=== PATIENT | male | born 1960 | race Caucasian/White ===

== ENCOUNTER 2018-09-21 14:19 | Emergency (ER) | payer MEDICAID, SELFPAY ==
--- NOTE | 2018-09-21 14:32 | ED.GENADUL_ITS ---
Discharge Plan Disposition Patient Disposition: AGAINST MEDICAL ADVICE Condition: Fair Discharge Details Chief Complaint: Cellulitis Clinical Impression: Finger infection Reason For Visit: infected finger / worse Primary Care Provider: Peter Spencer ED Provider: Diana Tom Home Meds and New Rx's Prescriptions: Continued amitriptyline 50 MG tablet 100 mg PO HS RF: 0 Lyrica 150 MG capsule 150 mg PO TID RF: 0 acetaminophen [Mapap Extra Strength] 500 MG tablet 2 mg PO RF: 0 docusate sodium [Colace] 100 MG capsule 1 tab PO TID RF: 0 oxycodone 15 mg Tablet, Oral Only 1 tab PO QID RF: 0 morphine 15 mg Tablet 15 mg PO TID PRNRF: 0 No Action sulfamethoxazole-trimethoprim [Bactrim DS] 800-160 mg tablet 2 tab PO Q12H Qty: 28 RF: 0 Discharge Instructions Instructions: Sulfamethoxazole/Trimethoprim (By mouth), Cellulitis (ED) Additional Instructions: You have elected to leave the emergency department AGAINST MEDICAL ADVICE. The risk of leaving AGAINST MEDICAL ADVICE are and/or permanent disability. You may return to the emergency department any time if you change your mind. Please return to the emergency department immediately if you develop any new or worsening symptoms or if you become otherwise concerned. It is extremely important that you return to the emergency department in the morning for check of your infection. Please continue to take your Keflex as previously prescribed, and please take your new prescription, Bactrim, in addition. 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 Pt is well and non-toxix on exam, FROM of affected digit, no other digits involved, lymphagitic streak into forearm and cellulitis into dorsum of hand. Concern for worsening cellulitis. Exam/hx not c/w sepsis, flexor tenosynovitis. Plan for xray, screening labs, IV vancomycin, wound culture, admission. xray okay. Pt refusing admission, states that his dog is in the car, that he has no one else to care for the dog, and also that he cannot miss work. I had a lengthy discussion with the Pt re: risks of leaving [facility], inc , loss of limb, permanent disability. Pt verbalizes understanding of these risks and continues to refuse admission. Plan to continue keflex, add bactrim, outpt f/u here for recheck tomorrow am. Lengthy discussion with Pt re: RTED precautions, that he may RTED at any time if he changes his mind, and importance of outpt f/u here tomorrow. Pt verbalizes understanding of plan. Medical Records Medical records reviewed: Yes I reviewed the patient's medical records. Imaging Data Radiologic Study: Attestation: I personally reviewed and interpreted this imaging study as follows: Radiologist's impression: RIGHT MIDDLE FINGER: 3 views. Degenerative changes are seen at the distal radial ulnar joint, the radial carpal joint, first carpal metacarpal joint and the interphalangeal joints of the hand. In the middle finger there is a prominent joint space narrowing and periarticular spurring at the distal interphalangeal joint and more moderate changes in the proximal interphalangeal joint. No acute fracture or dislocation is seen. There is soft tissue swelling of the right middle finger. No radiographic findings to suggest acute osteomyelitis are present. Note is again made of a pin within the distal radius. It is unchanged compared to the x-ray from 05/01/13. IMPRESSION: Soft tissue swelling of the right middle finger. No radiographic findings to suggest acute osteomyelitis. If there is continued concern MRI or 3-phase bone scan may be obtained. Lab Data Lab results reviewed: Yes I reviewed the patient's lab results. 09/21/18 16:51 Blood Blood Culture - Final NO GROWTH 120 HOURS 09/21/18 16:43 Blood Blood Culture - Final NO GROWTH 120 HOURS 09/21/18 19:00 Finger - Right Third Digit Wound Culture - Final Group C Streptococcus Normal Mar 09/21/18 19:00 Finger - Right Third Digit Gram Stain - Final Laboratory Tests Range/Units 09/21/18 09/21/18 09/21/18 16:03 16:03 16:03 WBC (4.4-10.8) k/cumm 12.61 H RBC (4.50-6.00) m/cumm 4.13 L Hgb (13.5-17.5) g/dL 12.4 L Hct (40.0-50.0) % 37.7 L MCV (80-95) fL 91.3 MCH (27.0-33.0) pg 30.0 MCHC (32.0-36.0) g/dL 32.9 RDW (11.8-14.1) % 12.8 Plt Count (130-400) x1000/uL 151 MPV (8.0-11.0) fL 9.6 Abs Immat Gran (auto) Immature Gran % 0.1 Neutrophils % 84.2 Lymphocytes % 9.1 Monocytes % 5.9 Eosinophils % 0.6 Basophils % 0.1 Absolute Neutrophils (1.2-6.7) k/cumm 10.62 H Band Neutrophils Absolute Lymphocytes (1.2-3.4) k/cumm 1.15 L Absolute Monocytes (0.11-0.7) k/cumm 0.74 H Absolute Eosinophils (0.0-0.7) k/cumm 0.08 Absolute Basophils (0.0-0.2) k/cumm 0.01 Metamyelocytes Myelocytes Promyelocytes Nucleated RBCs Differential Comment Atypical Lymphocytes Other Cell Type RBC Morphology Polychromasia Hypochromasia Poikilocytosis Basophilic Stippling Anisocytosis Microcytosis Macrocytosis Spherocytes Target Cells Tear Drop Cells Ovalocytes Stomatocytes [place] Bodies Cm Cells Acanthocytes (Spur) Schistocytes ESR (1-20) MM/HR Sodium (136-145) mmol/L 138 Potassium (3.5-5.1) mmol/L 3.6 Chloride (98-107) mmol/L 101 Carbon Dioxide (21.0-32.0) mmol/L 28.7 Anion Gap (3-11) mmol/L 8.3 BUN (7-18) mg/dL 22 H Creatinine (0.70-1.30) mg/dL 1.06 Estimated GFR/1.73 m2 (mL/min/1.73m2) >= 60.00 Glucose (70-100) mg/dL 104 H Lactate (0.6-1.4) mmol/L 0.7 Calcium (8.5-10.1) mg/dL 8.5 Total Bilirubin (0.2-1.0) mg/dL 0.6 AST (15-37) U/L 14 L ALT (12-78) U/L 22 Alkaline Phosphatase (46-116) U/L 147 H C-Reactive Protein (0.0-0.3) mg/dL Total Protein (6.4-8.2) g/dL 6.9 Albumin (3.4-5.0) g/dL 3.4 Range/Units 09/21/18 09/21/18 09/22/18 16:03 16:03 05:35 WBC (4.4-10.8) k/cumm Cancelled RBC (4.50-6.00) m/cumm Cancelled Hgb (13.5-17.5) g/dL Cancelled Hct (40.0-50.0) % Cancelled MCV (80-95) fL Cancelled MCH (27.0-33.0) pg Cancelled MCHC (32.0-36.0) g/dL Cancelled RDW (11.8-14.1) % Cancelled Plt Count (130-400) x1000/uL Cancelled MPV (8.0-11.0) fL Cancelled Abs Immat Gran (auto) Cancelled Immature Gran % Cancelled Neutrophils % Cancelled Lymphocytes % Cancelled Monocytes % Cancelled Eosinophils % Cancelled Basophils % Cancelled Absolute Neutrophils (1.2-6.7) k/cumm Cancelled Band Neutrophils Cancelled Absolute Lymphocytes (1.2-3.4) k/cumm Cancelled Absolute Monocytes (0.11-0.7) k/cumm Cancelled Absolute Eosinophils (0.0-0.7) k/cumm Cancelled Absolute Basophils (0.0-0.2) k/cumm Cancelled Metamyelocytes Cancelled Myelocytes Cancelled Promyelocytes Cancelled Nucleated RBCs Cancelled Differential Comment Cancelled Atypical Lymphocytes Cancelled Other Cell Type Cancelled RBC Morphology Cancelled Polychromasia Cancelled Hypochromasia Cancelled Poikilocytosis Cancelled Basophilic Stippling Cancelled Anisocytosis Cancelled Microcytosis Cancelled Macrocytosis Cancelled Spherocytes Cancelled Target Cells Cancelled Tear Drop Cells Cancelled Ovalocytes Cancelled Stomatocytes Cancelled [place] Bodies Cancelled [place] Cells Cancelled Acanthocytes (Spur) Cancelled Schistocytes Cancelled ESR (1-20) MM/HR 18 Sodium (136-145) mmol/L Potassium (3.5-5.1) mmol/L Chloride (98-107) mmol/L Carbon Dioxide (21.0-32.0) mmol/L Anion Gap (3-11) mmol/L BUN (7-18) mg/dL Creatinine (0.70-1.30) mg/dL Estimated GFR/1.73 m2 (mL/min/1.73m2) Glucose (70-100) mg/dL Lactate (0.6-1.4) mmol/L Calcium (8.5-10.1) mg/dL Total Bilirubin (0.2-1.0) mg/dL AST (15-37) U/L ALT (12-78) U/L Alkaline Phosphatase (46-116) U/L C-Reactive Protein (0.0-0.3) mg/dL 22.45 H Total Protein (6.4-8.2) g/dL Albumin (3.4-5.0) g/dL Range/Units 09/22/18 09/22/18 05:35 05:35 WBC (4.4-10.8) k/cumm RBC (4.50-6.00) m/cumm Hgb (13.5-17.5) g/dL Hct (40.0-50.0) % MCV (80-95) fL MCH (27.0-33.0) pg MCHC (32.0-36.0) g/dL RDW (11.8-14.1) % Plt Count (130-400) x1000/uL MPV (8.0-11.0) fL Abs Immat Gran (auto) Immature Gran % Neutrophils % Lymphocytes % Monocytes % Eosinophils % Basophils % Absolute Neutrophils (1.2-6.7) k/cumm Band Neutrophils Absolute Lymphocytes (1.2-3.4) k/cumm Absolute Monocytes (0.11-0.7) k/cumm Absolute Eosinophils (0.0-0.7) k/cumm Absolute Basophils (0.0-0.2) k/cumm Metamyelocytes Myelocytes Promyelocytes Nucleated RBCs Differential Comment Atypical Lymphocytes Other Cell Type RBC Morphology Polychromasia Hypochromasia Poikilocytosis Basophilic Stippling Anisocytosis Microcytosis Macrocytosis Spherocytes Target Cells Tear Drop Cells Ovalocytes Stomatocytes [place] Bodies [place] Cells Acanthocytes (Spur) Schistocytes ESR (1-20) MM/HR Cancelled Sodium (136-145) mmol/L Potassium (3.5-5.1) mmol/L Chloride (98-107) mmol/L Carbon Dioxide (21.0-32.0) mmol/L Anion Gap (3-11) mmol/L BUN (7-18) mg/dL Creatinine (0.70-1.30) mg/dL Estimated GFR/1.73 m2 (mL/min/1.73m2) Glucose (70-100) mg/dL Lactate (0.6-1.4) mmol/L Calcium (8.5-10.1) mg/dL Total Bilirubin (0.2-1.0) mg/dL AST (15-37) U/L ALT (12-78) U/L Alkaline Phosphatase (46-116) U/L C-Reactive Protein (0.0-0.3) mg/dL Cancelled Total Protein (6.4-8.2) g/dL Albumin (3.4-5.0) g/dL HPI General Mode of arrival: ambulatory . Date/Time Provider Initiated Documentation: 09/21/18 14:31 . Limitations to Documentation: no limitations . Information obtained by: patient, RN notes reviewed and old records reviewed . 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 Patient reports that 2 weeks ago he cut his right middle finger on a piece of metal while working on his car. Patient reports that the wound seems to be doing okay until a few days ago when it began to look infected to him. He saw his PCP 2 days ago for this and was started on Keflex at the time. Patient reports he has had 6 doses of Keflex, and was seen today at his PCPs office for wound check. Was sent here for IV antibiotics as the wound appeared to have streaking up the arm. Patient reports that overall the finger feels improved since he started antibiotics. He has some pain at the finger that he reports is mild. He denies any other pain. Denies fevers, nausea/vomiting, shortness of breath, cough, numbness/tingling. No recent illn esses. Has been eating and drinking as usual. Related Data Home Medications Medication Instructions Recorded Confirmed Lyrica 150 mg PO TID 08/13/14 09/22/18 acetaminophen [Mapap Extra 2 mg PO 08/13/14 08/13/14 Strength] amitriptyline 100 mg PO HS 08/13/14 09/22/18 docusate sodium [Colace] 1 tab PO TID 08/13/14 09/22/18 morphine 15 mg PO TID PRN 09/21/18 09/22/18 oxycodone 1 tab PO QID 09/21/18 09/22/18 sulfamethoxazole-trimethoprim 2 tab PO Q12H #28 tab 09/22/18 [Bactrim DS] Previous Rx's Medication Instructions Recorded sulfamethoxazole-trimethoprim 2 tab PO Q12H #28 tab 09/22/18 [Bactrim DS] Allergies Allergy/AdvReac Type Severity Reaction Status Date / Time iodine Allergy Severe Topical Unverified 09/22/18 15:21 Irritation copper Allergy Intermediate Unverified 09/22/18 15:21 chocolate flavor AdvReac Unverified 09/22/18 15:21 Review of Systems Review of Systems Constitutional: denies fevers Eyes: denies eye pain ENT: denies facial pain, dental pain, sore throat Cardiovascular: denies chest pain, edema Respiratory: denies SOB, cough GI: denies abdominal pain, vomiting, diarrhea : denies flank pain MSK: denies back pain, neck pain, arthralgias, myalgias Skin: reports finger rash Neuro: denies headaches, lightheadedness, weakness PFSH Social History Smoking/Tobacco Use Status: Unknown Exam Narrative Exam Narrative: Constitutional: well and [id number], pleasant, conversing normally HENT: head atraumatic, normocephalic normal inspection, mucous membranes moist Eyes: conjunctiva normal, sclera normal, pupils 3mm b/l Neck: no stridor, normal ROM, trachea midline Chest: normal inspection Resp: normal work of breathing, LCTAB Cardio: normal rate, normal rhythm, no murmur appreciated Back: normal inspection, no rash Skin: warm, dry, normal color, no rash Neuro: alert, not altered, grossly non-focal, normal tone Ext: left infex finger with edema, erythema over dorsal PIP, erythema extending into dorsum of hand with erythematous streak extending proximally into forearm. Scant drainage from ulceration over PIP. dorsal finger TTP. Able to range normally. No volar TTP, no pain with extension. No TTP of hand. Good cap refill of finger. Radial pulse intact. RUE amputation above elbow. Psych: normal mood, normal affect, normal behavior
[2018-09-21 14:34] VITALS: BP 102/58; PULSE 78; RESP 14; TEMP 36; O2SAT 97
[2018-09-21 16:14] LABS: Lactate-non-spesis 0.7 mmol/L (0.6-1.4)
--- NOTE | 2018-09-21 16:17 | DI.RAD_ITS ---
SYMPTOM/DIAGNOSIS: DISTAL FINGER INFECTION. RIGHT MIDDLE FINGER: 3 views. Degenerative changes are seen at the distal radial ulnar joint, the radial carpal joint, first carpal metacarpal joint and the interphalangeal joints of the hand. In the middle finger there is a prominent joint space narrowing and periarticular spurring at the distal interphalangeal joint and more moderate changes in the proximal interphalangeal joint. No acute fracture or dislocation is seen. There is soft tissue swelling of the right middle finger. No radiographic findings to suggest acute osteomyelitis are present. Note is again made of a pin within the distal radius. It is unchanged compared to the x-ray from 05/01/13. IMPRESSION: Soft tissue swelling of the right middle finger. No radiographic findings to suggest acute osteomyelitis. If there is continued concern MRI or 3-phase bone scan may be obtained.
[2018-09-21 16:18] LABS: Abs Immature Grans 0.01 k/cumm (0.0-0.09); Absolute Basophil Count 0.01 k/cumm (0.0-0.2); Absolute Eosinophil Count 0.08 k/cumm (0.0-0.7); Absolute Lymphocyte Count 1.15 k/cumm (1.2-3.4); Basophils % 0.1; Eosinophils % 0.6; HCT 37.7 % (40.0-50.0); HGB 12.4 g/dL (13.5-17.5); Immature Grans % 0.1; Lymphocytes % 9.1; Mean Corp. HGB Concentration 32.9 g/dL (32.0-36.0); Mean Corpuscular Volume 91.3 fL (80-95); Mean Platelet Volume 9.6 fL (8.0-11.0); Monocytes % 5.9; Neutrophils % 84.2; Platelet Count 151 x1000/uL (130-400); RBC 4.13 m/cumm (4.50-6.00); RBC Distribution Width 12.8 % (11.8-14.1); White Blood Cell Count 12.61 k/cumm (4.4-10.8)
[2018-09-21 16:19] LABS: Absolute Monocyte Count 0.74 k/cumm (0.11-0.7); Absolute Neutrophil Count 10.62 k/cumm (1.2-6.7)
[2018-09-21 16:29] LABS: C-Reactive Protein 22.45 mg/dL (0.0-0.3)
[2018-09-21 16:32] LABS: ALT 22 U/L (12-78); AST 14 U/L (15-37); Albumin 3.4 g/dL (3.4-5.0); Alkaline Phosphatase 147 U/L (46-116); Anion Gap 8.3 mmol/L (3-11); BUN 22 mg/dL (7-18); Bilirubin, Total 0.6 mg/dL (0.2-1.0); CO2 28.7 mmol/L (21.0-32.0); CREATININE 1.06 mg/dL (0.70-1.30); Calcium 8.5 mg/dL (8.5-10.1); Chloride 101 mmol/L (98-107); Glucose 104 mg/dL (70-100); Potassium 3.6 mmol/L (3.5-5.1); Sodium 138 mmol/L (136-145); Total Protein 6.9 g/dL (6.4-8.2)
--- NOTE | 2018-09-21 16:40 | DI.VRAD_ITS ---
EXAM: XR Right Finger(s), 2 or More Views EXAM DATE/TIME: 09/21/2018 3:50 PM CLINICAL HISTORY: 58 years old, male; Signs and symptoms; Other: Distal finger infection TECHNIQUE: XR Right finger minimum 2 views. COMPARISON: CR RIGHT HAND COMPLETE 05/01/2013 3:49 PM FINDINGS: Bones/joints: There are degenerative changes of the DIP joint of the right third finger. There is no evidence of osteomyelitis. There is no evidence of a fracture or a dislocation. There is a pin within the distal radius. There are degenerative changes of the radial ulnar joint. There are degenerative changes of the first metacarpal carpal joint. There are degenerative changes of the DIP joints of the second through fifth fingers. Soft tissues: There is soft tissue swelling of the right third finger. IMPRESSION: 1. Soft tissue swelling at the level of the third finger. No evidence of osteomyelitis at this time. If osteomyelitis is of clinical concern further evaluation with a three-phase nuclear medicine bone scan versus MRI examination could be obtained as more sensitive study. 2. Degenerative changes as described above. Dictated and Authenticated by: Blaise Márquez MD. Ordering:PAULINE VILLA MD
[2018-09-21] MEDS: VANCOMYCIN 1,500 MG in Normal Saline 500 ML 333.3333 MG IVPB (16:53)
[2018-09-21 16:55] LABS: ESR 18 MM/HR (1-20)
== END 2018-09-21 19:08 | disposition left against medical advice (07) ==
PROVIDERS: Emergency Provider Student in an Organized Health Care Education/Training Program; PCP Internal Medicine
DX: L08.9 Local infection of the skin and subcutaneous tissue, unspecified (principal); B95.4 Other streptococcus as the cause of diseases classified elsewhere; L03.021 Acute lymphangitis of right finger; Z53.29 Procedure and treatment not carried out because of patient's decision for other reasons
CPT/HCPCS: 36410; 36415; 80053; 85652; 87040; 87077; 96365; 96366; 99284; 73140; 83605; 85025; 86140; 87070; 87205

== ENCOUNTER 2018-09-22 12:40 | Emergency (ER) | payer MEDICAID, SELFPAY ==
[2018-09-22 12:48] VITALS: BP 133/86; PULSE 74; RESP 16; TEMP 36.5; O2SAT 96
--- NOTE | 2018-09-22 13:05 | W.ED.GENAD ---
Discharge Plan Disposition Patient Disposition: HOME Condition: Serious Discharge Details Chief Complaint: Recheck Clinical Impression: Finger abrasion, infected, Cellulitis of finger Primary Care Provider: Peter Spencer ED Provider: So Pennington Home Meds and New Rx's Prescriptions: New sulfamethoxazole-trimethoprim [Bactrim DS] 800-160 mg tablet 2 tab PO Q12H Qty: 28 RF: 0 Continued amitriptyline 50 MG tablet 100 mg PO HS RF: 0 Lyrica 150 MG capsule 150 mg PO TID RF: 0 acetaminophen [Mapap Extra Strength] 500 MG tablet 2 mg PO RF: 0 docusate sodium [Colace] 100 MG capsule 1 tab PO TID RF: 0 oxycodone 15 mg Tablet, Oral Only 1 tab PO QID RF: 0 morphine 15 mg Tablet 15 mg PO TID PRNRF: 0 Discontinued sulfamethoxazole-trimethoprim [Bactrim DS] 800-160 mg tablet 1 tab PO BID Qty: 19 RF: 0 Discharge Instructions Instructions: Cellulitis (ED) Additional Instructions: Keep wound clean, dry, covered. Please wear gloves while at work. Please soak digit as advised by Dr. Dunaway. Please take prescription for Bactrim as prescribed today. Stop other antibiotics. You have appoitment with primary care tomorrow with Dr. Nino at 10:45AM for reevaluation of your finger. Please keep this appointment, if you need to change, please call the office. [phone]. If you develop fevers/chills, streaking, increased pain or other new/worsening symptoms please seek care urgently once again. Referrals: Peter Spencer MD [Primary Care Provider] - Discharge Data Discharge Date/Time-TO BE ENTERED AT DEPARTURE: 09/22/18 16:25 Medical Decision Making Patient is a 58-year-old [id number] male presenting today for follow-up evaluation of the right middle finger. Please see Dr. Tom's note from yesterday regarding initial assessment. Per the patient's history, he initially cut his finger approximately 2 weeks ago. However, stated that the wound was healing well until last few days he has noted swelling, erythema and warmth. He was evaluated by his primary care and was begun on Keflex. Spite this, wound continued to increase in size and patient began having streaking along the dorsal aspect of the hand. Patient came in yesterday where imaging and labs for evaluation was completed. Patient was given a dose of Vanco. It was recommended that the patient be admitted for continued IV antibiotics. However, after this was agreed upon, the patient decided to leave AGAINST MEDICAL ADVICE. Patient was prescribed Bactrim to be taken concomitantly with his Keflex and was advised to follow-up for reevaluation of his wound On exam, PIP joint is grossly swollen, erythematous with an open wound on the dorsal aspect that does have purulent discharge. Open wound is approximately 7 mm in diameter. No streaking is noted. This does sound improved from yesterday as Dr. Tom who reported that streaking was noted on the dorsal aspect of hand. Patient is able to flex and extend against resistance as well as passively without any discomfort. Will reassess patient's blood work and re-dose the patient with vancomycin Consulted with Dr. Dunaway will come evaluate the patient. At this point, I do not feel that he has synovitis. However, I am questioning the need for admission. Patient continues to decline admission. Hoping that Dr. Salazar may be able to give us advice on continued outpatient management. Dr. Dunaway evaluated the patient. Does not feel the patient is a surgical candidate at this time. I evaluated the digit, does not note any pain with passive or active flexion or extension. Does not note any area of fluctuance that needs to be drained. Feels that this seems to be draining well on its own. He recommended stopping the Keflex and placing the patient on 2 DS Bactrim tablets BID which is increase from dosing completed yesterday. He agreed to patient getting second dose of IV Vancomycin while here. Repeat laboratory eval significant for downtrending WBC. Alk phos is elevated but this is typical for patient. Patient received his IV vancomycin. Wound was redressed by nursing staff. Patient received his IV vancomycin. Wound was redressed by nursing staff. I advised that he try to keep this covered and wear gloves, particularly when at work. New prescription for Bactrim was given as advised by Dr. Dunaway. Patient will stop Keflex as advised by Dr. Dunaway. I was able to obtain an appointment for tomorrow for reevaluation by his primary care. We discussed new/worsening symptoms and when to seek care urgently once again. All of his questions and concerns were addressed and he is in agreement with this plan. HPI General Mode of arrival: ambulatory. Date/Time Provider Initiated Documentation: 09/22/18 13:03. Limitations to Documentation: no limitations. History of Present Illness 58 year old M presents to the emergency department with the chief complaint of right middle digit infection, described as mild, and is localized to the right and upper extremity. Patient reports no radiation. Patient started experiencing this day(s) and it has been constant. Patient notes denies chest pain, cough, fever/chills, loss of appetite, nausea/vomiting and shortness of breath. Patient did receive the following treatments prior to arrival, other (Vanco yesterday) Related Data Home Medications Medication Instructions Recorded Confirmed Lyrica 150 mg PO TID 08/13/14 09/22/18 acetaminophen [Mapap Extra 2 mg PO 08/13/14 08/13/14 Strength] amitriptyline 100 mg PO HS 08/13/14 09/22/18 docusate sodium [Colace] 1 tab PO TID 08/13/14 09/22/18 morphine 15 mg PO TID PRN 09/21/18 09/22/18 oxycodone 1 tab PO QID 09/21/18 09/22/18 sulfamethoxazole-trimethoprim 2 tab PO Q12H #28 tab 09/22/18 [Bactrim DS] Previous Rx's Medication Instructions Recorded sulfamethoxazole-trimethoprim 2 tab PO Q12H #28 tab 09/22/18 [Bactrim DS] Allergies Allergy/AdvReac Type Severity Reaction Status Date / Time iodine Allergy Severe Topical Unverified 09/22/18 15:21 Irritation copper Allergy Intermediate Unverified 09/22/18 15:21 chocolate flavor AdvReac Unverified 09/22/18 15:21 General Stated Complaint: Recheck TALITA: 4 Review of Systems Constitutional Reports as per HPI, Denies chills, Denies fever(s), Denies headache(s) and Denies weakness ENT Denies headache(s) Cardiovascular Reports as per HPI Respiratory Reports as per HPI and Denies cough Musculoskeletal Reports as per HPI, Denies myalgias, Denies arthralgias, Reports joint swelling, Reports limited range of motion, Denies numbness and Denies tingling Integumentary/Breasts Reports as per HPI and Reports wounds (patient has open wound to dorsal DIP middline finger, swollen) Neurologic Denies headache(s), Denies numbness, Denies tingling and Denies weakness [facility] Social History Smoking/Tobacco Use Status: Unknown Exam Const General: cooperative, healthy appearing, comfortable, no acute distress, well developed and well groomed Nutritional Appearance: well nourished and overweight Orientation: alert and awake Resp Effort & Inspection: normal respiratory effort, able to speak in complete sentences and no respiratory distress Auscultation: no rales, no rhonchi and no wheezes Cardio Rate: regular rate Rhythm: regular rhythm Heart Sounds: S1 normal and S2 normal Skin General skin exam: erythema, no fluctuance, induration and purpura Wounds: wound noted (patient has open wound dorsal DIP right middle digit, surrounding eryhtema) Neuro General: alert and awake Cognition: normal cognition Speech: speech normal Gait: normal gait Motor: muscle tone normal throughout Sensory Exam: no sensory deficits noted Extrem Right upper extremity: normal capillary refill and edema; abnormal to inspection (skin changes as above. No pain with flexion/extension DIP) and joint enlargement noted Left upper extremity: abnormal to inspection (amputation) Psych Appearance: grossly normal and well kempt Mental Status: mental status grossly normal Speech and Movement: speech and movement normal Course Vital Signs Temperature 36.5 C 09/22/18 12:48 Pulse 74 09/22/18 12:48 Respiratory Rate 16 09/22/18 12:48 Blood Pressure 133/86 09/22/18 12:48 Pulse Oximetry 96 09/22/18 12:48 Temperature 36.5 C 09/22/18 12:48 Temperature Source Skin 09/22/18 12:48 Pulse 74 09/22/18 12:48 Respiratory Rate 16 09/22/18 12:48 Blood Pressure 133/86 09/22/18 12:48 Blood Pressure Position Sitting 09/22/18 12:48 Pulse Oximetry 96 09/22/18 12:48 Oxygen Delivery Method Room Air 09/22/18 12:48 Oxygen Flow Rate 0 09/22/18 12:48
--- NOTE | 2018-09-22 13:54 | ED.GENADUL_ITS ---
Discharge Plan Disposition Patient Disposition: HOME Condition: Serious Discharge Details Chief Complaint: Recheck Clinical Impression: Finger abrasion, infected, Cellulitis of finger Primary Care Provider: Peter Spencer ED Provider: So Pennington Home Meds and New Rx's Prescriptions: New sulfamethoxazole-trimethoprim [Bactrim DS] 800-160 mg tablet 2 tab PO Q12H Qty: 28 RF: 0 Continued amitriptyline 50 MG tablet 100 mg PO HS RF: 0 Lyrica 150 MG capsule 150 mg PO TID RF: 0 acetaminophen [Mapap Extra Strength] 500 MG tablet 2 mg PO RF: 0 docusate sodium [Colace] 100 MG capsule 1 tab PO TID RF: 0 oxycodone 15 mg Tablet, Oral Only 1 tab PO QID RF: 0 morphine 15 mg Tablet 15 mg PO TID PRNRF: 0 Discontinued sulfamethoxazole-trimethoprim [Bactrim DS] 800-160 mg tablet 1 tab PO BID Qty: 19 RF: 0 Discharge Instructions Instructions: Cellulitis (ED) Additional Instructions: Keep wound clean, dry, covered. Please wear gloves while at work. Please soak digit as advised by Dr. Dunaway. Please take prescription for Bactrim as prescribed today. Stop other antibiotics. You have appoitment with primary care tomorrow with Dr. Nino at 10:45AM for reevaluation of your finger. Please keep this appointment, if you need to change, please call the office. [phone]. If you develop fevers/chills, streaking, increased pain or other new/worsening symptoms please seek care urgently once again. Referrals: Peter Spencer MD [Primary Care Provider] - Discharge Data Discharge Date/Time-TO BE ENTERED AT DEPARTURE: 09/22/18 16:25 Medical Decision Making Patient is a 58-year-old [id number] male presenting today for follow-up evaluation of the right middle finger. Please see Dr. Tom's note from yesterday regarding initial assessment. Per the patient's history, he initially cut his finger approximately 2 weeks ago. However, stated that the wound was healing well until last few days he has noted swelling, erythema and warmth. He was evaluated by his primary care and was begun on Keflex. Spite this, wound continued to increase in size and patient began having streaking along the dorsal aspect of the hand. Patient came in yesterday where imaging and labs for evaluation was completed. Patient was given a dose of Vanco. It was recommended that the patient be admitted for continued IV antibiotics. However, after this was agreed upon, the patient decided to leave AGAINST MEDICAL ADVICE. Patient was prescribed Bactrim to be taken concomitantly with his Keflex and was advised to follow-up for reevaluation of his wound On exam, PIP joint is grossly swollen, erythematous with an open wound on the dorsal aspect that does have purulent discharge. Open wound is approximately 7 mm in diameter. No streaking is noted. This does sound improved from yesterday as Dr. Tom who reported that streaking was noted on the dorsal aspect of hand. Patient is able to flex and extend against resistance as well as passively without any discomfort. Will reassess patient's blood work and re- dose the patient with vancomycin Consulted with Dr. Dunaway will come evaluate the patient. At this point, I do not feel that he has synovitis. However, I am questioning the need for admission. Patient continues to decline admission. Hoping that Dr. Salazar may be able to give us advice on continued outpatient management. Dr. Dunaway evaluated the patient. Does not feel the patient is a surgical candidate at this time. I evaluated the digit, does not note any pain with passive or active flexion or extension. Does not note any area of fluctuance t hat needs to be drained. Feels that this seems to be draining well on its own. He recommended stopping the Keflex and placing the patient on 2 DS Bactrim tablets BID which is increase from dosing completed yesterday. He agreed to patient getting second dose of IV Vancomycin while here. Repeat laboratory eval significant for downtrending WBC. Alk phos is elevated but this is typical for patient. Patient received his IV vancomycin. Wound was redressed by nursing staff. Patient received his IV vancomycin. Wound was redressed by nursing staff. I advised that he try to keep this covered and wear gloves, particularly when at work. New prescription for Bactrim was given as advised by Dr. Dunaway. Patient will stop Keflex as advised by Dr. Dunaway. I was able to obtain an appointment for tomorrow for reevaluation by his primary care. We discussed new/worsening symptoms and when to seek care urgently once again. All of his questions and concerns were addressed and he is in agreement with this plan. HPI General Mode of arrival: ambulatory . Date/Time Provider Initiated Documentation: 09/22/18 13:03 . Limitations to Documentation: no limitations . History of Present Illness 58 year old M presents to the emergency department with the chief complaint of right middle digit infection, described as mild, and is localized to the right and upper extremity. Patient reports no radiation. Patient started experiencing this day(s) and it has been constant. Patient notes denies chest pain, cough, fever/chills, loss of appetite, nausea/vomiting and shortness of breath. Patient did receive the following treatments prior to arrival, other (Vanco yesterday) Related Data Home Medications Medication Instructions Recorded Confirmed Lyrica 150 mg PO TID 08/13/14 09/22/18 acetaminophen [Mapap Extra 2 mg PO 08/13/14 08/13/14 Strength] amitriptyline 100 mg PO HS 08/13/14 09/22/18 docusate sodium [Colace] 1 tab PO TID 08/13/14 09/22/18 morphine 15 mg PO TID PRN 09/21/18 09/22/18 oxycodone 1 tab PO QID 09/21/18 09/22/18 sulfamethoxazole-trimethoprim 2 tab PO Q12H #28 tab 09/22/18 [Bactrim DS] Previous Rx's Medication Instructions Recorded sulfamethoxazole-trimethoprim 2 tab PO Q12H #28 tab 09/22/18 [Bactrim DS] Allergies Allergy/AdvReac Type Severity Reaction Status Date / Time iodine Allergy Severe Topical Unverified 09/22/18 15:21 Irritation copper Allergy Intermediate Unverified 09/22/18 15:21 chocolate flavor AdvReac Unverified 09/22/18 15:21 General Stated Complaint: Recheck TALITA: 4 Review of Systems Constitutional Reports as per HPI, Denies chills, Denies fever(s), Denies headache(s) and Denies weakness ENT Denies headache(s) Cardiovascular Reports as per HPI Respiratory Reports as per HPI and Denies cough Musculoskeletal Reports as per HPI, Denies myalgias, Denies arthralgias, Reports joint swelling, Reports limited range of motion, Denies numbness and Denies tingling Integumentary/Breasts Reports as per HPI and Reports wounds (patient has open wound to dorsal DIP middline finger, swollen) Neurologic Denies headache(s), Denies numbness, Denies tingling and Denies weakness FOR[facility]LY [facility] Social History Smoking/Tobacco Use Status: Unknown Exam Const General: cooperative, healthy appearing, comfortable, no acute distress, well developed and well groomed Nutritional Appearance: well nourished and overweight Orientation: alert and awake Resp Effort & Inspection: normal respiratory effort, able to speak in complete sentences and no respiratory distress Auscultation: no rales, no rhonchi and no wheezes Cardio Rate: regular rate Rhythm: regular rhythm Heart Sounds: S1 normal and S2 normal Skin General skin exam: erythema, no fluctuance, induration and purpura Wounds: wound noted (patient has open wound dorsal DIP right middle digit, surrounding eryhtema) Neuro General: alert and awake Cognition: normal cognition Speech: speech normal Gait: normal gait Motor: muscle tone normal throughout Sensory Exam: no sensory deficits noted Extrem Right upper extremity: normal capillary refill and edema; abnormal to inspection (skin changes as above. No pain with flexion/extension DIP) and joint enlargement noted Left upper extremity: abnormal to inspection (amputation) Psych Appearance: grossly normal and well kempt Mental Status: mental status grossly normal Speech and Movement: speech and movement normal Course Vital Signs Temperature 36.5 C 09/22/18 12:48 Pulse 74 09/22/18 12:48 Respiratory Rate 16 09/22/18 12:48 Blood Pressure 133/86 09/22/18 12:48 Pulse Oximetry 96 09/22/18 12:48 Temperature 36.5 C 09/22/18 12:48 Temperature Source Skin 09/22/18 12:48 Pulse 74 09/22/18 12:48 Respiratory Rate 16 09/22/18 12:48 Blood Pressure 133/86 09/22/18 12:48 Blood Pressure Position Sitting 09/22/18 12:48 Pulse Oximetry 96 09/22/18 12:48 Oxygen Delivery Method Room Air 09/22/18 12:48 Oxygen Flow Rate 0 09/22/18 12:48
[2018-09-22] MEDS: Sulfameth/Trimeth DS TAB 1 TAB PO (13:57)
[2018-09-22 14:03] LABS: Abs Immature Grans 0.02 k/cumm (0.0-0.09); Absolute Basophil Count 0.01 k/cumm (0.0-0.2); Absolute Eosinophil Count 0.06 k/cumm (0.0-0.7); Absolute Lymphocyte Count 0.99 k/cumm (1.2-3.4); Absolute Neutrophil Count 9.93 k/cumm (1.2-6.7); Basophils % 0.1; Eosinophils % 0.5; HCT 38.2 % (40.0-50.0); HGB 12.6 g/dL (13.5-17.5); Immature Grans % 0.2; Lymphocytes % 8.5; Mean Corpuscular Hemoglobin 30.3 pg (27.0-33.0); Mean Corpuscular Volume 91.8 fL (80-95); Mean Platelet Volume 9.8 fL (8.0-11.0); Monocytes % 5.2; Neutrophils % 85.5; Platelet Count 169 x1000/uL (130-400); RBC 4.16 m/cumm (4.50-6.00); RBC Distribution Width 12.6 % (11.8-14.1); White Blood Cell Count 11.61 k/cumm (4.4-10.8)
[2018-09-22 14:13] LABS: ALT 23 U/L (12-78); AST 14 U/L (15-37); Albumin 3.4 g/dL (3.4-5.0); Alkaline Phosphatase 152 U/L (46-116); Anion Gap 8.9 mmol/L (3-11); BUN 16 mg/dL (7-18); Bilirubin, Total 0.4 mg/dL (0.2-1.0); CO2 29.1 mmol/L (21.0-32.0); CREATININE 0.89 mg/dL (0.70-1.30); Calcium 8.6 mg/dL (8.5-10.1); Chloride 100 mmol/L (98-107); Glucose 96 mg/dL (70-100); Sodium 138 mmol/L (136-145); Total Protein 7.3 g/dL (6.4-8.2)
[2018-09-22] MEDS: Sulfameth/Trimeth DS TAB 1 TAB (14:36)
[2018-09-22] MEDS: VANCOMYCIN 1,500 MG in Normal Saline 500 ML 333.3333 MG IVPB (14:37)
[2018-09-22 16:23] VITALS: BP 138/76; PULSE 75; RESP 16; TEMP 37.4; O2SAT 97
== END 2018-09-22 16:25 | disposition home or self-care (01) ==
PROVIDERS: Emergency Provider Physician Assistant; PCP Internal Medicine
DX: L03.011 Cellulitis of right finger (principal)
CPT/HCPCS: 36415; 80053; 96365; 96366; 99284; 85025

== ENCOUNTER 2021-02-03 15:42 | Outpatient (REF) | payer MEDICAID, SELFPAY ==
[2021-02-07 12:43] LABS: Codeine Negative ng/mL (Cutoff: 25); Dihydrocodeine Negative ng/mL (Cutoff: 25); Hydrocodone Negative ng/mL (Cutoff: 25); Hydromorphone 606 ng/mL (Cutoff: 25); Morphine 57084 ng/mL (Cutoff: 25); Naloxone Negative ng/mL (Cutoff: 25); Norhydrocodone Negative ng/mL (Cutoff: 25); Noroxycodone 3717 ng/mL (Cutoff: 25); Noroxymorphone 591 ng/mL (Cutoff: 25); Opiates Interpretation Positive.
[2021-02-11 14:23] LABS: Nortriptyline 130 ng/mL
== END 2021-02-03 15:43 | disposition home or self-care (01) ==
LOC: NCHCN 15:42
PROVIDERS: PCP Internal Medicine; Visit Provider Internal Medicine
DX: G54.7 Phantom limb syndrome without pain (principal); F17.220 Nicotine dependence, chewing tobacco, uncomplicated; Z79.899 Other long term (current) drug therapy
CPT/HCPCS: 80333; 80361; 80362

== ENCOUNTER 2021-12-25 17:03 | Inpatient (IN) | payer MEDICAID, SELFPAY ==
[2021-12-25] VITALS (25 sets, daily range): BP systolic 77–160; BP diastolic 55–129; PULSE 71–130; RESP 8–25; TEMP 36.6–37.3; O2SAT 87–97
--- NOTE | 2021-12-25 17:00 | RT.EKG_ITS ---
APPROVED REPORT Exam: Resting ECG Reason for Exam: Dyspnea Patient Location: E HR:86 bpm ECG Measurements Heart Rate 86 AXIS VT 138 P -79 QRSd 95 QRS -59 QT 359 T -62 QTc 429 Conclusion NSR Left ventricular hypertrophy. Baseline abnormality/artifact
--- NOTE | 2021-12-25 17:00 | DI.CT_ITS ---
Exam(s) CT HEAD WO EXAM: CT HEAD WO CLINICAL HISTORY: AMS. TECHNIQUE: Imaging Protocol: Axial computed tomography images with coronal and sagittal reformatted images were created and reviewed COMPARISON: CT HEAD WITHOUT CONTRAST from 06/27/2011 FINDINGS: The ventricular system is normal in appearance. No evidence of acute intracranial hemorrhage, mass effect, or midline shift. The orbital structures are unremarkable. The temporal bone structures appear intact. Calvarium: Normal. Visualized Paranasal sinuses/Mastoids: Clear. IMPRESSION: Normal cranial CT. RADIATION DOSE DELIVERED: 671.29mGy.cm Total DLP 671.29mGy.cm Total DLP !Error CTDIvol DATA REPOSITORY: All CT scans at this facility are submitted to the National Radiology Data Registry (NRDR) Dose Index Registry (DIR) with the [employer] (A[employer]). RADIATION OPTIMIZATION: All CT scans at this facility use at least one of these dose optimization te chniques: automated exposure control; mA and/or kV adjustment per patient size (includes targeted exa ms where dose is matched to clinical indication); or iterative reconstruction.
[2021-12-25 17:42] LABS: Lactate 1.5 mmol/L (0.6-1.4)
[2021-12-25 17:43] LABS: Abs Immature Grans 0.09 10^3/uL (0.0-0.06); Absolute Basophil Count 0.01 10^3/uL (0.0-0.2); Absolute Eosinophil Count 0.01 10^3/uL (0.0-0.7); Absolute Lymphocyte Count 0.59 10^3/uL (1.2-3.4); Absolute Monocyte Count 0.24 10^3/uL (0.1-0.8); Absolute Neutrophil Count 7.92 10^3/uL (1.2-6.7); Basophils % 0.1; Eosinophils % 0.1; HCT 38.5 % (40.0-50.0); HGB 12.2 g/dL (13.5-17.5); Lymphocytes % 6.7; MCH 30.4 pg (27.0-33.0); MCHC 31.7 % (32.0-36.0); MPV 10.1 fL (8.0-11.0); Monocytes % 2.7; Neutrophils % 89.4; Nucleated RBC 0 %; Platelet Count 215 10^3/uL (130-400); RBC 4.01 10^6/uL (4.36-5.78); RDW 13.2 % (11.8-14.1); RDW-SD 47.2 fL; WBC 8.86 10^3/uL (4.4-10.8)
[2021-12-25] MEDS: Normal Saline 1,000 ML 1000 ML IV ×2 (17:45→19:24)
[2021-12-25 18:01] LABS: Troponin I < 50 ng/L (<or=60)
[2021-12-25 18:04] LABS: ALT 36 U/L (16-63); AST 48 U/L (15-37); Albumin 2.7 g/dL (3.4-5.0); Alkaline Phosphatase 140 U/L (46-116); Anion Gap 8.4 mmol/L (3-11); BUN 19 mg/dL (7-18); Bilirubin, Total 0.7 mg/dL (0.2-1.0); C-Reactive Protein 20.37 mg/dL (0.0-0.3); CO2 27.6 mmol/L (21.0-32.0); CREATININE 1.3 mg/dL (0.70-1.30); Chloride 107 mmol/L (98-107); Estimated GFR 55.94 (mL/min/1.73m2); Glucose 120 mg/dL (74-106); Potassium 3.3 mmol/L (3.5-5.1); Sodium 143 mmol/L (136-145)
[2021-12-25 18:07] LABS: Influenza A PCR Negative (Negative); Influenza B PCR Negative (Negative); RSV PCR Negative (Negative)
[2021-12-25 18:10] LABS: COVID-19 PCR Positive (Negative)
[2021-12-25 18:12] LABS: Source Nasopharynx
[2021-12-25 18:15] LABS: D-Dimer 2199 ng/mlFEU (<500)
[2021-12-25] MEDS: Albuterol/Ipratropium 3 ML UPD VIAL UPD (18:15)
--- NOTE | 2021-12-25 18:15 | DI.CT_ITS ---
Exam(s) CT CHEST PE CTA EXAM: CT CHEST PE CTA CLINICAL HISTORY: SOB and elevated d-dimmer. TECHNIQUE: Imaging Protocol: Axial CT angiography was performed with multi-slice acquisition and mu lti-planar and/or 3D reconstructions. CONTRAST MATERIAL: Intravenous: Omnipaque 350 Contrast volume:structured data in ml COMPARISON: CT ABD PELVIS WITH CONTRAST from 06/23/2011 FINDINGS: CT angiography of the chest was performed with intravenous infusion of 100 cc of Omnipaque 350. There are multiple left rib fractures posteriorly of uncertain age, these appear to involve ribs 5 th rough 8 and are nondisplaced. There is significant breathing motion artifact. There are multi focal intrapulmonary opacities with ground-glass and consolidative appearance in distribution consistent with multifocal pneumonia, presu mably COVID. No pleural effusion. Tracheobronchial tree appears intact. No evidence of pulmonary embolic disease although segmental and subsegmental vessels are not well vis ualized.. Thoracic aorta is of normal diameter, no thoracic aortic aneurysm or dissection, major bra prh vessels appear intact. No mediastinal or hilar adenopathy. Images obtained through the upper abdomen show probable hepatic steatosis. Unremarkable appearance o f the spleen, adrenals, and upper poles of kidneys period. IMPRESSION: No evidence of pulmonary embolic disease. Multifocal pneumonia consistent with COVID infection.. RADIATION DOSE DELIVERED: 420.79mGy.cm Total DLP 420.79mGy.cm Total DLP !Error CTDIvol DATA REPOSITORY: All CT scans at this facility are submitted to the National Radiology Data Registry (NRDR) Dose Index Registry (DIR) with the [employer] (ACR). RADIATION OPTIMIZATION: All CT scans at this facility use at least one of these dose optimization te chniques: automated exposure control; mA and/or kV adjustment per patient size (includes targeted exa ms where dose is matched to clinical indication); or iterative reconstruction.
--- NOTE | 2021-12-25 18:20 | ED.GENADUL_ITS ---
Discharge Plan Disposition Patient Disposition: [facility] INPATIENT Condition: Critical Discharge Details Clinical Impression: COVID-19, Multifocal pneumonia, Hypoxia Admit Date/Time: 12/25/21 19:51 Admit Provider: Red Monroe Attending Provider: Red Monroe Primary Care Provider: Peter Spencer ED Provider: Rui Huang Medical Decision Making Patient presenting to the emergency department after being evaluated at primary care office and patient noting to have low oxygen. Patient has not been feeling well for the last 2 weeks and has noted acute worsening of shortness of breath, chest discomfort, productive sputum general malaise. Spoke with primary care provider Dr. Spencer who reviewed patient's history with me and stated that the sister reported acute worsening of patient's mental status, generalized weakness, and has not been able to work. I will plan on performing PUI Covid/pneumonia work-up with additional head CT imaging. Physical exam shows an acutely ill patient with mild distress, hypoxic, not tachycardic or hypotensive, decreased breath sounds with crackles noted in bilateral bases. Otherwise nondiagnostic exam. 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 EKG reviewed with Dr. Garner and please see his documentation for full interpretation of EKG. Due to neurostimulator there is significant artifact but from leads that are visible no signs of acute STEMI. Review of labs show anemia which is virtually unchanged from previous elevated neutrophils with low lymphocytes, D-dimer elevated at 2199, lactate at 1.5, mild hypokalemia at 3.3, low calcium, mildly elevated AST and alk phos. Troponin is negative, CRP is 20 with pro calcitonin at 0.2. Labs otherwise nondiagnostic. Patient is Covid positive. And on preliminary review do feel that patient has multifocal pneumonia. Given that patient has not been feeling well for 2 weeks I am suspicious of initial illness being Covid now developing multifocal pneumonia given productive sputum that is yellow-tinged and fever. Will start patient on ceftriaxone and azithromycin IV pending blood cultures. staff toxicologist reports that patient is on 6 to 8 L high flow nasal cannula to keep saturations at 92%. We will plan on ICU admission due to hypoxia, Covid, and pneumonia. Imaging Data Radiologic Study: Imaging: CT Scan Radiologist's impression: Head CT IMPRESSION: Negative for intracranial hemorrhage or other acute intracranial abnormality Radiologic Study #2: Imaging: CT Scan Radiologist's impression: Chest CTA-PE study IMPRESSION: 1. Negative for pulmonary embolism. 2. Negative for aortic dissection. 3. Moderate-severe multifocal pneumonia. Imaging features can be seen with COVID-19 pneumonia, though are nonspecific and can occur with a variety of infectious and noninfectious processes. (Reference: Hakeem) HPI General Mode of arrival: ambulatory . Date/Time Provider Initiated Documentation: 12/25/21 17:04 . Limitations to Documentation: no limitations . Information obtained by: patient . History of Present Illness 61 year old M presents to the emergency department with the chief complaint of cough, sob, fever, described as moderate, with intensity rated at 4. Quality is described as other (chest tightness), and is localized to the chest. Patient reports no radiation. Patient started experiencing this week(s) (2) and it has been constant. improves with No relieving factors improve symptom(s), No exacerbating factors reported . Patient notes chest pain, fever/chills, malaise, shortness of breath and weakness. Patient did receive the following treatments prior to arrival, none Related Data Home Medications Medication Instructions Recorded Confirmed amitriptyline 50 mg tablet 100 mg PO HS 08/13/14 12/25/21 docusate sodium 100 mg capsule 1 tab PO TID 08/13/14 12/25/21 (Colace) pregabalin 150 mg capsule (Lyrica) 150 mg PO TID 08/13/14 12/25/21 morphine 15 mg immediate release 30 mg PO TID PRN 09/21/18 12/25/21 tablet oxycodone 15 mg tablet,oral ONLY 1 tab PO QID 09/21/18 12/25/21 (not feeding tubes) acetaminophen 500 mg tablet 1,000 mg PO QID PRN 12/25/21 12/25/21 calcium phosphate,dibasic 77 1 tab PO DAILY 12/25/21 12/25/21 mg-vitamin D3 400 unit tablet meloxicam 15 mg tablet 15 mg PO DAILY 12/25/21 12/25/21 pantoprazole 40 mg tablet,delayed 40 mg PO DAILY 12/25/21 12/25/21 release vitamin B complex 1 tab PO DAILY 12/25/21 12/25/21 Allergies Allergy/AdvReac Type Severity Reaction Status Date / Time iodine Allergy Severe Topical Unverified 12/25/21 17:23 Irritation copper Allergy Intermediate Unverified 12/25/21 17:23 chocolate flavor AdvReac Unverified 12/25/21 17:23 General Stated Complaint: RespSymp TALITA: 3 Review of Systems Constitutional Constitutional: Reports chills, Reports fever(s), Denies headache(s), Reports lethargy, Reports malaise and Reports weakness ENT Ears, Nose, Mouth, and Throat: Denies headache(s), Denies nasal congestion, Denies nasal discharge and Denies sore throat Cardiovascular Cardiovascular: Reports chest pain, Denies syncope, Denies leg edema, Denies lightheadedness, Reports dyspnea and Reports dyspnea on exertion Respiratory Respiratory: Reports as per HPI, Reports chest congestion, Reports cough, Reports excessive phlegm production, Reports dyspnea and Reports dyspnea on exertion Gastrointestinal Gastrointestinal: Reports system reviewed and no additional complaints, except as documented Neurologic Neurologic: Denies confusion, Denies syncope, Denies headache(s) and Reports weakness Psychiatric Psychiatric: Denies confusion PFSH All Active Problems (Updated 12/25/21 @ 19:25 by Rui Huang NP) COVID-19 (Acute) Multifocal pneumonia (Acute) Hypoxia (Acute) Peptic ulcer disease (Chronic) Status post VNS (vagus nerve stimulator) placement (Acute) Phantom limb (syndrome) (Acute) Vitamin D deficiency (Acute) Hypertension (Chronic) Social History Smoking/Tobacco Use Status: Unknown Smoking risk assessment performed?: Yes Alcohol Intake: never Drug use: Never Substance use type: does not use Do you feel safe at home: Yes Do you feel safe in your relationship?: Yes Exam Const General: cooperative, comfortable, in distress mild and ill appearing acutely Nutritional Appearance: average body habitus Orientation: alert and awake [facility] Head: normal to inspection, normocephalic and atraumatic General nose exam: external nose normal Neck Neck: normal visual inspection, full ROM, no meningeal signs, trachea midline and supple Resp Effort & Inspection: normal respiratory effort and able to speak in complete sentences Auscultation: clear to auscultation bilaterally, crackles bilaterally at the base and 1/[address] way up and diminished lung sounds bilaterally Cardio Rate: regular rate Rhythm: regular rhythm Heart Sounds: S1 normal, S2 normal and normal S1 and S2 Pulses: normal peripheral pulses Skin General skin exam: no rashes or lesions noted and dry skin (warm) Neuro General: patient alert, patient awake, patient oriented x3 and gait normal Extrem General: capillary refill normal, no pedal edema and amputation noted Arm: left Course Vital Signs Vital signs: Vital Signs Temperature 37.3 C 12/25/21 17:10 Pulse 89 12/25/21 17:10 Respiratory Rate 22 12/25/21 17:10 Blood Pressure 140/60 12/25/21 17:10 Pulse Oximetry 88 L 12/25/21 17:10 Temperature 37.3 C 12/25/21 17:10 Temperature Source Temporal Artery Scan 12/25/21 17:10 Pulse 89 12/25/21 18:15 Respiratory Rate 16 12/25/21 18:15 Respiratory Effort Non-Labored 12/25/21 17:18 Blood Pressure 140/60 12/25/21 17:10 Blood Pressure Position Sitting 12/25/21 17:10 Pulse Oximetry 95 12/25/21 18:15 Oxygen Delivery Method Room Air 12/25/21 17:10 Oxygen Flow Rate 0 12/25/21 17:10 Pain Level 0 12/25/21 17:10 Lab/Test Results Lab/Test Results: 12/25/21 17:42 Blood Blood Culture - Pending 12/25/21 17:30 Blood Blood Culture - Pending Laboratory Tests Range/Units 12/25/21 12/25/21 12/25/21 17:25 17:30 17:30 WBC (4.4-10.8) 10^3/uL 8.86 RBC (4.36-5.78) 10^6/uL 4.01 L Hgb (13.5-17.5) g/dL 12.2 L Hct (40.0-50.0) % 38.5 L MCV (80-95) fL 96.0 H MCH (27.0-33.0) pg 30.4 MCHC (32.0-36.0) % 31.7 L RDW (11.8-14.1) % 13.2 Plt Count (130-400) 10^3/uL 215 MPV (8.0-11.0) fL 10.1 Immature Gran % 1.0 Neutrophils % 89.4 Lymphocytes % 6.7 Monocytes % 2.7 Eosinophils % 0.1 Basophils % 0.1 Nucleated RBC % % 0 Absolute Neutrophils (1.2-6.7) 10^3/uL 7.92 H Absolute Lymphocytes (1.2-3.4) 10^3/uL 0.59 L Absolute Monocytes (0.1-0.8) 10^3/uL 0.24 Absolute Eosinophils (0.0-0.7) 10^3/uL 0.01 Absolute Basophils (0.0-0.2) 10^3/uL 0.01 D-Dimer (<500) ng/mlFEU VBG Lactate (0.6-1.4) mmol/L Sodium (136-145) mmol/L 143 Potassium (3.5-5.1) mmol/L 3.3 L Chloride (98-107) mmol/L 107 Carbon Dioxide (21.0-32.0) mmol/L 27.6 Anion Gap (3-11) mmol/L 8.4 BUN (7-18) mg/dL 19 H Creatinine (0.70-1.30) mg/dL 1.3 Estimated GFR/1.73 m2 (mL/min/1.73m2) 55.94 Glucose (74-106) mg/dL 120 H Calcium (8.5-10.1) mg/dL 8.0 L Total Bilirubin (0.2-1.0) mg/dL 0.7 AST (15-37) U/L 48 H ALT (16-63) U/L 36 Alkaline Phosphatase (46-116) U/L 140 H Troponin I (<or=60) ng/L C-Reactive Protein (0.0-0.3) mg/dL 20.37 H Total Protein (6.4-8.2) g/dL 7.0 Albumin (3.4-5.0) g/dL 2.7 L COVID-19 Source Nasopharynx SARS-CoV-2 (PCR) (Negative) Positive A Influenza Type A (PCR) (Negative) Negative Influenza Type B (PCR) (Negative) Negative RSV (PCR) (Negative) Negative Range/Units 12/25/21 12/25/21 12/25/21 17:30 17:30 17:30 WBC (4.4-10.8) 10^3/uL RBC (4.36-5.78) 10^6/uL Hgb (13.5-17.5) g/dL Hct (40.0-50.0) % MCV (80-95) fL MCH (27.0-33.0) pg MCHC (32.0-36.0) % RDW (11.8-14.1) % Plt Count (130-400) 10^3/uL MPV (8.0-11.0) fL Immature Gran % Neutrophils % Lymphocytes % Monocytes % Eosinophils % Basophils % Nucleated RBC % % Absolute Neutrophils (1.2-6.7) 10^3/uL Absolute Lymphocytes (1.2-3.4) 10^3/uL Absolute Monocytes (0.1-0.8) 10^3/uL Absolute Eosinophils (0.0-0.7) 10^3/uL Absolute Basophils (0.0-0.2) 10^3/uL D-Dimer (<500) ng/mlFEU 2199 H VBG Lactate (0.6-1.4) mmol/L 1.5 H Sodium (136-145) mmol/L Potassium (3.5-5.1) mmol/L Chloride (98-107) mmol/L Carbon Dioxide (21.0-32.0) mmol/L Anion Gap (3-11) mmol/L BUN (7-18) mg/dL Creatinine (0.70-1.30) mg/dL Estimated GFR/1.73 m2 (mL/min/1.73m2) Glucose (74-106) mg/dL Calcium (8.5-10.1) mg/dL Total Bilirubin (0.2-1.0) mg/dL AST (15-37) U/L ALT (16-63) U/L Alkaline Phosphatase (46-116) U/L Troponin I (<or=60) ng/L < 50 C-Reactive Protein (0.0-0.3) mg/dL Total Protein (6.4-8.2) g/dL Albumin (3.4-5.0) g/dL COVID-19 Source SARS-CoV-2 (PCR) (Negative) Influenza Type A (PCR) (Negative) Influenza Type B (PCR) (Negative) RSV (PCR) (Negative)
[2021-12-25 18:32] LABS: Procalcitonin 0.2 ng/mL
[2021-12-25] MEDS: Omnipaque 350 MG/ML 100 ML BTL IJ (18:56)
--- NOTE | 2021-12-25 19:13 | DI.VRAD_ITS ---
PROCEDURE INFORMATION: Exam: CT Head Without Contrast Exam date and time: 12/25/2021 6:46 PM Age: 61 years old Clinical indication: Altered mental status/memory loss; Confusion or disorientation; Additional info: AMS TECHNIQUE: Imaging protocol: Computed tomography of the head without contrast. Radiation optimization: All CT scans at this facility use at least one of these dose optimization techniques: automated exposure control; mA and/or kV adjustment per patient size (includes targeted exams where dose is matched to clinical indication); or iterative reconstruction. COMPARISON: CT HEAD WITHOUT CONTRAST 05/07/2015 3:58 PM FINDINGS: Brain: Normal. No hemorrhage. Unremarkable white matter. No mass effect. Extra-axial space: No evidence of subdural hemorrhage. Cerebral ventricles: No ventriculomegaly. Paranasal sinuses: Mild mucosal thickening noted in ethmoid air cells. Mastoid air cells: Visualized mastoid air cells are well aerated. Bones/joints: Unremarkable. No acute fracture. Soft tissues: Unremarkable. IMPRESSION: Negative for intracranial hemorrhage or other acute intracranial abnormality. Dictated and Authenticated by: Derek Camacho MD. Ordering:CLYDE Fabian MD
--- NOTE | 2021-12-25 19:18 | DI.VRAD_ITS ---
PROCEDURE INFORMATION: Exam: CTA Chest With Contrast Exam date and time: 12/25/2021 6:49 PM Age: 61 years old Clinical indication: Shortness of breath and other: Elevated d dimer; Additional info: SOB, covid +, elevated d dimer TECHNIQUE: Imaging protocol: Computed tomographic angiography of the chest with contrast. 3D rendering (Not supervised by radiologist): MIP and/or 3D reconstructed images were created by the technologist. Radiation optimization: All CT scans at this facility use at least one of these dose optimization techniques: automated exposure control; mA and/or kV adjustment per patient size (includes targeted exams where dose is matched to clinical indication); or iterative reconstruction. Contrast material: OMNI 350; Contrast volume: 100 ml; Contrast route: INTRAVENOUS (IV); COMPARISON: No relevant prior studies available. FINDINGS: Tubes, catheters and devices: Catheter tubing extends across the right back subcutaneous tissue plane. Pulmonary arteries: Normal. No pulmonary emboli. Aorta: Unremarkable. No aortic aneurysm. No aortic dissection. Lungs: Multifocal ground-glass opacity and consolidation noted, involving both lungs, most severe in the left lower lobe. Moderate endobronchial mucus noted in the left lower lobe. Pleural spaces: Unremarkable. No pneumothorax. No pleural effusion. Heart: Negative for cardiomegaly. Negative for pericardial effusion. Mild coronary artery calcifications noted. Lymph nodes: Unremarkable. No enlarged lymph nodes. Stomach and bowel: Postoperative changes from gastric bypass partially visualized. Bones/joints: Severe arthropathy noted in both shoulders. Thoracolumbar scoliosis noted. Chronic-appearing compression deformity noted T6, with partial fusion of vertebral bodies from T5-T8. Soft tissues: Negative for chest wall mass or fluid collection. IMPRESSION: 1. Negative for pulmonary embolism. 2. Negative for aortic dissection. 3. Moderate-severe multifocal pneumonia. Imaging features can be seen with COVID-19 pneumonia, though are nonspecific and can occur with a variety of infectious and noninfectious processes. (Reference: Hakeem) REFERENCES: Hakeem Mcintyre, et al., Rad[employer] Society of [place] Expert Consensus Statement on Reporting Chest CT Findings Related to COVID-19. Endorsed by the Society of [employer] Radiology, the [employer], and RSNA. Published January 03, 2020. Dictated and Authenticated by: Derek Camacho MD. Ordering:CLYDE Fabian MD
[2021-12-25] MEDS: oxyCODONE 10 MG TAB PO (19:21)
[2021-12-25] MEDS: AZITHROMYCIN 500 MG in Normal Saline 250 ML 250 MG IVPB (19:21)
[2021-12-25] MEDS: Docusate Sodium 100 MG CAP PO (19:21)
[2021-12-25] MEDS: Dexamethasone 10 MG/ML VIAL IVP (20:00)
[2021-12-25] MEDS: cefTRIAXone 1 GM/50 ML BAG IVPB (20:30)
--- NOTE | 2021-12-25 20:54 | W.PM.HP.N ---
Date of service: 12/25/21 Time of Service: 21:14 Assessment and Plan Assessment and plan (1) Pneumonia due to COVID-19 virus: Start date: 12/25/21 Status: Acute Assessment and plan: This is a 61-year-old gentleman who has had a 2-week history of respiratory illness worsening now with hypoxemia requiring high flow oxygen at 10 L weaning down to 8 L with Pulsoxymeter above 92%. He is not tachypneic but has a coarse cough and is extremely fatigued. He also now has diaphoresis with possible fever. He is on IV antibiotic therapy because of his prolonged course and also his on treatment for COVID-19 with remdesivir and dexamethasone. COVID-19 protocol is being followed.. The patient appears stable but we need to watch for escalating oxygen needs. He is in ICU care for close monitoring. He is a full code. (2) Multifocal pneumonia: Start date: 12/25/21 Status: Acute Assessment and plan: Patient was started on Rocephin and Zithromax which will be continued for possible bacterial pneumonia. His lactic acid was positive but procalcitonin was negative. Continue to monitor for worsening symptoms and could broaden spectrum if needed. (3) Hypoxia: Start date: 12/25/21 Status: Acute Assessment and plan: Continue oxygen supplementation to maintain pulse oximeter above 90%. History of Present Illness History of Present Illness Chief Complaint: Dyspnea with productive cough and hypoxemia Narrative: This is a 61-year-old male patient presenting to the emergency department after being evaluated at primary care office and patient noting to have low oxygen.? Patient has not been feeling well for the last 2 weeks and has noted acute worsening of shortness of breath, chest discomfort, productive sputum general malaise. The ED physician spoke with primary care provider Dr. 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 Patient was unable to offer further history being very hard of hearing at the time he was interviewed he was sweaty and sleeping on his left side but arousable and attempting to talk though not intelligible. ED evaluation was consistent with COVID-19 pneumonia with hypoxemia by imaging with positive Covid benjamin though he has had illness for 2 weeks and possibly positive earlier. The patient was started on IV antibiotics because of the length of time of his illness and started on remdesivir loading dose 200 mg along with Solu-Medrol 125 mg IV. He also has received IV fluids with will not be continued. Review of Systems Narrative: 13 point review of systems otherwise unrevealing or unobtainable with patient being a poor historian and very fatigued not conversing easily. See ED report for review of systems per family. PFSH All Active Problems (Updated 12/26/21 @ 17:20 by Red Monroe) Pneumonia due to COVID-19 virus (Acute) DVT prophylaxis (Acute) Hyperglycemia (Acute) Hypokalemia (Acute) Respiratory failure with hypoxia (Acute) COVID-19 (Acute) Multifocal pneumonia (Acute) Hypoxia (Acute) Peptic ulcer disease (Chronic) Status post VNS (vagus nerve stimulator) placement (Acute) Phantom limb (syndrome) (Acute) Vitamin D deficiency (Acute) Hypertension (Chronic) Social History Smoking/Tobacco Use Status: Unknown Smoking risk assessment performed?: Yes Alcohol Intake: never Drug use: Never Substance use type: does not use Do you feel safe at home: Yes Do you feel safe in your relationship?: Yes Meds Allergies and Home Medications Allergies Allergy/AdvReac Type Severity Reaction Status Date / Time iodine Allergy Severe Topical Unverified 12/25/21 17:23 Irritation copper Allergy Intermediate Unverified 12/25/21 17:23 chocolate flavor AdvReac Unverified 12/25/21 17:23 Home Medications Medication Instructions Recorded Confirmed Type amitriptyline 50 mg tablet 100 mg PO HS 08/13/14 12/25/21 History docusate sodium 100 mg capsule 1 tab PO TID 08/13/14 12/25/21 History (Colace) pregabalin 150 mg capsule (Lyrica) 150 mg PO TID 08/13/14 12/25/21 History morphine 15 mg immediate release 30 mg PO TID PRN 09/21/18 12/25/21 History tablet oxycodone 15 mg tablet,oral ONLY 1 tab PO QID 09/21/18 12/25/21 History (not feeding tubes) acetaminophen 500 mg tablet 1,000 mg PO QID PRN 12/25/21 12/25/21 History calcium phosphate,dibasic 77 1 tab PO DAILY 12/25/21 12/25/21 History mg-vitamin D3 400 unit tablet meloxicam 15 mg tablet 15 mg PO DAILY 12/25/21 12/25/21 History pantoprazole 40 mg tablet,delayed 40 mg PO DAILY 12/25/21 12/25/21 History release vitamin B complex 1 tab PO DAILY 12/25/21 12/25/21 History Exam Narrative Exam Narrative: General: Patient appears older than stated age, moderately obese, in moderate distress being drowsy and easily aroused from sleep but hard of hearing. He is speaking clearly but at times moderate in conversation. He is diffusely diaphoretic with skin cool to touch. Skin is pale. He is alert and oriented obese to place and possibly person. HEENT: Normocephalic, eyes with pupils equal and reactive to light symmetrically, extraocular movement intact and sclera anicteric. Oropharynx with dry mucosa and poor dentition. Neck: Supple without JVD. Heart: Regular rate and rhythm with distant heart sounds obscured by lung findings. Lungs: Diffuse coarse rhonchi and crackles without focalizing and no increased expiratory phase or expiratory wheeze. Fair to poor aeration. Abdomen: Obese contour, soft and nontender to palpation with no palpable hepatosplenomegaly. Genitalia/rectal: Exam deferred. Extremities: Left arm with agitation at the elbow, right arm puffy as with that arm nonpitting edema, extremities without pitting edema, cyanosis or clubbing. Fair capillary refill. Skin: Pale, cool to touch and diffusely diaphoretic as stated. Neuro: Cranial nerves II through XII are grossly intact separate decrease her acuity. No focal motor deficits. Psych: Obtunded but arousable with some conversation but nonsensical. Patient not manifesting abnormal thought processes. Remote and recent memory testing not possible with patient obtundation from his extreme fatigue. He also was awakened for exam. Results Imaging Imaging Studies: Exam: CTA Chest With Contrast Exam date and time: 12/25/2021 6:49 PM Age: 61 years old Clinical indication: Shortness of breath and other: Elevated d dimer; Additional info: SOB, covid +, elevated d dimer TECHNIQUE: Imaging protocol: Computed tomographic angiography of the chest with contrast. 3D rendering (Not supervised by radiologist): MIP and/or 3D reconstructed images were created by the technologist. Radiation optimization: All CT scans at this facility use at least one of these dose optimization techniques: automated exposure control; mA and/or kV adjustment per patient size (includes targeted exams where dose is matched to clinical indication); or iterative reconstruction. Contrast material: OMNI 350; Contrast volume: 100 ml; Contrast route: INTRAVENOUS (IV);? COMPARISON: No relevant prior studies available. FINDINGS: Tubes, catheters and devices: Catheter tubing extends across the right back subcutaneous tissue plane. Pulmonary arteries: Normal. No pulmonary emboli. Aorta: Unremarkable. No aortic aneurysm. No aortic dissection. Lungs: Multifocal ground-glass opacity and consolidation noted, involving both lungs, most severe in the left lower lobe. Moderate endobronchial mucus noted in the left lower lobe. Pleural spaces: Unremarkable. No pneumothorax. No pleural effusion. Heart: Negative for cardiomegaly. Negative for pericardial effusion. Mild coronary artery calcifications noted. Lymph nodes: Unremarkable. No enlarged lymph nodes. Stomach and bowel: Postoperative changes from gastric bypass partially visualized. Bones/joints: Severe arthropathy noted in both shoulders. Thoracolumbar scoliosis noted. Chronic-appearing compression deformity noted T6, with partial fusion of vertebral bodies from T5-T8. Soft tissues: Negative for chest wall mass or fluid collection. IMPRESSION: 1. Negative for pulmonary embolism. 2. Negative for aortic dissection. 3. Moderate-severe multifocal pneumonia. Imaging features can be seen with COVID-19 pneumonia, though are nonspecific and can occur with a variety of infectious and noninfectious processes.? Exam: CT Head Without Contrast Exam date and time: 12/25/2021 6:46 PM Age: 61 years old Clinical indication: Altered mental status/memory loss; Confusion or disorientation; Additional info: AMS TECHNIQUE: Imaging protocol: Computed tomography of the head without contrast. Radiation optimization: All CT scans at this facility use at least one of these dose optimization techniques: automated exposure control; mA and/or kV adjustment per patient size (includes targeted exams where dose is matched to clinical indication); or iterative reconstruction. COMPARISON: CT HEAD WITHOUT CONTRAST 05/07/2015 3:58 PM FINDINGS: Brain: Normal. No hemorrhage. Unremarkable white matter. No mass effect. Extra-axial space: No evidence of subdural hemorrhage. Cerebral ventricles: No ventriculomegaly. Paranasal sinuses: Mild mucosal thickening noted in ethmoid air cells. Mastoid air cells: Visualized mastoid air cells are well aerated. Bones/joints: Unremarkable. No acute fracture. Soft tissues: Unremarkable. IMPRESSION: Negative for intracranial hemorrhage or other acute intracranial abnormality. Labs Result diagrams: 12/26/21 06:40 12/26/21 06:40 Labs: Laboratory Results - last 24 hr 12/25/21 12/25/21 12/25/21 17:25 17:30 17:30 WBC 8.86 RBC 4.01 L Hgb 12.2 L Hct 38.5 L MCV 96.0 H MCH 30.4 MCHC 31.7 L RDW 13.2 Plt Count 215 MPV 10.1 Immature Gran % 1.0 Neutrophils % 89.4 Lymphocytes % 6.7 Monocytes % 2.7 Eosinophils % 0.1 Basophils % 0.1 Nucleated RBC % 0 Absolute Neutrophils 7.92 H Absolute Lymphocytes 0.59 L Absolute Monocytes 0.24 Absolute Eosinophils 0.01 Absolute Basophils 0.01 D-Dimer VBG Lactate Sodium 143 Potassium 3.3 L Chloride 107 Carbon Dioxide 27.6 Anion Gap 8.4 BUN 19 H Creatinine 1.3 Estimated GFR/1.73 m2 55.94 Glucose 120 H Calcium 8.0 L Total Bilirubin 0.7 AST 48 H ALT 36 Alkaline Phosphatase 140 H Troponin I C-Reactive Protein 20.37 H Total Protein 7.0 Albumin 2.7 L Procalcitonin COVID-19 Source Nasopharynx SARS-CoV-2 (PCR) Positive A Influenza Type A (PCR) Negative Influenza Type B (PCR) Negative RSV (PCR) Negative 12/25/21 12/25/21 12/25/21 17:30 17:30 17:30 WBC RBC Hgb Hct MCV MCH MCHC RDW Plt Count MPV Immature Gran % Neutrophils % Lymphocytes % Monocytes % Eosinophils % Basophils % Nucleated RBC % Absolute Neutrophils Absolute Lymphocytes Absolute Monocytes Absolute Eosinophils Absolute Basophils D-Dimer 2199 H VBG Lactate 1.5 H Sodium Potassium Chloride Carbon Dioxide Anion Gap BUN Creatinine Estimated GFR/1.73 m2 Glucose Calcium Total Bilirubin AST ALT Alkaline Phosphatase Troponin I < 50 C-Reactive Protein Total Protein Albumin Procalcitonin 0.2 COVID-19 Source SARS-CoV-2 (PCR) Influenza Type A (PCR) Influenza Type B (PCR) RSV (PCR) Last Vital Signs Temp 37.3 C 12/25/21 17:10 Pulse 79 12/25/21 20:30 Resp 18 12/25/21 20:30 BP 145/74 H 12/25/21 20:30 Pulse Ox 94 12/25/21 20:30
[2021-12-25] MEDS: REMDESIVIR 200 MG in Normal Saline 250 ML 250 MG IVPB (21:30)
[2021-12-25] MEDS: Famotidine 20 MG TAB PO (22:40)
[2021-12-25] MEDS: Amitriptyline 50 MG TAB 100 MG PO (22:40)
[2021-12-25] MEDS: Enoxaparin 30 MG/0.3 ML SYR SC (22:40)
[2021-12-25] MEDS: Pregabalin 25 MG CAP 50 MG PO (22:40)
[2021-12-25] MEDS: Pregabalin 100 MG CAP PO (22:40)
[2021-12-25] MEDS: Ascorbic Acid 500 MG TAB 1000 MG PO (22:40)
[2021-12-26] VITALS (132 sets, daily range): BP systolic 109–197; BP diastolic 53–113; PULSE 41–101; RESP 11–28; TEMP 35.9–37.4; O2SAT 89–98
[2021-12-26 07:18] LABS: Abs Immature Grans 0.06 10^3/uL (0.0-0.06); Absolute Basophil Count 0.01 10^3/uL (0.0-0.2); Absolute Lymphocyte Count 0.36 10^3/uL (1.2-3.4); Absolute Monocyte Count 0.14 10^3/uL (0.1-0.8); Absolute Neutrophil Count 5.52 10^3/uL (1.2-6.7); Basophils % 0.2; HCT 36.1 % (40.0-50.0); HGB 11.6 g/dL (13.5-17.5); Lymphocytes % 5.9; MCH 30.7 pg (27.0-33.0); MCHC 32.1 % (32.0-36.0); MCV 95.5 fL (80-95); MPV 10.6 fL (8.0-11.0); Monocytes % 2.3; Neutrophils % 90.6; Nucleated RBC 0 %; Platelet Count 194 10^3/uL (130-400); RBC 3.78 10^6/uL (4.36-5.78); RDW 13.1 % (11.8-14.1); RDW-SD 46.2 fL; WBC 6.09 10^3/uL (4.4-10.8)
--- NOTE | 2021-12-26 07:29 | W.PULMCC ---
General Date of Service Date of service: 12/26/21 Time of Service: 07:30 Reason for Admission to ICU: COVID PNA Assessment and Plan Assessment and plan (1) COVID-19: Status: Acute (2) Multifocal pneumonia: Status: Acute (3) Respiratory failure with hypoxia: Status: Acute (4) Hypokalemia: Status: Acute (5) Hyperglycemia: Status: Acute (6) Peptic ulcer disease: Status: Chronic Assessment and plan: This is a 61 yo man on chronic opiods and no prior pulmonary history who is admitted for COVID pneumonia to the ICU. He was requiring 8LPM O2 but has since been weaned to 2LPM. His SpO2 worsened overnight but when awake it improves significantly. He is receiving remdesivir, Decadron and barcitinib given the severity of his disease. I am hopeful that he can be transferred out of the ICU tomorrow if he remains stable. He is also on ceftriaxone and azithromycin; I have a relatively low clinical suspicion for bacterial pneumonia and his procalcitonin is negative, but we can keep the antibiotics on for now in conjunction with further testing. I would try him on CPAP tonight, however he did not tolerate it this morning when providing education about it and the plan. Since his O2 has improved significantly we do not need to push the matter. If he remains stable on low flow oxygen her is safe for transfer to med/surg tomorrow. Recommendations Pulmonary: Hypoxic respiratory failure - supplemental O2 for goal sat >90% - incentive spirometry - VibraPEP - trial CPAP at night [id number] - ambulation as tolerate and out of bed to chair - proning as tolerared Cardiac: No acute concerns Renal: Hypokalmeia - resolved I&O: Intake & Output 12/23/21 12/24/21 12/25/21 12/26/21 23:59 23:59 23:59 23:59 Intake Total 2550 / 2550 10 / 10 Output Total 1400 / 1400 Balance 2550 / 2550 -1390 / -1390 Weight 64.4 kg 76.8 kg Daily Fluid Goal:: negative GI Nutrition: OK for diet Date of Last Bowel Movement: 12/24/21 Infectious Disease: COVID Pneumonia - continue remdesivir, Decadron and barcitinib - sputum culture - urine antigens for strep pneumo and legionella - can consider stopping antibiotics tomorrow if no additional clinical suspicion for bacterial pneumonia Hematologic: No acute concerns Neurologic: No acute concerns Endocrine: Hyperglycemia - glucose goal 140-180 - continue to check dailure glucose with labs Lines: R PIV - would recommend either a midline or a PICC Prophylaxis: famotidine enoxaparin Code Status: Resuscitation Status Full Code Subjective Critical and life-threatening events over the past 24 hours: This is a 61 yo male who was found to have low oxygen levels at his PCP office. She has been feeling ill for 1-2 weeks with shortness of breath, chest discomfort and sputum production. In the ED his chest CT found no PE but was significant for multilobar dense consolidation in addition to groundglass changes diffusely. He was requiring 8LPM to maintain appropriate saturations and so was admitted to the ICU for further evaluation. He was started on dexamethasone, azithromycin and ceftriaxone. I added remdesivir and barcitinib to his regimen given his O2 requirements and elevated inflammatory markers. EKG is normal with no signs of ischemia and troponin is negative. He also had a head CT completed which was normal as well. Today he says he is not feeling that poorly. His O2 overnight was increased from 5LPM to 8LPM but this morning we were able to titrate this down to 2LPM. He is unvaccinated because his old lady told him not to because the news they watch said it was not that effective anyways. I provided education and clarification on this as well as on COVID infection. He is breathing ok and does not feel like he is having issues with getting enough air. Exam Narrative Exam Narrative: Gen: NAD, normal respiratory effort, well-nourished HENT: PERRL, nasal turbinates normal without erythema or inflammation, moist oral mucosa, Mallampati 2, No LAD or JVD Chest: No respiratory distress, normal appearance of chest, clear to auscultation bilaterally, bibasilar crackles, no wheezes, normal inspiratory effort Heart: regular rate and rhythym, no murmurs, rubs or gallops Abdomen: Non-distended, soft, non tender Extremities: No clubbing, edema, cyanosis, rashes Neuro: AAOx3 , non focal Psych: cooperative, appropriate mental affect Most Recent VS/Results Last Vital Signs Temp 36.7 C 12/26/21 04:15 Pulse 53 L 12/26/21 04:00 Resp 13 12/26/21 04:00 BP 126/58 L 12/26/21 04:00 Pulse Ox 96 12/26/21 05:30 Laboratory Results - last 24 hr 12/25/21 12/25/21 12/25/21 17:25 17:30 17:30 WBC 8.86 RBC 4.01 L Hgb 12.2 L Hct 38.5 L MCV 96.0 H MCH 30.4 MCHC 31.7 L RDW 13.2 Plt Count 215 MPV 10.1 Immature Gran % 1.0 Neutrophils % 89.4 Lymphocytes % 6.7 Monocytes % 2.7 Eosinophils % 0.1 Basophils % 0.1 Nucleated RBC % 0 Absolute Neutrophils 7.92 H Absolute Lymphocytes 0.59 L Absolute Monocytes 0.24 Absolute Eosinophils 0.01 Absolute Basophils 0.01 D-Dimer VBG Lactate Sodium 143 Potassium 3.3 L Chloride 107 Carbon Dioxide 27.6 Anion Gap 8.4 BUN 19 H Creatinine 1.3 Estimated GFR/1.73 m2 55.94 Glucose 120 H Calcium 8.0 L Total Bilirubin 0.7 AST 48 H ALT 36 Alkaline Phosphatase 140 H Creatine Kinase Troponin I C-Reactive Protein 20.37 H NT-Pro-B Natriuret Pep Total Protein 7.0 Albumin 2.7 L Procalcitonin TSH COVID-19 Source Nasopharynx SARS-CoV-2 (PCR) Positive A Influenza Type A (PCR) Negative Influenza Type B (PCR) Negative RSV (PCR) Negative 12/25/21 12/25/21 12/25/21 17:30 17:30 17:30 WBC RBC Hgb Hct MCV MCH MCHC RDW Plt Count MPV Immature Gran % Neutrophils % Lymphocytes % Monocytes % Eosinophils % Basophils % Nucleated RBC % Absolute Neutrophils Absolute Lymphocytes Absolute Monocytes Absolute Eosinophils Absolute Basophils D-Dimer 2199 H VBG Lactate 1.5 H Sodium Potassium Chloride Carbon Dioxide Anion Gap BUN Creatinine Estimated GFR/1.73 m2 Glucose Calcium Total Bilirubin AST ALT Alkaline Phosphatase Creatine Kinase Troponin I < 50 C-Reactive Protein NT-Pro-B Natriuret Pep Total Protein Albumin Procalcitonin 0.2 TSH COVID-19 Source SARS-CoV-2 (PCR) Influenza Type A (PCR) Influenza Type B (PCR) RSV (PCR) 12/25/21 12/26/21 21:44 06:40 WBC 6.09 D RBC 3.78 L Hgb 11.6 L Hct 36.1 L MCV 95.5 H MCH 30.7 MCHC 32.1 RDW 13.1 Plt Count 194 MPV 10.6 Immature Gran % 1.0 Neutrophils % 90.6 Lymphocytes % 5.9 Monocytes % 2.3 Eosinophils % 0.0 Basophils % 0.2 Nucleated RBC % 0 Absolute Neutrophils 5.52 Absolute Lymphocytes 0.36 L Absolute Monocytes 0.14 Absolute Eosinophils 0.00 Absolute Basophils 0.01 D-Dimer VBG Lactate Sodium Potassium Chloride Carbon Dioxide Anion Gap BUN Creatinine Estimated GFR/1.73 m2 Glucose Calcium Total Bilirubin AST ALT Alkaline Phosphatase Creatine Kinase Cancelled Troponin I Cancelled C-Reactive Protein NT-Pro-B Natriuret Pep Cancelled Total Protein Albumin Procalcitonin TSH Cancelled COVID-19 Source SARS-CoV-2 (PCR) Influenza Type A (PCR) Influenza Type B (PCR) RSV (PCR) Review of Systems All systems reviewed & are unremarkable except as noted in HPI and below Time spent with patient Time spent in Critical Care: 45 Time spent in Critical care included: Chart review, Documenting critically ill care, Time at immediate bedside and Discussing critically ill care with other medical staff
[2021-12-26 07:49] LABS: ALT 30 U/L (16-63); AST 37 U/L (15-37); Albumin 2.1 g/dL (3.4-5.0); Alkaline Phosphatase 163 U/L (46-116); Anion Gap 9.6 mmol/L (3-11); BUN 13 mg/dL (7-18); Bilirubin, Total 0.4 mg/dL (0.2-1.0); C-Reactive Protein 21.16 mg/dL (0.0-0.3); CO2 26.4 mmol/L (21.0-32.0); CREATININE 0.9 mg/dL (0.70-1.30); Calcium 7.6 mg/dL (8.5-10.1); Chloride 109 mmol/L (98-107); Creatine Kinase 463 U/L (39-308); Glucose 133 mg/dL (74-106); NT-proBNP 398 pg/mL (<300); Potassium 3.8 mmol/L (3.5-5.1); Sodium 145 mmol/L (136-145); TSH (W/Ref FT4) 0.56 uIU/mL (0.36-3.74); Troponin I < 50 ng/L (<or=60)
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
[2021-12-26 08:18] LABS: Ferritin 925 ng/mL (26-388)
[2021-12-26] MEDS: Ascorbic Acid 500 MG TAB 1000 MG PO ×2 (08:25→20:34)
[2021-12-26] MEDS: Cholecalciferol (Vitamin D3) 1,000 UNIT TAB 2000 UNITS PO (08:26)
[2021-12-26] MEDS: Famotidine 20 MG TAB PO ×2 (08:27→20:35)
[2021-12-26] MEDS: Furosemide 20 MG TAB PO (08:27)
[2021-12-26] MEDS: oxyCODONE 15 MG TAB PO ×4 (08:27→20:35)
[2021-12-26] MEDS: Zinc Sulfate 220 MG TAB PO (08:28)
--- NOTE | 2021-12-26 08:31 | NUR.NOTE ---
RN speaks to Dr. Barakat about necessity of giving 200mg of Remdesivir when same was given last night. Same will be dc'd. RN spoke to at 07:30.Nursing Note:
[2021-12-26 08:49] LABS: D-Dimer 1959 ng/mlFEU (<500)
[2021-12-26] MEDS: Enoxaparin 30 MG/0.3 ML SYR SC ×2 (09:56→21:17)
[2021-12-26] MEDS: Potassium Chloride Liquid 20 MEQ PKT PO (09:56)
[2021-12-26 10:19] LABS: Lab Add On Test DONE
[2021-12-26 10:42] LABS: Hemoglobin A1C 5.7 % (<5.7)
--- NOTE | 2021-12-26 11:20 | INITIAL_ITS ---
- If Service Date Differs Date of service: 12/26/21 Time of Service: 11:20 Care Management Initial Assess REASON FOR HOSPITALIZATION:: COVID Pneumonia, hypoxemia PAST MEDICAL HISTORY/PAST SURGICAL HISTORY:: COVID-19 (Acute). Multifocal pneumonia (Acute). Hypoxia (Acute). Peptic ulcer disease (Chronic). Status post VNS (vagus nerve stimulator) placement (Acute). Phantom limb (syndrome) (Acute). Vitamin D deficiency (Acute). Hypertension (Chronic) PREVIOUS FUNCTIONAL STATUS/SOCIAL/FAMILY SUPPORTS:: Phuong reside in [facility], alone. His sister Nargis is his main support person and resides nearby. 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 His sisterNargis describes him as very hard of hearing, brilliant in some ways and delayed in others such as reading and writing. When he is sick, Nargis is Phuong's caregiver, and reports anticipating that once he feels better, he will likely have some behaviors due to being in an unknown enviornment. CM agreed to support visual contact-Nargis will come to [facility] to tele-visit with Phuong at this time as she reports she is unvaccinated. CURRENT FUNCTIONAL STATUS:: Phuong remains in the ICU on COVID precautions. CM spoke with his sisterNargis to coordinate family contact. Has patient been provided with info about the portal/API?: Yes Did the patient sign up for the portal?: No CODE STATUS:: Full Code INSURANCE COVERAGE / FINANCIAL ISSUES:: Medicaid CURRENT HOME/COMMUNITY SERVICES/EQUIPMENT:: None, currently. PRIMARY CARE PHYSICIAN:: Peter Spencer, [facility] POTENTIAL DISCHARGE NEEDS:: Follow up appointments. PATIENT/FAMILY EDUCATION NEEDS:: Review of visitor policy, discharge recommendations to be reviewed with Nargis levi. ANTICIPATED BARRIERS TO DISCHARGE:: None identified. TRANSPORTATION:: Via private vehicle with Nargis levi. PLAN:: Phuong will return home when ready per MD. He will follow up with his PCP and plan of care as prescribed. Discharge instructions to be reviewed with sister Nargis who will transport him home upon discharge.
--- NOTE | 2021-12-26 12:17 | NUR.NOTE ---
RN spends 0.5 hour talking to patient. 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
[2021-12-26] MEDS: Pregabalin 100 MG CAP PO ×2 (13:49→20:34)
[2021-12-26] MEDS: Pregabalin 25 MG CAP 50 MG PO ×2 (13:49→20:34)
--- NOTE | 2021-12-26 14:37 | NUR.NOTE ---
12/26/21: Wallet given to sister pete Duran.Nursing Note:
--- NOTE | 2021-12-26 14:43 | NUR.NOTE ---
Coleen begins placement of Midline.Nursing Note:
--- NOTE | 2021-12-26 14:43 | NUR.NOTE ---
Patient completes talking to his sister on facetime. RN gives patient's wallet to Padmini Flores who delivers wallet to patient's sister in library. RN accepts delivery of patient's neurostimulator.Nursing Note:
[2021-12-26] MEDS: Normal Saline Flush 10 ML SYR IVP ×3 (16:43→23:23)
[2021-12-26] MEDS: REMDESIVIR 100 MG in Normal Saline 250 ML 250 MG IVPB (16:54)
[2021-12-26] MEDS: Normal Saline 500 ML 30 ML IV (16:54)
[2021-12-26] MEDS: Dexamethasone 10 MG/ML VIAL 6 MG IVP (17:11)
[2021-12-26] MEDS: Acetaminophen 325 MG TAB 650 MG PO (17:18)
[2021-12-26] MEDS: AZITHROMYCIN 500 MG in Normal Saline 250 ML 250 MG IVPB (20:35)
[2021-12-26] MEDS: Amitriptyline 50 MG TAB 100 MG PO (21:17)
[2021-12-26] MEDS: cefTRIAXone 1 GM/50 ML BAG IVPB (21:18)
[2021-12-27] VITALS (51 sets, daily range): BP systolic 128–180; BP diastolic 53–81; PULSE 38–77; RESP 12–25; TEMP 36.1–36.9; O2SAT 88–93
[2021-12-27 06:55] LABS: Abs Immature Grans 0.09 10^3/uL (0.0-0.06); Absolute Basophil Count 0.01 10^3/uL (0.0-0.2); Absolute Lymphocyte Count 0.71 10^3/uL (1.2-3.4); Absolute Monocyte Count 0.31 10^3/uL (0.1-0.8); Absolute Neutrophil Count 6.71 10^3/uL (1.2-6.7); Basophils % 0.1; HCT 35.4 % (40.0-50.0); HGB 11.7 g/dL (13.5-17.5); Immature Grans % 1.1; Lymphocytes % 9.1; MCH 30.4 pg (27.0-33.0); MCHC 33.1 % (32.0-36.0); MCV 91.9 fL (80-95); MPV 10.9 fL (8.0-11.0); Neutrophils % 85.7; Nucleated RBC 0 %; Platelet Count 225 10^3/uL (130-400); RBC 3.85 10^6/uL (4.36-5.78); RDW 12.7 % (11.8-14.1); RDW-SD 43.1 fL; WBC 7.83 10^3/uL (4.4-10.8)
[2021-12-27 07:32] LABS: ALT 30 U/L (16-63); AST 35 U/L (15-37); Albumin 2.1 g/dL (3.4-5.0); Alkaline Phosphatase 117 U/L (46-116); Anion Gap 8.5 mmol/L (3-11); BUN 19 mg/dL (7-18); Bilirubin, Total 0.3 mg/dL (0.2-1.0); C-Reactive Protein 11.51 mg/dL (0.0-0.3); CO2 27.5 mmol/L (21.0-32.0); CREATININE 0.8 mg/dL (0.70-1.30); Calcium 7.8 mg/dL (8.5-10.1); Chloride 105 mmol/L (98-107); Glucose 140 mg/dL (74-106); Potassium 3.4 mmol/L (3.5-5.1); Sodium 141 mmol/L (136-145); Total Protein 5.8 g/dL (6.4-8.2)
[2021-12-27] MEDS: Ascorbic Acid 500 MG TAB 1000 MG PO (07:59)
[2021-12-27] MEDS: Famotidine 20 MG TAB PO (08:00)
[2021-12-27] MEDS: Cholecalciferol (Vitamin D3) 1,000 UNIT TAB 2000 UNITS PO (08:00)
[2021-12-27] MEDS: Furosemide 20 MG TAB PO (08:01)
[2021-12-27] MEDS: Pregabalin 25 MG CAP 50 MG PO ×2 (08:02→14:08)
[2021-12-27] MEDS: Potassium Chloride Liquid 20 MEQ PKT PO ×2 (08:02→14:10)
[2021-12-27] MEDS: Pregabalin 100 MG CAP PO ×2 (08:02→14:08)
[2021-12-27] MEDS: Zinc Sulfate 220 MG TAB PO (08:03)
[2021-12-27 08:06] LABS: Ferritin 715 ng/mL (26-388)
[2021-12-27] MEDS: Docusate Sodium 100 MG CAP PO (09:06)
[2021-12-27] MEDS: Enoxaparin 30 MG/0.3 ML SYR SC (09:07)
[2021-12-27] MEDS: Polyethylene Glycol 3350 17 GM PACKET PO (09:07)
[2021-12-27 09:18] LABS: D-Dimer 1561 ng/mlFEU (<500)
--- NOTE | 2021-12-27 09:21 | NUR.NOTE ---
Patient is given 100mg of Docusate and 17gm of Miralax to assist with having a bowel movement.Nursing Note:
[2021-12-27] MEDS: oxyCODONE 15 MG TAB PO ×2 (09:30→11:55)
--- NOTE | 2021-12-27 12:04 | W.PM.PROGNOT ---
Date of Service Date of service: 12/27/21 Time of Service: 12:04 Assessment and Plan Assessment and plan (1) Pneumonia due to COVID-19 virus: Status: Acute Assessment and plan: Patient will complete his third day of Remdesivir later this afternoon and then he can be discharged home as he is no longer requiring any oxygen. He is encouraged to continue use of his Acapella and incentive spirometer and to practice proning at home. Otherwise he should be up out of bed as much as possible and ambulating around his home to improve his air exchange and improve ventilation to his lung bases. (2) Multifocal pneumonia: Status: Acute Assessment and plan: Cannot exclude concomitant bacterial component therefore I will discharge him home on 7-day course of Augmentin. He also be discharged home with an albuterol MDI as well as his Acapella and incentive spirometer. He should continue monitoring his oxygen levels at home and return to the hospital if he shows sustained desaturation below 90%. (3) Hypoxia: Status: Resolved Assessment and plan: Patient has been on room air all day long with no dyspnea and no hypoxemia. His oxygen saturations vary between 91 to 93%. Subjective Subjective Interval history since last seen: Patient is feeling markedly better. He has been weaned to room air is had no hypoxemia. He has an occasional moist cough is minimally productive. No fever or chills. Appetite is only fair. Exam Narrative Exam Narrative: Elderly white male lying in bed in semifowler position in no acute distress. He is alert and oriented person place time circumstance he is very hard of hearing. Lungs with fine bibasilar rales no rhonchi or wheezing Heart is regular rate and rhythm Abdomen soft nondistended Lower extremities without peripheral cyanosis or edema Objective Last Vital Signs Temp 36.1 C L 12/27/21 10:55 Pulse 65 12/27/21 10:55 Resp 12 12/27/21 10:55 BP 180/81 H 12/27/21 10:55 Pulse Ox 93 12/27/21 10:55 Laboratory Results - last 24 hr 12/27/21 12/27/21 12/27/21 06:25 06:25 07:55 WBC 7.83 RBC 3.85 L Hgb 11.7 L Hct 35.4 L MCV 91.9 D MCH 30.4 MCHC 33.1 RDW 12.7 Plt Count 225 MPV 10.9 Immature Gran % 1.1 Neutrophils % 85.7 Lymphocytes % 9.1 Monocytes % 4.0 Eosinophils % 0.0 Basophils % 0.1 Nucleated RBC % 0 Absolute Neutrophils 6.71 H Absolute Lymphocytes 0.71 L Absolute Monocytes 0.31 Absolute Eosinophils 0.00 Absolute Basophils 0.01 D-Dimer 1561 H Sodium 141 Potassium 3.4 L Chloride 105 Carbon Dioxide 27.5 Anion Gap 8.5 BUN 19 H D Creatinine 0.8 Estimated GFR/1.73 m2 >= 60.00 Glucose 140 H Calcium 7.8 L Ferritin 715 H Total Bilirubin 0.3 AST 35 ALT 30 Alkaline Phosphatase 117 H C-Reactive Protein 11.51 H Total Protein 5.8 L Albumin 2.1 L
[2021-12-27] MEDS: Acetaminophen 325 MG TAB 650 MG PO (12:45)
[2021-12-27] MEDS: Normal Saline Flush 10 ML SYR IVP (14:55)
--- NOTE | 2021-12-27 15:24 | W.PM.DS.N ---
Date of service: 12/27/21 Time of Service: 15:24 DS: Diagnosis Discharge Diagnosis (1) Pneumonia due to COVID-19 virus: Status: Acute Asessment and Plan: 61-year-old non-smoker with a history of peptic ulcer disease and phantom limb pain from previous left arm amputation as well as a history hypertension vitamin D deficiency presented to the emergency department with 2-week history of progressive cough and worsening dyspnea found to be hypoxemic underwent CT scan of the chest that showed diffuse bilateral groundglass changes. Nasal PCR swab was positive for COVID-19. Patient had not previously been vaccinated against COVID-19. Patient was admitted to the intensive care unit and was started on Remdesivir and baricitinib and Decadron. Because he had been coughing up some purulent sputum he was put on ceftriaxone and azithromycin. Patient was placed on high flow nasal cannula and at one point required up to 10 L/min. However he responded quite quickly by the next morning after his admission he was down to 2 L/min per nasal cannula and by the second day he was on room air and able to ambulate around his room without dyspnea. Patient received 3 doses total of Remdesivir throughout his hospital stay including the 200 mg in the emergency department and 100 mg the next evening and on the day of discharge she was given another 100 mg Remdesivir. He was treated with Decadron 10 mg IV in the emergency department and another 6 mg daily for 2 days. He will be discharged home on a 7-day course of Augmentin along with an albuterol inhaler and an incentive spirometer and Acapella device. Patient is encouraged to practice proning procedures but otherwise does not require any supplemental oxygen. Patient is encouraged to get a COVID vaccine in 4 weeks from recovery. He was told to remain in isolation for another 5 days. Pulmonary consultation was obtained on 12/26 w/ Dr Shah, see her note for details. (2) Multifocal pneumonia: Status: Acute Asessment and Plan: As above (3) Hypoxia: Status: Resolved Asessment and Plan: Hypoxemia has resolved and patient is now ambulating without dyspnea or oxygen desaturation. Discharge Plan Disposition Patient Disposition: HOME Condition: Improving Discharge Details Reason For Visit: COVID-19, Pneumonia, Hypoxemia Admit Date/Time: 12/25/21 19:51 Admit Provider: Red Monroe Attending Provider: Red Monroe Primary Care Provider: Peter Spencer Home Meds and New Rx's Prescriptions: New amoxicillin-pot clavulanate 875-125 mg tablet 1 tab PO BID Qty: 14 0RF albuterol sulfate 90 mcg/actuation HFA aerosol inhaler 2 inh inhalation QID PRNQty: 8.5 0RF Continued amitriptyline 50 MG tablet 100 mg PO HS 0RF pregabalin [Lyrica] 150 MG capsule 150 mg PO TID 0RF docusate sodium [Colace] 100 MG capsule 1 tab PO TID 0RF oxycodone 15 mg Tablet, Oral Only 1 tab PO QID 0RF Rx Instructions: 09/21/18 pt states that he does not take this one any more morphine 15 mg Tablet 30 mg PO TID PRN0RF vitamin B complex Tablet Extended Release 1 tab PO DAILY 0RF meloxicam 15 mg Tablet 15 mg PO DAILY 0RF acetaminophen 500 mg Tablet 1,000 mg PO QID PRN0RF pantoprazole 40 mg Tablet,Delayed Release (Dr/Ec) 40 mg PO DAILY 0RF calcium phos,dibas-vitamin D3 77-400 mg-unit Tablet 1 tab PO DAILY 0RF Discharge Instructions Instructions: COVID-19 (Coronavirus Disease 2019) (DC), COVID-19: Slow the Coronavirus Spread (DC), Face Coverings (Masks) and COVID-19 (DC), COVID-19 Patient Family Discharge Instructions Additional Instructions: You should remain in isolation from other people for 5 day after discharge from the hospital. Use a face mask when out in public. Get a COVID vaccine in 4 weeks. Finish your antibiotics (Augmentin) and use your inhaler (albuterol) 1 to 2 puffs 4 x per day as needed for wheezing or coughing. Use your Acapella and incentive spirometer to help open up your air passage and to help mobilize mucous. When sleeping/lying down, try to lie on your side or on your stomach/chest rather than on your back. This helps to open up the air passages in your lower lung zones. Referrals: Peter Spencer MD [Primary Care Provider] - (call the office on Friday 12/29 for follow up telehealth visit) Activity:: Activity as Tolerated Equipment/Supplies:: No Equipment Needed Diet:: Normal Diet Discharge Orders Discharge Orders: Discharge Order (Routine); Ordered 12/27/21 Ordered By: Louie Barakat Discharge Data Discharge Date/Time-TO BE ENTERED AT DEPARTURE: 12/27/21 17:35 DS: Summary Time Spent with Patient providing and/or coordinating discharge services: Less than 30 minutes Status at Discharge Functional status at discharge: independent ambulation Overall status at discharge: patient is progressing back to baseline Mental Status: mental status grossly normal Speech and Movement: speech and movement normal Mood: congruent mood Affect: normal affect Exam Narrative Exam Narrative: Elderly white male sitting up in bed. He is alert and oriented person place time circumstance he is very hard of hearing. Lungs with fine bibasilar rales no rhonchi or wheezing Heart is regular rate and rhythm Abdomen soft nondistended Lower extremities without peripheral cyanosis or edema Psych Mental Status: mental status grossly normal Speech and Movement: speech and movement normal Mood: congruent mood Affect: normal affect DS: Data Vitals/I&O Vitals and I&O: Vital Signs Temperature 36.3 C L 12/27/21 14:43 Temperature Source Temporal Artery Scan 12/27/21 14:43 Pulse 67 12/27/21 14:43 Pulse 57 L 12/27/21 06:50 Respiratory Rate 17 12/27/21 14:43 Respiratory Effort 12/27/21 14:00 Respiratory Depth Normal 12/27/21 14:00 Respiratory Pattern Normal 12/27/21 14:00 Blood Pressure 161/71 H 12/27/21 14:43 Blood Pressure Mean 101 12/27/21 14:00 Blood Pressure Position Sitting 12/27/21 14:00 Pulse Oximetry 93 12/27/21 14:43 Oxygen Delivery Method Room Air 12/27/21 14:43 Oxygen Flow Rate 0 12/27/21 14:43 Fraction of Inspired Oxygen (FIO2) 30 12/26/21 09:17 Pain Level 4 12/27/21 14:43 Intake & Output 12/26/21 12/27/21 12/27/21 23:59 11:59 23:59 Intake Total 2100 / 2673 483 / 603 120 / 603 Output Total 1750 / 3150 925 / 1325 400 / 1325 Balance 350 / -477 -442 / -722 -280 / -722 Weight 78.6 kg Intake: IV 550 / 773 213 / 213 Oral 1550 / 1900 270 / 390 120 / 390 Output: Urine 1750 / 3150 925 / 1325 400 / 1325 Other: Urine Color Pale Pale Straw Yellow Urine Appearance Clear Clear Clear Urine Odor None None None Voiding Methods Urinal Urinal Urinal Data Completed and Pending Labs on day of discharge: Labs from last 24 hours 12/27/21 12/27/21 12/27/21 09:45 09:45 07:55 WBC RBC Hgb Hct MCV MCH MCHC RDW Plt Count MPV Immature Gran % Neutrophils % Lymphocytes % Monocytes % Eosinophils % Basophils % Nucleated RBC % Absolute Neutrophils Absolute Lymphocytes Absolute Monocytes Absolute Eosinophils Absolute Basophils D-Dimer 1561 H Sodium Potassium Chloride Carbon Dioxide Anion Gap BUN Creatinine Estimated GFR/1.73 m2 Glucose Calcium Ferritin Total Bilirubin AST ALT Alkaline Phosphatase C-Reactive Protein Total Protein Albumin Hep Bs Antigen Pending Hep Bs Antibody Pending Hep Bs Antibody, Quant Pending Hep B Core Total Ab Pending Hepatitis C Antibody Pending HIV 1&2 Ag/Ab, 4th Gen Pending Urine Legionella Ag Ur Strep pneumoniae Ag 12/27/21 12/27/21 12/26/21 06:25 06:25 17:00 WBC 7.83 RBC 3.85 L Hgb 11.7 L Hct 35.4 L MCV 91.9 D MCH 30.4 MCHC 33.1 RDW 12.7 Plt Count 225 MPV 10.9 Immature Gran % 1.1 Neutrophils % 85.7 Lymphocytes % 9.1 Monocytes % 4.0 Eosinophils % 0.0 Basophils % 0.1 Nucleated RBC % 0 Absolute Neutrophils 6.71 H Absolute Lymphocytes 0.71 L Absolute Monocytes 0.31 Absolute Eosinophils 0.00 Absolute Basophils 0.01 D-Dimer Sodium 141 Potassium 3.4 L Chloride 105 Carbon Dioxide 27.5 Anion Gap 8.5 BUN 19 H D Creatinine 0.8 Estimated GFR/1.73 m2 >= 60.00 Glucose 140 H Calcium 7.8 L Ferritin 715 H Total Bilirubin 0.3 AST 35 ALT 30 Alkaline Phosphatase 117 H C-Reactive Protein 11.51 H Total Protein 5.8 L Albumin 2.1 L Hep Bs Antigen Hep Bs Antibody Hep Bs Antibody, Quant Hep B Core Total Ab Hepatitis C Antibody HIV 1&2 Ag/Ab, 4th Gen Urine Legionella Ag Pending Ur Strep pneumoniae Ag Pending Preliminary micro results at discharge 12/26/21 17:00 Sputum Culture - Preliminary Sputum Normal Mar 12/25/21 17:42 Blood Culture - Preliminary Blood NO GROWTH 24 HOURS 12/25/21 17:30 Blood Culture - Preliminary Blood NO GROWTH 24 HOURS PFSH All Active Problems (Updated 12/28/21 @ 00:03 by ERA DEE) Pneumonia due to COVID-19 virus (Acute) COVID-19 (Acute) Multifocal pneumonia (Acute) Peptic ulcer disease (Chronic) Status post VNS (vagus nerve stimulator) placement (Acute) Phantom limb (syndrome) (Acute) Vitamin D deficiency (Acute) Hypertension (Chronic) Social History Smoking/Tobacco Use Status: Unknown Smoking risk assessment performed?: Yes Alcohol Intake: never Drug use: Never Substance use type: does not use Do you feel safe at home: Yes Do you feel safe in your relationship?: Yes
[2021-12-27] MEDS: REMDESIVIR 100 MG in Normal Saline 250 ML 250 MG IVPB (15:41)
--- NOTE | 2021-12-27 16:34 | PDOC.CMDIS ---
- If Service Date Differs Date of service: 12/27/21 Time of Service: 16:34 LACE Index Scoring Tool - Questions: Length of Stay (in days): 2 Acuity (Admit via E.D.?): Yes E.D. Visits: 1 - Answers: Total Score: 6 Risk of Readmission: Low Risk Care Management Discharge Reason for Hospitalization: COVID Pneumonia, hypoxemia Discharge Plan: Discharge home via private vehicle with sister Nargis. Take antibiotics as directed and isolate from other people for 5 days. Call your PCP on Wednesday to schedule a telehealth follow up appointment. Patient/Family Education Needs: Review discharge instructions, limitations, medications and plan to follow up with community providers. ask me three.
[2021-12-27 23:15] LABS: Legionella Ag Detection Urine Negative (Negative)
[2021-12-29 12:15] LABS: HIV-1/2 Ag & Ab Screen Negative (Negative)
[2021-12-29 12:59] LABS: HBs Antibody, Qual Negative (See Note); HBs Antibody, Quant <3.1 mIU/mL (See Note); Hepatitis B Core Antibody Negative (Negative); Hepatitis B surface Ag Negative (Negative); Hepatitis C Ab w Rflx HCV PCR Negative (Negative)
[2021-12-30 16:27] LABS: Streptococcus Pneumoniae Ag, U Negative (Negative)
== END 2021-12-27 17:35 | disposition home or self-care (01) | DRG 177 ==
LOC: ER 20:04 → ICU 20:52
PROVIDERS: Internal Medicine; Student in an Organized Health Care Education/Training Program; Admitting Provider Family Medicine; Emergency Provider Nurse Practitioner Family; PCP Internal Medicine; Visit Provider Family Medicine
DX: U07.1 COVID-19 (principal); J12.82 Pneumonia due to coronavirus disease 2019; J15.9 Unspecified bacterial pneumonia; J96.01 Acute respiratory failure with hypoxia; I10 Essential (primary) hypertension; E55.9 Vitamin D deficiency, unspecified; G54.7 Phantom limb syndrome without pain; K27.9 Peptic ulcer, site unspecified, unspecified as acute or chronic, without hemorrhage or perforation; E87.6 Hypokalemia; R73.9 Hyperglycemia, unspecified; Z89.202 Acquired absence of left upper limb, unspecified level
CPT/HCPCS: 36410; 36415; 36592; 71275; 80053; 82550; 84145; 86704; 86706; 86803; 86850; 86900; 86901; 87040; 87340; 87389; 87449; 87637; 93005; 96361; 96365; 96367; 96375; 99285; 70450; 82728; 83036; 83605; 83880; 84443; 84484; 85025; 85379; 86140; 87070; 87205; 87899; 93010; 94667; 99233; 99238; 99291; J0248; J0456; J0696; J1100; J1650; J3490; J7620

== ENCOUNTER → 2022-02-02 03:02 | Outpatient (CLI) | payer MEDICAID, SELFPAY | PROVIDERS: PCP Internal Medicine; Visit Provider Internal Medicine ==

== ENCOUNTER → 2022-02-19 00:34 | Outpatient (CLI) | payer MEDICAID, SELFPAY ==
--- NOTE | 2022-02-19 14:29 | DI.RAD_ITS ---
Exam(s) XR CHEST 2V PA LATERAL EXAM: XR CHEST 2V PA LATERAL CLINICAL HISTORY: PERSONAL H/O COVID-19, Z86.16, HAD COVID IN DECEMBER 2021 TECHNIQUE: COMPARISON: CR CHEST 2 VIEWS PA,LAT from 06/26/[address] CHEST PE CTA from 12/25/2021 FINDINGS: The heart is not enlarged. There are areas of apparent pulmonary scarring versus atelectasis and/or nonspecific opacities. The lungs appear to have cleared significantly since recent chest CT of December 25. No pleural effusion seen. IMPRESSION: The appearance is consistent with bilateral resolving pulmonary infiltrates following prior known COV ID pneumonia. RADIATION DOSE DELIVERED: Total DLP
== END ==
PROVIDERS: PCP Internal Medicine; Visit Provider Internal Medicine
DX: Z86.16 Personal history of COVID-19 (principal); R91.8 Other nonspecific abnormal finding of lung field
CPT/HCPCS: 71046

== ENCOUNTER 2022-03-18 11:25 | Inpatient (IN) | payer MEDICAID, SELFPAY ==
[2022-03-18] VITALS (29 sets, daily range): BP systolic 126–154; BP diastolic 81–82; PULSE 110–122; RESP 2–26; TEMP 36.7–38; O2SAT 77–99
--- NOTE | 2022-03-18 | DI.US_ITS ---
Exam(s) US RENAL EXAM: US RENAL CLINICAL HISTORY: MARI TECHNIQUE: Ultrasound of both kidneys performed using standard protocol. COMPARISON: No exams were available for comparison FINDINGS: RIGHT KIDNEY: Measures 9 cm in length. Small cysts noted inferiorly in the right kidney measuring 1 cm. Normal cor tical thickness and corticomedullary differentiation .No solid masses Hyperechoic 7 millimeter density may be a nonobstructive calculus midpole level. LEFT KIDNEY: Measures 10.7 cm in length. No cysts evident. There is a 6 millimeter calculus in the lower pole sylvia yx. There is an element of hydronephrosis-mild. This is related to a calculus upper left ureter, se en on CT scan today. URINARY BLADDER: Prevoid volume is 380 cc Postvoid volume is not able to void cc No evidence of bladder mass nor diverticuli. Ureterovesical jets: Both identified IMPRESSION: 1. Nephrolithiasis. In addition, there is unilateral left-sided hydronephrosis. This is seen to be related to a 6 millimeter calculus in the upper left ureter which is seen on CT scan today. 2. Other findings as above DATA REPOSITORY:
--- NOTE | 2022-03-18 11:45 | DI.RAD_ITS ---
Exam(s) XR PORTABLE CHEST AP EXAM: XR PORTABLE CHEST AP CLINICAL HISTORY: SOB, PUI. TECHNIQUE: 2D digital imaging was performed. COMPARISON: CR XR CHEST 2V PA LATERAL from 02/19/2022 FINDINGS: Single AP portable view. Chest leads again noted. Heart size is upper normal. The mediastinum is not widened. Mild increased markings in both lung bases are noted. These are slightly increased in the left lung base behind the heart-posterior basal segment left lower lobe. No obvious pleural effusions. No pne umothorax IMPRESSION: Increased left lower lobe markings. Also mild increased markings right lung base. Probable small in filtrates. There are no obvious pleural effusions evident on this single portable view. DATA REPOSITORY: RADIATION DOSE DELIVERED: All CT scans at this facility use at least one of these dose optimization techniques: automated exposure control; mA and/or kV adjustment per patient size (includes targeted e xams where dose is matched to clinical indication); or iterative reconstruction.
--- NOTE | 2022-03-18 11:45 | RT.EKG_ITS ---
APPROVED REPORT Exam: Resting ECG Reason for Exam: SOB Patient Location: E HR:120 bpm ECG Measurements Heart Rate 120 AXIS GA 127 P 41 QRSd 86 QRS 21 QT 366 T 151 QTc 518 Conclusion Sinus tachycardia...rate> 99 Probable LVH with secondary repol abnrm...multiple LVH criteria Prolonged QT interval...QTc >500mS sinus tach at 120, normal axis, left ventricular hypertrophy with repolarization abnormality, QTC 518 , lateral T wave inversions not present on prior, no STEMI, nondiagnostic EKG
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
[2022-03-18 12:23] LABS: BE (Venous) -1 mmol/L (-2-3); HCO3 (Venous) 24 mmol/L (23-28); O2 Sat (Venous) 78 %; TCO2 (Venous) 22 mmol/L (24-29); pCO2 (Venous) 41 mmHg (41-51); pH (Venous) 7.38 (7.31-7.41); pO2 (Venous) 45 mmHg
[2022-03-18 12:24] LABS: Abs Immature Grans 0.07 10^3/uL (0.0-0.06); Absolute Monocyte Count 0.58 10^3/uL (0.1-0.8); Basophils % 0.3; HCT 43.3 % (40.0-50.0); HGB 14.2 g/dL (13.5-17.5); Immature Grans % 0.5; Lymphocytes % 2.2; MCHC 32.8 % (32.0-36.0); MCV 92 fL (80-95); MPV 10.3 fL (8.0-11.0); Monocytes % 3.8; Neutrophils % 92.2; Platelet Count 204 10^3/uL (130-400); RBC 4.73 10^6/uL (4.36-5.78); RDW-SD 43.8 fL
[2022-03-18 12:25] LABS: Absolute Basophil Count 0.05 10^3/uL (0.0-0.2); Absolute Eosinophil Count 0.15 10^3/uL (0.0-0.7); Absolute Lymphocyte Count 0.34 10^3/uL (1.2-3.4); Absolute Neutrophil Count 14.11 10^3/uL (1.2-6.7)
[2022-03-18 12:27] LABS: Source Nasal/Nares
[2022-03-18 12:28] LABS: Lactate 1.3 mmol/L (0.6-1.4)
[2022-03-18] MEDS: Normal Saline 500 ML IV (12:31)
[2022-03-18] MEDS: Normal Saline Flush 10 ML SYR IVP (12:32)
[2022-03-18 12:48] LABS: ALT 33 U/L (16-63); AST 30 U/L (15-37); Albumin 3.6 g/dL (3.4-5.0); Alkaline Phosphatase 175 U/L (46-116); Anion Gap 11.8 mmol/L (3-11); BUN 37 mg/dL (7-18); Bilirubin, Total 0.6 mg/dL (0.2-1.0); CO2 25.2 mmol/L (21.0-32.0); CREATININE 2.7 mg/dL (0.70-1.30); Calcium 8.7 mg/dL (8.5-10.1); Chloride 102 mmol/L (98-107); Estimated GFR 24.07 (mL/min/1.73m2); Glucose 102 mg/dL (74-106); NT-proBNP 215 pg/mL (<300); Potassium 3.4 mmol/L (3.5-5.1); Sodium 139 mmol/L (136-145); Total Protein 7.3 g/dL (6.4-8.2); Troponin I < 50 ng/L (<or=60)
[2022-03-18 13:29] LABS: COVID-19 PCR Negative (Negative)
[2022-03-18] MEDS: Normal Saline 1,000 ML 1000 ML IV (13:37)
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
[2022-03-18] MEDS: CEFEPIME 2 GM in Normal Saline 100 ML IVPB (14:05)
[2022-03-18] MEDS: AZITHROMYCIN 500 MG in Normal Saline 250 ML 250 MG IVPB (14:05)
--- NOTE | 2022-03-18 14:15 | DI.CT_ITS ---
Exam(s) CT HEAD WO EXAM: CT HEAD WO CLINICAL HISTORY: AMS. TECHNIQUE: Imaging Protocol: Axial computed tomography images with coronal and sagittal reformatted images were created and reviewed COMPARISON: CT CT HEAD WO from 12/25/2021 FINDINGS: Patient is rotated towards the right side. There is no evidence of intracranial hemorrhage, mass effect, or shift of midline structures. There are no extra-axial fluid collections. The ventricles are not enlarged or shifted and there is no blo od within the ventricular system nor within the basal cisterns. IMPRESSION: No acute intracranial findings on this noninfused CT scan of the brain. RADIATION DOSE DELIVERED: 756.62mGy.cm Total DLP DATA REPOSITORY: All CT scans at this facility are submitted to the National Radiology Data Registry (NRDR) Dose Index Registry (DIR) with the [employer] (ACR). RADIATION OPTIMIZATION: All CT scans at this facility use at least one of these dose optimization te chniques: automated exposure control; mA and/or kV adjustment per patient size (includes targeted exa ms where dose is matched to clinical indication); or iterative reconstruction.
[2022-03-18 14:34] LABS: Magnesium 1.9 mg/dL (1.8-2.4)
--- NOTE | 2022-03-18 15:15 | DI.CT_ITS ---
Exam(s) CT ABDOMEN PELVIS WO EXAM: CT ABDOMEN PELVIS WO CLINICAL HISTORY: left-sided abdominal pain. TECHNIQUE: Imaging Protocol: Axial computed tomography images with coronal and sagittal reformatted images were created and reviewed CONTRAST MATERIAL: Intravenous: none Oral: None COMPARISON: CT CT CHEST PE CTA from 12/25/2021 FINDINGS: VISUALIZED LUNG BASES: Some residual infiltrate is noted in the right lower lobe. This patient recen t covid pneumonia.. No pleural effusions evident. ABDOMEN: There is no ascites. LIVER: There are no obvious focal hepatic lesions evident of this noninfused study. GALLBLADDER/BILIARY: Not well seen either due to respiratory motion or previous surgery. CBD diamete r is 1.4 cm. There are densities at junction of CBD and duodenum which are probably postsurgical cli ps. There is streaking around this area as well as around the pancreatic head. No obvious free air. PANCREAS: Streaking around the pancreatic head noted, possibly pancreatitis. Remainder of the pancre as appears unremarkable on the duct is not dilated. SPLEEN: Spleen is not enlarged. No obvious intrasplenic lesions. ADRENALS: There are no significant adrenal masses. KIDNEYS:There is a lower pole calculus in the left kidney measuring 4 millimeters. There is also a c alculus in the upper left ureter measuring 5-6 millimeters. Mild dilatation above this level. No pe rinephric streaking. No other calculi seen left ureter nor within the urinary bladder. A few tiny c alculi are seen in the right kidney. No hydronephrosis nor hydroureter on the right side. No solid renal masses.. ABDOMINAL AORTA: Abdominal aorta is not enlarged. LYMPH NODES: There is no retroperitoneal nor paraaortic adenopathy. ABDOMINAL WALL: Fat containing umbilical hernia. No bowel loops therein. No inguinal hernias. GI: There is no evidence of bowel obstruction, free air, nor abscess. , There is a small amount of free fluid in the dependent aspect the pelvis in this male patient. PELVIS: LYMPH NODES: There is no intrapelvic nor inguinal adenopathy. GI: No evidence of appendicitis.No evidence of sigmoid diverticulitis. URINARY BLADDER: No calculi nor obvious masses evident REPRODUCTIVE: Prostate not enlarged OSSEOUS: Multiple partially healed left-sided rib fractures are noted. Right buttock stimulator note d. Also hardware in the right hip from prior intertrochanteric fracture repair. Sacroiliac joints u nremarkable. IMPRESSION: 1. The main acute finding here is a 6 millimeter calculus in the upper left ureter with mild dilatati on of the collecting system above this level. There is also another nonobstructive 4 millimeter calc ulus in the lower pole of the left kidney. No obstructing calculi in the opposite-right side nor in the urinary bladder. 2. There is some streaking evident around head of the pancreas and duodenum. Also densities at the j unction of the duodenum and CBD noted. There has probably been previous instrumentation surgery at t his level. Streaking implies probable element of pancreatitis or duodenitis or a combination there o f. There is no free air evident. 3. There is evidence of prior bariatric surgery. The Thompson limb is not dilated. There is no bowel ob struction. No free air. Patient apparently admitted from the emergency room RADIATION DOSE DELIVERED: 933.1mGy.cm Total DLP DATA REPOSITORY: All CT scans at this facility are submitted to the National Radiology Data Registry (NRDR) Dose Index Registry (DIR) with the [employer] (ACR). RADIATION OPTIMIZATION: All CT scans at this facility use at least one of these dose optimization te chniques: automated exposure control; mA and/or kV adjustment per patient size (includes targeted exa ms where dose is matched to clinical indication); or iterative reconstruction.
[2022-03-18 15:16] LABS: Procalcitonin 2.3 ng/mL
[2022-03-18] MEDS: Acetaminophen 500 MG TAB PO (16:17)
[2022-03-18] MEDS: Albuterol/Ipratropium 3 ML UPD VIAL UPD (16:59)
[2022-03-18 17:49] LABS: Troponin I < 50 ng/L (<or=60)
[2022-03-18] MEDS: Normal Saline 1,000 ML 100 ML IV (18:04)
[2022-03-18 18:42] LABS: Bilirubin Negative (Negative); Blood Trace-intact (Negative); Clarity Clear (Clear); Glucose Negative (Negative); Ketones Negative (Negative); Leukocyte Esterase Negative (Negative); Nitrite Negative (Negative); Specific Gravity 1.025 (1.005-1.025); Urobilinogen 0.2 EU/dL (Up TO 0.2); pH 5.5 (5-8)
[2022-03-18 18:52] LABS: Bacteria Rare HPF (Negative); C & S Indicated? Yes; Crystals Negative HPF (Negative); Epithelial Cells Negative HPF (Negative); Mucus Moderate (Negative)
== END 2022-03-18 18:13 | disposition short-term general hospital (02) | DRG 871 ==
LOC: ER 14:07 → MS 15:22
PROVIDERS: Nurse Practitioner Acute Care; Admitting Provider Family Medicine; Emergency Provider Student in an Organized Health Care Education/Training Program; PCP Internal Medicine; Visit Provider Family Medicine
DX: A41.9 Sepsis, unspecified organism (principal); J18.9 Pneumonia, unspecified organism; N17.9 Acute kidney failure, unspecified; N13.6 Pyonephrosis; K27.9 Peptic ulcer, site unspecified, unspecified as acute or chronic, without hemorrhage or perforation; G54.7 Phantom limb syndrome without pain; Z89.202 Acquired absence of left upper limb, unspecified level; I10 Essential (primary) hypertension; Z79.891 Long term (current) use of opiate analgesic; E55.9 Vitamin D deficiency, unspecified; Z96.82 Presence of neurostimulator; G56.01 Carpal tunnel syndrome, right upper limb; Z72.0 Tobacco use; G56.21 Lesion of ulnar nerve, right upper limb; Z86.16 Personal history of COVID-19
CPT/HCPCS: 36410; 36415; 76770; 80053; 82805; 84145; 87040; 87635; 93005; 94640; 96361; 96365; 96368; 99285; 70450; 71045; 74176; 81003; 81015; 83605; 83735; 83880; 84484; 85025; 87086; 93010; 99223; J0456; J7620

== ENCOUNTER 2022-03-27 15:18 | Outpatient (REF) | payer MEDICAID, SELFPAY ==
[2022-03-27 15:35] LABS: Source Nasal/Nares
[2022-03-28 08:26] LABS: COVID-19 PCR Negative (Negative)
== END 2022-03-27 15:19 | disposition home or self-care (01) ==
LOC: LBN 15:18
PROVIDERS: PCP Internal Medicine; Visit Provider Urology
DX: Z20.822 Contact with and (suspected) exposure to COVID-19 (principal); Z01.818 Encounter for other preprocedural examination
CPT/HCPCS: 87635

== ENCOUNTER 2022-03-30 07:32 | Day surgery (SDC) | payer MEDICAID, SELFPAY ==
[2022-03-30] VITALS (9 sets, daily range): BP systolic 121–158; BP diastolic 59–89; PULSE 59–83; RESP 10–18; TEMP 36.2–36.9; O2SAT 95–98; BMI 25.7
--- NOTE | 2022-03-30 08:05 | W.ANESPRE ---
General Info Date of Service Date Performed: 03/30/22 Height: 5 ft 10 in Weight: 81.2 kg Body Mass Index (BMI): 25.7 Surgical Procedure: Operation Date: 03/30/22 08:55 Proposed Procedure Side Surgeon p Cystoscopy/Laser/Ureteroscopy/Removal of Ureteral Stent Left William Camacho MD Meds Allergies and Home Medications Allergies Allergy/AdvReac Type Severity Reaction Status Date / Time iodine Allergy Severe Topical Unverified 03/30/22 07:42 Irritation copper Allergy Intermediate Unverified 03/30/22 07:42 chocolate flavor AdvReac Unverified 03/30/22 07:42 Home Medication Medication Instructions Recorded pregabalin 150 mg capsule (Lyrica) 150 mg PO TID 08/13/14 morphine 15 mg immediate release 30 mg PO TID PRN 09/21/18 tablet oxycodone 15 mg tablet,oral ONLY 1 tab PO QID 09/21/18 (not feeding tubes) meloxicam 15 mg tablet 15 mg PO DAILY 12/25/21 vitamin B complex 1 tab PO DAILY 12/25/21 albuterol sulfate 90 mcg/actuation 2 inh inhalation QID PRN #8.5 grams 12/27/21 aerosol inhaler acetaminophen 500 mg tablet 500 mg PO Q3H PRN 02/18/22 amitriptyline 50 mg tablet 50 mg PO QHS 02/18/22 cholecalciferol (vitamin D3) 50 50 mcg PO DAILY 02/18/22 mcg (2,000 unit) capsule docusate sodium 100 mg capsule 100 mg PO TID PRN 02/18/22 (Colace) naloxone 4 mg/actuation nasal 4 mg intranasal Q2-3M PRN 02/18/22 spray (Narcan) pantoprazole 20 mg tablet,delayed 20 mg PO DAILY 02/18/22 release amlodipine 10 mg tablet 10 mg PO DAILY 03/26/22 ciprofloxacin HCl 500 mg tablet 500 mg PO BID 03/26/22 hydralazine 10 mg tablet 10 mg PO BID 03/26/22 tamsulosin 0.4 mg capsule 0.4 mg PO QHS 03/26/22 Current Visit Medications: Current Medications Generic Name Dose Route Start Last Admin Trade Name Freq PRN Reason Stop Dose Admin Ringer's Solution 1,000 mls @ 80 mls/hr 03/30/22 06:00 IV 04/26/22 23:59 INFUSION BETTE Cefazolin Sodium/Dextrose 2 gm in 50 mls @ 100 mls/hr 03/30/22 06:00 Ancef Duplex IVPB 04/26/22 23:59 PREOP BETTE IV Miscellaneous Supplies 1 each 03/30/22 06:00 Iv Access IV 04/26/22 23:59 DIRECTED BETTE Sodium Chloride 0 ml 03/30/22 06:00 Normal Saline Flush 10 Ml Syr IV 04/26/22 23:59 PRN PRN Sodium Chloride 0 ml 03/30/22 06:00 Normal Saline 10 Ml Vial IJ 04/26/22 23:59 DIRECTED PRN Sterile Water 0 ml 03/30/22 06:00 Water,Injection,Sterile 10 Ml Vial IJ 04/26/22 23:59 DIRECTED PRN PFSH Active Problems Active Problems: Problem Status Onset Code Hypertension I10 Vitamin D deficiency E55.9 Phantom limb (syndrome) G54.7 Status post VNS (vagus nerve stimulator) placement Z96.89 Peptic ulcer disease K27.9 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 states this has not been done History of gastrectomy Hx of fracture of hip Hx of fracture of wrist Hx of fracture of wrist pt. reports metal in place Hx of peptic ulcer Personal history of COVID-19 Right leg injury S/P placement of nerve stimulator Ulnar neuritis Medical History Comments:: pt. reports he is slow waking up Surgical History Surgical History Hx of cystoscopy Hx of total hip arthroplasty t. reports fracture with metal repair Tobacco Smoking/Tobacco Use Status: Current every day Tobacco Type: smokeless tobacco Alcohol Alcohol Intake: never Substance Use Substance use: Never Substance use type: does not use Vital Signs and Lab Results Vital Signs Most Recent Vital Signs in EMR: Most Recent Vital Signs Temp Pulse Resp BP Pulse Ox 36.3 C L 75 16 121/76 97 06/20/22 07:52 03/30/22 07:52 03/30/22 07:52 03/30/22 07:52 03/30/22 07:52 Lab Results Blood Type / Crossmatch: No Data to Display Complete Blood Count: White Blood Count 15.30 10^3/uL (4.4-10.8) H 03/18/22 12:10 Red Blood Count 4.73 10^6/uL (4.36-5.78) 03/18/22 12:10 Hemoglobin 14.2 g/dL (13.5-17.5) 03/18/22 12:10 Hematocrit 43.3 % (40.0-50.0) 03/18/22 12:10 Platelet Count 204 10^3/uL (130-400) 03/18/22 12:10 Venous Blood Lactate 1.3 mmol/L (0.6-1.4) 03/18/22 12:10 Complete Metabolic Panel: Sodium Level 139 mmol/L (136-145) 03/18/22 12:10 Potassium Level 3.4 mmol/L (3.5-5.1) L 03/18/22 12:10 Chloride Level 102 mmol/L (98-107) 03/18/22 12:10 Carbon Dioxide Level 25.2 mmol/L (21.0-32.0) 03/18/22 12:10 Blood Urea Nitrogen 37 mg/dL (7-18) H 03/18/22 12:10 Creatinine 2.7 mg/dL (0.70-1.30) H 03/18/22 12:10 Estimated GFR/1.73 m2 24.07 (mL/min/1.73m2) 03/18/22 12:10 Magnesium Level 1.9 mg/dL (1.8-2.4) 03/18/22 12:10 Calcium Level 8.7 mg/dL (8.5-10.1) 03/18/22 12:10 Albumin 3.6 g/dL (3.4-5.0) 03/18/22 12:10 Glucose Level 102 mg/dL (74-106) 03/18/22 12:10 Liver Function Panel: Alanine Aminotransferase (ALT/SGPT) 33 U/L (16-63) 03/18/22 12:10 Aspartate Amino Transf (AST/SGOT) 30 U/L (15-37) 03/18/22 12:10 Coagulation Panel: No Data to Display Cardiac Panel: Troponin I < 50 ng/L (<or=60) 03/18/22 CT-Qfo-K-Type Natriuretic Peptide 215 pg/mL (<300) 03/18/22 Arterial Blood Gas: No Data to Display Venous Blood Gas: Venous Blood pH 7.38 (7.31-7.41) 03/18/22 12:10 Venous Blood Partial Pressure O2 45 mmHg 03/18/22 12:10 Venous Blood Partial Pressure CO2 41 mmHg (41-51) 03/18/22 12:10 Venous Blood Oxygen Saturation 78 % 03/18/22 12:10 Venous Blood HCO3 24 mmol/L (23-28) 03/18/22 12:10 Venous Blood Base Excess -1 mmol/L (-2-3) 03/18/22 12:10 Venous Blood Total Carbon Dioxide 22 mmol/L (24-29) L 03/18/22 12:10 Pancreas Panel: No Data to Display Thyroid Panel: No Data to Display Infectious Disease: Coronavirus (COVID-19)(PCR) Negative (Negative) 03/27/22 13:15 Coronavirus 2019 Source Nasal/Nares 03/27/22 13:15 Blood Cultures: No Data to Display Toxicology Panel: No Data to Display Imaging and Studies Imaging and Studies Study information below may be from another EMR and interpreted by another provider. Please see original notes in EMR for more complete details. EKG Summary: Conclusion Sinus tachycardia...rate> 99 Probable LVH with secondary repol abnrm...multiple LVH criteria Prolonged QT interval...QTc >500mS 03/18/22 Anesthesia Assessment and Plan Anesthesia History Personal History: No History of Anesthesia Complications, Delayed Emergence and Other Family History: No Family History of Anesthesia Complications Exercise Tolerance Exercise Tolerance: Metabolic Equivalents>4 Pertinent Negatives Pertinent Negatives: No Symptoms of GERD, No Major Cardiovascular Symptoms or Complaints and No Major Pulmonary Symptoms or Complaints Cardiac & Pulmonary Exam Cardiac Exam: Normal S1/S2 Heart Sounds Pulmonary Exam: Clear Bilateral Breath Sounds Implantable Cardiac Device Does patient have a Pacemaker or an ICD?: No Airway Exam Known Difficult Airway: No Mallampati Class: 2 Mouth Opening: Normal (> 3cm) Thyromental Distance: Greater than 3 cm Neck Range of Motion: Limited ROM (Cannot turn head to the left) Neck Circumference: Normal Teeth Condition: Generalized Poor Dentition, Loose or Chipped (Patient unsure if any loose) and Dental Caries ASA Classification ASA Score: ASA 3 Emergency Case?: No NPO Status NPO Status: NPO Clears >2 hours, Solids >8 hours Anesthesia Plan Resuscitation Status: Full Code Anesthesia Technique: General Anesthesia Airway Planned: Endotracheal Tube Monitors Used: Standard Monitors
[2022-03-30] MEDS: Lactated Ringers 1,000 ML 80 ML IV (08:10)
--- NOTE | 2022-03-30 08:19 | HPE_ITS ---
Date of service: 03/30/22 Time of Service: 08:19 Assessment and Plan Assessment and plan (1) Ureteral calculus, left: Status: Acute Assessment and plan: We will remove the stent and treat the ureteral stone endoscopically. Once the ureteral stone has been cleared, we can run the scope up to the kidney to address his lower pole stones History of Present Illness History of Present Illness Chief Complaint: Left ureteral stone Narrative: This is a 61-year-old gentleman who presented to our emergency department on 03/18/2022.? He presented with shortness of breath and his chest x-ray was suspicious for infiltrate, so he was admitted with a working diagnosis of pneumonia.? Cultures were obtained and broad-spectrum antibiotics were begun Once he was transferred up to the floor however, he began having symptoms concerning for sepsis.? He was tachycardic and febrile.? His white blood count was elevated.? A CT of the abdomen and pelvis demonstrated an obstructing left proximal ureteral stone. I was not in the area that evening, but I did discuss the case with our spitalist.? I recommended that a ureteral stent be placed in case he had an infected, obstructed left kidney.? Dr. Morfin in [place] was gracious enough to accept this gentleman in transfer and placed a ureteral stent.? Patient remained in the hospital for an additional 24 to 48 hours.? All of his blood and urine cultures showed no bacterial growth. He has noticed gross hematuria but has not had renal colic.? He has not passed his stone. He presents for stone manipulation. Review of Systems Narrative: No fevers or chills No vision change or dysphasia No diabetes or thyroid dysfunction Hx COVID 12/2021. No sputum production or hemoptysis Hx HTN. No chest pain or palpitations Hx bleeding ulcers. No nausea, vomiting, hepatitis, jaundice No seizures, strokes No bleeding disorders or anemia Chronic pain. No gout PFSH All Active Problems Hypertension (Chronic) Vitamin D deficiency (Acute) Phantom limb (syndrome) (Chronic) Status post VNS (vagus nerve stimulator) placement (Acute) Peptic ulcer disease (Chronic) Ulnar neuropathy at elbow of right upper extremity (Acute) Right carpal tunnel syndrome (Acute) Pneumonia (Acute) DVT prophylaxis (Acute) Discharge planning issues (Acute) Acute kidney injury (Acute) Ureteral calculus, left (Acute) Sepsis due to urinary tract infection (Acute) Pneumonia (Acute) Medical History Amputation of left arm Cataracts, bilateral pt. states this has not been done History of gastrectomy Hx of fracture of hip Hx of fracture of wrist Hx of fracture of wrist pt. reports metal in place Hx of peptic ulcer Personal history of COVID-19 Right leg injury S/P placement of nerve stimulator Ulnar neuritis Surgical History Hx of cystoscopy Hx of total hip arthroplasty t. reports fracture with metal repair Social History Smoking/Tobacco Use Status: Current every day Tobacco Type: smokeless tobacco Smoking risk assessment performed?: Yes Alcohol Intake: never Drug use: Never Substance use type: does not use Do you feel safe at home: Yes Do you feel safe in your relationship?: Yes Additional Social history: unable to assess privately Meds Allergies and Home Medications Allergies Allergy/AdvReac Type Severity Reaction Status Date / Time iodine Allergy Severe Topical Unverified 03/30/22 07:42 Irritation copper Allergy Intermediate Unverified 03/30/22 07:42 chocolate flavor AdvReac Unverified 03/30/22 07:42 Home Medications Medication Instructions Recorded Confirmed Type pregabalin 150 mg capsule (Lyrica) 150 mg PO TID 08/13/14 03/30/22 History morphine 15 mg immediate release 30 mg PO TID PRN 09/21/18 03/30/22 History tablet oxycodone 15 mg tablet,oral ONLY 1 tab PO QID 09/21/18 03/30/22 History (not feeding tubes) meloxicam 15 mg tablet 15 mg PO DAILY 12/25/21 03/30/22 History vitamin B complex 1 tab PO DAILY 12/25/21 03/30/22 History albuterol sulfate 90 mcg/actuation 2 inh inhalation QID PRN #8.5 grams 12/27/21 03/30/22 Rx aerosol inhaler acetaminophen 500 mg tablet 500 mg PO Q3H PRN 02/18/22 03/30/22 History amitriptyline 50 mg tablet 50 mg PO QHS 02/18/22 03/30/22 History cholecalciferol (vitamin D3) 50 50 mcg PO DAILY 02/18/22 03/30/22 History mcg (2,000 unit) capsule docusate sodium 100 mg capsule 100 mg PO TID PRN 02/18/22 03/30/22 History (Colace) naloxone 4 mg/actuation nasal 4 mg intranasal Q2-3M PRN 02/18/22 03/30/22 History spray (Narcan) pantoprazole 20 mg tablet,delayed 20 mg PO DAILY 02/18/22 03/30/22 History release amlodipine 10 mg tablet 10 mg PO DAILY 03/26/22 03/30/22 History ciprofloxacin HCl 500 mg tablet 500 mg PO BID 03/26/22 03/30/22 History hydralazine 10 mg tablet 10 mg PO BID 03/26/22 03/30/22 History tamsulosin 0.4 mg capsule 0.4 mg PO QHS 03/26/22 03/30/22 History Exam Const General: uncomfortable and other (uncomfortable due to chronic pain) Neck Neck: supple Resp Effort & Inspection: normal respiratory effort Auscultation: clear to auscultation bilaterally Cardio Rate: regular rate Rhythm: regular rhythm GI Palpation: soft and not rigid Neuro General: patient alert and patient awake Results Last Vital Signs Temp 36.3 C L 03/30/22 07:52 Pulse 75 03/30/22 07:52 Resp 16 03/30/22 07:52 BP 121/76 03/30/22 07:52 Pulse Ox 97 03/30/22 07:52
[2022-03-30] MEDS: ceFAZolin 2 GM/50 ML BAG IVPB (09:19)
[2022-03-30] MEDS: Lidocaine 2% Jelly 6 ML SYR (09:34)
[2022-03-30] MEDS: Omnipaque 300 MG/ML 50 ML BTL (09:34)
--- NOTE | 2022-03-30 10:41 | DI.RAD_ITS ---
Exam(s) XR RETROGRADE IN OR EXAM: XR RETROGRADE IN OR CLINICAL HISTORY: Ureteral calculus, left TECHNIQUE: 2D and realtime digital imaging was performed. CONTRAST MATERIAL: Refer to procedure report. COMPARISON: No exams were available for comparison FINDINGS: Fluoroscopy was provided for Dr. Camacho during the performance of a retrograde evaluation of the aba l collecting system. Please refer to the procedure report for complete details. Ka,r=22.8 mGy IMPRESSION: RADIATION DOSE DELIVERED:
--- NOTE | 2022-03-30 11:04 | W.PM.DSUDISC ---
Discharge Plan Disposition Patient Disposition: HOME Condition: Good Discharge Details Reason For Visit: ureteral stone Attending Provider: William Camacho Primary Care Provider: Peter Spencer Home Meds and New Rx's Prescriptions: No Action tamsulosin 0.4 mg capsule 0.4 mg PO QHS amlodipine 10 mg tablet 10 mg PO DAILY ciprofloxacin HCl 500 mg tablet 500 mg PO BID hydralazine 10 mg tablet 10 mg PO BID Rx Instructions: take if bp above 160 pantoprazole 20 mg tablet,delayed release (DR/EC) 20 mg PO DAILY amitriptyline 50 mg tablet 50 mg PO QHS cholecalciferol (vitamin D3) 50 mcg (2,000 unit) capsule 50 mcg PO DAILY docusate sodium [Colace] 100 mg capsule 100 mg PO TID PRN acetaminophen 500 mg tablet 500 mg PO Q3H PRN naloxone [Narcan] 4 mg/actuation spray,non-aerosol 4 mg intranasal Q2-3M PRN Label Comments: sister states pt. doesnt have Rx Instructions: spray 1 dose into ONE nostril; alternate nostrils w each dose until help arrives pregabalin [Lyrica] 150 MG capsule 150 mg PO TID oxycodone 15 mg Tablet, Oral Only 1 tab PO QID Rx Instructions: 09/21/18 pt states that he does not take this one any more morphine 15 mg Tablet 30 mg PO TID PRN vitamin B complex Tablet Extended Release 1 tab PO DAILY meloxicam 15 mg Tablet 15 mg PO DAILY albuterol sulfate 90 mcg/actuation HFA aerosol inhaler 2 inh inhalation QID PRNQty: 8.5 0RF Discharge Instructions Additional Instructions: resume all home pain meds expect call from my office to arrange followup procedure Activity:: Activity as Tolerated Shower/Bathe:: 24 hours Diet:: As Tolerated DS: Diagnosis Discharge Diagnosis (1) Ureteral calculus, left: Status: Acute
--- NOTE | 2022-03-30 11:09 | ROE_ITS ---
Date of service: 03/30/22 Time of Service: 11:09 Operative Note Operative Note DATE OF PROCEDURE: 03/30/22 PRE-OP DIAGNOSIS: Left ureteral stone Left renal stone same PROCEDURE: Cystoscopy, removal left ureteral stent, left retrograde pyelogram, left flexible and semirigid ureteroscopy's, holmium laser lithotripsy of renal and ureteral stones, insert left ureteral stent SURGEON: William Camacho ANESTHESIA TYPE: General LMA/ETT Refer to Anesthesia Record ESTIMATED BLOOD LOSS: 25 PATHOLOGY: none sent COMPLICATIONS: None Patient was transported to: PACU Patient's condition: stable Implants: 6 [place] Citizen by 22 to 30 cm left ureteral stent Indications: This is a 61-year-old gentleman who initially presented to the emergency department with fevers and flank pain. He was found to have an obstructing left proximal ureteral stone. He had a left ureteral stent placed. All of his urine and blood cultures ultimately showed no bacterial growth. He presents now for ureteroscopic stone manipulation Findings: Left distal ureteral stone Left lower pole renal stone Procedure Description: The patient was brought to the operating room on 03/30/2022. After successful induction of general anesthesia, he was placed in the dorsal lithotomy position. He was given a dose of preoperative IV antibiotics. His genitalia was prepped and draped. 2% Xylocaine jelly was instilled into the urethra to act as a local anesthetic. A 22 [place] rigid cystoscope was passed through the urethra into the bladder. The urethra and bladder were inspected with the 30 degree lens. The pendulous, bulbar and membranous urethra appeared normal with no strictures. The prostatic urethra showed some lateral lobe enlargement but no significant median lobe The bladder neck was entered and the bladder mucosa was inspected. The stent could be seen protruding from the left ureteral orifice. The stent was grasped and alligator forceps and was removed in its entirety. A 6 [place] access catheter was then passed through the lumen of the cystoscope and introduced into the left ureteral orifice. A retrograde film was obtained by injecting Omnipaque through the access catheter under fluoroscopic guidance. A Glidewire was then advanced through the lumen of the access catheter and the catheter was removed. A dual-lumen catheter was placed and a second wire was positioned. We chose one of the wires as a working wire and the other as a safety wire. We then passed a ureteral access sheath over the working wire leaving the safety wire in place. The flexible ureteroscope was introduced through the access sheath and the upper ureter and calyces were inspected. The previously identified left ureteral stone was now seen in the lower pole calyx along with a second smaller stone. The stones were grasped and brought back down to the upper ureter. The stone was released. We then removed the flexible ureteroscope and access sheath and passed a semirigid ureteroscope up to the level of the stone. We were then able to treat the stone using a 365 holmium laser fiber. We used a combination of dusting settings and fragmenting settings to fragment the stone. Multiple small stone fragments were removed. At the completion of the procedure, visibility became an issue and I am not certain that all stone fragments had been removed. We elected to replace the ureteral stent and make a plan to return visit to the operating room. I passed a 6 [place] Citizen variable length stent over the safety wire. The proximal end of the stent was curled in the renal pelvis and the distal end was curled within the bladder. The positioning of the stent was confirmed both fluoroscopically and cystoscopically. Multiple clots were evacuated from the bladder. The bladder was filled and the cystoscope was withdrawn. A 16 [place] Citizen Galindo catheter was then passed through the urethra into the bladder. The catheter balloon was inflated with 10 cc of sterile water and the catheter was hooked to gravity drainage. As long as the catheter output remains clear, we will plan on removing the catheter before discharge. The patient tolerated the procedure well with no complications. He was taken to the recovery room in stable condition.
--- NOTE | 2022-03-30 12:10 | W.ANESPOSTOP ---
Postoperative Evaluation Date, Time and Location Date Performed: 03/30/22 Time Performed: 12:04 Patient Location: PACU Vital Signs Most Recent Imported Vital Signs: Most Recent Vital Signs Temp Pulse Resp BP Pulse Ox 36.9 C 63 10 L 129/74 98 03/30/22 11:30 03/30/22 11:45 03/30/22 11:45 03/30/22 11:45 03/30/22 11:45 Pain Score Most Recent Pain Score: Most Recent Pain Score Pain Level 0 03/30/22 11:45 Assessment Mental Status: Awake (Alert & Oriented to Patient Baseline) Airway and Respiratory Function: Patent airway with normal (patient baseline) respiratory exam Cardiovascular Function: Hemodynamically Stable Hydration Status: Adequately Hydrated Nausea & Vomiting: No Nausea or Vomiting Pain: Pt. Denies Any Pain Peripheral Nerve Block: Patient did not receive a nerve block
== END 2022-03-30 13:12 | disposition home or self-care (01) ==
PROVIDERS: PCP Internal Medicine; Visit Provider Urology
PROC: (CPT 52356; principal; 2022-03-30 08:45)
DX: N20.1 Calculus of ureter (principal); I10 Essential (primary) hypertension; E55.9 Vitamin D deficiency, unspecified
CPT/HCPCS: 52356; 74420; J0690; J1885; J2405; J2704; J3010; Q9967

== ENCOUNTER 2022-04-21 18:38 | Outpatient (REF) | payer MEDICAID, SELFPAY ==
[2022-04-21 15:26] LABS: Source Nasal/Nares
[2022-04-21 22:53] LABS: COVID-19 PCR Negative (Negative)
== END 2022-04-21 18:39 | disposition home or self-care (01) ==
LOC: LBN 18:38
PROVIDERS: PCP Internal Medicine; Visit Provider Urology
DX: Z20.822 Contact with and (suspected) exposure to COVID-19 (principal); Z01.818 Encounter for other preprocedural examination
CPT/HCPCS: 87635

== ENCOUNTER 2022-04-23 10:56 | Day surgery (SDC) | payer MEDICAID, SELFPAY ==
--- NOTE | 2022-04-22 12:01 | NUR.NOTE ---
x2 attempts to call patient back, playing phone tag, message left with arrival time of 1100 and NPO instructions.Nursing Note:
[2022-04-23] VITALS (10 sets, daily range): BP systolic 134–190; BP diastolic 67–105; PULSE 61–96; RESP 10–20; TEMP 36.2–36.8; O2SAT 94–97; BMI 24.6
--- NOTE | 2022-04-23 11:44 | W.ANESPRE ---
General Info Date of Service Date Performed: 04/23/22 Height: 5 ft 10 in Weight: 77.9 kg Body Mass Index (BMI): 24.6 Surgical Procedure: Operation Date: 04/23/22 12:40 Proposed Procedure Side Surgeon p Cystoscopy/Ureteroscopy w/Removal of Stone Fragments/Removal of Ureteral Stent Left William Camacho MD Meds Allergies and Home Medications Allergies Allergy/AdvReac Type Severity Reaction Status Date / Time iodine Allergy Severe Topical Unverified 04/23/22 11:14 Irritation copper Allergy Intermediate Unverified 04/23/22 11:14 chocolate flavor AdvReac Unverified 04/23/22 11:14 Home Medication Medication Instructions Recorded pregabalin 150 mg capsule (Lyrica) 150 mg PO TID 08/13/14 morphine 15 mg immediate release 30 mg PO TID PRN 09/21/18 tablet oxycodone 15 mg tablet,oral ONLY 1 tab PO QID 09/21/18 (not feeding tubes) meloxicam 15 mg tablet 15 mg PO DAILY 12/25/21 vitamin B complex 1 tab PO DAILY 12/25/21 albuterol sulfate 90 mcg/actuation 2 inh inhalation QID PRN #8.5 grams 12/27/21 aerosol inhaler acetaminophen 500 mg tablet 500 mg PO Q3H PRN 02/18/22 amitriptyline 50 mg tablet 50 mg PO QHS 02/18/22 cholecalciferol (vitamin D3) 50 50 mcg PO DAILY 02/18/22 mcg (2,000 unit) capsule docusate sodium 100 mg capsule 100 mg PO TID PRN 02/18/22 (Colace) naloxone 4 mg/actuation nasal 4 mg intranasal Q2-3M PRN 02/18/22 spray (Narcan) pantoprazole 20 mg tablet,delayed 20 mg PO DAILY 02/18/22 release amlodipine 10 mg tablet 10 mg PO DAILY 03/26/22 ciprofloxacin HCl 500 mg tablet 500 mg PO BID 03/26/22 hydralazine 10 mg tablet 10 mg PO BID 03/26/22 tamsulosin 0.4 mg capsule 0.4 mg PO QHS 03/26/22 amitriptyline 50 mg tablet 50 mg PO QHS 04/23/22 lisinopril 5 mg tablet 5 mg PO HS 04/23/22 Current Visit Medications: Current Medications Generic Name Dose Route Start Last Admin Trade Name Freq PRN Reason Stop Dose Admin Ringer's Solution 1,000 mls @ 80 mls/hr 04/23/22 06:00 IV 05/22/22 23:59 INFUSION BETTE Cefazolin Sodium/Dextrose 2 gm in 50 mls @ 100 mls/hr 04/23/22 06:00 Ancef Duplex IVPB 04/23/22 16:00 PREOP BETTE IV Miscellaneous Supplies 1 each 04/23/22 06:00 Iv Access IV 05/22/22 23:59 DIRECTED BETTE Sodium Chloride 0 ml 04/23/22 06:00 Normal Saline Flush 10 Ml Syr IV 05/22/22 23:59 PRN PRN Sodium Chloride 0 ml 04/23/22 06:00 Normal Saline 10 Ml Vial IJ 05/22/22 23:59 DIRECTED PRN Sterile Water 0 ml 04/23/22 06:00 Water,Injection,Sterile 10 Ml Vial IJ 05/22/22 23:59 DIRECTED PRN PFSH Active Problems Active Problems: Problem Status Onset Code Hypertension I10 Vitamin D deficiency E55.9 Phantom limb (syndrome) G54.7 Status post VNS (vagus nerve stimulator) placement Z96.89 Peptic ulcer disease K27.9 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 states this has not been done History of gastrectomy Hx of fracture of hip Hx of fracture of wrist Hx of fracture of wrist pt. reports metal in place Hx of peptic ulcer Personal history of COVID-19 Rib fractures Right leg injury S/P placement of nerve stimulator Ulnar neuritis Medical History Comments:: pt. reports he is slow waking up Surgical History Surgical History Hx of cystoscopy Hx of total hip arthroplasty t. reports fracture with metal repair Tobacco Smoking/Tobacco Use Status: Current every day Tobacco Type: smokeless tobacco Alcohol Alcohol Intake: never Substance Use Substance use: Never Substance use type: does not use Vital Signs and Lab Results Vital Signs Most Recent Vital Signs in EMR: Most Recent Vital Signs Temp Pulse Resp BP Pulse Ox 36.8 C 76 20 149/75 H 97 04/23/22 11:02 04/23/22 11:02 04/23/22 11:02 04/23/22 11:02 04/23/22 11:02 Lab Results Blood Type / Crossmatch: No Data to Display Complete Blood Count: No Data to Display Complete Metabolic Panel: No Data to Display Liver Function Panel: No Data to Display Coagulation Panel: No Data to Display Cardiac Panel: No Data to Display Arterial Blood Gas: No Data to Display Venous Blood Gas: No Data to Display Pancreas Panel: No Data to Display Thyroid Panel: No Data to Display Infectious Disease: Coronavirus (COVID-19)(PCR) Negative (Negative) 04/21/22 13:25 Coronavirus 2019 Source Nasal/Nares 04/21/22 13:25 Blood Cultures: No Data to Display Toxicology Panel: No Data to Display Imaging and Studies Imaging and Studies Study information below may be from another EMR and interpreted by another provider. Please see original notes in EMR for more complete details. EKG Summary: Conclusion Sinus tachycardia...rate> 99 Probable LVH with secondary repol abnrm...multiple LVH criteria Prolonged QT interval...QTc >500mS 03/18/22 Anesthesia Assessment and Plan Anesthesia History Personal History: No History of Anesthesia Complications and Delayed Emergence Family History: No Family History of Anesthesia Complications Exercise Tolerance Exercise Tolerance: Metabolic Equivalents>4 Pertinent Negatives Pertinent Negatives: No Symptoms of GERD and No Major Cardiovascular Symptoms or Complaints Cardiac & Pulmonary Exam Cardiac Exam: Normal S1/S2 Heart Sounds Pulmonary Exam: Clear Bilateral Breath Sounds Implantable Cardiac Device Does patient have a Pacemaker or an ICD?: No Airway Exam Known Difficult Airway: No Mallampati Class: 2 Mouth Opening: Normal (> 3cm) Thyromental Distance: Greater than 3 cm Neck Range of Motion: Limited ROM (Cannot turn head to the left) Neck Circumference: Normal Teeth Condition: Generalized Poor Dentition, Loose or Chipped (Patient unsure if any loose) and Dental Caries ASA Classification ASA Score: ASA 3 Emergency Case?: No NPO Status NPO Status: NPO Clears >2 hours, Solids >8 hours Anesthesia Plan Resuscitation Status: Full Code Anesthesia Technique: General Anesthesia Airway Planned: LMA Monitors Used: Standard Monitors
[2022-04-23] MEDS: Lactated Ringers 1,000 ML 80 ML IV (11:50)
--- NOTE | 2022-04-23 12:12 | W.PM.HP.N ---
Date of service: 04/23/22 Time of Service: 12:12 Assessment and Plan Assessment and plan (1) Ureteral calculus, left: Status: Acute Assessment and plan: For cystoscopy, stent removal, left ureteroscopy with removal of any residual stone fragments. History of Present Illness History of Present Illness Chief Complaint: Left ureteral stone Narrative: This is a 61-year-old gentleman who initially presented with signs and symptoms worrisome for sepsis. He had a left ureteral stone. He was initially treated with a stent placement. His urine and blood cultures ultimately showed no bacterial growth. He was then brought back to the operating room for ureteroscopy. We were able to fragment his stone, but we lost visibility and we were not certain that all stone fragments had been removed. The stent was replaced and he presents now for repeat ureteroscopy with extraction of any residual stone fragments. He has no stent discomfort and no gross hematuria at this time Review of Systems Narrative: No fevers or chills No vision change or dysphasia No diabetes or thyroid dysfunction No shortness of breath, cough or hemoptysis Recently started on Lisinopril for HTN - due to followup with PCP. No chest pain or palpitations No nausea, vomiting, hepatitis, ulcers, jaundice No seizures or strokes No bleeding disorders or anemia Chronic pain. No gout PFSH All Active Problems Hypertension (Chronic) Vitamin D deficiency (Acute) Phantom limb (syndrome) (Chronic) Status post VNS (vagus nerve stimulator) placement (Acute) Peptic ulcer disease (Chronic) Ulnar neuropathy at elbow of right upper extremity (Acute) Right carpal tunnel syndrome (Acute) Pneumonia (Acute) DVT prophylaxis (Acute) Discharge planning issues (Acute) Acute kidney injury (Acute) Ureteral calculus, left (Acute) Sepsis due to urinary tract infection (Acute) Pneumonia (Acute) Medical History Amputation of left arm Cataracts, bilateral pt. states this has not been done History of gastrectomy Hx of fracture of hip Hx of fracture of wrist Hx of fracture of wrist pt. reports metal in place Hx of peptic ulcer Personal history of COVID-19 Rib fractures Right leg injury S/P placement of nerve stimulator Ulnar neuritis Surgical History Hx of cystoscopy Hx of total hip arthroplasty t. reports fracture with metal repair Social History Smoking/Tobacco Use Status: Current every day Tobacco Type: smokeless tobacco Smoking risk assessment performed?: Yes Alcohol Intake: never Drug use: Never Substance use type: does not use Do you feel safe at home: Yes Do you feel safe in your relationship?: Yes Additional Social history: unable to assess privately Meds Allergies and Home Medications Allergies Allergy/AdvReac Type Severity Reaction Status Date / Time iodine Allergy Severe Topical Unverified 04/23/22 11:14 Irritation copper Allergy Intermediate Unverified 04/23/22 11:14 chocolate flavor AdvReac Unverified 04/23/22 11:14 Home Medications Medication Instructions Recorded Confirmed Type pregabalin 150 mg capsule (Lyrica) 150 mg PO TID 08/13/14 04/23/22 History morphine 15 mg immediate release 30 mg PO TID PRN 09/21/18 04/23/22 History tablet oxycodone 15 mg tablet,oral ONLY 1 tab PO QID 09/21/18 04/23/22 History (not feeding tubes) meloxicam 15 mg tablet 15 mg PO DAILY 12/25/21 04/23/22 History vitamin B complex 1 tab PO DAILY 12/25/21 04/23/22 History albuterol sulfate 90 mcg/actuation 2 inh inhalation QID PRN #8.5 grams 12/27/21 03/30/22 Rx aerosol inhaler acetaminophen 500 mg tablet 500 mg PO Q3H PRN 02/18/22 04/23/22 History amitriptyline 50 mg tablet 50 mg PO QHS 02/18/22 04/23/22 History cholecalciferol (vitamin D3) 50 50 mcg PO DAILY 02/18/22 04/23/22 History mcg (2,000 unit) capsule docusate sodium 100 mg capsule 100 mg PO TID PRN 02/18/22 04/23/22 History (Colace) naloxone 4 mg/actuation nasal 4 mg intranasal Q2-3M PRN 02/18/22 04/23/22 History spray (Narcan) pantoprazole 20 mg tablet,delayed 20 mg PO DAILY 02/18/22 04/23/22 History release amlodipine 10 mg tablet 10 mg PO DAILY 03/26/22 03/30/22 History ciprofloxacin HCl 500 mg tablet 500 mg PO BID 03/26/22 03/30/22 History hydralazine 10 mg tablet 10 mg PO BID 03/26/22 04/23/22 History tamsulosin 0.4 mg capsule 0.4 mg PO QHS 03/26/22 04/23/22 History amitriptyline 50 mg tablet 50 mg PO QHS 04/23/22 04/23/22 History lisinopril 5 mg tablet 5 mg PO HS 04/23/22 04/23/22 History Exam Const General: cooperative and frail appearing Orientation: alert and awake Neck Neck: supple Resp Auscultation: clear to auscultation bilaterally Cardio Rate: regular rate Rhythm: regular rhythm GI Palpation: soft and not rigid Neuro General: patient alert, patient awake and patient oriented x3 Extrem General: amputation noted (left upper extremity) Results Last Vital Signs Temp 36.8 C 04/23/22 11:02 Pulse 76 04/23/22 11:02 Resp 20 04/23/22 11:02 BP 149/75 H 04/23/22 11:02 Pulse Ox 97 04/23/22 11:02
[2022-04-23] MEDS: ceFAZolin 2 GM/50 ML BAG IVPB (13:04)
[2022-04-23] MEDS: Lidocaine 2% Jelly 6 ML SYR (13:20)
[2022-04-23] MEDS: Omnipaque 300 MG/ML 50 ML BTL (13:25)
--- NOTE | 2022-04-23 13:53 | DI.RAD_ITS ---
Exam(s) XR RETROGRADE IN OR EXAM: XR RETROGRADE IN OR CLINICAL HISTORY: Ureteral calculus, left TECHNIQUE: 2D and realtime digital imaging was performed. CONTRAST MATERIAL: Refer to procedure report. COMPARISON: No exams were available for comparison FINDINGS: Fluoroscopy was provided for Dr. Camacho during the performance of a retrograde in the OR. Please ref er to the procedure report for complete details. Ka,r=12 mGy IMPRESSION: RADIATION DOSE DELIVERED:
--- NOTE | 2022-04-23 13:57 | W.PM.DSUDISC ---
Discharge Plan Disposition Patient Disposition: HOME Condition: Good Discharge Details Reason For Visit: left ureteral stone Attending Provider: William Camacho Primary Care Provider: Peter Spencer Home Meds and New Rx's Prescriptions: No Action tamsulosin 0.4 mg capsule 0.4 mg PO QHS ciprofloxacin HCl 500 mg tablet 500 mg PO BID hydralazine 10 mg tablet 10 mg PO BID Rx Instructions: take if bp above 160 pantoprazole 20 mg tablet,delayed release (DR/EC) 20 mg PO DAILY amitriptyline 50 mg tablet 50 mg PO QHS cholecalciferol (vitamin D3) 50 mcg (2,000 unit) capsule 50 mcg PO DAILY docusate sodium [Colace] 100 mg capsule 100 mg PO TID PRN acetaminophen 500 mg tablet 500 mg PO Q3H PRN naloxone [Narcan] 4 mg/actuation spray,non-aerosol 4 mg intranasal Q2-3M PRN Label Comments: sister states pt. doesnt have Rx Instructions: spray 1 dose into ONE nostril; alternate nostrils w each dose until help arrives pregabalin [Lyrica] 150 MG capsule 150 mg PO TID oxycodone 15 mg Tablet, Oral Only 1 tab PO QID Rx Instructions: 09/21/18 pt states that he does not take this one any more morphine 15 mg Tablet 30 mg PO TID PRN vitamin B complex Tablet Extended Release 1 tab PO DAILY meloxicam 15 mg Tablet 15 mg PO DAILY albuterol sulfate 90 mcg/actuation HFA aerosol inhaler 2 inh inhalation QID PRNQty: 8.5 0RF amitriptyline 50 mg Tablet 50 mg PO QHS lisinopril 5 mg Tablet 5 mg PO HS Discharge Instructions Additional Instructions: no need to strain urine followup 6 to 12 weeks with renal ultrasound Activity:: Activity as Tolerated Shower/Bathe:: 24 hours Diet:: As Tolerated Discharge Orders Discharge Orders: Discharge Order (Routine); Ordered 04/23/22 Ordered By: William Camacho DS: Diagnosis Discharge Diagnosis (1) Ureteral calculus, left: Status: Acute
--- NOTE | 2022-04-23 14:02 | ROE_ITS ---
Date of service: 04/23/22 Time of Service: 14:02 Operative Note Operative Note DATE OF PROCEDURE: 04/23/22 PRE-OP DIAGNOSIS: Left ureteral stone POST-OP DIAGNOSIS: same PROCEDURE: cystoscopy, remove left ureteral stent, left retrograde pyelogram, left flexible ureteroscopy SURGEON: William Camacho ANESTHESIA TYPE: General LMA/ETT Refer to Anesthesia Record ESTIMATED BLOOD LOSS: 5 PATHOLOGY: none sent COMPLICATIONS: None Patient was transported to: PACU Patient's condition: stable Implants: none Indications: This is a 61-year-old gentleman who initially presented with signs and symptoms of sepsis. He was found to have an obstructing left ureteral stone. He was treated with placement of a ureteral stent. His blood and urine cultures ultimately showed no bacterial growth. He then returned to the operating room for ureteroscopy. We were able to treat the stone in with the holmium laser lithotripsy, but visualization became compromised and I was not sure that we cleared each and every stone fragment. We placed a ureteral stent. He presents now for stent removal and repeat ureteroscopy to address any residual stone fragments. Findings: Encrusted ureteral stent Multiple smal ureteral stones <1 mm Procedure Description: The patient was given preoperative IV antibiotics and brought to the operating room on 04/23/2022. After successful induction of general anesthesia, he was placed in the dorsal lithotomy position. His genitalia was prepped and draped. 2% Xylocaine jelly was instilled into the urethra. A 22 Italian rigid cystoscope was then passed through the urethra into the bladder. The bladder was inspected with a 30 degree lens. The left ureteral stent was visualized. The stent was grasped and alligator forceps and brought out to the level of the urethral meatus. I had difficulty passing the Glidewire through the lumen of the stent because of encrustations. The stent was then removed. A 5 Italian ureteral access catheter was then passed through the cystoscope and maneuvered into the right ureteral orifice. The wire was advanced through the lumen of the access catheter and the catheter was removed. A dual-lumen catheter was then passed over the wire and a retrograde pyelogram was obtained by injecting Omnipaque through the second lumen of the dual-lumen catheter. This allowed us to outline the calyces. No specific filling defects were seen along the length of the ureter. We then passed a second Glidewire and chose one of the wires as a working wire and the other as a safety wire. I passed the ureteral access sheath over the working wire leaving the safety wire in place. I then passed the flexible ureteroscope through the lumen of the ureteral access sheath. I was able to inspect the calyces and found no large residual stone fragments. There were number of blood clots within the collecting system. I evacuated these with a 10 cc syringe. We then withdrew the ureteroscope down the ureter and found multiple very small stone fragments which were likely the result of the dusting procedure we had performed previously. No large stone burden was identified. The ureteral access sheath and safety wire were removed. Bladder was then drnaye ordoñezd with the cystoscope. The patient tolerated the procedure with no complications. He will return in approximately 4 to 8 weeks for a renal ultrasound to rule out silent hydronephrosis.
[2022-04-23] MEDS: Labetalol 100 MG/20 ML VIAL 10 MG IVP (15:14)
--- NOTE | 2022-04-23 15:27 | W.ANESPOSTOP ---
Postoperative Evaluation Date, Time and Location Date Performed: 04/23/22 Time Performed: 15:28 Patient Location: PACU Vital Signs Most Recent Imported Vital Signs: Most Recent Vital Signs Temp Pulse Resp BP Pulse Ox 36.5 C 78 11 L 164/88 H 96 04/23/22 15:20 04/23/22 15:20 04/23/22 15:20 04/23/22 15:20 04/23/22 15:20 Pain Score Most Recent Pain Score: Most Recent Pain Score Pain Level 0 04/23/22 15:20 Assessment Mental Status: Awake (Alert & Oriented to Patient Baseline) Airway and Respiratory Function: Patent airway with normal (patient baseline) respiratory exam Cardiovascular Function: Hemodynamically Stable Hydration Status: Adequately Hydrated Nausea & Vomiting: No Nausea or Vomiting Pain: Pt. Denies Any Pain Peripheral Nerve Block: Patient did not receive a nerve block
[2022-04-23] MEDS: Phenazopyridine 200 MG TAB PO (16:42)
== END 2022-04-23 18:45 | disposition home or self-care (01) ==
PROVIDERS: PCP Internal Medicine; Visit Provider Urology
PROC: (CPT 52005; principal; 2022-04-23 12:30)
DX: N20.1 Calculus of ureter (principal); I10 Essential (primary) hypertension; E55.9 Vitamin D deficiency, unspecified; K27.9 Peptic ulcer, site unspecified, unspecified as acute or chronic, without hemorrhage or perforation
CPT/HCPCS: 52005; 74420; J0690; J1100; J2250; J2405; J2704; Q9967

== ENCOUNTER 2022-05-21 17:34 | Inpatient (IN) | payer MEDICAID, SELFPAY ==
--- NOTE | 2022-05-21 17:30 | RT.EKG_ITS ---
APPROVED REPORT Exam: Resting ECG Reason for Exam: WEAKNESS Patient Location: E HR:113 bpm ECG Measurements Heart Rate 113 AXIS AR 123 P 52 QRSd 86 QRS 31 QT 304 T 62 QTc 417 Conclusion Sinus tachycardia...rate> 99. Sinus. Normal axis. No STEMI. I have reviewed and interpreted ECG and agree with software generated interpretation.
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
[2022-05-21 17:36] VITALS: PULSE 113; RESP 14; TEMP 39; O2SAT 95
[2022-05-21 18:05] LABS: Lactate 1.4 mmol/L (0.6-1.4)
[2022-05-21 18:06] LABS: Abs Immature Grans 0.06 10^3/uL (0.0-0.06); Absolute Basophil Count 0.03 10^3/uL (0.0-0.2); Absolute Eosinophil Count 0.08 10^3/uL (0.0-0.7); Absolute Lymphocyte Count 0.75 10^3/uL (1.2-3.4); Absolute Monocyte Count 0.46 10^3/uL (0.1-0.8); Absolute Neutrophil Count 8.43 10^3/uL (1.2-6.7); Basophils % 0.3; Eosinophils % 0.8; HCT 30.2 % (40.0-50.0); HGB 9.2 g/dL (13.5-17.5); Immature Grans % 0.6; Lymphocytes % 7.6; MCH 28.2 pg (27.0-33.0); MCHC 30.5 % (32.0-36.0); MCV 93 fL (80-95); MPV 9.6 fL (8.0-11.0); Monocytes % 4.7; Platelet Count 259 10^3/uL (130-400); RBC 3.26 10^6/uL (4.36-5.78); RDW 12.4 % (11.8-14.1); RDW-SD 42.2 fL; WBC 9.81 10^3/uL (4.4-10.8)
[2022-05-21 18:10] VITALS: RESP 17
[2022-05-21 18:25] LABS: ALT 13 U/L (16-63); AST 13 U/L (15-37); Albumin 2.7 g/dL (3.4-5.0); Alkaline Phosphatase 188 U/L (46-116); Anion Gap 8.1 mmol/L (3-11); BUN 30 mg/dL (7-18); Bilirubin, Total 0.4 mg/dL (0.2-1.0); CO2 26.9 mmol/L (21.0-32.0); Calcium 8.7 mg/dL (8.5-10.1); Chloride 106 mmol/L (98-107); Estimated GFR 34.03 (mL/min/1.73m2); Glucose 101 mg/dL (74-106); Magnesium 1.9 mg/dL (1.8-2.4); Potassium 5.8 mmol/L (3.5-5.1); Sodium 141 mmol/L (136-145); Total Protein 7.5 g/dL (6.4-8.2); Troponin I < 50 ng/L (<or=60)
--- NOTE | 2022-05-21 18:45 | DI.RAD_ITS ---
Exam(s) XR HUMERUS LT EXAM: XR HUMERUS LT CLINICAL HISTORY: Left arm stump infection, r/o osteo. TECHNIQUE: 2D digital imaging was performed. COMPARISON: No exams were available for comparison FINDINGS: Status post amputation at the distal humerus. Degenerative changes at the glenohumeral joint. The h umerus appears osteopenic. No gross bony erosions are seen. There is soft tissue swelling distally at the stump. No foreign body in the soft tissues. IMPRESSION: Amputation at the distal humerus. No gross evidence of osteomyelitis. DATA REPOSITORY: RADIATION DOSE DELIVERED:
--- NOTE | 2022-05-21 18:45 | DI.RAD_ITS ---
Exam(s) XR CHEST 2V PA LATERAL EXAM: XR CHEST 2V PA LATERAL CLINICAL HISTORY: weakness, r/o acute disease TECHNIQUE: 2D digital imaging was performed. COMPARISON: CR XR PORTABLE CHEST AP from 03/18/2022 FINDINGS: The exam is limited by semi-erect positioning and and patient's arm overlying the posterior aspect o f the chest on the lateral view. The lungs are expiratory. The heart size is within normal limits. The aorta is mildly tortuous. The lungs are grossly clear. Posterior basilar infiltrates cannot be excluded as this area is not well seen.. . IMPRESSION: Severely limited exam. No acute findings. DATA REPOSITORY: RADIATION DOSE DELIVERED:
[2022-05-21] MEDS: Normal Saline 1,000 ML 1000 ML IV (19:15)
[2022-05-21] MEDS: ACETAMINOPHEN 1,000 MG/100 ML BTL 400 MG IVPB (19:17)
--- NOTE | 2022-05-21 19:29 | DI.VRAD_ITS ---
PROCEDURE INFORMATION: Exam: XR Chest Exam date and time: 05/21/2022 7:05 PM Age: 61 years old Clinical indication: Other: Weakness, R/O acute disease TECHNIQUE: Imaging protocol: Radiologic exam of the chest. Views: 2 views. COMPARISON: CR XR PORTABLE CHEST AP 03/18/2022 12:39 PM FINDINGS: Lungs: Poor inspiratory lung expansion. No areas of consolidation or edema are evident. Pleural spaces: No pleural effusion. No pneumothorax. Heart/Mediastinum: Normal heart size. Bones/joints: Degenerative thoracic spine changes. IMPRESSION: 1. Poor inspiratory lung expansion. No acute infiltrates or edema. 2. No pleural effusion. Dictated and Authenticated by: Soct Soni MD. Ordering:MICH Quarles MD
--- NOTE | 2022-05-21 19:33 | DI.VRAD_ITS ---
PROCEDURE INFORMATION: Exam: XR Left Humerus Exam date and time: 05/21/2022 7:09 PM Age: 61 years old Clinical indication: Weakness and other: Infection, R/O osteo; Arm, upper; Left TECHNIQUE: Imaging protocol: Radiologic exam of the Left humerus. Views: 2 or more views. COMPARISON: CR XR CHEST 2V PA LATERAL 05/21/2022 7:05 PM FINDINGS: Bones/joints: Osteopenia. No focal lytic or destructive lesions. No cortical destruction. No periosteal elevation. Glenohumeral joint degenerative changes. 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 Soft tissues: No soft tissue foreign body. No soft tissue emphysema. IMPRESSION: 1. Previous amputation across the distal humeral diametaphyseal region. 2. Osteopenia. 3. No plain film features of osteomyelitis. 4. No soft tissue emphysema or foreign body. Dictated and Authenticated by: Scot Soni MD. Ordering:MICH Quarles MD
[2022-05-21 19:49] VITALS: BP 125/83; PULSE 100; RESP 19; O2SAT 96
[2022-05-21 19:58] LABS: Bilirubin Negative (Negative); Blood Trace-intact (Negative); Clarity Sl Cloudy (Clear); Glucose Negative (Negative); Ketones Negative (Negative); Leukocyte Esterase Negative (Negative); Nitrite Negative (Negative); Urobilinogen 0.2 EU/dL (Up TO 0.2)
--- NOTE | 2022-05-21 20:00 | DI.CT_ITS ---
Exam(s) CT CHEST/ABD/PEL WO EXAM: CT CHEST/ABD/PEL WO CLINICAL HISTORY: fever, confusion, r/o acute findings. TECHNIQUE: Imaging Protocol: Axial computed tomography images with coronal and sagittal reformatted images were created and reviewed CONTRAST MATERIAL: Noncontrast COMPARISON: CT CT ABDOMEN PELVIS WO from 03/18/2022 XA XR RETROGRADE IN OR from 04/23/2022 CR,XR XR CHEST 2V PA LATERAL from 05/21/2022 FINDINGS: CHEST: Tracheobronchial tree: Patent where visualized. Mediastinum and Rachel: No dominant adenopathy or fluid collection. Pulmonary parenchyma: Limited evaluation due to respiratory motion. Patient is unable to follow chema thing instructions. Expiratory changes and mild right posterior basilar atelectasis. No consolidati on or dominant measurable mass. Pleura: No effusion or pneumothorax. Lymph nodes: Within normal limits. Aorta: Thoracic portion non-dilated. Heart: Normal size. Moderate coronary artery calcifications. Bones: Old rib fractures. Old mild T6 compression fracture. No lytic or blastic lesions. Degenerat chani changes and scoliosis. ABDOMEN: Exam is limited by the patient motion. Liver: Streak artifact related to arm positioning. Normal density. No measurable mass. Gallbladder and biliary tract: Status post cholecystectomy. Stable dilatation of the common bile jacob t. Stable adjacent calcifications. No radiodense dilation. Pancreas: Somewhat atrophic. Spleen: Mild streak artifact. Normal. Kidneys: The right kidney shows a few tiny nonobstructing stones. The left kidney shows moderate hyd ronephrosis, worsening from prior. Ureter is dilated distally where there are several small stones a nd some increased soft tissue density which could indicate clot versus mass. There is also some wall thickening of the distal ureter. A non-obstructing stone is also noted at the lower pole of the lef t kidney.. Adrenal glands: No masses seen. Aorta: Abdominal portion non-dilated. Lymph nodes: Within normal limits. Soft tissues: There is now a multiloculated collection anterior to left psoas muscle measuring roughl y 4 by 3.5 x 5 cm. This could represent a postprocedural seroma/urinoma or possible abscess. No def inite wall thickening or in air is seen within the lesion. Bowel: Prior gastric surgery and colonic anastomosis PELVIS: Bladder: Galindo catheter present. Tiny stone seen posteriorly no gross wall thickening or focal mass. . Bowel: No obstruction or bowel wall thickening. Appendix normal. Moderate quantity of stool. Peritoneal cavity: No ascites, collection or mesenteric inflammatory response. Bones: Scoliosis and degenerative changes in the spine. Hardware in proximal right femur. Degenerat chani changes of both hips, right greater left. Reproductive organs: Within normal limits. Soft tissues: Spinal stimulator device seen posteriorly. IMPRESSION: Limited exam due to motion. No acute abnormality in the chest. Dependent changes are seen. Moderate left hydronephrosis , worsening from prior. Small stones as well as soft tissue density mat erial noted in the distal left ureter which could represent clot. 5 centimeter low lobulated collection anterior to the left psoas muscle could be postprocedural and r epresent a seroma, urinoma or abscess. RADIATION DOSE DELIVERED: 1,341.47mGy.cm Total DLP DATA REPOSITORY: All CT scans at this facility are submitted to the National Radiology Data Registry (NRDR) Dose Index Registry (DIR) with the [employer] (ACR). RADIATION OPTIMIZATION: All CT scans at this facility use at least one of these dose optimization te chniques: automated exposure control; mA and/or kV adjustment per patient size (includes targeted exa ms where dose is matched to clinical indication); or iterative reconstruction.
[2022-05-21 20:08] LABS: Bacteria Few HPF (Negative); C & S Indicated? No; Casts Negative LPF (Negative); Crystals Negative HPF (Negative); Epithelial Cells Rare HPF (Negative); Mucus Negative (Negative); RBC 0-2 HPF (0-2); WBC Negative HPF (0-5)
[2022-05-21 20:35] LABS: COVID-19 PCR Negative (Negative); Influenza A PCR Negative (Negative); Influenza B PCR Negative (Negative); RSV PCR Negative (Negative)
[2022-05-21 20:40] LABS: Source Nasopharynx
[2022-05-21] MEDS: CEFEPIME 2 GM in Normal Saline 100 ML IVPB (21:00)
--- NOTE | 2022-05-21 21:20 | DI.VRAD_ITS ---
PROCEDURE INFORMATION: Exam: CT Chest Without Contrast; Diagnostic Exam date and time: 05/21/2022 8:38 PM Age: 61 years old Clinical indication: Other: Fever, confusion, R/O acute findings TECHNIQUE: Imaging protocol: Diagnostic computed tomography of the chest without contrast. 3D rendering (Not supervised by radiologist): MIP and/or 3D reconstructed images were created by the technologist. COMPARISON: CT CHEST PE CTA 12/25/2021 6:49 PM FINDINGS: Lungs: Mild increased interstitial ground-glass change of the lungs bilaterally. This could represent a mild interstitial edema or a nonspecific interstitial pneumonitis. There is no segmental or lobar infiltrative change. Minor atelectasis of the posterior right lower lobe. Pleural spaces: No pleural effusion. Heart: Normal heart size. No pericardial effusion. Moderate coronary artery atherosclerotic calcium. Lymph nodes: Unremarkable. No enlarged lymph nodes. Vasculature: Unremarkable. No aortic aneurysm. Bones/joints: Degenerative thoracic spine disease. Old T6 anterior wedge compression fracture. T2 vertebral body hemangioma. Old healed multilevel left rib fractures. Soft tissues: Unremarkable. IMPRESSION: 1. Nonspecific minor interstitial ground-glass changes of the lungs bilaterally may represent mild interstitial edema. Cannot exclude a mild atypical interstitial pneumonitis. Most prominent in the upper lung holcomb. 2. Minor posteroinferior right lower lobe atelectasis. 3. Coronary artery atherosclerotic calcium. 4. Old healed multilevel left rib fractures. PROCEDURE INFORMATION: Exam: CT Abdomen And Pelvis Without Contrast Exam date and time: 05/21/2022 8:38 PM Age: 61 years old Clinical indication: Other: Fever, confusion, R/O acute findings TECHNIQUE: Imaging protocol: Computed tomography of the abdomen and pelvis without contrast. 3D rendering (Not supervised by radiologist): MIP and/or 3D reconstructed images were created by the technologist. Radiation optimization: All CT scans at this facility use at least one of these dose optimization techniques: automated exposure control; mA and/or kV adjustment per patient size (includes targeted exams where dose is matched to clinical indication); or iterative reconstruction. COMPARISON: CT ABDOMEN PELVIS WO 03/18/2022 3:35 PM FINDINGS: Tubes, catheters and devices: Gluteal soft tissue pain management stimulator pump period Liver: The liver is normal in size, contour and attenuation. Gallbladder and bile ducts: Absent gallbladder presumably surgical. Proximal common bile duct is dilated at 14 mm. Recommend correlation with bilirubin. There is calcium seen in the distal common bile duct and the region of the ampulla. See coronal series 3, images 48 through 45. Cannot exclude a biliary tract obstruction related to ampullary level calcifications. This could represent an ampullary mass. The calcifications are not definitively intraductal. Also see axial series 2, images 61 through 64. Patient has had a previous distal gastrectomy and partial resection of the duodenum. This could be related to the previous surgical process. Recommend clinical correlation. This could represent postsurgical scarring and dystrophic calcium deposition. Pancreas: Moderate to severe atrophy. No ductal dilation. Spleen: Normal. No splenomegaly. Adrenal glands: Normal. No mass. Kidneys and ureters: Right kidney with mild atrophy. Punctate nonobstructive right upper pole and lower pole renal calculi. Left kidney with moderate hydroureteronephrosis. The left ureter is followed distally to an area soft tissue fullness with some calcifications. See axial series 2, images 90 through 99. Previous study 03/18/2022 had a proximal ureteral obstructing calculus. This appears to have moved distally. There is irregular fullness and thickening of the tissues surrounding the distal ureter on series 2, images 88 through 98. Significance is uncertain. This is a new finding. This could represent an area of ureteral wall thickening from acute renal stone trauma with intramural hemorrhage or inflammation. There is a new process along the left psoas muscle which could represent a developing urinoma or abscess. This measures 4.6 x 3.6 cm. Series 2, images 71-85. Stomach and bowel: Previous partial gastrectomy and duodenectomy. No obstruction. No mucosal thickening. Gastrojejunal anastomosis is patent. Small bowel loops are otherwise unremarkable in course and caliber. Large bowel is unremarkable. No acute findings. Appendix: No evidence of appendicitis. Intraperitoneal space: No free fluid or free air. Vasculature: Unremarkable. No abdominal aortic aneurysm. Lymph nodes: Unremarkable. No enlarged lymph nodes. Urinary bladder: Urinary bladder contains a Galindo catheter. There is air in the bladder. Recommend correlation with urinalysis. Cannot exclude a urinary tract infection. Reproductive: Unremarkable as visualized. Bones/joints: Degenerative lumbar spine disease. Multilevel spinal stenosis. Previous right hip fracture repair. Soft tissues: There is a heterogeneous mass posterior and inferior to the left kidney involving the left psoas muscle. See series 2, images 71 through 85. This measures 4.6 cm AP x 3.6 cm transversely. There is no air in this collection or adjacent inflammatory change. This could represent a developing infection such as a psoas abscess or possibly a complex urinoma related to a perforation of the left urinary collecting system or ureter. IMPRESSION: 1. Persistent left hydroureteronephrosis. There is new thickening in the region of the distal left ureter with calcifications in this region. This was not present on previous study 03/18/2022. Possibility of ureteral thickening from inflammation or infection should be considered. Much less likely interval development of a distal left urothelial neoplasm. Patient does appear to have had 2 interval retrograde ureteral procedures based on previous imaging list. 2. Newly developed left para psoas complex appearing collection may represent an abscess or complex urinoma. 3. Biliary dilatation with atypical calcifications in the region of the ampulla of Vater. Cannot exclude an ampullary mass. This may be related to the previous distal gastrectomy and partial duodenal resection. Endoscopic evaluation may be warranted. No change since 03/18/2022. Recommend correlation with bilirubin. 4. Degenerative lumbar spine disease and multilevel spinal stenosis change. 5. Galindo catheter in the urinary bladder. Air in the bladder. Recommend correlation with urinalysis. 6. No acute bowel pathology. Dictated and Authenticated by: Scot Soni MD. Ordering:MICH Quarles MD
--- NOTE | 2022-05-21 21:23 | W.EDPROG ---
Date of service: 05/21/22 Time of Service: 23:58 Medical Decision Making The patient was signed out to me by my colleague Dr. Robina Mejias. Please refer to her HPI, physical exam, assessment and plan. At time of signout the patient had already been admitted to medicine, however we are pending fluid, as well as CT scan of the chest abdomen pelvis. Review of labs demonstrate drop in hemoglobin to a current hemoglobin level of 9.2, as well as a slight increase in creatinine to 2.0, with a potassium of 5.8, and minimal peaking of T waves. CT scan of the chest shows evidence of questionable mild atypical interstitial pneumonitis and infiltrate. Minor posterior inferior right lower lobe atelectasis. CT scan of the abdomen demonstrates a few abnormalities, including a persistent left hydroureteronephrosis, a left parapsoas complex that may represent an abscess or complex urinoma. Potential ampullary mass is well at the ampulla of [place]. I did go and reassess the patient with this family member at bedside. She states that he has been gradually declining over the last few weeks. He states that he has pain everywhere but nothing focal. He shows no meningeal signs. He does have chronic stiffness of his neck that both the patient and the family member states is chronic and at his current baseline. Flexing his knees to his chest does not bring about any worsening headache or neck pain. He does have some mild crackles in his lungs. Hemoglobin is slightly dropped. Patient has been given medications for the hyperkalemia. Patient signs and symptoms at this time appear less consistent with meningitis and more consistent with pneumonia as a cause of his fever. Discussed risks and benefits of lumbar puncture, and through shared decision-making process with Dr. Larose we will hold off for the time being. Patient is still on broad-spectrum antibiotics that was started by Dr. Mejias. Patient will be admitted to the floor. I have extensively reviewed the treatment plan with the patient. I have addressed all patient concerns at this time. I have also discussed the plan with the admitting physician and they agree with the current assessment and plan and have agreed to assume responsibility for the patient. All parties demonstrate verbal understanding and agreement with our assessment and plan at this time. The documentation in this chart was dictated using [employer] dictation software. Please excuse any dictation errors. FINDINGS: Lungs: Mild increased interstitial ground-glass change of the lungs bilaterally. This could represent a mild interstitial edema or a nonspecific interstitial pneumonitis. There is no segmental or lobar infiltrative change. Minor atelectasis of the posterior right lower lobe. Pleural spaces: No pleural effusion. Heart: Normal heart size. No pericardial effusion. Moderate coronary artery atherosclerotic calcium. Lymph nodes: Unremarkable. No enlarged lymph nodes. Vasculature: Unremarkable. No aortic aneurysm. Bones/joints: Degenerative thoracic spine disease. Old T6 anterior wedge compression fracture. T2 vertebral body hemangioma. Old healed multilevel left rib fractures. Soft tissues: Unremarkable. IMPRESSION: 1. Nonspecific minor interstitial ground-glass changes of the lungs bilaterally may represent mild interstitial edema. Cannot exclude a mild atypical interstitial pneumonitis. Most prominent in the upper lung holcomb. 2. Minor posteroinferior right lower lobe atelectasis 3. Coronary artery atherosclerotic calcium. 4. Old healed multilevel left rib fractures FINDINGS: Tubes, catheters and devices: Gluteal soft tissue pain management stimulator pump period Liver: The liver is normal in size, contour and attenuation. Gallbladder and bile ducts: Absent gallbladder presumably surgical. Proximal common bile duct is dilated at 14 mm. Recommend correlation with bilirubin. There is calcium seen in the distal common bile duct and the region of the ampulla. See coronal series 3, images 48 through 45. Cannot exclude a biliary tract obstruction related to ampullary level calcifications. This could represent an ampullary mass. The calcifications are not definitively intraductal. Also see axial series 2, images 61 through 64. Patient has had a previous distal gastrectomy and partial resection of the duodenum. This could be related to the previous surgical process. Recommend clinical correlation. This could represent postsurgical scarring and dystrophic calcium deposition. Pancreas: Moderate to severe atrophy. No ductal dilation. Spleen: Normal. No splenomegaly. Adrenal glands: Normal. No mass. Kidneys and ureters: Right kidney with mild atrophy. Punctate nonobstructive right upper pole and lower pole renal calculi. Left kidney with moderate hydroureteronephrosis. The left ureter is followed distally to an area soft tissue fullness with some calcifications. See axial series 2, images 90 through 99. Previous study 03/18/2022 had a proximal ureteral obstructing calculus. This appears to have moved distally. There is irregular fullness and thickening of the tissues surrounding the distal ureter on series 2, images 88 through 98. Significance is uncertain. This is a new finding. This could represent an area of ureteral wall thickening from acute renal stone trauma with intramural hemorrhage or inflammation. There is a new process along the left psoas muscle which could represent a developing urinoma or abscess. This measures 4.6 x 3.6 cm. Series 2, images 71-85. Stomach and bowel: Previous partial gastrectomy and duodenectomy. No obstruction. No mucosal thickening. Gastrojejunal anastomosis is patent. Small bowel loops are otherwise unremarkable in course and caliber. Large bowel is unremarkable. No acute findings. Appendix: No evidence of appendicitis. Intraperitoneal space: No free fluid or free air. Vasculature: Unremarkable. No abdominal aortic aneurysm. Lymph nodes: Unremarkable. No enlarged lymph nodes. Urinary bladder: Urinary bladder contains a Galindo catheter. There is air in the bladder. Recommend correlation with urinalysis. Cannot exclude a urinary tract infection. Reproductive: Unremarkable as visualized. Bones/joints: Degenerative lumbar spine disease. Multilevel spinal stenosis. Previous right hip fracture repair. Soft tissues: There is a heterogeneous mass posterior and inferior to the left kidney involving the left psoas muscle. See series 2, images 71 through 85. This measures 4.6 cm AP x 3.6 cm transversely. There is no air in this collection or adjacent inflammatory change. This could represent a developing infection such as a psoas abscess or possibly a complex urinoma related to a perforation of the left urinary collecting system or ureter. IMPRESSION: 1. Persistent left hydroureteronephrosis. There is new thickening in the region of the distal left ureter with calcifications in this region. This was not present on previous study 03/18/2022. Possibility of ureteral thickening from inflammation or infection should be considered. Much less likely interval development of a distal left urothelial neoplasm. Patient does appear to have had 2 interval retrograde ureteral procedures based on previous imaging list. 2. Newly developed left para psoas complex appearing collection may represent an abscess or complex urinoma. 3. Biliary dilatation with atypical calcifications in the region of the ampulla of Vater. Cannot exclude an ampullary mass. This may be related to the previous distal gastrectomy and partial duodenal resection. Endoscopic evaluation may be warranted. No change since 03/18/2022. Recommend correlation with bilirubin. 4. Degenerative lumbar spine disease and multilevel spinal stenosis change. 5. Galindo catheter in the urinary bladder. Air in the bladder. Recommend correlation with urinalysis. 6. No acute bowel pathology. Thank you for allowing us to participate in the care of your patient. Dictated and Authenticated by: Scot Soni MD 05/21/2022 9:19 PM Eastern Time ([place] & [place]) Critical Care Time Critical Care Time Critical Care Time: Yes Total Critical Care Time: 30 Attestation: Upon my evaluation, this patient had a high probability of imminent or life-threatening deterioration, which required my direct attention, intervention, and personal management. I have personally provided 30 minutes of critical care time exclusive of time spent on separately billable procedures. Time includes review of laboratory data, radiology results, discussion with consultants, and monitoring for potential decompensation. Interventions were performed as documented. Sign Out Sign Out Data: Sign Out Comment: Generalized weakness and intermittent confusion for 1 week, worse today. Has a history of left arm stump with new wound over the past few weeks. Fever 102 in the ED. IV antibiotics ordered. Admitted to hospitalist. Follow up with Dr. Peres on Fluvid, CT chest, abdomen, and pelvis. Last updated by Robina Mejias DO at 05/21/22 20:14 Discharge Plan Disposition Patient Disposition: [facility] INPATIENT Condition: Stable Discharge Details Clinical Impression: Fever, Left arm cellulitis, Acute anemia, Hyperkalemia, Acute kidney injury, Pneumonia Primary Care Provider: Peter Spencer ED Provider: Jose Manuel Foss Home Meds and New Rx's Prescriptions: No Action tamsulosin 0.4 mg capsule 0.4 mg PO QHS pantoprazole 20 mg tablet,delayed release (DR/EC) 20 mg PO DAILY amitriptyline 50 mg tablet 50 mg PO QHS docusate sodium [Colace] 100 mg capsule 100 mg PO TID PRN acetaminophen 500 mg tablet 500 mg PO Q3H PRN naloxone [Narcan] 4 mg/actuation spray,non-aerosol 4 mg intranasal Q2-3M PRN Label Comments: sister states pt. doesnt have Rx Instructions: spray 1 dose into ONE nostril; alternate nostrils w each dose until help arrives pregabalin [Lyrica] 150 MG capsule 150 mg PO TID oxycodone 15 mg Tablet, Oral Only 1 tab PO QID Rx Instructions: 09/21/18 pt states that he does not take this one any more morphine 15 mg Tablet 30 mg PO TID PRN (Reason: Pain) vitamin B complex Tablet Extended Release 1 tab PO DAILY meloxicam 15 mg Tablet 15 mg PO DAILY lisinopril 5 mg Tablet 5 mg PO HS cholecalciferol (vitamin D3) [Vitamin D3] 50 mcg (2,000 unit) Capsule 50 mcg PO DAILY
[2022-05-21] MEDS: Albuterol 2.5 MG/3 ML INH SOLN VIAL 7.5 MG UPD (21:53)
[2022-05-21 23:00] VITALS: PULSE 84; RESP 18; RESP 8; O2SAT 95
--- NOTE | 2022-05-21 23:50 | HPE_ITS ---
Date of service: 05/21/22 Time of Service: 23:05 Assessment and Plan Assessment and plan (1) Fever: Status: Acute Assessment and plan: We have several possible sources for the fever. Exam and CT concerning for pnueumonia. There is also a fluid collection by the left kidney. He has chronic neck pain and some MS status changes, though current MS is at baseline, so I agree with the ED physicians to not do LP yet. Urine not c/w infection. Infection of stump also a concern, as is endocarditiis with loud murmur. Get TTE to start. I agree with starting with broad antibiotics, vanco and cefemepine. Blood cultures pending. (2) Acute anemia: Status: Acute Assessment and plan: Anemia trending down. He did have two procedures in March. Get iron/b12/folate (3) Hyperkalemia: Status: Acute Assessment and plan: Treated in the ED. Also holding ACEi and NSAID. Monitor in AM. (4) Acute kidney injury: Status: Acute Assessment and plan: He had similar when obstructing stone but he did recover after this. i am concerned about the obstruction. He has also been on dialy NSAID, hodling this and lisinopril for now, follow. (5) Pneumonia: Status: Acute Assessment and plan: As above treating pneumomnia. Broad spectrum to cover intraabdominal abscess co ncern. Narrow ehen (6) Hypertension: Status: Chronic Assessment and plan: BP in lower end of range now, holding lisinopril (7) Retroperitoneal fluid collection: Status: Acute Assessment and plan: Urology consulted for opinion, need to drain or re-image? (8) Hydronephrosis due to obstruction of ureter: Status: Acute Assessment and plan: As above uro consult. I think trauma from stents is the most likely cause of abnormal tissue that seems to be mino ureter. He may need another stent. (9) DVT prophylaxis: Status: Acute Assessment and plan: LMWH (10) Discharge planning issues: Status: Acute Assessment and plan: COnsider discharge when infection source has been identified, clinically improving History of Present Illness History of Present Illness Chief Complaint: fever, general weakness Narrative: 61 yo M with history of chronic pain on opioids and left arm amputation, admission with COVID pneumonia in 11/2021 and uretheral stones requiring stents in 03/2022 who was brought by his sister/caregiver with progressive general weakness and intermittent confusion over the past week or two. The patient hims elf is not able to relate clear history but does seem to understand and answer directed questions appropriately. He has been getting wound care for the left arm stump wound and the sacral wound. Wounds do not seem to be getting worse per patient or sister. No recent chagnes in medications. He is in pain in back and neck and stiff, but this is chronic for him. No new focal pain. Of note, he had MARI with creatinine up to 2.7 in March 2022, but creatinine normalized at [facility] to 0.9 later in March (not in our records). When he presented with the stones he didn't have pain but did have discomfort and blood in urine, which he does not have now. Review of Systems Constitutional Constitutional: Denies anorexia, Reports body ache(s), Reports fatigue, Reports fever(s), Reports lethargy and Reports weakness Eyes Eyes: Denies change in vision and Denies irritation ENT Ears, Nose, Mouth, and Throat: Denies dizziness, Reports dry mouth, Denies mouth lesions, Denies nasal congestion, Denies nasal discharge, Reports neck pain (not more than usual for him) and Denies sore throat Cardiovascular Cardiovascular: Denies chest pain, Denies pedal edema, Denies palpitations and Denies orthopnea Respiratory Respiratory: Denies cough, Denies excessive phlegm production and Denies wheezing Gastrointestinal Gastrointestinal: Denies abdominal pain, Denies heartburn, Denies nausea and Denies vomiting Genitourinary Genitourinary: Denies hematuria, Denies dysuria and Denies urinary incontinence Musculoskeletal Musculoskeletal: Reports neck pain (not more than usual for him) Integumentary/Breasts Skin/Breast: Denies new lesions, Denies rash and Reports skin ulcer Neurologic Neurologic: Denies dizziness, Denies localized weakness, Denies sensory deficit and Reports weakness Psychiatric Psychiatric: Denies mood swings and Denies panic attacks Endocrine Endocrine: Reports fatigue and Denies palpitations Hematologic/Lymphatic Hematologic/Lymphatic: Denies easy bleeding Allergic/Immunologic Allergic/Immunologic: Denies wheezing PFSH All Active Problems (Updated 05/22/22 @ 00:16 by Howard Peres) Hydronephrosis due to obstruction of ureter (Acute) Retroperitoneal fluid collection (Acute) Fever (Acute) Left arm cellulitis (Acute) Acute anemia (Acute) Hyperkalemia (Acute) Acute kidney injury (Acute) Pneumonia (Acute) Hypertension (Chronic) Vitamin D deficiency (Acute) Phantom limb (syndrome) (Chronic) Status post VNS (vagus nerve stimulator) placement (Acute) Peptic ulcer disease (Chronic) Ulnar neuropathy at elbow of right upper extremity (Acute) Right carpal tunnel syndrome (Acute) Pneumonia (Acute) DVT prophylaxis (Acute) Discharge planning issues (Acute) Acute kidney injury (Acute) Ureteral calculus, left (Acute) Sepsis due to urinary tract infection (Acute) Pneumonia (Acute) Medical History Amputation of left arm Cataracts, bilateral pt. states this has not been done History of gastrectomy Hx of fracture of hip Hx of fracture of wrist Hx of fracture of wrist pt. reports metal in place Hx of peptic ulcer Personal history of COVID-19 Rib fractures Right leg injury S/P placement of nerve stimulator Ulnar neuritis Surgical History Hx of cystoscopy Hx of total hip arthroplasty t. reports fracture with metal repair Social History Smoking/Tobacco Use Status: Current every day Tobacco Type: smokeless tobacco Smoking risk assessment performed?: Yes Alcohol Intake: never Drug use: Never Substance use type: does not use Do you feel safe at home: Yes Do you feel safe in your relationship?: Yes Additional Social history: unable to assess privately Meds Allergies and Home Medications Allergies Allergy/AdvReac Type Severity Reaction Status Date / Time iodine Allergy Severe Topical Unverified 05/21/22 21:53 Irritation copper Allergy Intermediate Unverified 05/21/22 21:53 chocolate flavor AdvReac Unverified 05/21/22 21:53 Home Medications Medication Instructions Recorded Confirmed Type pregabalin 150 mg capsule (Lyrica) 150 mg PO TID 08/13/14 05/21/22 History morphine 15 mg immediate release 30 mg PO TID PRN Pain 09/21/18 05/21/22 History tablet oxycodone 15 mg tablet,oral ONLY 1 tab PO QID 09/21/18 05/21/22 History (not feeding tubes) meloxicam 15 mg tablet 15 mg PO DAILY 12/25/21 05/21/22 History vitamin B complex 1 tab PO DAILY 12/25/21 05/21/22 History acetaminophen 500 mg tablet 500 mg PO Q3H PRN 02/18/22 05/21/22 History amitriptyline 50 mg tablet 50 mg PO QHS 02/18/22 05/21/22 History docusate sodium 100 mg capsule 100 mg PO TID PRN 02/18/22 05/21/22 History (Colace) naloxone 4 mg/actuation nasal 4 mg intranasal Q2-3M PRN 02/18/22 04/23/22 His tory spray (Narcan) pantoprazole 20 mg tablet,delayed 20 mg PO DAILY 02/18/22 05/21/22 History release tamsulosin 0.4 mg capsule 0.4 mg PO QHS 03/26/22 05/21/22 History lisinopril 5 mg tablet 5 mg PO HS 04/23/22 05/21/22 History cholecalciferol (vitamin D3) 50 50 mcg PO DAILY 05/21/22 05/21/22 History mcg (2,000 unit) capsule (Vitamin D3) Exam Narrative Exam Narrative: GEN: Alert and oriented x 3, though takes time to consider and respond. Appears uncomfortable, squirming in bed, but cooperative. HEENT: Head atraumatic. Conjunctiva clear, no icterus. PEERL, EOMI. no rhinorrhea. MMM, OP benign. Neck is supple with no masses or lymphadenopathy, trachea midline LUNGS: CTAB with normal effort CV: RRR with 3/6 systolic murmur loudest at LUSB. No gallops, or rubs. ABD: +BS, soft, NT/ND. no pain with raising legs. EXT: no cyanosis, clubbing, or edema. small blood bilsters 1st toes. MSK: No joint redness or swelling NEURO: CN 2-12 grossly intact x hearing. Diffuse increased done, some rhythmic lip movements and shaking right arm. holding neck flexed to right, often pulls on it with right arm (to release the neck) moves 3 extremities to commagnd (not left stump). Normal speech and coordination SKIN: Clammy diffusely. Quarter sized black eschar with surrounding <1cm erthyema left stump. redness and open blisters over sacrum, no redness or purulence. No other rashes or open wounds. PSYCH: normal mood and affect Results Imaging Abdomen CT scan report/results: report reviewed (1. Persistent left hydroureteronephrosis. There is new thickening in the region of the distal left ureter with calcifications in this region. This was not present on previous study 03/18/2022. Possibility of ureteral thickening from inflammation or infection should be considered. Much less likely i) CT scan - chest: report reviewed (1. Nonspecific minor interstitial ground-glass changes of the lungs bilaterally may represent mild interstitial edema. Cannot exclude a mild atypical interstitial pneumonitis. Most prominent in the upper lung holcomb. 2. Minor posteroinferior right lower lobe atelectasis. 3. Coronary artery atheroscl) Additional studies: XR left humerus: 1. Previous amputation across the distal humeral diametaphyseal region. 2. Osteopenia. 3. No plain film features of osteomyelitis. 4. No soft tissue emphysema or foreign body. Labs Result diagrams: 05/21/22 18:00 05/21/22 18:00 Labs: Laboratory Results - last 24 hr 05/21/22 05/21/22 05/21/22 18:00 18:00 18:00 WBC 9.81 RBC 3.26 L Hgb 9.2 L Hct 30.2 L MCV 93 MCH 28.2 MCHC 30.5 L RDW 12.4 Plt Count 259 MPV 9.6 Immature Gran % 0.6 Neutrophils % 86.0 Lymphocytes % 7.6 Monocytes % 4.7 Eosinophils % 0.8 Basophils % 0.3 Nucleated RBC % 0.0 Absolute Neutrophils 8.43 H Absolute Lymphocytes 0.75 L Absolute Monocytes 0.46 Absolute Eosinophils 0.08 Absolute Basophils 0.03 VBG Lactate 1.4 Sodium 141 Potassium 5.8 H Chloride 106 Carbon Dioxide 26.9 Anion Gap 8.1 BUN 30 H Creatinine 2.0 H Estimated GFR/1.73 m2 34.03 Glucose 101 Calcium 8.7 Magnesium 1.9 Total Bilirubin 0.4 AST 13 L ALT 13 L Alkaline Phosphatase 188 H Troponin I < 50 Total Protein 7.5 Albumin 2.7 L Urine Color Urine Clarity Urine pH Ur Specific [place] Urine Protein Urine Ketones Urine Blood Urine Nitrite Urine Bilirubin Urine Urobilinogen Ur Leukocyte Esterase Urine RBC Urine WBC Ur Epithelial Cells Urine Crystals Urine Bacteria Urine Casts Urine Mucus Ur Culture Indicated? Urine Glucose COVID-19 Source SARS-CoV-2 (PCR) Influenza Type A (PCR) Influenza Type B (PCR) RSV (PCR) 05/21/22 05/21/22 19:44 19:54 WBC RBC Hgb Hct MCV MCH MCHC RDW Plt Count MPV Immature Gran % Neutrophils % Lymphocytes % Monocytes % Eosinophils % Basophils % Nucleated RBC % Absolute Neutrophils Absolute Lymphocytes Absolute Monocytes Absolute Eosinophils Absolute Basophils VBG Lactate Sodium Potassium Chloride Carbon Dioxide Anion Gap BUN Creatinine Estimated GFR/1.73 m2 Glucose Calcium Magnesium Total Bilirubin AST ALT Alkaline Phosphatase Troponin I Total Protein Albumin Urine Color Yellow Urine Clarity Sl Cloudy Urine pH 6.0 Ur Specific [place] 1.020 Urine Protein Trace H Urine Ketones Negative Urine Blood Trace-intact H Urine Nitrite Negative Urine Bilirubin Negative Urine Urobilinogen 0.2 Ur Leukocyte Esterase Negative Urine RBC 0-2 Urine WBC Negative Ur Epithelial Cells Rare Urine Crystals Negative Urine Bacteria Few Urine Casts Negative Urine Mucus Negative Ur Culture Indicated? No Urine Glucose Negative COVID-19 Source Nasopharynx SARS-CoV-2 (PCR) Negative Influenza Type A (PCR) Negative Influenza Type B (PCR) Negative RSV (PCR) Negative Last Vital Signs Temp 39 C H 05/21/22 17:36 Pulse 100 H 05/21/22 19:49 Resp 19 05/21/22 19:49 BP 125/83 05/21/22 19:49 Pulse Ox 96 05/21/22 19:49
[2022-05-22] VITALS (22 sets, daily range): BP systolic 118–165; BP diastolic 67–84; PULSE 81–103; RESP 12–24; TEMP 36.1–38.4; O2SAT 91–100; BMI 21.9
[2022-05-22] MEDS: Insulin REGULAR-Human 100 UNITS/ML UNIT 10 UNITS SC (00:35)
[2022-05-22] MEDS: Dextrose 50%-Water 25 GM/50 ML SYR IVP (00:37)
[2022-05-22] MEDS: Calcium Gluconate 4.65 MEQ/10 ML VIAL 4.65 MG IVP (00:41)
--- NOTE | 2022-05-22 01:49 | NUR.NOTE ---
Voicemail left for Nargis (sister [phone]) in regards to admission paperwork.
[2022-05-22] MEDS: Amitriptyline 50 MG TAB PO ×2 (02:42→21:40)
[2022-05-22] MEDS: Tamsulosin 0.4 MG CAPCR PO ×2 (02:42→21:40)
[2022-05-22] MEDS: VANCOMYCIN 1,250 MG in Normal Saline 250 ML 166.667 MG IVPB (02:43)
[2022-05-22 06:25] LABS: Abs Immature Grans 0.05 10^3/uL (0.0-0.06); Absolute Basophil Count 0.01 10^3/uL (0.0-0.2); Absolute Eosinophil Count 0.02 10^3/uL (0.0-0.7); Absolute Lymphocyte Count 0.52 10^3/uL (1.2-3.4); Absolute Monocyte Count 0.54 10^3/uL (0.1-0.8); Absolute Neutrophil Count 6.39 10^3/uL (1.2-6.7); Basophils % 0.1; Eosinophils % 0.3; HCT 28.6 % (40.0-50.0); HGB 8.9 g/dL (13.5-17.5); Immature Grans % 0.7; Lymphocytes % 6.9; MCH 28.3 pg (27.0-33.0); MCHC 31.1 % (32.0-36.0); MCV 91 fL (80-95); MPV 9.9 fL (8.0-11.0); Monocytes % 7.2; Neutrophils % 84.8; Platelet Count 239 10^3/uL (130-400); RBC 3.14 10^6/uL (4.36-5.78); RDW 12.7 % (11.8-14.1); RDW-SD 41.7 fL; WBC 7.53 10^3/uL (4.4-10.8)
[2022-05-22 06:40] LABS: Anion Gap 8.8 mmol/L (3-11); BUN 26 mg/dL (7-18); CO2 25.2 mmol/L (21.0-32.0); CREATININE 1.6 mg/dL (0.70-1.30); Calcium 8.6 mg/dL (8.5-10.1); Chloride 108 mmol/L (98-107); Estimated GFR 44.02 (mL/min/1.73m2); Glucose 59 mg/dL (74-106); Potassium 4.9 mmol/L (3.5-5.1); Sodium 142 mmol/L (136-145)
[2022-05-22 06:54] LABS: Iron 13 ug/dL (65-175); Total Iron Binding Capacity 140 ug/dL (250-450); Transferrin Sat 9 % (20-55)
[2022-05-22 07:06] LABS: Folate 9.9 ng/mL (8.6-20.0); Vitamin B12 1596 pg/mL (193-986)
[2022-05-22] MEDS: Pantoprazole 20 MG TABCR PO (08:13)
[2022-05-22] MEDS: Pregabalin 50 MG CAP 150 MG PO ×3 (08:13→19:29)
[2022-05-22] MEDS: oxyCODONE 5 MG TAB 15 MG PO ×3 (08:13→19:28)
[2022-05-22] MEDS: Vitamins B Comp w/C TAB 1 TAB PO (08:13)
[2022-05-22] MEDS: Cholecalciferol (Vitamin D3) 1,000 UNIT TAB 2000 UNITS PO (08:13)
[2022-05-22] MEDS: Acetaminophen 500 MG TAB PO ×2 (08:14→19:40)
--- NOTE | 2022-05-22 09:39 | UCONE_ITS ---
Date of service: 05/22/22 Time of Service: 09:39 Assessment and Plan Assessment and plan (1) Hydronephrosis, left: Status: Acute (2) Retroperitoneal fluid collection: Status: Acute Assessment and plan: He is not describing typical renal colic symptoms. The ureteral dilation and retroperitoneal fluid may simply be a result of his previous procedures and may resolve on their own. It is very difficult to assess exactly what is going on with this patient, so I think the safest approach would be to replace his left ureteral stent to drain the kidney. This would relieve any potential infection trapped back up in the kidney and prevent any additional urine leak from the kidney. Unless there is a huge concern for an abscess formation, there is no pressing reason to ask interventional radiology to drain the retroperitoneal fluid. If the fluid is a postprocedural urinoma, it tends to reabsorb on its own. To complicate matters, I will be leaving for a week later this afternoon. We will contact the operating room to arrange for the stent placement. If the patient has worsening symptoms later in the hospital stay, he would need to be transferred to another facility that has urology and interventional radiology access. History of Present Illness History of Present Illness Chief Complaint: Left hydronephrosis Narrative: This is a 61-year-old gentleman who is known to me from previous hospitalizations. He initially presented with fevers and was found to have an obstructing left ureteral stone. There was concern that the urinary tract might be the source of his infection. They placed a ureteral stent and his symptoms improved, but his urine and blood cultures were ultimately unremarkable. He then had a staged procedure for ureteroscopy and stone treatment. We used a holmium laser to dust the stone. When we returned for ureteroscopy, we found multiple small stone fragments along the course of the ureter. Our usual follow-up involves being repeat renal ultrasound about 6 to 8 weeks following ureteroscopy to rule out any residual hydronephrosis. The patient Presented to the emergency department last evening with fevers and nonspecific pain. He had a CT of the chest abdomen and pelvis. The CT of the abdomen and pelvis shows residual left hydronephrosis and hydroureter with no specific obstructing lesion. There is a retroperitoneal fluid collection of certain significance. I have been asked to see him regarding both the hydronephrosis and the retroperitoneal fluid collection. As with my previous encounters with the patient, he had a hard time pulling specific information from him. The patient claims that he has pain but it does not seem specific to his left flank. He tells me that he feels better than yesterday, but he does not tell me exactly what types of symptoms he was having yesterday. PFSH All Active Problems (Updated 05/22/22 @ 09:48 by William Camacho MD) Hydronephrosis, left (Acute) Hydronephrosis due to obstruction of ureter (Acute) Retroperitoneal fluid collection (Acute) Fever (Acute) Left arm cellulitis (Acute) Acute anemia (Acute) Hyperkalemia (Acute) Acute kidney injury (Acute) Pneumonia (Acute) Hypertension (Chronic) Vitamin D deficiency (Acute) Phantom limb (syndrome) (Chronic) Status post VNS (vagus nerve stimulator) placement (Acute) Peptic ulcer disease (Chronic) Ulnar neuropathy at elbow of right upper extremity (Acute) Right carpal tunnel syndrome (Acute) Pneumonia (Acute) DVT prophylaxis (Acute) Discharge planning issues (Acute) Acute kidney injury (Acute) Ureteral calculus, left (Acute) Sepsis due to urinary tract infection (Acute) Pneumonia (Acute) Medical History Amputation of left arm Cataracts, bilateral pt. states this has not been done History of gastrectomy Hx of fracture of hip Hx of fracture of wrist Hx of fracture of wrist pt. reports metal in place Hx of peptic ulcer Personal history of COVID-19 Rib fractures Right leg injury S/P placement of nerve stimulator Ulnar neuritis Surgical History Hx of cystoscopy Hx of total hip arthroplasty t. reports fracture with metal repair Social History Smoking/Tobacco Use Status: Current every day Tobacco Type: smokeless tobacco Smoking risk assessment performed?: Yes Alcohol Intake: never Drug use: Never Substance use type: does not use Do you feel safe at home: Yes Do you feel safe in your relationship?: Yes Additional Social history: unable to assess privately Exam Narrative Exam Narrative: He appears chronically ill His vital signs are documented His abdomen is soft. I do not find any peritoneal signs. No abdominal masses are found. He is awake and alert I reviewed his CT scan on the PACS system. The left kidney and ureter are dilated. I do not see a specific obstructing lesion as the culprit. There is a fluid collection sitting above the psoas muscle on the left side His serum white blood count is not elevated. Results Last Vital Signs Temp 37.8 C H 05/22/22 08:40 Pulse 102 H 05/22/22 08:40 Resp 24 05/22/22 08:40 BP 158/74 H 05/22/22 08:40 Pulse Ox 91 L 05/22/22 08:40 Labs Result diagrams: 05/22/22 05:47 05/22/22 05:47 Labs: Laboratory Results - last 24 hr 05/21/22 05/21/22 05/21/22 18:00 18:00 18:00 WBC 9.81 RBC 3.26 L Hgb 9.2 L Hct 30.2 L MCV 93 MCH 28.2 MCHC 30.5 L RDW 12.4 Plt Count 259 MPV 9.6 Immature Gran % 0.6 Neutrophils % 86.0 Lymphocytes % 7.6 Monocytes % 4.7 Eosinophils % 0.8 Basophils % 0.3 Nucleated RBC % 0.0 Absolute Neutrophils 8.43 H Absolute Lymphocytes 0.75 L Absolute Monocytes 0.46 Absolute Eosinophils 0.08 Absolute Basophils 0.03 VBG Lactate 1.4 Sodium 141 Potassium 5.8 H Chloride 106 Carbon Dioxide 26.9 Anion Gap 8.1 BUN 30 H Creatinine 2.0 H Estimated GFR/1.73 m2 34.03 Glucose 101 Calcium 8.7 Magnesium 1.9 Iron TIBC Transferrin % Sat Total Bilirubin 0.4 AST 13 L ALT 13 L Alkaline Phosphatase 188 H Troponin I < 50 Total Protein 7.5 Albumin 2.7 L Vitamin B12 Folate Urine Color Urine Clarity Urine pH Ur Specific [place] Urine Protein Urine Ketones Urine Blood Urine Nitrite Urine Bilirubin Urine Urobilinogen Ur Leukocyte Esterase Urine RBC Urine WBC Ur Epithelial Cells Urine Crystals Urine Bacteria Urine Casts Urine Mucus Ur Culture Indicated? Urine Glucose COVID-19 Source SARS-CoV-2 (PCR) Influenza Type A (PCR) Influenza Type B (PCR) RSV (PCR) 05/21/22 05/21/22 05/22/22 19:44 19:54 05:47 WBC RBC Hgb Hct MCV MCH MCHC RDW Plt Count MPV Immature Gran % Neutrophils % Lymphocytes % Monocytes % Eosinophils % Basophils % Nucleated RBC % Absolute Neutrophils Absolute Lymphocytes Absolute Monocytes Absolute Eosinophils Absolute Basophils VBG Lactate Sodium Potassium Chloride Carbon Dioxide Anion Gap BUN Creatinine Estimated GFR/1.73 m2 Glucose Calcium Magnesium Iron 13 L TIBC 140 L Transferrin % Sat 9 L Total Bilirubin AST ALT Alkaline Phosphatase Troponin I Total Protein Albumin Vitamin B12 Folate Urine Color Yellow Urine Clarity Sl Cloudy Urine pH 6.0 Ur Specific [place] 1.020 Urine Protein Trace H Urine Ketones Negative Urine Blood Trace-intact H Urine Nitrite Negative Urine Bilirubin Negative Urine Urobilinogen 0.2 Ur Leukocyte Esterase Negative Urine RBC 0-2 Urine WBC Negative Ur Epithelial Cells Rare Urine Crystals Negative Urine Bacteria Few Urine Casts Negative Urine Mucus Negative Ur Culture Indicated? No Urine Glucose Negative COVID-19 Source Nasopharynx SARS-CoV-2 (PCR) Negative Influenza Type A (PCR) Negative Influenza Type B (PCR) Negative RSV (PCR) Negative 05/22/22 05/22/22 05/22/22 05:47 05:47 05:47 WBC 7.53 RBC 3.14 L Hgb 8.9 L Hct 28.6 L MCV 91 MCH 28.3 MCHC 31.1 L RDW 12.7 Plt Count 239 MPV 9.9 Immature Gran % 0.7 Neutrophils % 84.8 Lymphocytes % 6.9 Monocytes % 7.2 Eosinophils % 0.3 Basophils % 0.1 Nucleated RBC % 0.0 Absolute Neutrophils 6.39 Absolute Lymphocytes 0.52 L Absolute Monocytes 0.54 Absolute Eosinophils 0.02 Absolute Basophils 0.01 VBG Lactate Sodium 142 Potassium 4.9 Chloride 108 H Carbon Dioxide 25.2 Anion Gap 8.8 BUN 26 H Creatinine 1.6 H Estimated GFR/1.73 m2 44.02 Glucose 59 L Calcium 8.6 Magnesium Iron TIBC Transferrin % Sat Total Bilirubin AST ALT Alkaline Phosphatase Troponin I Total Protein Albumin Vitamin B12 1596 H Folate 9.9 Urine Color Urine Clarity Urine pH Ur Specific [place] Urine Protein Urine Ketones Urine Blood Urine Nitrite Urine Bilirubin Urine Urobilinogen Ur Leukocyte Esterase Urine RBC Urine WBC Ur Epithelial Cells Urine Crystals Urine Bacteria Urine Casts Urine Mucus Ur Culture Indicated? Urine Glucose COVID-19 Source SARS-CoV-2 (PCR) Influenza Type A (PCR) Influenza Type B (PCR) RSV (PCR)
[2022-05-22] MEDS: CEFEPIME 2 GM in Normal Saline 100 ML IVPB ×2 (10:22→21:39)
--- NOTE | 2022-05-22 12:11 | W.ANESPRE ---
General Info Date of Service Date Performed: 05/22/22 Height: 5 ft 10 in Weight: 69.4 kg Body Mass Index (BMI): 21.9 Surgical Procedure: Operation Date: 05/22/22 14:40 Proposed Procedure Side Surgeon p Cystoscopy/Retrograde w/Stent Placement Left William Camacho MD Meds Allergies and Home Medications Allergies Allergy/AdvReac Type Severity Reaction Status Date / Time iodine Allergy Severe Topical Unverified 05/21/22 21:53 Irritation copper Allergy Intermediate Unverified 05/21/22 21:53 chocolate flavor AdvReac Unverified 05/21/22 21:53 Home Medication Medication Instructions Recorded pregabalin 150 mg capsule (Lyrica) 150 mg PO TID 08/13/14 morphine 15 mg immediate release 30 mg PO TID PRN Pain 09/21/18 tablet oxycodone 15 mg tablet,oral ONLY 1 tab PO QID 09/21/18 (not feeding tubes) meloxicam 15 mg tablet 15 mg PO DAILY 12/25/21 vitamin B complex 1 tab PO DAILY 12/25/21 acetaminophen 500 mg tablet 500 mg PO Q3H PRN 02/18/22 amitriptyline 50 mg tablet 50 mg PO QHS 02/18/22 docusate sodium 100 mg capsule 100 mg PO TID PRN 02/18/22 (Colace) naloxone 4 mg/actuation nasal 4 mg intranasal Q2-3M PRN 02/18/22 spray (Narcan) pantoprazole 20 mg tablet,delayed 20 mg PO DAILY 02/18/22 release tamsulosin 0.4 mg capsule 0.4 mg PO QHS 03/26/22 lisinopril 5 mg tablet 5 mg PO HS 04/23/22 cholecalciferol (vitamin D3) 50 50 mcg PO DAILY 05/21/22 mcg (2,000 unit) capsule (Vitamin D3) Current Visit Medications: Current Medications Generic Name Dose Route Start Last Admin Trade Name Freq PRN Reason Stop Dose Admin Acetaminophen 500 mg 05/21/22 23:39 05/22/22 08:14 Acetaminophen 500 Mg Tab PO 500 mg Q3H PRN Administration Amitriptyline HCl 50 mg 05/22/22 01:00 05/22/22 02:42 Amitriptyline 50 Mg Tab PO 50 mg HS [facility] Administration Cholecalciferol 2,000 units 05/22/22 08:30 05/22/22 08:13 Cholecalciferol (Vitamin D3) 1,000 Unit Tab PO 2,000 units DAILY BETTE Administration Dimethicone/Zinc Oxide 0 gm 05/21/22 23:30 Margarito Protect Cream 142 Gm Tube TP PRN PRN Docusate Sodium 100 mg 05/21/22 23:39 Docusate Sodium 100 Mg Cap PO TID PRN Enoxaparin Sodium 40 mg 05/22/22 08:00 05/22/22 08:50 Enoxaparin 40 Mg/0.4 Ml Syr SC Not Given Q24H [facility] Cefepime HCl 2 gm/ Sodium 100 mls @ 200 mls/hr 05/22/22 10:00 05/22/22 10:22 Chloride IVPB 200 mls/hr Q12H [facility] Administration Vancomycin/PEG/NADA/Lysine/Water 1.25 gm in 250 mls @ 166.667 mls/hr 05/22/22 20:00 Vancocin Injection IVPB Q18H BETTE Morphine Sulfate 30 mg 05/21/22 23:39 05/22/22 06:19 Morphine 15 Mg Tab PO 30 mg TID PRN Administration Pain Oxycodone HCl 15 mg 05/22/22 08:30 05/22/22 08:13 Oxycodone 5 Mg Tab PO 15 mg QID BETTE Administration Pantoprazole Sodium 20 mg 05/22/22 08:30 05/22/22 08:13 Pantoprazole 20 Mg Tabcr PO 20 mg DAILY BETTE Administration Pregabalin 150 mg 05/22/22 08:30 05/22/22 08:13 Pregabalin 50 Mg Cap PO 150 mg TID BETTE Administration Tamsulosin HCl 0.4 mg 05/22/22 01:00 05/22/22 02:42 Tamsulosin 0.4 Mg Capcr PO 0.4 mg HS BETTE Administration Vitamin B Complex/Vitamin C 1 tab 05/22/22 08:30 05/22/22 08:13 Vitamins B Comp W/C Tab PO 1 tab DAILY BETTE Administration PFSH Active Problems Active Problems: Problem Status Onset Code Hydronephrosis, left N13.30 Hydronephrosis due to obstruction of ureter N13.1 Retroperitoneal fluid collection R18.8 Fever R50.9 Left arm cellulitis L03.114 Acute anemia D64.9 Hyperkalemia E87.5 Acute kidney injury N17.9 Pneumonia J18.9 Hypertension I10 Vitamin D deficiency E55.9 Phantom limb (syndrome) G54.7 Status post VNS (vagus nerve stimulator) placement Z96.89 Peptic ulcer disease K27.9 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 states this has not been done History of gastrectomy Hx of fracture of hip Hx of fracture of wrist Hx of fracture of wrist pt. reports metal in place Hx of peptic ulcer Personal history of COVID-19 Rib fractures Right leg injury S/P placement of nerve stimulator Ulnar neuritis Medical History Comments:: pt. reports he is slow waking up Surgical History Surgical History Hx of cystoscopy Hx of total hip arthroplasty t. reports fracture with metal repair Tobacco Smoking/Tobacco Use Status: Current every day Tobacco Type: smokeless tobacco Alcohol Alcohol Intake: never Substance Use Substance use: Never Substance use type: does not use Vital Signs and Lab Results Vital Signs Most Recent Vital Signs in EMR: Most Recent Vital Signs Temp Pulse Resp BP Pulse Ox 37.2 C 94 H 22 134/71 96 05/22/22 11:37 05/22/22 11:37 05/22/22 11:37 05/22/22 11:37 05/22/22 11:37 Point of Care Results Point of Care Results: Finger Stick Blood Glucose 146 05/21/22 18:49 Lab Results Result Diagrams: 05/22/22 05:47 05/22/22 05:47 Blood Type / Crossmatch: No Data to Display Complete Blood Count: White Blood Count 7.53 10^3/uL (4.4-10.8) 05/22/22 05:47 Red Blood Count 3.14 10^6/uL (4.36-5.78) L 05/22/22 05:47 Hemoglobin 8.9 g/dL (13.5-17.5) L 05/22/22 05:47 Hematocrit 28.6 % (40.0-50.0) L 05/22/22 05:47 Platelet Count 239 10^3/uL (130-400) 05/22/22 05:47 Venous Blood Lactate 1.4 mmol/L (0.6-1.4) 05/21/22 18:00 Complete Metabolic Panel: Sodium Level 142 mmol/L (136-145) 05/22/22 05:47 Potassium Level 4.9 mmol/L (3.5-5.1) 05/22/22 05:47 Chloride Level 108 mmol/L (98-107) H 05/22/22 05:47 Carbon Dioxide Level 25.2 mmol/L (21.0-32.0) 05/22/22 05:47 Blood Urea Nitrogen 26 mg/dL (7-18) H 05/22/22 05:47 Creatinine 1.6 mg/dL (0.70-1.30) H 05/22/22 05:47 Estimated GFR/1.73 m2 44.02 (mL/min/1.73m2) 05/22/22 05:47 Magnesium Level 1.9 mg/dL (1.8-2.4) 05/21/22 18:00 Calcium Level 8.6 mg/dL (8.5-10.1) 05/22/22 05:47 Albumin 2.7 g/dL (3.4-5.0) L 05/21/22 18:00 Glucose Level 59 mg/dL (74-106) L 05/22/22 05:47 Liver Function Panel: Alanine Aminotransferase (ALT/SGPT) 13 U/L (16-63) L 05/21/22 18:00 Aspartate Amino Transf (AST/SGOT) 13 U/L (15-37) L 05/21/22 18:00 Coagulation Panel: No Data to Display Cardiac Panel: Troponin I < 50 ng/L (<or=60) 05/21/22 Arterial Blood Gas: No Data to Display Venous Blood Gas: No Data to Display Pancreas Panel: No Data to Display Thyroid Panel: No Data to Display Infectious Disease: Coronavirus (COVID-19)(PCR) Negative (Negative) 05/21/22 19:54 Coronavirus 2019 Source Nasopharynx 05/21/22 19:54 Influenza Virus Type A (PCR) Negative (Negative) 05/21/22 19:54 Influenza Virus Type B (PCR) Negative (Negative) 05/21/22 19:54 Respiratory Syncytial Virus (PCR) Negative (Negative) 05/21/22 19:54 Blood Cultures: No Data to Display Toxicology Panel: No Data to Display Imaging and Studies Imaging and Studies Study information below may be from another EMR and interpreted by another provider. Please see original notes in EMR for more complete details. EKG Summary: Conclusion Sinus tachycardia...rate> 99. Sinus. Normal axis. No STEMI. 05/21/22 Anesthesia Assessment and Plan Anesthesia History Personal History: No History of Anesthesia Complications and Delayed Emergence Family History: No Family History of Anesthesia Complications Exercise Tolerance Exercise Tolerance: Metabolic Equivalents>4 Pertinent Negatives Pertinent Negatives: No Major Cardiovascular Symptoms or Complaints and No Major Pulmonary Symptoms or Complaints Cardiac & Pulmonary Exam Cardiac Exam: Normal S1/S2 Heart Sounds Pulmonary Exam: Clear Bilateral Breath Sounds Implantable Cardiac Device Does patient have a Pacemaker or an ICD?: No Airway Exam Known Difficult Airway: No Mallampati Class: 2 Mouth Opening: Normal (> 3cm) Thyromental Distance: Greater than 3 cm Neck Range of Motion: Limited ROM (Cannot turn head to the left) Neck Circumference: Normal Teeth Condition: Generalized Poor Dentition, Loose or Chipped (Patient unsure if any loose) and Dental Caries ASA Classification ASA Score: ASA 3 Emergency Case?: No NPO Status NPO Status: NPO Clears >2 hours, Solids >8 hours Anesthesia Plan Resuscitation Status: Full Code Anesthesia Technique: General Anesthesia Airway Planned: Natural Airway Monitors Used: Standard Monitors
--- NOTE | 2022-05-22 12:29 | PDOC.CMIN ---
- If Service Date Differs Date of service: 05/22/22 Time of Service: 12:29 Care Management Initial Assess REASON FOR HOSPITALIZATION:: Fever, pneumonia, retroperitoneal fluid collection PAST MEDICAL HISTORY/PAST SURGICAL HISTORY:: Medical History . Amputation of left arm. Cataracts, bilateral. pt. states this has not been done. History of gastrectomy. Hx of fracture of hip. Hx of fracture of wrist. Hx of fracture of wrist. pt. reports metal in place. Hx of peptic ulcer. Personal history of COVID-19. Rib fractures. Right leg injury. S/P placement of nerve stimulator. Ulnar neuritis. Surgical History . Hx of cystoscopy. Hx of total hip arthroplasty. t. reports fracture with metal repair PREVIOUS FUNCTIONAL STATUS/SOCIAL/FAMILY SUPPORTS:: Phuong reside in [facility], alone. His sister Nargis is his main support person and resides nearby. 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 His sister, Nargis describes him as very hard of hearing, brilliant in some ways and delayed in others such as reading and writing. When he is sick, Nargis is Phuong's caregiver. ADVANCE DIRECTIVES:: On file, Nargis as agent. Has patient been provided with info about the portal/API?: Yes Did the patient sign up for the portal?: No CODE STATUS:: Full Code INSURANCE COVERAGE / FINANCIAL ISSUES:: JAMIE CURRENT HOME/COMMUNITY SERVICES/EQUIPMENT:: None, currently. Needs overseen by sister Nargis. PRIMARY CARE PHYSICIAN:: Peter Spencer POTENTIAL DISCHARGE NEEDS:: Per Urology Consult: He is not describing typical renal colic symptoms. The ureteral dilation and retroperitoneal fluid may simply be a result of his previous procedures and may resolve on their own. It is very difficult to assess exactly what is going on with this patient, so I think the safest approach would be to replace his left ureteral stent to drain the kidney. This would relieve any potential infection trapped back up in the kidney and prevent any additional urine leak from the kidney. Unless there is a huge concern for an abscess formation, there is no pressing reason to ask interventional radiology to drain the retroperitoneal fluid. If the fluid is a postprocedural urinoma, it tends to reabsorb on its own. To complicate matters, I will be leaving for a week later this afternoon. We will contact the operating room to arrange for the stent placement. If the patient has worsening symptoms later in the hospital stay, he would need to be transferred to another facility that has urology and interventional radiology access. PATIENT/FAMILY EDUCATION NEEDS:: Review discharge instructions, discuss Ask Me Three. ANTICIPATED BARRIERS TO DISCHARGE:: None identified. TRANSPORTATION:: Via private vehicle with his sister. PLAN:: Phuong continues to be closely monitored, plan undetermined at this time-refer to urology consult for detailed information. JOSÉ MIGUEL continues to follow.
--- NOTE | 2022-05-22 12:45 | DI.RAD_ITS ---
Exam(s) XR RETROGRADE IN OR EXAM: XR RETROGRADE IN OR CLINICAL HISTORY: Hydronephrosis, left. TECHNIQUE: 2D and realtime digital imaging was performed. COMPARISON: CT CT CHEST/ABD/PEL WO from 05/21/2022 FINDINGS: Fluoroscopy was provided for Dr. Camacho for guidance with stent placement.. Please see procedure note for details. Fluoro time: 81.1seconds RADIATION DOSE DELIVERED: Ka,r=18.63 mGy
--- NOTE | 2022-05-22 13:40 | W.PM.PROGNOT ---
Date of Service Date of service: 05/22/22 Time of Service: 13:40 Assessment and Plan Assessment and plan (1) Fever: Status: Acute Assessment and plan: sources still include pneumonia, but also a fluid collection by the left kidney. Urine not c/w infection. Infection of stump also a concern, as is endocarditiis with loud murmur. echo and blood cultures pending. continue vanco and cefemepine. (2) Acute anemia: Status: Acute Assessment and plan: iron deficient, will given venofer 300 mg IV (3) Hyperkalemia: Status: Acute Assessment and plan: Treated in the ED. Also holding ACEi and NSAID. Monitor in AM. (4) Acute kidney injury: Status: Acute Assessment and plan: He had similar when obstructing stone but he did recover after this. Holding nephrotoxic drugs, NSAID, lisinopril for now. has responded to IV fluids with creatinine improving (5) Pneumonia: Status: Acute Assessment and plan: As above treating pneumonia. Broad spectrum to cover intraabdominal abscess concern. Narrow when cultures finalized (6) Hypertension: Status: Chronic Assessment and plan: BP in lower end of range now, holding lisinopril (7) Retroperitoneal fluid collection: Status: Acute Assessment and plan: Urology consulted attempted stent placement but unable. may need nephrostomy tube, see urology notes. (8) Hydronephrosis due to obstruction of ureter: Status: Acute Assessment and plan: As above uro consult. thought that trauma from stents is the most likely cause of abnormal tissue that seems to be mino ureter. unable to pass another stent, consider nephrostomy tube. (9) DVT prophylaxis: Status: Acute Assessment and plan: LMWH (10) Discharge planning issues: Status: Acute Assessment and plan: case management following, likely home when medically stable. discussed with DR Varela. Subjective Subjective Patient reports: no new complaints and afebrile Exam Const General: cooperative, no acute distress and ill appearing chronically Nutritional Appearance: average body habitus Orientation: alert, awake and oriented x3 HENMT Head: normal to inspection, normocephalic and atraumatic Mouth: moist mucous membranes abnormal (dry) GI Inspection: distended Auscultation: normal bowel sounds Skin Rashes: no rashes Extrem General: amputation noted Arm: left (well healed stump) Psych Mental Status: mental status grossly normal Speech and Movement: speech and movement normal Mood: congruent mood Affect: normal affect Attitude: cooperative Thought Process: normal Thought Content: normal Insight: fair Judgment: fair Objective Last Vital Signs Temp 37.2 C 05/22/22 11:37 Pulse 94 H 05/22/22 11:37 Resp 22 05/22/22 11:37 BP 134/71 05/22/22 11:37 Pulse Ox 96 05/22/22 11:37 Laboratory Results - last 24 hr 05/21/22 05/21/22 05/21/22 18:00 18:00 18:00 WBC 9.81 RBC 3.26 L Hgb 9.2 L Hct 30.2 L MCV 93 MCH 28.2 MCHC 30.5 L RDW 12.4 Plt Count 259 MPV 9.6 Immature Gran % 0.6 Neutrophils % 86.0 Lymphocytes % 7.6 Monocytes % 4.7 Eosinophils % 0.8 Basophils % 0.3 Nucleated RBC % 0.0 Absolute Neutrophils 8.43 H Absolute Lymphocytes 0.75 L Absolute Monocytes 0.46 Absolute Eosinophils 0.08 Absolute Basophils 0.03 VBG Lactate 1.4 Sodium 141 Potassium 5.8 H Chloride 106 Carbon Dioxide 26.9 Anion Gap 8.1 BUN 30 H Creatinine 2.0 H Estimated GFR/1.73 m2 34.03 Glucose 101 Calcium 8.7 Magnesium 1.9 Iron TIBC Transferrin % Sat Total Bilirubin 0.4 AST 13 L ALT 13 L Alkaline Phosphatase 188 H Troponin I < 50 Total Protein 7.5 Albumin 2.7 L Vitamin B12 Folate Urine Color Urine Clarity Urine pH Ur Specific [place] Urine Protein Urine Ketones Urine Blood Urine Nitrite Urine Bilirubin Urine Urobilinogen Ur Leukocyte Esterase Urine RBC Urine WBC Ur Epithelial Cells Urine Crystals Urine Bacteria Urine Casts Urine Mucus Ur Culture Indicated? Urine Glucose COVID-19 Source SARS-CoV-2 (PCR) Influenza Type A (PCR) Influenza Type B (PCR) RSV (PCR) 05/21/22 05/21/22 05/22/22 19:44 19:54 05:47 WBC RBC Hgb Hct MCV MCH MCHC RDW Plt Count MPV Immature Gran % Neutrophils % Lymphocytes % Monocytes % Eosinophils % Basophils % Nucleated RBC % Absolute Neutrophils Absolute Lymphocytes Absolute Monocytes Absolute Eosinophils Absolute Basophils VBG Lactate Sodium Potassium Chloride Carbon Dioxide Anion Gap BUN Creatinine Estimated GFR/1.73 m2 Glucose Calcium Magnesium Iron 13 L TIBC 140 L Transferrin % Sat 9 L Total Bilirubin AST ALT Alkaline Phosphatase Troponin I Total Protein Albumin Vitamin B12 Folate Urine Color Yellow Urine Clarity Sl Cloudy Urine pH 6.0 Ur Specific [place] 1.020 Urine Protein Trace H Urine Ketones Negative Urine Blood Trace-intact H Urine Nitrite Negative Urine Bilirubin Negative Urine Urobilinogen 0.2 Ur Leukocyte Esterase Negative Urine RBC 0-2 Urine WBC Negative Ur Epithelial Cells Rare Urine Crystals Negative Urine Bacteria Few Urine Casts Negative Urine Mucus Negative Ur Culture Indicated? No Urine Glucose Negative COVID-19 Source Nasopharynx SARS-CoV-2 (PCR) Negative Influenza Type A (PCR) Negative Influenza Type B (PCR) Negative RSV (PCR) Negative 05/22/22 05/22/22 05/22/22 05:47 05:47 05:47 WBC 7.53 RBC 3.14 L Hgb 8.9 L Hct 28.6 L MCV 91 MCH 28.3 MCHC 31.1 L RDW 12.7 Plt Count 239 MPV 9.9 Immature Gran % 0.7 Neutrophils % 84.8 Lymphocytes % 6.9 Monocytes % 7.2 Eosinophils % 0.3 Basophils % 0.1 Nucleated RBC % 0.0 Absolute Neutrophils 6.39 Absolute Lymphocytes 0.52 L Absolute Monocytes 0.54 Absolute Eosinophils 0.02 Absolute Basophils 0.01 VBG Lactate Sodium 142 Potassium 4.9 Chloride 108 H Carbon Dioxide 25.2 Anion Gap 8.8 BUN 26 H Creatinine 1.6 H Estimated GFR/1.73 m2 44.02 Glucose 59 L Calcium 8.6 Magnesium Iron TIBC Transferrin % Sat Total Bilirubin AST ALT Alkaline Phosphatase Troponin I Total Protein Albumin Vitamin B12 1596 H Folate 9.9 Urine Color Urine Clarity Urine pH Ur Specific [place] Urine Protein Urine Ketones Urine Blood Urine Nitrite Urine Bilirubin Urine Urobilinogen Ur Leukocyte Esterase Urine RBC Urine WBC Ur Epithelial Cells Urine Crystals Urine Bacteria Urine Casts Urine Mucus Ur Culture Indicated? Urine Glucose COVID-19 Source SARS-CoV-2 (PCR) Influenza Type A (PCR) Influenza Type B (PCR) RSV (PCR)
[2022-05-22] MEDS: Lactated Ringers 1,000 ML 30 ML IV (13:45)
[2022-05-22] MEDS: Lidocaine 2% Jelly 6 ML SYR (14:07)
--- NOTE | 2022-05-22 14:18 | W.PM.OP ---
Date of service: 05/22/22 Time of Service: 14:18 Operative Note Operative Note DATE OF PROCEDURE: 05/22/22 PRE-OP DIAGNOSIS: Left hydronephrosis PROCEDURE: Cystoscopy, left retrograde pyelogram, extraction of bladder stone, attempted left ureteroscopy SURGEON: William Camacho ANESTHESIA TYPE: Local By Surgeon and General LMA/ETT Refer to Anesthesia Record ESTIMATED BLOOD LOSS: 10 PATHOLOGY: other (stone for chemical analysis) COMPLICATIONS: Other (unable to access distal ureter) Patient was transported to: PACU Patient's condition: stable Implants: none Indications: This is a 61-year-old gentleman who is known to me from a past history of a left ureteral stone. When he first presented, we were concerned that he might be septic, so was treated with placement of a ureteral stent along. Once his cultures showed no infection, he underwent staged ureteroscopy with holmium laser lithotripsy. We utilized a dusting technique and fragmented the stones into very small particles. We will he completed his last procedure about a month ago, the ureter was patent and we saw multiple small stone fragments along the length of the ureteral mucosa. He presented back to the hospital with nonspecific pain and fevers. His urinalysis appears normal but his CT demonstrated left hydronephrosis and hydroureter all the way down to the bladder. There was also an area of retroperitoneal fluid on the psoas muscle. I was concerned that he might have infected urine up in that left kidney, so we brought him to the operating room today for stent placement. Findings: normal appearing ureteral orifice but unable to identify ureteral lumen proximal to orifice Procedure Description: The patient was brought to the operating room on 05/22/2022. He has been receiving IV antibiotics since his admission. After successful induction of general anesthesia with intubation, he was placed in the dorsal lithotomy position. His genitalia was prepped and draped. 2% Xylocaine jelly was instilled into the urethra to act as a local anesthetic. A 22 Citizen [place] rigid cystoscope was passed through the urethra into the bladder. The urethra and bladder were inspected with a 30 degree lens. The pendulous, bulbar and membranous urethra all appeared normal with no strictures. The prostatic urethra showed some lateral lobe enlargement but no significant median lobe. The bladder neck was then entered and the bladder mucosa was inspected. A small stone fragment was seen on the base of the bladder. This fragment was grasped with alligator forceps and removed. The left ureteral orifice ease appeared normal with the left orifice being a bit more prominent than the right. I then passed a 5 Citizen [place] access catheter through the cystoscope and maneuvered it into the right ureteral orifice. I attempted to do a retrograde pyelogram but no contrast could be seen going up the ureter. I then attempted to pass a Glidewire through the lumen of the access catheter and again the wire did not progress along the course of the ureter. I then removed the cystoscope and passed the semirigid ureteroscope. I was able to engage the tip of the ureteroscope into the distal ureter. The distal 2 cm of mucosa appeared normal and then the mucosa had a more whitish appearance and I was no longer able to visualize the lumen. After multiple attempts at passing a wire through the area, we aborted the procedure and will make recommendations for nephrostomy tube placement. 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 The ureteroscope was removed. A 16 Citizen [place] Galindo catheter was passed back through the urethra into the bladder. The catheter balloon was inflated with 10 cc of sterile water and the catheter was hooked to gravity drainage.
--- NOTE | 2022-05-22 14:36 | W.PM.PROGNOT ---
Date of Service Date of service: 05/22/22 Time of Service: 14:37 Assessment and Plan Assessment and plan (1) Hydronephrosis due to obstruction of ureter: Status: Acute Assessment and plan: I was unable to place a ureteral stent in a retrograde manner. The ureteral orifice appeared normal, but within 2 cm of the orifice, normal mucosa was no longer seen and the lumen could no longer be visualized. I suspect a postoperative ureteral stricture. I wonder if the retroperitoneal fluid developed as a result of back pressure from an obstruction Since I was unable to drain the kidney, I would recommend that a nephrostomy tube be placed by interventional radiology. They may be able to place an antegrade stent for us as well. Once the stent has been able to remain in place for 4 to 6 weeks, we can reassess the situation and see if a more definitive stricture treatment is necessary. Subjective Subjective Interval history since last seen: I was unable to place a retrograde ureteral stent Objective Last Vital Signs Temp 37.2 C 05/22/22 11:37 Pulse 94 H 05/22/22 11:37 Resp 22 05/22/22 11:37 BP 134/71 05/22/22 11:37 Pulse Ox 96 05/22/22 11:37 Laboratory Results - last 24 hr 05/21/22 05/21/22 05/21/22 18:00 18:00 18:00 WBC 9.81 RBC 3.26 L Hgb 9.2 L Hct 30.2 L MCV 93 MCH 28.2 MCHC 30.5 L RDW 12.4 Plt Count 259 MPV 9.6 Immature Gran % 0.6 Neutrophils % 86.0 Lymphocytes % 7.6 Monocytes % 4.7 Eosinophils % 0.8 Basophils % 0.3 Nucleated RBC % 0.0 Absolute Neutrophils 8.43 H Absolute Lymphocytes 0.75 L Absolute Monocytes 0.46 Absolute Eosinophils 0.08 Absolute Basophils 0.03 VBG Lactate 1.4 Sodium 141 Potassium 5.8 H Chloride 106 Carbon Dioxide 26.9 Anion Gap 8.1 BUN 30 H Creatinine 2.0 H Estimated GFR/1.73 m2 34.03 Glucose 101 Calcium 8.7 Magnesium 1.9 Iron TIBC Transferrin % Sat Total Bilirubin 0.4 AST 13 L ALT 13 L Alkaline Phosphatase 188 H Troponin I < 50 Total Protein 7.5 Albumin 2.7 L Vitamin B12 Folate Urine Color Urine Clarity Urine pH Ur Specific [place] Urine Protein Urine Ketones Urine Blood Urine Nitrite Urine Bilirubin Urine Urobilinogen Ur Leukocyte Esterase Urine RBC Urine WBC Ur Epithelial Cells Urine Crystals Urine Bacteria Urine Casts Urine Mucus Ur Culture Indicated? Urine Glucose COVID-19 Source SARS-CoV-2 (PCR) Influenza Type A (PCR) Influenza Type B (PCR) RSV (PCR) 05/21/22 05/21/22 05/22/22 19:44 19:54 05:47 WBC RBC Hgb Hct MCV MCH MCHC RDW Plt Count MPV Immature Gran % Neutrophils % Lymphocytes % Monocytes % Eosinophils % Basophils % Nucleated RBC % Absolute Neutrophils Absolute Lymphocytes Absolute Monocytes Absolute Eosinophils Absolute Basophils VBG Lactate Sodium Potassium Chloride Carbon Dioxide Anion Gap BUN Creatinine Estimated GFR/1.73 m2 Glucose Calcium Magnesium Iron 13 L TIBC 140 L Transferrin % Sat 9 L Total Bilirubin AST ALT Alkaline Phosphatase Troponin I Total Protein Albumin Vitamin B12 Folate Urine Color Yellow Urine Clarity Sl Cloudy Urine pH 6.0 Ur Specific [place] 1.020 Urine Protein Trace H Urine Ketones Negative Urine Blood Trace-intact H Urine Nitrite Negative Urine Bilirubin Negative Urine Urobilinogen 0.2 Ur Leukocyte Esterase Negative Urine RBC 0-2 Urine WBC Negative Ur Epithelial Cells Rare Urine Crystals Negative Urine Bacteria Few Urine Casts Negative Urine Mucus Negative Ur Culture Indicated? No Urine Glucose Negative COVID-19 Source Nasopharynx SARS-CoV-2 (PCR) Negative Influenza Type A (PCR) Negative Influenza Type B (PCR) Negative RSV (PCR) Negative 05/22/22 05/22/22 05/22/22 05:47 05:47 05:47 WBC 7.53 RBC 3.14 L Hgb 8.9 L Hct 28.6 L MCV 91 MCH 28.3 MCHC 31.1 L RDW 12.7 Plt Count 239 MPV 9.9 Immature Gran % 0.7 Neutrophils % 84.8 Lymphocytes % 6.9 Monocytes % 7.2 Eosinophils % 0.3 Basophils % 0.1 Nucleated RBC % 0.0 Absolute Neutrophils 6.39 Absolute Lymphocytes 0.52 L Absolute Monocytes 0.54 Absolute Eosinophils 0.02 Absolute Basophils 0.01 VBG Lactate Sodium 142 Potassium 4.9 Chloride 108 H Carbon Dioxide 25.2 Anion Gap 8.8 BUN 26 H Creatinine 1.6 H Estimated GFR/1.73 m2 44.02 Glucose 59 L Calcium 8.6 Magnesium Iron TIBC Transferrin % Sat Total Bilirubin AST ALT Alkaline Phosphatase Troponin I Total Protein Albumin Vitamin B12 1596 H Folate 9.9 Urine Color Urine Clarity Urine pH Ur Specific [place] Urine Protein Urine Ketones Urine Blood Urine Nitrite Urine Bilirubin Urine Urobilinogen Ur Leukocyte Esterase Urine RBC Urine WBC Ur Epithelial Cells Urine Crystals Urine Bacteria Urine Casts Urine Mucus Ur Culture Indicated? Urine Glucose COVID-19 Source SARS-CoV-2 (PCR) Influenza Type A (PCR) Influenza Type B (PCR) RSV (PCR)
[2022-05-22] MEDS: fentaNYL 100 MCG/2 ML VIAL IVP ×2 (14:50→14:57)
--- NOTE | 2022-05-22 15:09 | W.ANESPOSTOP ---
Postoperative Evaluation Date, Time and Location Date Performed: 05/22/22 Time Performed: 15:09 Patient Location: PACU Vital Signs Most Recent Imported Vital Signs: Most Recent Vital Signs Temp Pulse Resp BP Pulse Ox 36.6 C 100 H 12 152/77 H 100 05/22/22 14:52 05/22/22 14:52 05/22/22 14:52 05/22/22 14:52 05/22/22 14:52 Pain Score Most Recent Pain Score: Most Recent Pain Score Pain Level [Left Arm] 10 05/22/22 06:16 Pain Level 7 05/22/22 14:52 Assessment Mental Status: Awake (Alert & Oriented to Patient Baseline) Airway and Respiratory Function: Patent airway with normal (patient baseline) respiratory exam Cardiovascular Function: Hemodynamically Stable Hydration Status: Adequately Hydrated Nausea & Vomiting: No Nausea or Vomiting Pain: Pain is Moderate or Severe Postoperative Pain Management: Ongoing pain, patient will be managed as an inpatient Peripheral Nerve Block: Patient did not receive a nerve block
--- NOTE | 2022-05-22 18:12 | WOUNDCONS ---
- If Service Date Differs Date of service: 05/22/22 Time of Service: 18:12 Wound Initial Evaluation Narrative: Patient was approached this morning , at that time he did approve to have his wounds consulted. However, patient did not have a good afternoon in the OR. He was very uncomfortable at this time. He refused to have his wounds consulted. At this point he stated he intends to refuse altogether. Patient will be approached at a later time to see if he will reconsider. Notes labs, Allergies, H&P were reviewed
[2022-05-22] MEDS: VANCOMYCIN/WATER (PEG) 1.25 GM/250 ML BAG IVPB (19:29)
--- NOTE | 2022-05-22 19:58 | NUR.NOTE ---
Nursing Note: Temp 38.0. PRN APAP 500mg given PO. Cooling measures performed; removed 4x bath blankets, encouraged cough/deep breathing, room thermostat turned down and bedside table fan placed in room and turned on facing patient. Will recheck Temp per facility protocol.
[2022-05-23] VITALS (13 sets, daily range): BP systolic 96–145; BP diastolic 52–69; PULSE 64–87; RESP 16–20; TEMP 36.7–38.8; O2SAT 95–97
[2022-05-23] MEDS: Acetaminophen 500 MG TAB PO ×2 (02:48→08:46)
--- NOTE | 2022-05-23 03:22 | NUR.NOTE ---
Nursing Note: Patient restless, confused, removed Telemetry and thinks he is getting his truck out of his garage, Febrile 38.8 PRN APAP given 500mg PO per orders. Patient re-oriented to location and situation. Telemetry placed back on. Patient stated, I know where I am, I just need my truck. Blood cultures drawn earlier this shift for fever. Will recheck Temp in ~45 minutes.
[2022-05-23] MEDS: Cholecalciferol (Vitamin D3) 1,000 UNIT TAB 2000 UNITS PO (07:55)
[2022-05-23] MEDS: Pregabalin 50 MG CAP 150 MG PO ×3 (07:56→19:34)
[2022-05-23] MEDS: Vitamins B Comp w/C TAB 1 TAB PO (07:56)
[2022-05-23] MEDS: Pantoprazole 20 MG TABCR PO (07:56)
[2022-05-23] MEDS: oxyCODONE 5 MG TAB 15 MG PO ×4 (07:56→19:34)
[2022-05-23] MEDS: CEFEPIME 2 GM in Normal Saline 100 ML IVPB ×2 (10:29→21:48)
[2022-05-23] MEDS: VANCOMYCIN/WATER (PEG) 1.25 GM/250 ML BAG IVPB (13:30)
--- NOTE | 2022-05-23 14:53 | W.PM.PROGNOT ---
Date of Service Date of service: 05/23/22 Time of Service: 14:53 Assessment and Plan Assessment and plan (1) Fever: Status: Acute Assessment and plan: We have several possible sources for the fever. Exam and CT concerning for pneumonia. There is also a fluid collection by the left kidney. Infection of stump also a concern, as is endocarditiis with loud murmur. Get TTE to start. Vanco and cefemepine. Blood cultures pending (2) Acute anemia: Status: Acute Assessment and plan: Anemia trending down. He did have two procedures in March. Iron 13, b12 1596, folate 9.9 Venofer 300 mg ordered (3) Hyperkalemia: Status: Acute Assessment and plan: Treated in the ED. Also holding ACEi and NSAID. 05/23/22 K 4.9 (4) Acute kidney injury: Status: Acute Assessment and plan: He had similar when obstructing stone in the past BUN 26 Creat 1.6 (5) Pneumonia: Status: Acute Assessment and plan: As above treating pneumomnia. Broad spectrum to cover intraabdominal abscess concern. (6) Hypertension: Status: Chronic Assessment and plan: BP in lower end of range now, 120's/70's holding lisinopril (7) Retroperitoneal fluid collection: Status: Acute Assessment and plan: Urology consulted - needs stent and drain placed at [facility] [place]; will call for transfer (8) Hydronephrosis due to obstruction of ureter: Status: Acute Assessment and plan: As above uro consult. Suspect he needs another stent. (9) DVT prophylaxis: Status: Acute Assessment and plan: LMWH (10) Discharge planning issues: Status: Acute Assessment and plan: Consider discharge when infection source has been identified, clinically improving Subjective Subjective Patient reports: no new complaints Interval history since last seen: He is putting out urine, clear, yellow, Urine output is adequate. 30 ml/h Exam Const General: cooperative, no acute distress and ill appearing chronically Nutritional Appearance: average body habitus Orientation: alert, awake and oriented x3 HENMT Head: normal to inspection, normocephalic and atraumatic Mouth: moist mucous membranes abnormal (dry) GI Inspection: distended Auscultation: normal bowel sounds Skin Rashes: no rashes Extrem General: amputation noted Arm: left (well healed stump) Psych Mental Status: mental status grossly normal Speech and Movement: speech and movement normal Mood: congruent mood Affect: normal affect Attitude: cooperative Thought Process: normal Thought Content: normal Insight: fair Judgment: fair Objective Last Vital Signs Temp 37.8 C H 05/23/22 06:05 Pulse 82 05/23/22 07:00 Resp 18 05/23/22 05:45 BP 127/69 05/23/22 05:45 Pulse Ox 96 05/23/22 05:45 Reviewed Pertinent PMH: Yes
[2022-05-23] MEDS: Acetaminophen 325 MG TAB 650 MG PO ×2 (14:56→20:18)
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
[2022-05-23] MEDS: Amitriptyline 50 MG TAB PO (21:48)
[2022-05-23] MEDS: Tamsulosin 0.4 MG CAPCR PO (21:48)
[2022-05-23] MEDS: Normal Saline 500 ML 30 ML IV (21:49)
[2022-05-23] MEDS: Normal Saline Flush 10 ML SYR IVP (21:50)
[2022-05-24] VITALS (68 sets, daily range): BP systolic 78–176; BP diastolic 43–71; PULSE 40–126; RESP 8–18; TEMP 36.2–39.1; O2SAT 88–99
[2022-05-24] MEDS: Normal Saline Flush 10 ML SYR IVP ×3 (04:09→11:42)
[2022-05-24] MEDS: ACETAMINOPHEN 1,000 MG/100 ML BTL 400 MG IVPB (04:48)
[2022-05-24] MEDS: Ketorolac 30 MG/ML VIAL IVP (05:29)
[2022-05-24 07:00] LABS: Abs Immature Grans 0.06 10^3/uL (0.0-0.06); Absolute Basophil Count 0.03 10^3/uL (0.0-0.2); Absolute Eosinophil Count 0.23 10^3/uL (0.0-0.7); Absolute Lymphocyte Count 0.78 10^3/uL (1.2-3.4); Absolute Monocyte Count 0.52 10^3/uL (0.1-0.8); Absolute Neutrophil Count 7.62 10^3/uL (1.2-6.7); Basophils % 0.3; Eosinophils % 2.5; HCT 27.9 % (40.0-50.0); Immature Grans % 0.6; Lymphocytes % 8.4; MCHC 32.3 % (32.0-36.0); MCV 90 fL (80-95); Monocytes % 5.6; Neutrophils % 82.6; Platelet Count 220 10^3/uL (130-400); RDW 12.5 % (11.8-14.1); RDW-SD 41.1 fL; WBC 9.24 10^3/uL (4.4-10.8)
[2022-05-24 07:09] LABS: Anion Gap 10.7 mmol/L (3-11); BUN 27 mg/dL (7-18); CO2 23.3 mmol/L (21.0-32.0); CREATININE 2.2 mg/dL (0.70-1.30); Calcium 8.7 mg/dL (8.5-10.1); Chloride 101 mmol/L (98-107); Estimated GFR 30.48 (mL/min/1.73m2); Glucose 114 mg/dL (74-106); Potassium 4.2 mmol/L (3.5-5.1); Sodium 135 mmol/L (136-145)
[2022-05-24 07:15] LABS: Vancomycin, Trough 24.8 ug/mL (10.0-20.0)
[2022-05-24] MEDS: Pregabalin 50 MG CAP 150 MG PO (08:18)
[2022-05-24] MEDS: oxyCODONE 5 MG TAB 15 MG PO (08:19)
[2022-05-24] MEDS: Cholecalciferol (Vitamin D3) 1,000 UNIT TAB 2000 UNITS PO (08:19)
[2022-05-24] MEDS: Vitamins B Comp w/C TAB 1 TAB PO (08:19)
[2022-05-24] MEDS: Pantoprazole 20 MG TABCR PO (08:19)
[2022-05-24] MEDS: Enoxaparin 40 MG/0.4 ML SYR SC (08:20)
--- NOTE | 2022-05-24 09:31 | PGE_ITS ---
Date of Service Date of service: 05/24/22 Time of Service: 09:31 Subjective Subjective Interval history since last seen: Nursing reports increased confusion over night, febrile 39.1, tachycardia, decreased BP and only responsive with touch. He only keeps his eyes open for a few seconds. He does nod when asked questions. Glucose 175. Urine - catheter - is clear yellow, output decreased from 3425 to 1375. [place] [facility] [place] not [place] any [place]. I then called [facility] and waiting for a call back. I discussed my concerns with Dr Varela and he examined him. He continued to decline and was moved to the ICU - see Dr Batista note. Objective Last Vital Signs Temp 38.3 C H 05/24/22 06:40 Pulse 107 H 05/24/22 07:38 Resp 16 05/24/22 06:40 BP 113/71 05/24/22 06:40 Pulse Ox 96 05/24/22 06:40 Laboratory Results - last 24 hr 05/24/22 05/24/22 05/24/22 06:55 06:55 06:55 WBC 9.24 RBC 3.10 L Hgb 9.0 L Hct 27.9 L MCV 90 MCH 29.0 MCHC 32.3 RDW 12.5 Plt Count 220 MPV 10.0 Immature Gran % 0.6 Neutrophils % 82.6 Lymphocytes % 8.4 Monocytes % 5.6 Eosinophils % 2.5 Basophils % 0.3 Nucleated RBC % 0.0 Absolute Neutrophils 7.62 H Absolute Lymphocytes 0.78 L Absolute Monocytes 0.52 Absolute Eosinophils 0.23 Absolute Basophils 0.03 Sodium 135 L Potassium 4.2 Chloride 101 Carbon Dioxide 23.3 Anion Gap 10.7 BUN 27 H Creatinine 2.2 H Estimated GFR/1.73 m2 30.48 Glucose 114 H Calcium 8.7 Vancomycin Trough 24.8 H*
--- NOTE | 2022-05-24 10:27 | NUR.NOTE ---
Addendum entered by Guille Santillan LPN 05/24/22 10:43: charge nurse was notified at 0900 that the patient's mental status changed and that the patient seemed increasingly confused and was different than baseline. Original Note: Nursing Note: patient was sitting in the chair responding to name and gentle shaking. Patient appeared to be drowsy and kept lowering his head. Patient lethargy appeared increasing. finger stick was taken and was 175, a set of vital signs were taken with a manual BP of 80/60, 02 sat of 88, and a temp of 36.5. Patient stated he was cold. 02 was applied. Patient was transferred from med/surg to the ICU.
[2022-05-24 10:52] LABS: Lactate 1.7 mmol/L (0.6-1.4)
[2022-05-24 10:55] LABS: Abs Immature Grans 0.05 10^3/uL (0.0-0.06); Absolute Basophil Count 0.02 10^3/uL (0.0-0.2); Absolute Lymphocyte Count 0.82 10^3/uL (1.2-3.4); Absolute Monocyte Count 0.63 10^3/uL (0.1-0.8); Absolute Neutrophil Count 6.17 10^3/uL (1.2-6.7); Basophils % 0.3; Eosinophils % 2.5; HCT 22.6 % (40.0-50.0); Immature Grans % 0.6; Lymphocytes % 10.4; MCH 28.6 pg (27.0-33.0); MCV 92 fL (80-95); MPV 10.2 fL (8.0-11.0); Neutrophils % 78.2; Platelet Count 186 10^3/uL (130-400); RBC 2.45 10^6/uL (4.36-5.78); RDW 12.5 % (11.8-14.1); RDW-SD 41.9 fL; WBC 7.89 10^3/uL (4.4-10.8)
[2022-05-24 10:58] LABS: BE -1 mmol/L (-2-3); HCO3 24 mmol/L (22-26); pCO2 40 mmHg (35-45); pH 7.39 (7.35-7.45); pO2 177 mmHg (80-105); sO2 99 % (95-98); tCO2 23 mmol/L (23-27)
[2022-05-24 11:01] LABS: FIO2L 3 L; Site Right Radial
[2022-05-24 11:17] LABS: ALT 9 U/L (16-63); AST 20 U/L (15-37); Albumin 1.8 g/dL (3.4-5.0); Alkaline Phosphatase 129 U/L (46-116); Anion Gap 8.7 mmol/L (3-11); BUN 29 mg/dL (7-18); Bilirubin, Total 0.4 mg/dL (0.2-1.0); CO2 24.3 mmol/L (21.0-32.0); CREATININE 2.5 mg/dL (0.70-1.30); Calcium 8.2 mg/dL (8.5-10.1); Chloride 104 mmol/L (98-107); Glucose 98 mg/dL (74-106); NT-proBNP 1037 pg/mL (<300); Potassium 5.1 mmol/L (3.5-5.1); Sodium 137 mmol/L (136-145); Total Protein 6.2 g/dL (6.4-8.2); Troponin I < 50 ng/L (<or=60)
[2022-05-24] MEDS: Lactated Ringers 500 ML IV (11:50)
[2022-05-24] MEDS: Lactated Ringers 1,000 ML 125 ML IV (11:51)
--- NOTE | 2022-05-24 11:54 | W.PM.DS.N ---
Date of service: 05/24/22 Time of Service: 11:54 DS: Diagnosis Discharge Diagnosis (1) Fever: Status: Acute (2) Acute anemia: Status: Acute (3) Hyperkalemia: Status: Acute (4) Acute kidney injury: Status: Acute (5) Pneumonia: Status: Acute (6) Hypertension: Status: Chronic (7) Retroperitoneal fluid collection: Status: Acute (8) Hydronephrosis due to obstruction of ureter: Status: Acute (9) DVT prophylaxis: Status: Acute (10) Discharge planning issues: Status: Acute Discharge Plan Disposition Patient Disposition: [facility] Condition: Stable Discharge Details Reason For Visit: Septic shock, retorperitoneal fluid rossy. Admit Date/Time: 05/21/22 23:30 Admit Provider: Howard Peres Attending Provider: Howard Peres Primary Care Provider: Peter Spencer Hospital Course Hospital Course: 61 yo M with history of chronic pain on opioids and left arm amputation, admission with COVID pneumonia in 11/2021 and uretheral stones requiring stents in 03/2022 who was brought by his sister/caregiver with progressive general weakness and intermittent confusion over the past week or two.? The patient himself is not able to relate clear history but does seem to understand and answer directed questions appropriately.? He has been getting wound care for the left arm stump wound and the sacral wound.? Wounds do not seem to be getting worse per patient or sister.? No recent changes in medications.? He is in pain in back and neck and stiff, but this is chronic for him.? No new focal pain. Of note, he had MARI with creatinine up to 2.7 in March 2022, but creatinine normalized at [facility] to 0.9 later in March (not in our records).? When he presented with the stones he didn't have pain but did have discomfort and blood in urine, which he does not have now. ? His WBC count was normal. CT findings: 1. Persistent left hydroureteronephrosis. There is new thickening in the region of the distal left ureter with calcifications in this region. This was not present on previous study 03/18/2022. Possibility of ureteral thickening from inflammation or infection should be considered. Much less likely interval development of a distal left urothelial neoplasm. Patient does appear to have had 2 interval retrograde ureteral procedures based on previous imaging list. 2. Newly developed left para psoas complex appearing collection may represent an abscess or complex urinoma. 3. Biliary dilatation with atypical calcifications in the region of the ampulla of Vater. Cannot exclude an ampullary mass. This may be related to the previous distal gastrectomy and partial duodenal resection. Endoscopic evaluation may be warranted. No change since 03/18/2022. Recommend correlation with bilirubin He was evaluated by Dr Camacho, urology. He attempted a ureteroscopy but met with an obstruction. The recommendation was to then discuss with [facility] Interventional Radiology about a possible percutaneous nephrostomy for drainage and culture of the fluid collection and a possible retrograde ureteral stent placement. He subsequently developed a fever of 39.1. On day of discharge he was noted to be somnolent and hypotensive. He was transferred to the ICU. A central line and arterial line placed. His BP responded to a fluid bolus, initially. Norepinephrine initiated just prior to transfer. He was bradycardic in the 50's, occassionally into the upper 40's. He was placed on 2L O2 per NC. Intubation was requested of anesthesia but he did become more alert and his respiratory rate improved; less concern for airway protection at that juncture. His Hgb was 9.0 on the morning of admission, repeat x 2 later after transfer to ICU was 7.0. Lactate 1.7. AB.39 40 177 HCO3 of 24. NTProBNP 1037. Troponin neg. Dr [place] and [employer] Manager fellow discussed Mr Duran and accepted him in transfer. Home Meds and New Rx's Prescriptions: No Action tamsulosin 0.4 mg capsule 0.4 mg PO QHS pantoprazole 20 mg tablet,delayed release (DR/EC) 20 mg PO DAILY amitriptyline 50 mg tablet 50 mg PO QHS docusate sodium [Colace] 100 mg capsule 100 mg PO TID PRN acetaminophen 500 mg tablet 500 mg PO Q3H PRN naloxone [Narcan] 4 mg/actuation spray,non-aerosol 4 mg intranasal Q2-3M PRN Label Comments: sister states pt. doesnt have Rx Instructions: spray 1 dose into ONE nostril; alternate nostrils w each dose until help arrives pregabalin [Lyrica] 150 MG capsule 150 mg PO TID oxycodone 15 mg Tablet, Oral Only 1 tab PO QID Rx Instructions: 09/21/18 pt states that he does not take this one any more morphine 15 mg Tablet 30 mg PO TID PRN (Reason: Pain) vitamin B complex Tablet Extended Release 1 tab PO DAILY meloxicam 15 mg Tablet 15 mg PO DAILY lisinopril 5 mg Tablet 5 mg PO HS cholecalciferol (vitamin D3) [Vitamin D3] 50 mcg (2,000 unit) Capsule 50 mcg PO DAILY Discharge Instructions Activity:: Bedrest Diet:: NPO Discharge Orders Discharge Orders: Discharge Order (Routine); Ordered 05/24/22 Ordered By: Julio C Varela DS: Summary Time Spent with Patient providing and/or coordinating discharge services: Greater than 30 minutes Status at Discharge Functional status at discharge: bed bound Overall status at discharge: patient is not back to baseline Mental Status: mental status grossly normal (altered/slowed) Speech and Movement: delayed speech Mood: congruent mood Affect: normal affect Exam Narrative Exam Narrative: Lying in bed. Arouses to verbal stimuli. NAD Const General: cooperative Nutritional Appearance: average body habitus Eyes General: appearance normal, both eyes and all related structures Sclera: sclerae normal Neck Neck: normal visual inspection and no JVD Resp Effort & Inspection: normal respiratory effort Auscultation: clear to auscultation bilaterally Cardio Rate: bradycardic Rhythm: regular rhythm Heart Sounds: S1 normal and S2 normal GI Palpation: soft and nontender Skin General skin exam: no rashes or lesions noted, dry skin and other (warm extremities) Extrem General: no pedal edema and no calf tenderness Psych Mental Status: mental status grossly normal (altered/slowed) Speech and Movement: delayed speech Mood: congruent mood Affect: normal affect DS: Data Vitals/I&O Vitals and I&O: Vital Signs Temperature 36.6 C 05/24/22 10:03 Temperature Source Temporal Artery Scan 05/24/22 10:03 Pulse 60 05/24/22 10:03 Pulse Rhythm Regular 05/24/22 08:00 Respiratory Rate 18 05/24/22 09:30 Respiratory Effort Non-Labored 05/24/22 09:20 Respiratory Depth Normal 05/24/22 08:00 Respiratory Pattern Normal 05/24/22 00:42 Blood Pressure 80/60 L 05/24/22 10:03 Blood Pressure Position Supine 05/21/22 17:36 Pulse Oximetry 92 05/24/22 10:03 Respiratory End-tidal CO2 30 05/22/22 15:06 Oxygen Delivery Method Nasal Cannula 05/24/22 10:03 Oxygen Flow Rate 2 05/24/22 10:03 Pain Level 0 05/24/22 03:16 Comment 05/24/22 06:40 Intake & Output 05/23/22 05/23/22 05/24/22 11:59 23:59 11:59 Intake Total 340 / 1180 840 / 1180 340 / 340 Output Total 650 / 1375 725 / 1375 850 / 850 Balance -310 / -195 115 / -195 -510 / -510 Weight 68.7 kg 66.9 kg Intake: IV 100 / 470 370 / 470 100 / 100 Oral 240 / 710 470 / 710 240 / 240 Output: Urine 650 / 1375 725 / 1375 850 / 850 Other: Urine Color Yellow Yellow Yellow Urine Appearance Clear Clear Clear Comment per ADRYAN Carey Data Completed and Pending Labs on day of discharge: Labs from last 24 hours 05/24/22 05/24/22 05/24/22 10:55 10:45 10:45 WBC 7.89 RBC 2.45 L Hgb 7.0 L* D Hct 22.6 L MCV 92 MCH 28.6 MCHC 31.0 L RDW 12.5 Plt Count 186 MPV 10.2 Immature Gran % 0.6 Neutrophils % 78.2 Lymphocytes % 10.4 Monocytes % 8.0 Eosinophils % 2.5 Basophils % 0.3 Nucleated RBC % 0.0 Absolute Neutrophils 6.17 Absolute Lymphocytes 0.82 L Absolute Monocytes 0.63 Absolute Eosinophils 0.20 Absolute Basophils 0.02 ABG Sample Site Right Radial ABG pH 7.39 ABG pCO2 40 ABG pO2 177 H ABG HCO3 24 ABG Total CO2 23 ABG O2 Saturation 99 H ABG Base Excess -1 VBG Lactate 1.7 H Oxygen Liter Flow 3 Sodium Potassium Chloride Carbon Dioxide Anion Gap BUN Creatinine Estimated GFR/1.73 m2 Glucose Calcium Total Bilirubin AST ALT Alkaline Phosphatase Troponin I NT-Pro-B Natriuret Pep Total Protein Albumin Vancomycin Trough 05/24/22 05/24/22 05/24/22 10:45 10:38 10:36 WBC RBC Hgb Hct MCV MCH MCHC RDW Plt Count MPV Immature Gran % Neutrophils % Lymphocytes % Monocytes % Eosinophils % Basophils % Nucleated RBC % Absolute Neutrophils Absolute Lymphocytes Absolute Monocytes Absolute Eosinophils Absolute Basophils ABG Sample Site ABG pH ABG pCO2 ABG pO2 ABG HCO3 ABG Total CO2 ABG O2 Saturation ABG Base Excess VBG Lactate Oxygen Liter Flow Sodium 137 Potassium 5.1 Chloride 104 Carbon Dioxide 24.3 Anion Gap 8.7 BUN 29 H Creatinine 2.5 H Estimated GFR/1.73 m2 26.30 Glucose 98 Calcium 8.2 L Total Bilirubin 0.4 AST 20 ALT 9 L Alkaline Phosphatase 129 H Troponin I < 50 Cancelled NT-Pro-B Natriuret Pep 1037 H Cancelled Total Protein 6.2 L Albumin 1.8 L Vancomycin Trough 05/24/22 05/24/22 05/24/22 06:55 06:55 06:55 WBC 9.24 RBC 3.10 L Hgb 9.0 L Hct 27.9 L MCV 90 MCH 29.0 MCHC 32.3 RDW 12.5 Plt Count 220 MPV 10.0 Immature Gran % 0.6 Neutrophils % 82.6 Lymphocytes % 8.4 Monocytes % 5.6 Eosinophils % 2.5 Basophils % 0.3 Nucleated RBC % 0.0 Absolute Neutrophils 7.62 H Absolute Lymphocytes 0.78 L Absolute Monocytes 0.52 Absolute Eosinophils 0.23 Absolute Basophils 0.03 ABG Sample Site ABG pH ABG pCO2 ABG pO2 ABG HCO3 ABG Total CO2 ABG O2 Saturation ABG Base Excess VBG Lactate Oxygen Liter Flow Sodium 135 L Potassium 4.2 Chloride 101 Carbon Dioxide 23.3 Anion Gap 10.7 BUN 27 H Creatinine 2.2 H Estimated GFR/1.73 m2 30.48 Glucose 114 H Calcium 8.7 Total Bilirubin AST ALT Alkaline Phosphatase Troponin I NT-Pro-B Natriuret Pep Total Protein Albumin Vancomycin Trough 24.8 H* Preliminary micro results at discharge 05/22/22 22:04 Blood Culture - Preliminary Blood NO GROWTH 24 HOURS 05/22/22 21:58 Blood Culture - Preliminary Blood NO GROWTH 24 HOURS 05/21/22 21:51 Blood Culture - Preliminary Blood NO GROWTH 48 HOURS 05/21/22 21:40 Blood Culture - Preliminary Blood NO GROWTH 48 HOURS PFSH All Active Problems (Updated 05/22/22 @ 09:48 by William Camacho MD) Hydronephrosis, left (Acute) Hydronephrosis due to obstruction of ureter (Acute) Retroperitoneal fluid collection (Acute) Fever (Acute) Left arm cellulitis (Acute) Acute anemia (Acute) Hyperkalemia (Acute) Acute kidney injury (Acute) Pneumonia (Acute) Hypertension (Chronic) Vitamin D deficiency (Acute) Phantom limb (syndrome) (Chronic) Status post VNS (vagus nerve stimulator) placement (Acute) Peptic ulcer disease (Chronic) Ulnar neuropathy at elbow of right upper extremity (Acute) Right carpal tunnel syndrome (Acute) Pneumonia (Acute) DVT prophylaxis (Acute) Discharge planning issues (Acute) Acute kidney injury (Acute) Ureteral calculus, left (Acute) Sepsis due to urinary tract infection (Acute) Pneumonia (Acute) Medical History Amputation of left arm Cataracts, bilateral pt. states this has not been done History of gastrectomy Hx of fracture of hip Hx of fracture of wrist Hx of fracture of wrist pt. reports metal in place Hx of peptic ulcer Personal history of COVID-19 Rib fractures Right leg injury S/P placement of nerve stimulator Ulnar neuritis Surgical History Hx of cystoscopy Hx of total hip arthroplasty t. reports fracture with metal repair Social History Smoking/Tobacco Use Status: Current every day Tobacco Type: smokeless tobacco Smoking risk assessment performed?: Yes Alcohol Intake: never Drug use: Never Substance use type: does not use Do you feel safe at home: Yes Do you feel safe in your relationship?: Yes Additional Social history: unable to assess privately
--- NOTE | 2022-05-24 12:04 | W.PM.OP ---
Date of service: 05/24/22 Time of Service: 11:30 Operative Note Operative Note DATE OF PROCEDURE: 05/22/22 PRE-OP DIAGNOSIS: hypotension and non-responsive. Need for IV access POST-OP DIAGNOSIS: same PROCEDURE: Left Femoral triple lumen Central line placement SURGEON: Roxana Sotomayor ANESTHESIA TYPE: Local By Surgeon ESTIMATED BLOOD LOSS: 10 COMPLICATIONS: None Patient was transported to: no change Patient's condition: stable Indications: I was consulted emergently for a central line. The patient was obtunded and hypotensive. Attempt at peripheral line placement was unsuccessful. The patient has a deformity of the left clavicle. He is missing the left arm. Patient seen in ICU. Informed consent was not obtained as the patient could not be aroused. Procedure Description: The patient was placed in a supine position on the ICU bed. The head of the bed was lowered. A time out was done and the patients name, and procedure to be done were reviewed. Sharps were counted. The left groin and thigh was then prepped and draped in a standard fashion with chlorhexidine. Next 5 cc of 1% Lidocaine was injected into the dermis and subcutaneous tissue along the anterior thigh. An US was used to identify the left femoral vein. The introducer needle was then slowly advanced into the femoral vein. Once I was able to pull venous blood into the syringe, the syringe was removed from the needle. The guidewire was then placed easily without resistance into the femoral vein. The needle was removed. A small incision was made with an 11 blade next to the guidewire. The dilator was then placed over the guidewire into the vein. The dilator was removed and the tripple lumen cather was placed over the guidewire into the vein to 16 cm. The guidewire was removed and needless valves were placed on each lumen. 20 cc of blood was removed for the lab. Next each lumen was then aspirated and flushed with sterile saline. The Central line was then secured in place with 2-0 silk suture. The skin was cleaned and dried and an antibiotic wheel was applied at the skin entrance. An occlusive dressing was then applied. The drapes were removed. Sharps were counted and were correct at the end of the procedure. The patient tolerated the procedure well.
[2022-05-29 23:55] LABS: Source: Left Ureter
== END 2022-05-24 13:21 | disposition short-term general hospital (02) | DRG 871 ==
LOC: ER 23:51 → MS 05-22 00:35 → ICU 05-24 10:32
PROVIDERS: Family Medicine; Nurse Practitioner Family; Physician Assistant; Urology; Admitting Provider Family Medicine; Emergency Provider Student in an Organized Health Care Education/Training Program; PCP Internal Medicine; Visit Provider Family Medicine
PROC: 0TCB8ZZ Extirpation of Matter from Bladder, Via Natural or Artificial Opening Endoscopic (ICD-10-PCS; CPT 74450; principal; 2022-05-22 14:30)
DX: A41.9 Sepsis, unspecified organism (principal); N99.89 Other postprocedural complications and disorders of genitourinary system; R65.21 Severe sepsis with septic shock; N13.1 Hydronephrosis with ureteral stricture, not elsewhere classified; T87.42 Infection of amputation stump, left upper extremity; J18.9 Pneumonia, unspecified organism; D64.9 Anemia, unspecified; N17.9 Acute kidney failure, unspecified; E87.5 Hyperkalemia; I10 Essential (primary) hypertension; G54.6 Phantom limb syndrome with pain; Z79.891 Long term (current) use of opiate analgesic; Z86.16 Personal history of COVID-19; G89.29 Other chronic pain; F17.290 Nicotine dependence, other tobacco product, uncomplicated; L03.114 Cellulitis of left upper limb; R18.8 Other ascites; E55.9 Vitamin D deficiency, unspecified; K27.9 Peptic ulcer, site unspecified, unspecified as acute or chronic, without hemorrhage or perforation; G56.21 Lesion of ulnar nerve, right upper limb; G56.01 Carpal tunnel syndrome, right upper limb; L89.153 Pressure ulcer of sacral region, stage 3; R00.1 Bradycardia, unspecified; K83.8 Other specified diseases of biliary tract; R41.0 Disorientation, unspecified; R93.2 Abnormal findings on diagnostic imaging of liver and biliary tract; K68.12 Psoas muscle abscess
CPT/HCPCS: 52351; 52005; 36556; 36415; 36416; 71250; 80048; 80053; 82805; 82962; 87040; 87637; 93005; 96361; 96365; 96375; 99291; J1650; 36600; 71046; 73060; 74176; 74420; 80202; 81003; 81015; 82365; 82607; 82746; 83540; 83550; 83605; 83735; 83880; 84484; 85025; 93010; 99232; 99233; 99239; J0131; J0610; J1885; J2250; J2405; J3010; J7613

== ENCOUNTER 2022-06-02 19:04 | Emergency (ER) | payer MEDICAID, SELFPAY ==
[2022-06-02 19:29] VITALS: BP 138/74; PULSE 82; RESP 18; TEMP 36.5; O2SAT 97
--- NOTE | 2022-06-02 20:16 | ED.GENADUL_ITS ---
Discharge Plan Disposition Patient Disposition: HOME Condition: Improving Discharge Details Clinical Impression: Urinary retention Primary Care Provider: Peter Spencer ED Provider: Marco Antonio Garner Home Meds and New Rx's Prescriptions: Continued tamsulosin 0.4 mg capsule 0.4 mg PO QHS pantoprazole 20 mg tablet,delayed release (DR/EC) 20 mg PO DAILY amitriptyline 50 mg tablet 50 mg PO QHS docusate sodium [Colace] 100 mg capsule 100 mg PO TID PRN acetaminophen 500 mg tablet 500 mg PO Q3H PRN naloxone [Narcan] 4 mg/actuation spray,non-aerosol 4 mg intranasal Q2-3M PRN Label Comments: sister states pt. doesnt have Rx Instructions: spray 1 dose into ONE nostril; alternate nostrils w each dose until help arrives pregabalin [Lyrica] 150 MG capsule 150 mg PO TID oxycodone 15 mg Tablet, Oral Only 1 tab PO QID Rx Instructions: 09/21/18 pt states that he does not take this one any more morphine 15 mg Tablet 30 mg PO TID PRN (Reason: Pain) vitamin B complex Tablet Extended Release 1 tab PO DAILY meloxicam 15 mg Tablet 15 mg PO DAILY lisinopril 5 mg Tablet 5 mg PO HS cholecalciferol (vitamin D3) [Vitamin D3] 50 mcg (2,000 unit) Capsule 50 mcg PO DAILY Discharge Instructions Instructions: Urinary Retention in Men (ED) Additional Instructions: Please follow-up with Dr. Camacho in urology. Continue your home routine care. Return to the ER for any acute concerns. Medical Decision Making 61-year-old male who was recently required left nephrostomy tube placement, indwelling Galindo catheter placement for 2 weeks. He was seen at urology clinic this morning and the catheter was removed from his bladder. He has had no urinary output and feels lower abdominal pressure. He continues to make urine from the left flank drain. He has not had a fever and is otherwise felt at baseline. He arrives to the ER with normal vital signs. His left flank drain was dressed. He was anesthetized with lidocaine jelly and Galindo catheter placed. Patient discharged with leg bag. He will follow-up in urology clinic HPI General Mode of arrival: ambulatory . Date/Time Provider Initiated Documentation: 06/02/22 20:08 . Limitations to Documentation: no limitations . Information obtained by: patient . History of Present Illness 61 year old M presents to the emergency department with the chief complaint of Galindo catheter removed, no urine output, described as mild, Quality is described as dull, and is localized to the abdomen and pelvis. Patient reports no radiation. Patient started experiencing this hour(s) and it has been constant. No relieving factors improve symptom(s), No exacerbating factors reported . Patient notes no other symptoms.; denies fever/chills. Patient did receive the following treatments prior to arrival, none Related Data Home Medications Medication Instructions Recorded Confirmed pregabalin 150 mg capsule (Lyrica) 150 mg PO TID 08/13/14 05/24/22 morphine 15 mg immediate release 30 mg PO TID PRN Pain 09/21/18 05/21/22 tablet oxycodone 15 mg tablet,oral ONLY 1 tab PO QID 09/21/18 05/21/22 (not feeding tubes) meloxicam 15 mg tablet 15 mg PO DAILY 12/25/21 05/21/22 vitamin B complex 1 tab PO DAILY 12/25/21 05/21/22 acetaminophen 500 mg tablet 500 mg PO Q3H PRN 02/18/22 05/21/22 amitriptyline 50 mg tablet 50 mg PO QHS 02/18/22 05/21/22 docusate sodium 100 mg capsule 100 mg PO TID PRN 02/18/22 05/21/22 (Colace) naloxone 4 mg/actuation nasal 4 mg intranasal Q2-3M PRN 02/18/22 04/23/22 spray (Narcan) pantoprazole 20 mg tablet,delayed 20 mg PO DAILY 02/18/22 05/21/22 release tamsulosin 0.4 mg capsule 0.4 mg PO QHS 03/26/22 05/21/22 lisinopril 5 mg tablet 5 mg PO HS 04/23/22 05/21/22 cholecalciferol (vitamin D3) 50 50 mcg PO DAILY 05/21/22 05/21/22 mcg (2,000 unit) capsule (Vitamin D3) Allergies Allergy/AdvReac Type Severity Reaction Status Date / Time iodine Allergy Severe Topical Unverified 05/21/22 21:53 Irritation copper Allergy Intermediate Unverified 05/21/22 21:53 chocolate flavor AdvReac Unverified 05/21/22 21:53 General Stated Complaint: Urinary TALITA: 4 Review of Systems Narrative: 8 systems reviewed and otherwise negative PFSH All Active Problems (Updated 06/02/22 @ 20:20 by Marco Antonio Garner MD) Urinary retention (Acute) Hydronephrosis, left (Acute) Hydronephrosis due to obstruction of ureter (Acute) Retroperitoneal fluid collection (Acute) Fever (Acute) Left arm cellulitis (Acute) Acute anemia (Acute) Acute kidney injury (Acute) Vitamin D deficiency (Acute) Phantom limb (syndrome) (Chronic) Status post VNS (vagus nerve stimulator) placement (Acute) Peptic ulcer disease (Chronic) 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 states this has not been done History of gastrectomy Hx of fracture of hip Hx of fracture of wrist Hx of fracture of wrist pt. reports metal in place Hx of peptic ulcer Personal history of COVID-19 Rib fractures Right leg injury S/P placement of nerve stimulator Ulnar neuritis Surgical History Hx of cystoscopy Hx of total hip arthroplasty t. reports fracture with metal repair Social History Smoking/Tobacco Use Status: Current every day Tobacco Type: smokeless tobacco Smoking risk assessment performed?: Yes Alcohol Intake: never Drug use: Never Substance use type: does not use Do you feel safe at home: Yes Do you feel safe in your relationship?: Yes Additional Social history: unable to assess privately Exam Narrative Exam Narrative: GEN: awake, alert, oriented 3. Pleasant, well groomed, interactive. HEAD: Normocephalic, atraumatic ENT: Mucous membranes moist, oropharynx unremarkable, External ear exam unremarkable EYES: PERRL, EOMI NECK: Full ROM, no FRANCISCA, no menigismus CHEST/RESP distant, no respiratory distress CARDIOVASCULAR: RRR, no murmur, rub jose angel. 2+ Rad pulse bilateral ABDOMEN: Soft, no significant tenderness, no mass. +Bowel sounds. left flank has a nephrostomy tube that is dressed, clean and dry, urine output confirmed EXT: Full ROM, no edema, no rash Neuro: Grossly normal neurologic exam, conversant, interactive. Psych: Speech fluent, thoughts congruent, affect normal Course Vital Signs Vital signs: Vital Signs Temperature 36.5 C 06/02/22 19:29 Pulse 82 06/02/22 19:29 Respiratory Rate 18 06/02/22 19:29 Blood Pressure 138/74 06/02/22 19:29 Pulse Oximetry 97 06/02/22 19:29 Temperature 36.5 C 06/02/22 19:29 Temperature Source Temporal Artery Scan 06/02/22 19:29 Pulse 82 06/02/22 19:29 Respiratory Rate 18 06/02/22 19:29 Blood Pressure 138/74 06/02/22 19:29 Blood Pressure Position Sitting 06/02/22 19:29 Pulse Oximetry 97 06/02/22 19:29 Pain Level 0 06/02/22 19:29
== END 2022-06-02 20:47 | disposition home or self-care (01) ==
PROVIDERS: Emergency Provider Emergency Medicine; PCP Internal Medicine
DX: R33.9 Retention of urine, unspecified (principal); F17.210 Nicotine dependence, cigarettes, uncomplicated; Z93.6 Other artificial openings of urinary tract status
CPT/HCPCS: 51702; 99283; 99282

== ENCOUNTER 2022-06-18 11:31 | Day surgery (SDC) | payer MEDICAID, SELFPAY ==
[2022-06-18 11:53] VITALS: BP 123/75; PULSE 76; RESP 16; TEMP 36.4; O2SAT 99
--- NOTE | 2022-06-18 12:12 | W.PM.HP.N ---
Date of service: 06/18/22 Time of Service: 12:12 Assessment and Plan Assessment and plan (1) Hydronephrosis, left: Status: Acute Assessment and plan: We will perform a nephrostogram to make sure his ureter has healed and see if there is a way to get an antegrade stent down into the bladder. History of Present Illness History of Present Illness Chief Complaint: Left hydronephrosis Narrative: This is a 61-year-old gentleman with a past history of a proximal left ureteral stone. We were initially concerned about urosepsis. He had a stent placed at first. He then returned to the operating room for ureteroscopy and holmium laser lithotripsy of the stone. We again placed a ureteral stent. He had a follow-up ureteroscopy and stent removal and no additional large stone fragments were seen. He then developed left hydronephrosis. I was unable to place a retrograde ureteral stent, so a nephrostomy tube was placed. He presents now for nephrostogram to make sure his ureter has healed and to see if an antegrade ureteral stent would be possible. He developed urinary retention and currently has an indwelling urethral catheter. He has failed voiding trial since the initial catheter was placed. Review of Systems Narrative: No fevers or chills No vision change or dysphasia No diabetes or thyroid dysfunction No shortness of breath, cough or hemoptysis No chest pain or palpitations Hx PUD. No nausea, vomiting, hepatitis, ulcers, jaundice No seizures or strokes No bleeding disorders or anemia Chronic pain PFSH All Active Problems Urinary retention (Acute) Hydronephrosis, left (Acute) Hydronephrosis due to obstruction of ureter (Acute) Retroperitoneal fluid collection (Acute) Fever (Acute) Left arm cellulitis (Acute) Acute anemia (Acute) Acute kidney injury (Acute) Vitamin D deficiency (Acute) Phantom limb (syndrome) (Chronic) Status post VNS (vagus nerve stimulator) placement (Acute) Peptic ulcer disease (Chronic) 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 states this has not been done History of gastrectomy Hx of fracture of hip Hx of fracture of wrist Hx of fracture of wrist pt. reports metal in place Hx of peptic ulcer Personal history of COVID-19 Rib fractures Right leg injury S/P placement of nerve stimulator Ulnar neuritis Surgical History Hx of cystoscopy Hx of total hip arthroplasty t. reports fracture with metal repair Social History Smoking/Tobacco Use Status: Current every day Tobacco Type: smokeless tobacco Smoking risk assessment performed?: Yes Alcohol Intake: never Drug use: Never Substance use type: does not use Do you feel safe at home: Yes Do you feel safe in your relationship?: Yes Meds Allergies and Home Medications Allergies Allergy/AdvReac Type Severity Reaction Status Date / Time iodine Allergy Severe Topical Unverified 06/18/22 11:44 Irritation copper Allergy Intermediate Unverified 06/18/22 11:44 chocolate flavor AdvReac Unverified 06/18/22 11:44 Home Medications Medication Instructions Recorded Confirmed Type pregabalin 150 mg capsule (Lyrica) 150 mg PO TID 08/13/14 06/18/22 History morphine 15 mg immediate release 30 mg PO TID PRN Pain 09/21/18 06/18/22 History tablet oxycodone 15 mg tablet,oral ONLY 1 tab PO QID 09/21/18 06/18/22 History (not feeding tubes) meloxicam 15 mg tablet 15 mg PO DAILY 12/25/21 06/18/22 History vitamin B complex 1 tab PO DAILY 12/25/21 06/18/22 History acetaminophen 500 mg tablet 500 mg PO Q3H PRN 02/18/22 06/18/22 History amitriptyline 50 mg tablet 50 mg PO QHS 02/18/22 06/18/22 History docusate sodium 100 mg capsule 100 mg PO TID PRN 02/18/22 06/18/22 History (Colace) naloxone 4 mg/actuation nasal 4 mg intranasal Q2-3M PRN 02/18/22 06/18/22 History spray (Narcan) pantoprazole 20 mg tablet,delayed 20 mg PO DAILY 02/18/22 06/18/22 History release tamsulosin 0.4 mg capsule 0.4 mg PO QHS 03/26/22 06/18/22 History lisinopril 5 mg tablet 5 mg PO HS 04/23/22 06/18/22 History cholecalciferol (vitamin D3) 50 50 mcg PO DAILY 05/21/22 06/18/22 History mcg (2,000 unit) capsule (Vitamin D3) Exam Narrative Exam Narrative: He appears chronically ill His vital signs are documented elsewhere His lungs are clear Cardiac exam shows a regular rate and rhythm Abdomen shows no mass and no peritoneal signs He is awake and alert Results Last Vital Signs Temp 36.4 C L 06/18/22 11:53 Pulse 76 06/18/22 11:53 Resp 16 06/18/22 11:53 BP 123/75 06/18/22 11:53 Pulse Ox 99 06/18/22 11:53
--- NOTE | 2022-06-18 12:15 | DI.RAD_ITS ---
Exam(s) XR RETROGRADE IN OR EXAM: XR RETROGRADE IN OR CLINICAL HISTORY: Hydronephrosis, left TECHNIQUE: 2D and realtime digital imaging was performed. CONTRAST MATERIAL: Refer to procedure report. COMPARISON: No exams were available for comparison FINDINGS: Fluoroscopy was provided for Dr. Camacho during the performance of a retrograde evaluation of the aba l collecting system. Please refer to the procedure report for complete details. Ka,r=12.4 mGy IMPRESSION: RADIATION DOSE DELIVERED:
[2022-06-18] MEDS: levoFLOXacin 500 MG TAB PO (12:32)
[2022-06-18 12:54] VITALS: BP 129/79; PULSE 77; RESP 18; TEMP 36.9; O2SAT 96
[2022-06-18] MEDS: Omnipaque 240 MG/ML 50 ML BTL IJ (13:01)
--- NOTE | 2022-06-18 13:12 | W.PM.DSUDISC ---
Discharge Plan Disposition Patient Disposition: HOME Condition: Good Discharge Details Reason For Visit: hydronephrosis Attending Provider: William Camacho Primary Care Provider: Peter Spencer Home Meds and New Rx's Prescriptions: No Action tamsulosin 0.4 mg capsule 0.4 mg PO QHS pantoprazole 20 mg tablet,delayed release (DR/EC) 20 mg PO DAILY amitriptyline 50 mg tablet 50 mg PO QHS docusate sodium [Colace] 100 mg capsule 100 mg PO TID PRN acetaminophen 500 mg tablet 500 mg PO Q3H PRN naloxone [Narcan] 4 mg/actuation spray,non-aerosol 4 mg intranasal Q2-3M PRN Label Comments: sister states pt. doesnt have Rx Instructions: spray 1 dose into ONE nostril; alternate nostrils w each dose until help arrives pregabalin [Lyrica] 150 MG capsule 150 mg PO TID oxycodone 15 mg Tablet, Oral Only 1 tab PO QID Rx Instructions: 09/21/18 pt states that he does not take this one any more morphine 15 mg Tablet 30 mg PO TID PRN (Reason: Pain) vitamin B complex Tablet Extended Release 1 tab PO DAILY meloxicam 15 mg Tablet 15 mg PO DAILY lisinopril 5 mg Tablet 5 mg PO HS cholecalciferol (vitamin D3) [Vitamin D3] 50 mcg (2,000 unit) Capsule 50 mcg PO DAILY Discharge Instructions Additional Instructions: expect a call from my office to arrange ureteroscopy Activity:: Activity as Tolerated Shower/Bathe:: 24 hours Diet:: As Tolerated Discharge Orders Discharge Orders: Discharge Order (Routine); Ordered 06/18/22 Ordered By: William Camacho DS: Diagnosis Discharge Diagnosis (1) Hydronephrosis, left: Status: Acute
--- NOTE | 2022-06-18 13:46 | W.PM.OP ---
Date of service: 06/18/22 Time of Service: 13:46 Operative Note Operative Note DATE OF PROCEDURE: 06/18/22 PRE-OP DIAGNOSIS: Hydronephrosis PROCEDURE: Left nephrostogram SURGEON: William Camacho ANESTHESIA TYPE: Local By Surgeon Refer to Anesthesia Record ESTIMATED BLOOD LOSS: 0 PATHOLOGY: none sent COMPLICATIONS: None Patient was transported to: same day Patient's condition: stable Indications: This is a 61-year-old gentleman who was previously seen with a left ureteral stone. He was initially treated with a stent placement followed by ureteroscopy and holmium laser lithotripsy of his stones. About a month after his procedure, he presented with left hydronephrosis and a retroperitoneal fluid collection. I attempted to place a retrograde ureteral stent, but I was unable to cannulate the left ureteral orifice due to a distal ureteral narrowing. He then had a nephrostomy tube placed by interventional radiology. There was some initial extravasation of contrast from the ureter at the L5 level. He presents now for nephrostogram to see if the ureter has healed. Findings: Narrowing of ureter at L5 Procedure Description: The patient was brought to the operating room on 06/18/2022. He was placed in the supine position. His nephrostomy tube was disconnected and Omnipaque was injected through the nephrostomy tube under fluoroscopic guidance. The collecting system was appeared normal in the upper ureter appeared normal. The ureter then tapered down to a narrowed area with no distal passage of contrast. The area of narrowing was about at L5. I did not see any additional extravasation of contrast in that region. The nephrostomy tube was then hooked back up to gravity drainage. We will make arrangements for an antegrade ureteroscopy to visualize the area in question. Will require general anesthesia for such a procedure.
== END 2022-06-18 13:35 | disposition home or self-care (01) ==
PROVIDERS: PCP Internal Medicine; Visit Provider Urology
PROC: (CPT 50431; principal; 2022-06-18 13:00)
DX: N13.30 Unspecified hydronephrosis (principal); N13.5 Crossing vessel and stricture of ureter without hydronephrosis; Z93.6 Other artificial openings of urinary tract status; Z87.442 Personal history of urinary calculi
CPT/HCPCS: 50431; 74420; Q9967

== ENCOUNTER 2022-06-29 08:15 | Day surgery (SDC) | payer MEDICAID, SELFPAY ==
[2022-06-29 08:50] VITALS: BP 120/76; PULSE 86; RESP 18; TEMP 36.8; O2SAT 96
[2022-06-29] MEDS: Lactated Ringers 1,000 ML 80 ML IV (09:20)
--- NOTE | 2022-06-29 10:36 | NUR.NOTE ---
Nursing Note: 1000 Pt doing well, resting with eyes closed, pt and family deny needs at this time.
--- NOTE | 2022-06-29 10:45 | DI.RAD_ITS ---
Exam(s) XR RETROGRADE IN OR EXAM: XR RETROGRADE IN OR CLINICAL HISTORY: LEFT HYDRONEPHROSIS. TECHNIQUE: Fluoroscopy was provided for the referring physician for guidance with performing retrogr araceli procedure. COMPARISON: XA XR RETROGRADE IN OR from 06/18/2022 FINDINGS: Please see procedure note for details. Fluoro time: 36.6 seconds RADIATION DOSE DELIVERED: toni Chavira=8.14 mGy
--- NOTE | 2022-06-29 10:50 | W.PM.HP.N ---
Date of service: 06/29/22 Time of Service: 10:50 Assessment and Plan Assessment and plan (1) Hydronephrosis, left: Status: Acute Assessment and plan: We davis be prepared to do a combination of antegrade and retrograde ureteroscopy to obtain a biopsy of the ureteral strictured area. History of Present Illness History of Present Illness Chief Complaint: Left hydronephrosis Narrative: This is a 61-year-old gentleman who has a history of a left ureteral stone. He was treated with a staged ureteroscopy and stent placement. Following the removal of his stent, he developed left hydronephrosis and extravasation of urine from the left ureter. I was unable to visualize the left distal ureter, so he had a nephrostomy tube placed. Follow-up nephrostogram showed no distal drainage of contrast. He presents now for ureteroscopy and possible biopsy of the ureteral strictured area. Review of Systems Narrative: No fevers or chills No vision change or dysphasia No diabetes or thyroid dysfunction No shortness of breath, cough or hemoptysis No chest pain or palpitations No nausea, vomiting, hepatitis, ulcers, jaundice Hx chronic pain with neuropathy. No seizures, strokes No bleeding disorders or anemia No gout PFSH All Active Problems Urinary retention (Acute) Hydronephrosis, left (Acute) Hydronephrosis due to obstruction of ureter (Acute) Retroperitoneal fluid collection (Acute) Fever (Acute) Left arm cellulitis (Acute) Acute anemia (Acute) Acute kidney injury (Acute) Vitamin D deficiency (Acute) Phantom limb (syndrome) (Chronic) Status post VNS (vagus nerve stimulator) placement (Acute) Peptic ulcer disease (Chronic) 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 states this has not been done History of gastrectomy Hx of fracture of hip Hx of fracture of wrist Hx of fracture of wrist pt. reports metal in place Hx of peptic ulcer Personal history of COVID-19 Rib fractures Right leg injury S/P placement of nerve stimulator Ulnar neuritis Surgical History Hx of cystoscopy Hx of total hip arthroplasty t. reports fracture with metal repair Social History Smoking/Tobacco Use Status: Current every day Tobacco Type: smokeless tobacco Smoking risk assessment performed?: Yes Alcohol Intake: never Drug use: Never Substance use type: does not use Do you feel safe at home: Yes Do you feel safe in your relationship?: Yes Meds Allergies and Home Medications Allergies Allergy/AdvReac Type Severity Reaction Status Date / Time iodine Allergy Severe Topical Unverified 06/26/22 13:59 Irritation copper Allergy Intermediate Unverified 06/26/22 13:59 chocolate flavor AdvReac Unverified 06/26/22 13:59 Home Medications Medication Instructions Recorded Confirmed Type pregabalin 150 mg capsule (Lyrica) 150 mg PO TID 08/13/14 06/29/22 History morphine 15 mg immediate release 30 mg PO TID PRN Pain 09/21/18 06/29/22 History tablet oxycodone 15 mg tablet,oral ONLY 1 tab PO QID 09/21/18 06/29/22 History (not feeding tubes) vitamin B complex 1 tab PO DAILY 12/25/21 06/29/22 History acetaminophen 500 mg tablet 500 mg PO Q3H PRN 02/18/22 06/29/22 History amitriptyline 50 mg tablet 50 mg PO QHS 02/18/22 06/29/22 History docusate sodium 100 mg capsule 100 mg PO TID PRN 02/18/22 06/29/22 History (Colace) naloxone 4 mg/actuation nasal 4 mg intranasal Q2-3M PRN 02/18/22 06/29/22 History spray (Narcan) pantoprazole 20 mg tablet,delayed 20 mg PO DAILY 02/18/22 06/29/22 History release tamsulosin 0.4 mg capsule 0.4 mg PO QHS 03/26/22 06/29/22 History lisinopril 5 mg tablet 5 mg PO HS 04/23/22 06/29/22 History cholecalciferol (vitamin D3) 50 50 mcg PO DAILY 05/21/22 06/29/22 History mcg (2,000 unit) capsule (Vitamin D3) Exam Const General: frail appearing Neck Neck: supple Resp Effort & Inspection: normal respiratory effort Auscultation: clear to auscultation bilaterally Cardio Rate: regular rate Rhythm: regular rhythm GI Palpation: soft Neuro General: patient alert, patient awake and patient oriented x3 Results Last Vital Signs Temp 36.8 C 06/29/22 08:50 Pulse 86 06/29/22 08:50 Resp 18 06/29/22 08:50 BP 120/76 06/29/22 08:50 Pulse Ox 96 06/29/22 08:50
--- NOTE | 2022-06-29 11:04 | W.ANESPRE ---
General Info Date of Service Date Performed: 06/29/22 Height: 5 ft 10 in Weight: 70 kg Body Mass Index (BMI): 22.1 Surgical Procedure: Operation Date: 06/29/22 09:40 Proposed Procedure Side Surgeon p Antegrade Ureteroscopy Left William Camacho MD Actual Procedure Side Surgeon p Antegrade Ureteroscopy Left William Camacho MD Pre-Op Diagnosis Post-Op Diagnosis LEFT HYDRONEPHROSIS Meds Allergies and Home Medications Allergies Allergy/AdvReac Type Severity Reaction Status Date / Time iodine Allergy Severe Topical Unverified 06/26/22 13:59 Irritation copper Allergy Intermediate Unverified 06/26/22 13:59 chocolate flavor AdvReac Unverified 06/26/22 13:59 Home Medication Medication Instructions Recorded pregabalin 150 mg capsule (Lyrica) 150 mg PO TID 08/13/14 morphine 15 mg immediate release 30 mg PO TID PRN Pain 09/21/18 tablet oxycodone 15 mg tablet,oral ONLY 1 tab PO QID 09/21/18 (not feeding tubes) vitamin B complex 1 tab PO DAILY 12/25/21 acetaminophen 500 mg tablet 500 mg PO Q3H PRN 02/18/22 amitriptyline 50 mg tablet 50 mg PO QHS 02/18/22 docusate sodium 100 mg capsule 100 mg PO TID PRN 02/18/22 (Colace) naloxone 4 mg/actuation nasal 4 mg intranasal Q2-3M PRN 02/18/22 spray (Narcan) pantoprazole 20 mg tablet,delayed 20 mg PO DAILY 02/18/22 release tamsulosin 0.4 mg capsule 0.4 mg PO QHS 03/26/22 lisinopril 5 mg tablet 5 mg PO HS 04/23/22 cholecalciferol (vitamin D3) 50 50 mcg PO DAILY 05/21/22 mcg (2,000 unit) capsule (Vitamin D3) Current Visit Medications: Current Medications Generic Name Dose Route Start Last Admin Trade Name Freq PRN Reason Stop Dose Admin Ringer's Solution 1,000 mls @ 80 mls/hr 06/29/22 06:00 06/29/22 09:20 IV 07/26/22 23:59 80 mls/hr INFUSION BETTE Administration Cefazolin Sodium/Dextrose 2 gm in 50 mls @ 100 mls/hr 06/29/22 06:00 Ancef Duplex IVPB 06/29/22 16:00 PREOP BETTE IV Miscellaneous Supplies 1 each 06/29/22 06:00 Iv Access IV 07/26/22 23:59 DIRECTED BETTE Sodium Chloride 0 ml 06/29/22 06:00 Normal Saline Flush 10 Ml Syr IV 07/26/22 23:59 PRN PRN Sodium Chloride 0 ml 06/29/22 06:00 Normal Saline 10 Ml Vial IJ 07/26/22 23:59 DIRECTED PRN Sterile Water 0 ml 06/29/22 06:00 Water,Injection,Sterile 10 Ml Vial IJ 07/26/22 23:59 DIRECTED PRN PFSH Active Problems Active Problems: Problem Status Onset Code Urinary retention R33.9 Hydronephrosis, left N13.30 Hydronephrosis due to obstruction of ureter N13.1 Retroperitoneal fluid collection R18.8 Fever R50.9 Left arm cellulitis L03.114 Acute anemia D64.9 Acute kidney injury N17.9 Vitamin D deficiency E55.9 Phantom limb (syndrome) G54.7 Status post VNS (vagus nerve stimulator) placement Z96.89 Peptic ulcer disease K27.9 Ulnar neuropathy at elbow of right upper extremity G56.21 Right carpal tunnel syndrome G56.01 Pneumonia J18.9 Acute kidney injury N17.9 Ureteral calculus, left N20.1 Sepsis due to urinary tract infection A41.9, N39.0 Pneumonia J18.9 Medical History Medical History Amputation of left arm Cataracts, bilateral pt. states this has not been done History of gastrectomy Hx of fracture of hip Hx of fracture of wrist Hx of fracture of wrist pt. reports metal in place Hx of peptic ulcer Personal history of COVID-19 Rib fractures Right leg injury S/P placement of nerve stimulator Ulnar neuritis Surgical History Surgical History Hx of cystoscopy Hx of total hip arthroplasty t. reports fracture with metal repair Tobacco Smoking/Tobacco Use Status: Current every day Tobacco Type: smokeless tobacco Alcohol Alcohol Intake: never Substance Use Substance use: Never Substance use type: does not use Vital Signs and Lab Results Vital Signs Most Recent Vital Signs in EMR: Most Recent Vital Signs Temp Pulse Resp BP Pulse Ox 36.8 C 86 18 120/76 96 09/19/22 08:50 06/29/22 08:50 06/29/22 08:50 06/29/22 08:50 06/29/22 08:50 Lab Results Blood Type / Crossmatch: No Data to Display Complete Blood Count: No Data to Display Complete Metabolic Panel: No Data to Display Liver Function Panel: No Data to Display Coagulation Panel: No Data to Display Cardiac Panel: No Data to Display Arterial Blood Gas: No Data to Display Venous Blood Gas: No Data to Display Pancreas Panel: No Data to Display Thyroid Panel: No Data to Display Infectious Disease: No Data to Display Blood Cultures: No Data to Display Toxicology Panel: No Data to Display Imaging and Studies Imaging and Studies Study information below may be from another EMR and interpreted by another provider. Please see original notes in EMR for more complete details. EKG Summary: Conclusion Sinus tachycardia...rate> 99. Sinus. Normal axis. No STEMI. 05/21/22 Anesthesia Assessment and Plan Anesthesia History Personal History: No History of Anesthesia Complications and Delayed Emergence Family History: No Family History of Anesthesia Complications Exercise Tolerance Exercise Tolerance: Metabolic Equivalents>4 Pertinent Negatives Pertinent Negatives: No Symptoms of GERD, No Major Cardiovascular Symptoms or Complaints, No Major Pulmonary Symptoms or Complaints and No History of CVA/TIA Cardiac & Pulmonary Exam Cardiac Exam: Normal S1/S2 Heart Sounds Pulmonary Exam: Clear Bilateral Breath Sounds Implantable Cardiac Device Does patient have a Pacemaker or an ICD?: No Airway Exam Known Difficult Airway: No Mallampati Class: 2 Mouth Opening: Normal (> 3cm) Thyromental Distance: Greater than 3 cm Neck Range of Motion: Limited ROM (Cannot turn head to the left) Neck Circumference: Normal Teeth Condition: Generalized Poor Dentition, Loose or Chipped (Patient unsure if any loose) and Dental Caries ASA Classification ASA Score: ASA 3 Emergency Case?: No NPO Status NPO Status: NPO Clears >2 hours, Solids >8 hours Anesthesia Plan Resuscitation Status: Full Code Anesthesia Technique: General Anesthesia Airway Planned: Natural Airway Monitors Used: Standard Monitors
[2022-06-29 11:08] VITALS: BMI 22.1
[2022-06-29] MEDS: ceFAZolin 2 GM/50 ML BAG IVPB (11:38)
[2022-06-29] MEDS: Lidocaine 2% Jelly 6 ML SYR (11:51)
--- NOTE | 2022-06-29 12:04 | PAPNONF_PTH ---
PATIENT: Phuong Duran LOC: [facility] U#:[id number] AGE/SX: 61/M ROOM: RE06/29/[address]: William Camacho MD : [id number] BED: DIS: 06/29/2022 SPEC #: [id number] RECD: 06/29/22 13:00 STATUS: NITIN REZacarias #: [id number] CHRISTIE: 06/29/22 12:[address]: William Camacho DEPT: [facility], [facility] Cytology RECD BY: Sigrid Pickard ENTERED: 06/29/22 13:00 SP TYPE: JACKIE GRAY DR: Peter Spencer Tissues: 1 - BODY FLUID CYTO(SPUTUM/URINE)[facility] Procedures: BODY FLUID CYTO(URINE/SPUTUM) Comments: [id number] (TOTAL VOLUME = 70 ml) (35 ml WASHINGS & 35 ml CYTOLYT ADDED IN 2 CONTAINERS)
--- NOTE | 2022-06-29 12:35 | W.PM.DSUDISC ---
Discharge Plan Disposition Patient Disposition: HOME Condition: Good Discharge Details Reason For Visit: left hydronephrosis Attending Provider: William Camacho Primary Care Provider: Peter Spencer Home Meds and New Rx's Prescriptions: No Action tamsulosin 0.4 mg capsule 0.4 mg PO QHS pantoprazole 20 mg tablet,delayed release (DR/EC) 20 mg PO DAILY amitriptyline 50 mg tablet 50 mg PO QHS docusate sodium [Colace] 100 mg capsule 100 mg PO TID PRN acetaminophen 500 mg tablet 500 mg PO Q3H PRN naloxone [Narcan] 4 mg/actuation spray,non-aerosol 4 mg intranasal Q2-3M PRN Label Comments: sister states pt. doesnt have Rx Instructions: spray 1 dose into ONE nostril; alternate nostrils w each dose until help arrives pregabalin [Lyrica] 150 MG capsule 150 mg PO TID oxycodone 15 mg Tablet, Oral Only 1 tab PO QID Rx Instructions: 09/21/18 pt states that he does not take this one any more morphine 15 mg Tablet 30 mg PO TID PRN (Reason: Pain) vitamin B complex Tablet Extended Release 1 tab PO DAILY lisinopril 5 mg Tablet 5 mg PO HS cholecalciferol (vitamin D3) [Vitamin D3] 50 mcg (2,000 unit) Capsule 50 mcg PO DAILY Discharge Instructions Additional Instructions: followup 1 to 2 weeks for pathology/cytology results nephrostomy tube to drainage Activity:: Activity as Tolerated Shower/Bathe:: 24 hours Diet:: As Tolerated Discharge Orders Discharge Orders: Discharge Order (Routine); Ordered 06/29/22 Ordered By: William Camacho DS: Diagnosis Discharge Diagnosis (1) Hydronephrosis, left: Status: Acute
--- NOTE | 2022-06-29 12:39 | ROE_ITS ---
Date of service: 06/29/22 Time of Service: 12:39 Operative Note Operative Note DATE OF PROCEDURE: 06/29/22 PRE-OP DIAGNOSIS: Left hydronephrosis PROCEDURE: cystoscopy, left retrograde pyelogram, left antegrade nephrostogram, dilation of nephrostomy tract with replacement of nephrostomy tube SURGEON: William Camacho ANESTHESIA TYPE: Local By Surgeon and General:No Airway Refer to Anesthesia Record ESTIMATED BLOOD LOSS: 25 PATHOLOGY: other (bladder/ureteral washings for cytology) COMPLICATIONS: None Patient was transported to: same day Patient's condition: stable Implants: 14 Slovenian nephrostomy tube (Councill tip catheter) with 3 cc sterile water in balloon Indications: This is a 61-year-old gentleman who was initially seen with a left ureteral stone. There was concerns that he may have urosepsis, so he was treated with placement of a ureteral stent. He then returned to the operating room for ureteroscopy. At that time, his stent migrated distally and the stone was treated with holmium laser lithotripsy. He had a stent replaced and the stent was ultimately removed about 2 weeks later. A month after the procedure, he was found to have left hydronephrosis and a retroperitoneal fluid collection. I attempted to place a ureteral stent but ran into a dense distal ureteral stricture. He then had a left nephrostomy tube placed. He comes in now for nephrostogram and possible ureteral stent placement. We will be prepared to do either retrograde or antegrade ureteroscopy with biopsy if need be. Findings: dense stricture distal ureter with persistent extravasation of contrast from mid ureter Procedure Description: The patient was brought to the operating room on 06/29/2022. After successful induction of general anesthesia, he was placed in the dorsal lithotomy position. His genitalia was prepped. 2% Xylocaine jelly was instilled into the urethra to act as a local anesthetic. A 22 Slovenian rigid cystoscope was passed through the urethra into the bladder. The urethra and bladder were inspected with a 30 degree lens. The pendulous, bulbar and membranous urethra appeared normal with no strictures. The prostatic urethra showed a small amount of lateral lobe enlargement but no significant median lobe. The bladder neck was entered and the bladder mucosa was inspected. The left ureteral orifice was identified. The orifice was cannulated with a 5 Slovenian access catheter. I attempted to inject Omnipaque into the ureter but there was a blind ending defect. I was unable to pass a wire through this area either. The remainder the bladder showed no papillary or nodular lesions. I then removed the cystoscope and injected Omnipaque through his left nephrostomy tube. We are able to outline the proximal ureter and collecting system. I was then able to pass a wire down through the nephrostomy tube and remove the tube itself. I passed the dual-lumen catheter over the wire and positioned a second wire. We repeated the injection and persistent leakage from the proximal ureter was identified. We then dilated the nephrostomy tract up to a size 18 Slovenian and passed a 14 Slovenian Galindo catheter over the wire. We positioned the catheter in the renal pelvis and confirmed the positioning with repeated injections of contrast under fluoroscopy. The catheter balloon was then inflated with 3 cc of sterile water and the catheter was hooked to gravity drainage. A urine cytology was obtained from washings around the left ureter. These washings were sent to pathology for analysis. We elected to leave the urethral catheter out to see if the patient would be able to void. The patient tolerated this procedure with no complications.
[2022-06-29 12:49] VITALS: BP 114/62; PULSE 84; RESP 18; TEMP 36.1; O2SAT 96
--- NOTE | 2022-06-29 12:51 | W.ANESPOSTOP ---
Postoperative Evaluation Date, Time and Location Date Performed: 06/29/22 Time Performed: 12:51 Patient Location: Day Surgery Unit Vital Signs Most Recent Imported Vital Signs: Most Recent Vital Signs Temp Pulse Resp BP Pulse Ox 36.8 C 86 18 120/76 96 06/29/22 08:50 06/29/22 08:50 06/29/22 08:50 06/29/22 08:50 06/29/22 08:50 Most Recent Manually Entered Vital Signs: Adult Blood Pressure: 114/62 Heart Rate: 76 Respirations: 12 Oxygen Saturation (%): 96 Temperature (C): 36.3 C Pain Score (0-10 Scale): 0 Pain Score Most Recent Pain Score: Most Recent Pain Score Pain Level 0 06/29/22 08:50 Assessment Mental Status: Awake (Alert & Oriented to Patient Baseline) Airway and Respiratory Function: Patent airway with normal (patient baseline) respiratory exam Cardiovascular Function: Hemodynamically Stable Hydration Status: Adequately Hydrated Nausea & Vomiting: No Nausea or Vomiting Pain: Pt. Denies Any Pain Peripheral Nerve Block: Patient did not receive a nerve block
[2022-06-29 12:52] VITALS: BP 114/62; PULSE 76; RESP 12; TEMPC 36.3; O2SAT 96
[2022-06-29 13:18] VITALS: BP 136/64; PULSE 85; RESP 18; O2SAT 94
--- NOTE | 2022-06-29 13:50 | NUR.NOTE ---
Nursing Note: Dr. Camacho asking for 16fr parham to be placed as that was what was removed in the office. CSB
[2022-06-29] MEDS: Lidocaine 2% Jelly 6 ML SYR UR (14:25)
== END 2022-06-29 12:45 | disposition home or self-care (01) ==
PROVIDERS: PCP Internal Medicine; Visit Provider Urology
PROC: 0TJ98ZZ Inspection of Ureter, Via Natural or Artificial Opening Endoscopic (ICD-10-PCS; CPT 52351; principal; 2022-06-29 09:30)
DX: N13.1 Hydronephrosis with ureteral stricture, not elsewhere classified (principal); Z87.442 Personal history of urinary calculi
CPT/HCPCS: 50436; 52000; 50435; 74420; 88104; J0131; J0690; J1100; J1885; J2250; J2405

== ENCOUNTER 2022-07-02 16:48 | Outpatient (REF) | payer MEDICAID, SELFPAY ==
[2022-07-02 15:59] LABS: HCT 31.5 % (40.0-50.0); HGB 9.9 g/dL (13.5-17.5); MCH 28.4 pg (27.0-33.0); MCHC 31.4 % (32.0-36.0); MCV 90 fL (80-95); MPV 9.9 fL (8.0-11.0); Platelet Count 279 10^3/uL (130-400); RBC 3.49 10^6/uL (4.36-5.78); RDW-SD 42.6 fL; WBC 6.67 10^3/uL (4.4-10.8)
[2022-07-02 16:40] LABS: Anion Gap 10.9 mmol/L (3-11); BUN 20 mg/dL (7-18); CO2 26.1 mmol/L (21.0-32.0); CREATININE 1.1 mg/dL (0.70-1.30); Calcium 8.7 mg/dL (8.5-10.1); Chloride 103 mmol/L (98-107); Glucose 86 mg/dL (74-106); Sodium 140 mmol/L (136-145)
== END 2022-07-02 16:49 | disposition home or self-care (01) ==
LOC: NCHCN 16:48
PROVIDERS: PCP Internal Medicine; Visit Provider Internal Medicine
DX: I10 Essential (primary) hypertension (principal); N13.5 Crossing vessel and stricture of ureter without hydronephrosis; R33.9 Retention of urine, unspecified; D64.9 Anemia, unspecified
CPT/HCPCS: 80048; 85027

== ENCOUNTER → 2022-07-10 00:39 | Outpatient (CLI) | payer MEDICAID, SELFPAY ==
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
--- OUTSIDE RECORDS SUMMARY | 2022-07-10 00:46 | XMS_ITS | Encounter Summary ---
:1960 Author Organization [facility] Address [address] [place] [address] Care Team Providers Name Role Phone Peter Spencer MD Primary Care Provider Reason for Visit (Routine/Next Available) - Receiving Office to Obtain Authorization Specialty Diagnoses / Procedures Referred By Contact Refer red To Contact Procedures Imaging, External FL OUTSIDE IMAGES Referral ID Status Reason Start Expiration Visits Visits Date Date Requested Authorized [id number] Receiving Office 05/24/2022 1 1 to Obtain Authorization Encounter Details Date Type Department Care Team Description 05/22/2022 Hospital Encounter [facility] Secondary Reads [place] Social History Tobacco Use Types Packs/Day Years Used Date Never Smoker Smokeless Tobacco: Current User Alcohol Use Standard Drinks/Week Comments Yes 1 (1 standard drink = 0.6 oz pure alcoho l) Sex Assigned at Date Recorded Not on file documented as of this encounter Functional Status Cognitive Status Response Date of Assessment Because of a physical, mental, or emotional condition, do Ye s 04/21/2012 you have serious difficulty concentrating, remembering, or making decisions? (5 years old or older) documented as of this encounter Medications at Time of Discharge Medication Sig Dispensed Refills Start Date End Date acetaminophen (TYLENOL) 500 Take 500 mg by 0 mg tablet mouth every 6 hours. amitriptyline (ELAVIL) 25 mg Take 25 mg by mouth 0 09/19/2010 tablet at bedtime. cyanocobalamin (VITAMIN Take 1,000 mcg by 0 B-12) 1,000 mcg tablet mouth daily. docusate sodium (COLACE) 100 Take 100 mg by 0 mg capsule mouth at bedtime. FENTANYL TD Place 100 mcg onto 0 01/23/2011 the skin every 72 hours. methocarbamol (ROBAXIN) 500 Take 2 Tabs by 60 Tab 1 04/10 mg tablet mouth 4 times daily. morphine (MS CONTIN) 100 mg Take 100 mg by 0 09/10 CR tablet mouth 3 times daily. oxycodone (ROXICODONE) 5 mg Take 1-3 Tabs by 50 Tab 0 immediate release tablet mouth every 4 hours as needed for Pain (discomfort). pregabalin (LYRICA) 150 mg Take 150 mg by 0 09/19 capsule mouth 3 times daily. senna (SENOKOT) 8.6 mg Take 1-2 Tabs by 0 012 tablet mouth 2 times daily as needed. documented as of this encounter Discharge Disposition Disposition Code Departure Means Destination Home or Self Care documented in this encounter Plan of Treatment Not on filedocumented as of this encounter Procedures Procedure Name Priority Date/Time Associated Diagnosis Comme nts FL OUTSIDE IMAGES Routine 05/24/2022 10:41 Result s for this EDT procedure are i n the results section. documented in this encounter Results FL OUTSIDE IMAGES (05/24/2022 10:41 EDT) Specimen Narrative 05/24/2022 10:41 EDT This is a non-reportable exam. documented in this encounter Visit Diagnoses Not on filedocumented in this encounter Care Teams Babysitter Relationship Specialty Start Date End Date Peter Spencer MD PCP - General 11/13/09 [address] [place] [address] documented as of this encounter
--- OUTSIDE RECORDS SUMMARY | 2022-07-10 00:46 | XMS_ITS | Encounter Summary ---
:1960 Author Organization [facility] Address [address] [place] [address] Care Team Providers Name Role Phone Peter Spencer MD Primary Care Provider Reason for Visit (Routine/Next Available) - Receiving Office to Obtain Authorization Specialty Diagnoses / Procedures Referred By Contact Refer red To Contact Procedures Imaging, External XR OUTSIDE IMAGES CHEST Referral ID Status Reason Start Expiration Visits Visits Date Date Requested Authorized [id number] Receiving Office 05/24/2022 1 1 to Obtain Authorization Encounter Details Date Type Department Care Team Description 05/21/2022 Hospital Encounter [facility] Secondary Reads [place] Social History Tobacco Use [...] Name Priority Date/Time Associated Diagnosis Comme nts XR OUTSIDE IMAGES Routine 05/24/2022 10:36 Result s for this CHEST EDT procedure are i n the results section. documented in this encounter Results XR OUTSIDE IMAGES CHEST (05/24/2022 10:36 EDT) Specimen Narrative 05/24/2022 10:36 EDT This is a non-reportable exam. documented in this encounter Visit Diagnoses Not on filedocumented in this encounter Care Teams Box Stapler Relationship Specialty Start Date End Date Peter Spencer MD PCP - General 11/13/09 [address] [place] [address] documented as of this encounter
--- OUTSIDE RECORDS SUMMARY | 2022-07-10 00:46 | XMS_ITS | Encounter Summary ---
:1960 Author Organization [facility] Address [address] [place] [address] Care Team Providers Name Role Phone Peter Spencer MD Primary Care Provider Encounter Details Date Type Department Care Team Description 06/30/2022 Lab Requisition [facility] William Camacho cified Pathology & MD [place] hydronephrosis Laboratory Medicine [address] [place], [place] [address] [facility] [address] [place], [place] [phone] (Work) [phone] Social History Tobacco Use Types Packs/Day Years [...] or older) documented as of this encounter Plan of Treatment Not on filedocumented as of this encounter Procedures Procedure Name Priority Date/Time Associated Diagnosis Comme nts NON ROVING HAND/FNA Today 06/29/2022 12:04 Unspecified Results for this CYTOLOGY EDT hydronephrosis procedure are in the results section. documented in this encounter Results NON ROVING HAND/FNA CYTOLOGY (06/29/2022 12:04 EDT) Pathologist Sig nature Note to Patient The following [facility] pathology results [facility] have been SERVICES interpreted by your pathologist and may be available to you before your health provider has had the opportunity to review them. Please allow time for your provider to receive these results and explore management options, if applicable. Final Diagnosis URINE, WASHING, CYTOLOGIC EVALUATION: [facility] - Negative for high grade urothelial carcinoma. [facility] - Background contains abundant acute inflammation. SERVICES Attestation By the signature below, the attending physician certifies that they have personally conducted a gross and/or microscopic [facility] Electronically signed examination of the described specimens and rendered or confirmed the above diagnosis. [facility] by Ludin Kennedy MD on 022 at 0907 Clinical History Ureteral stricture; [facility] unspecified [facility] hydronephrosis; SERVICES N13.30 Gross Description A. [facility] 70 cc's of clear pale yellow fluid with Cytolyt added were received and processed by selective cellular enhancement technique. [facility] Performing Lab [facility] SERVICES Scanned Images [facility] SERVICES Specimen Urine - Wash - dosing instruction impera tive (qualifier value) Performing Organization Address City/State/ZIP Code Phon e Number [facility] [address] [place] [address] SERVICES documented in this encounter Visit Diagnoses Diagnosis Unspecified hydronephrosis documented in this encounter Care Teams Personnel Security Assistant Relationship Specialty Start Date End Date Peter Spencer MD PCP - General 11/13/09 [address] [place], [place] [id number] documented as of this encounter
--- OUTSIDE RECORDS SUMMARY | 2022-07-10 00:46 | XMS_ITS | Encounter Summary ---
:1960 Author Organization Address [address] [place] [address] Care Team Providers Name Role Phone Peter Spencer MD Primary Care Provider Reason for Visit (Routine/Next Available) - Receiving Office to Obtain Authorization Specialty Diagnoses / Procedures Referred By Contact Refer red To Contact Procedures Imaging, External XR OUTSIDE IMAGES CHEST Referral ID Status Reason Start Expiration Visits Visits Date Date Requested Authorized [id number] Receiving Office 03/18/2022 1 1 to Obtain Authorization Encounter Details Date Type Department Care Team Description 03/18/2022 Hospital Encounter [facility] Secondary Reads [place] Social History Tobacco Use [...] Diagnosis Comme nts XR OUTSIDE IMAGES Routine 03/18/2022 18:31 Result s for this CHEST EDT procedure are i n the results section. documented in this encounter Results XR OUTSIDE IMAGES CHEST (03/18/2022 18:31 EDT) Specimen Narrative 03/18/2022 18:31 EDT This is a non-reportable exam. documented in this encounter Visit Diagnoses Not on filedocumented in this encounter Care Teams Rail Specialist Relationship Specialty Start Date End Date Peter Spencer MD PCP - General 11/13/09 [address] [place] [address] documented as of this encounter
--- OUTSIDE RECORDS SUMMARY | 2022-07-10 00:46 | XMS_ITS | Encounter Summary ---
:[address] [facility] Address [address] [place] [address] Care Team Providers Name Role Phone Peter Spencer MD Primary Care Provider Reason for Visit (Routine/Next Available) - Receiving Office to Obtain Authorization Specialty Diagnoses / Procedures Referred By Contact Refer red To Contact Procedures Imaging, External CT OUTSIDE IMAGES BODY Referral ID Status Reason Start Expiration Visits Visits Date Date Requested Authorized [id number] Receiving Office 05/24/2022 1 1 to Obtain Authorization Encounter Details Date Type Department Care Team Description 05/21/2022 Hospital Encounter [facility] Secondary Reads [place] Social History Tobacco [...] Name Priority Date/Time Associated Diagnosis Comme nts CT OUTSIDE IMAGES Routine 05/24/2022 10:43 Result s for this BODY EDT procedure are i n the results section. documented in this encounter Results CT OUTSIDE IMAGES BODY (05/24/2022 10:43 EDT) Specimen Narrative 05/24/2022 10:43 EDT This is a non-reportable exam. documented in this encounter Visit Diagnoses Not on filedocumented in this encounter Care Teams Hotel Receptionist Relationship Specialty Start Date End Date Peter Spencer MD PCP - General 11/13/09 [address] [place] [address] documented as of this encounter
--- OUTSIDE RECORDS SUMMARY | 2022-07-10 00:47 | XMS_ITS | Encounter Summary ---
:1960 Author Organization [facility] Address [address] [place] [address] Care Team Providers Name Role Phone Unavailable Primary Care Provider Unavailable Encounter Details Date Type Department Care Team Description 02/24/2002 Hospital Encounter [facility] [address] [place] [address] MILLA THACKER [phone] (Wo rk) Social History Tobacco Use Types Packs/Day Years Used Date Never Assessed Sex Assigned at Date Recorded Not on file documented as of this encounter Discharge Disposition Disposition Code Departure Means Destination Auto Discharge documented in this encounter Plan of Treatment Not on filedocumented as of this encounter Visit Diagnoses Not on filedocumented in this encounter
--- OUTSIDE RECORDS SUMMARY | 2022-07-10 00:47 | XMS_ITS | Encounter Summary ---
:1960 Author Organization [facility] Address [address] [place] [address] Care Team Providers Name Role Phone Peter Spencer MD Primary Care Provider Encounter Details Date Type Department Care Team Description 05/16/2012 Documentation Visit [facility] Akash Alexander MD Neurosurgery - [address] [place] [address] [address]ilion, [place] [address] (Wo rk) Social History Tobacco Use Types [...] or older) documented as of this encounter Progress Notes Aristides Alexander MD - 05/16/2012 1056 EDT From Osvaldo Barclay, [employer] rep dated 05-13-2012: I saw him today at the pain clinic with his . He continues to do much better since the lead paddle revision. Mr. Duran is getting 100% parasthesia overlap down his entire left arm and into his left hand. Today I did some minor adjustments to his programs and he was extremely happy. He stated that he is no longer taking his PRN meds and is looking to discuss reducing his daily meds with his primary careprovider. documented in this encounter Plan of Treatment Not on filedocumented as of this encounter Visit Diagnoses Not on filedocumented in this encounter Care Teams Supervisor Boat Outfitting Relationship Specialty Start Date End Date Peter Spencer MD PCP - General 11/13/09 [address] [place] [address] documented as of this encounter
--- OUTSIDE RECORDS SUMMARY | 2022-07-10 00:47 | XMS_ITS | Encounter Summary ---
:1960 Author Organization [facility] Address [address] [place] [address] Care Team Providers Name Role Phone Peter Spencer MD Primary Care Provider Encounter Details Date Type Department Care Team Description 04/20/2012 Pre-Procedure Orders [facility] Sonia Bhagat Encounter Neurosurgery - [facility] ABEL Wilson [place] [address] [place] [id number] [place] [address], [facility] [address] [place] [id number] (Wo rk) Social History Tobacco Use Types Packs/Day Years Used Date Never Smoker Smokeless Tobacco: Current User Alcohol Use Standard Drinks/Week Comments Yes 8.043899501993586389 (1 standard drink = 0.6 oz pure alcohol) Sex Assigned at Date Recorded Not on file documented as of this encounter Plan of Treatment Not on filedocumented as of this encounter Visit Diagnoses Not on filedocumented in this encounter Care Teams Chiropractic Doctor Relationship Specialty Start Date End Date Peter Spencer MD PCP - General 11/13/09 [address] [place] [address] documented as of this encounter
--- OUTSIDE RECORDS SUMMARY | 2022-07-10 00:47 | XMS_ITS | Encounter Summary ---
:1960 Author Organization [facility] Address [address] [place] [address] Care Team Providers Name Role Phone Peter Spencer MD Primary Care Provider Reason for Visit Reason Comments Arm Pain left arm and hand phantom pa in Encounter Details Date Type Department Care Team Description 01/23/2011 Office Visit [facility] - Luzmaria Pfeiffer MD Neuropathic pain syndrome (non-herpetic) (Primary Dx); [facility] Melida Delcid MD [facility] [address] [place] [address] Phantom limb pain ([facility] Medical Center Interventional Pain [address] [place], [place] [address] Social History Tobacco Use Types Packs/Day Years Used Date Never Smoker Alcohol Use Standard Drinks/Week Comments Yes 8.131769066301113347 (1 standard drink = 0.6 oz pure alcohol) Sex Assigned at Date Recorded Not on file documented as of this encounter Last Filed Vital Signs Vital Sign Reading Time Taken Comments Blood Pressure 133/85 01/23/2011 1544 EDT Pulse 81 01/23/2011 1544 EDT Temperature 36 ??C (96.8 ??F) 01/23/2011 1544 EDT Respiratory Rate 16 01/23/2011 1544 EDT Oxygen Saturation - - Inhaled Oxygen Concentration - - Weight 81.6 kg (180 lb) 01/23/2011 1544 EDT Height 177.8 cm (5' 10) 01/23/2011 1544 EDT Body Mass Index 25.83 01/23/2011 1544 EDT documented in this encounter Progress Notes Hugo Andrews - 01/23/2011 1640 EDT [facility] OP PAIN CONSULT Patient Name: Phuong Duran : 1960 Date of Service: 01/23/2011 Chief Complaint: Chief Complaint Patient presents with ??? Arm Pain left arm and hand phantom pain HPI: Mr. Duran presents at the request of Peter Spencer for a follow up visit. He did not realizethis is why he was here, he was under the impression that he was coming in today to be evaluated by psychiatry in preparation for his upcoming stimulator trial. The trial has not been scheduled, however his last visit was with Dr. Pfeiffer who evaluated him and determined that a trial was a reasonable next step. He still suffers from the same condition, same pain, no changes. And the condition has anegative impact on function. Allergies: Allergies Allergen Reactions ??? Iodine-iodine Containing ??? Copper Current Medications: Current outpatient prescriptions Medication Sig Dispense Refill ??? FENTANYL TD Place onto the skin every 72 hours. ??? pregabalin (LYRICA) 150 mg capsule Take 150 mg by mouth 3 times daily. ??? amitriptyline (ELAVIL) 25 mg tablet Take 25 mg by mouth at bedtime. ??? oxycodone (OXY-IR) 15 mg immediate release tablet Take 120 mg by mouth daily. ??? morphine (MS CONTIN) 100 mg CR tablet Take 100 mg by mouth 3 times daily. Past Medical HX: History reviewed. No pertinent past medical history. Past Surgical HX: History reviewed. No pertinent past surgical history. Past Social HX: History Social History ??? Marital Status: Single Spouse Name: N/A Number of Children: N/A ??? Years of Education: N/A Occupational History ??? Not on file. Social History Main Topics ??? Smoking status: Never Smoker ??? Smokeless tobacco: Not on file ??? Alcohol Use: 5.0 oz/week 1 Glasses of wine per week ??? Drug Use: ??? Sexually Active: Not on file Other Topics Concern ??? Not on file Social History Narrative ??? No narrative on file Family HX: History reviewed. No pertinent family history. Review of Systems: GENERAL: negative for fever chills sweats weight loss NEUROLOGICAL: positive for left arm phantom limb pain Physical Exam: Vitals: Patient Vitals in the past 24 hrs: BP Temp Temp src Pulse Resp Height Weight 01/23/11 1544 133/85 mmHg 36 ??C (96.8 ??F) Tympanic 81 16 177.8 cm (70) 81.647 kg (180 lb) General:awake, alert, orientedX3, cooperative and no apparent distress Assessment: 1. Encounter Diagnoses Name Primary? Phantom limb pain ??? Neuropathic pain syndrome (non-herpetic) Yes Plan: It appears that he is ready to perform the trial. He was cleared psychiatrically prior to the first attempt and I do not see why this should be done twice. He has very few option remaining and the stimulator could certainly provide considerable relief, but we must perform the trial to find out. I am advising to make arrangements for a SCS trial at the next available time. documented in this encounter Plan of Treatment Not on filedocumented as of this encounter Visit Diagnoses Diagnosis Neuropathic pain syndrome (non-herpetic) - Primary Neuralgia, neuritis, and radiculitis, un specified Phantom limb pain (HCC-CMS) (HCC) Phantom limb (syndrome) documented in this encounter Historical Medications This list may reflect changes made after this encounter. Medication Sig Dispensed Refills Start Date End Date FENTANYL TD Place 100 mcg onto the skin every 0 0 01/23/2011 72 hours. added in this encounter Care Teams Fabrication Welder Relationship Specialty Start Date End Date Peter Spencer MD PCP - General 11/13/09 [address] [place] [address] documented as of this encounter
--- OUTSIDE RECORDS SUMMARY | 2022-07-10 00:47 | XMS_ITS | Encounter Summary ---
:1960 Author Organization [facility] Address [address] [place] [address] Care Team Providers Name Role Phone Peter Spencer MD Primary Care Provider Reason for Visit Reason Onset Date Comments Post-OP Follow Up 04/27/2012 Encounter Details Date Type Department Care Team Description 04/27/2012 Telephone [facility] Brigitte Kim Pos t-OP Follow Up Neurosurgery - [facility] RN [address] [place], [place] [id number] Social History Tobacco Use Types Packs/Day Years [...] or older) documented as of this encounter Miscellaneous Notes Telephone Encounter - Brigitte Kim RN - 04/27/2012 1154 EDT Patient will have cade out by PCP at [facility]. He had no questions or complaints. documented in this encounter Plan of Treatment Not on filedocumented as of this encounter Visit Diagnoses Not on filedocumented in this encounter Care Teams Propellant Assembler Relationship Specialty Start Date End Date Peter Spencer MD PCP - General 11/13/09 [address] [place] [address] documented as of this encounter
--- OUTSIDE RECORDS SUMMARY | 2022-07-10 00:47 | XMS_ITS | Encounter Summary ---
:[address] [facility] Address [address] [place] [address] Care Team Providers Name Role Phone Peter Spencer MD Primary Care Provider Reason for Visit Reason Onset Date Comments Appointment Related 02/15/2012 Encounter Details Date Type Department Care Team Description 02/15/2012 Telephone [facility] - Soledad Azevedo ppointment Related [facility] C RN [facility] Interventional Pain [address] [place] [address] Social History Tobacco Use Types Packs/Day Years Used Date Never Smoker Smokeless Tobacco: Current User Alcohol Use Standard Drinks/Week Comments Yes [id number] (1 standard drink = 0.6 oz pure alcohol) Sex Assigned at Date Recorded Not on file documented as of this encounter Miscellaneous Notes Telephone Encounter - Soledad Azevedo RN - 02/15/2012 1113 EDT RN called pt to let him know that Dr Alexander's office should be calling him to f/u to Dr Alexander and Dr Andrews's conversation that Dr Alexander will do a SCS for pt. Pt will call that office if he has not heard from them by Wed or . documented in this encounter Plan of Treatment Not on filedocumented as of this encounter Visit Diagnoses Not on filedocumented in this encounter Care Teams Training Mgr Relationship Specialty Start Date End Date Peter Spencer MD PCP - General 11/13/09 [address] [place] [address] documented as of this encounter
--- OUTSIDE RECORDS SUMMARY | 2022-07-10 00:47 | XMS_ITS | Encounter Summary ---
:1960 Author Organization [facility] Address [address] [place] [address] Care Team Providers Name Role Phone Peter Spencer MD Primary Care Provider Encounter Details Date Type Department Care Team Description 12/16/2011 Orders Only [facility] - Derek Pratt P hantom limb pain ([facility]); [facility] Neuropathic pain syndrome (non-herpetic) Medical Center [address] Interventional Pain [place], [place] [address] Stephanie Meek [address] [place], [place] [address] [phone] Social History Tobacco Use Types Packs/Day Years Used Date Never Smoker Smokeless Tobacco: Current User Alcohol Use Standard Drinks/Week Comments Yes 8.318249840884571760 (1 standard drink = 0.6 oz pure alcohol) Sex Assigned at Date Recorded Not on file documented as of this encounter Plan of Treatment Not on filedocumented as of this encounter Procedures Procedure Name Priority Date/Time Associated Diagnosis Comme nts MR CERVICAL SPINE 01/15/2012 14:35 Phantom limb pain R esults for this WO CONTRAST EDT ([facility]) procedure are in Neuropathic pain the results syndrome section. (non-herpetic) documented in this encounter Results MR CERVICAL SPINE WO CONTRAST (01/15/2012 14:35 EDT) Anatomical Region Laterality Modality Other Specimen Narrative STEPHANIE MRI - 01/15/2012 15:13 EDT MRI CERVICAL SPINE WITHOUT CONTRAST January 15, 2012 Indication: Evaluation for spinal cord stimulator im plantation. Comparison: None available. Technique: Sagittal T1 and T2, axial T2 and sagitta l oblique T2 weighted MR images of the cervical spine were obtain ed. Findings: Craniocervical and atlantoaxial alignmen t are anatomic. No jenny or retrolisthesis is identified. There is m ild compression of the superior endplate of C3 with adjacent fa t signal intensity but no acute marrow edema appreciated. Vertebra l body heights are otherwise preserved. Incidental note is made of a large osseous hemangioma within the T2 vertebral body. There is d isc space narrowing at C4-C5 and C5-C6. C2-C3: There is a small left foraminal d isc herniation with moderate left neuroforaminal narrowing. C3-C4: No high-grade spinal stenosis is appreciated. C4-C5: There is a broad-based central di sc protrusion which effaces the anterior CSF space but produces no c ord deformity. There is moderate right and mild left neuroforami nal narrowing due to uncinate spurring. C5-C6: There is a small left paracentral disc herniation which effaces the anterior CSF space and produ dillon mild cord flattening. There is severe right neuroforaminal mic nosis due to uncinate spurring. C6-C7: There is severe right neuroforami nal stenosis due to uncinate spurring. There is a left-sided pseudome ningocele present slightly expanding the left neuroforamen. C7-T1: There is a left-sided pseudomenin gocele present slightly expanding the left neuroforamen. No abnormal cord signal is demonstrated. Impression: 1. Compression deformity of the superior endplate of C3 without acute marrow edema appreciated. 2. Cervical spondylosis. 3. Left foraminal disc herniation at C2- C3 and left paracentral disc herniation at C5-C6 without associated c ord impingement. 4. Central disc protrusion at C4-C5 with mild cord impingement. 5. Neuroforaminal narrowing on the left at C2-C3, bilaterally at C4-C5, on the right at C5-C6 and on the right at C6-C7. 6. Left-sided pseudomeningoceles within the C7 and C8 neuroforamina. Procedure Note 01/15/2012 MRI CERVICAL SPINE WITHOUT CONTRAST January 15, 2012 Indication: Evaluation for spinal cord stimulator im plantation. Comparison: None available. Technique: Sagittal T1 and T2, axial T2 and sagitta l oblique T2 weighted MR images of the cervical spine were obtain ed. Findings: Craniocervical and atlantoaxial alignmen t are anatomic. No jenny or retrolisthesis is identified. There is m ild compression of the superior endplate of C3 with adjacent fa t signal intensity but no acute marrow edema appreciated. Vertebra l body heights are otherwise preserved. Incidental note is made of a large osseous hemangioma within the T2 vertebral body. There is d isc space narrowing at C4-C5 and C5-C6. C2-C3: There is a small left foraminal d isc herniation with moderate left neuroforaminal narrowing. C3-C4: No high-grade spinal stenosis is appreciated. C4-C5: There is a broad-based central di sc protrusion which effaces the anterior CSF space but produces no c ord deformity. There is moderate right and mild left neuroforami nal narrowing due to uncinate spurring. C5-C6: There is a small left paracentral disc herniation which effaces the anterior CSF space and produ dillon mild cord flattening. There is severe right neuroforaminal mic nosis due to uncinate spurring. C6-C7: There is severe right neuroforami nal stenosis due to uncinate spurring. There is a left-sided pseudome ningocele present slightly expanding the left neuroforamen. C7-T1: There is a left-sided pseudomenin gocele present slightly expanding the left neuroforamen. No abnormal cord signal is demonstrated. Impression: 1. Compression deformity of the superior endplate of C3 without acute marrow edema appreciated. 2. Cervical spondylosis. 3. Left foraminal disc herniation at C2- C3 and left paracentral disc herniation at C5-C6 without associated c ord impingement. 4. Central disc protrusion at C4-C5 with mild cord impingement. 5. Neuroforaminal narrowing on the left at C2-C3, bilaterally at C4-C5, on the right at C5-C6 and on the right at C6-C7. 6. Left-sided pseudomeningoceles within the C7 and C8 neuroforamina. Performing Organization Address City/State/ZIP Code Phon e Number [facility] MRI [facility] [place] MRI documented in this encounter Visit Diagnoses Diagnosis Phantom limb pain (HCC-CMS) (HCC) Phantom limb (syndrome) Neuropathic pain syndrome (non-herpetic) Neuralgia, neuritis, and radiculitis, un specified documented in this encounter Care Teams Rv Detailer Relationship Specialty Start Date End Date Peter Spencer MD PCP - General 11/13/09 [address] [place] [address] documented as of this encounter
--- OUTSIDE RECORDS SUMMARY | 2022-07-10 00:47 | XMS_ITS | Encounter Summary ---
:[address] [facility] Address [address] [place] [address] Care Team Providers Name Role Phone Peter Spencer MD Primary Care Provider Reason for Visit (Routine/Next Available) - Receiving Office to Obtain Authorization Specialty Diagnoses / Procedures Referred By Contact Refer red To Contact Procedures Imaging, External CT OUTSIDE IMAGES BODY Referral ID Status Reason Start Expiration Visits Visits Date Date Requested Authorized [id number] Receiving Office 03/18/2022 1 1 to Obtain Authorization Encounter Details Date Type Department Care Team Description 03/18/2022 Hospital Encounter [facility] Secondary [place] Social History Tobacco Use [...] Diagnosis Comme nts CT OUTSIDE IMAGES Routine 03/18/2022 18:31 Result s for this BODY EDT procedure are i n the results section. documented in this encounter Results CT OUTSIDE IMAGES BODY (03/18/2022 18:31 EDT) Specimen Narrative 03/18/2022 18:31 EDT This is a non-reportable exam. documented in this encounter Visit Diagnoses Not on filedocumented in this encounter Care Teams Logging Crew Foreman Relationship Specialty Start Date End Date Peter Spencer MD PCP - General 11/13/09 [address] [place] [address] documented as of this encounter
--- OUTSIDE RECORDS SUMMARY | 2022-07-10 00:47 | XMS_ITS | Encounter Summary ---
:1960 Author Organization [facility] Address [address] [place] [address] Care Team Providers Name Role Phone Peter Spencer MD Primary Care Provider Reason for Visit (Routine/Next Available) - Receiving Office to Obtain Authorization Specialty Diagnoses / Procedures Referred By Contact Refer red To Contact Procedures Imaging, External CT OUTSIDE IMAGES NEURO Referral ID Status Reason Start Expiration Visits Visits Date Date Requested Authorized [id number] Receiving Office 03/18/2022 1 1 to Obtain Authorization Encounter Details Date Type Department Care Team Description 03/18/2022 Hospital Encounter [facility] Secondary [place] Social History Tobacco [...] Routine 03/18/2022 18:31 Result s for this NEURO EDT procedure are i n the results section. documented in this encounter Results CT OUTSIDE IMAGES NEURO (03/18/2022 18:31 EDT) Specimen Narrative 03/18/2022 18:31 EDT This is a non-reportable exam. documented in this encounter Visit Diagnoses Not on filedocumented in this encounter Care Teams Fashion Coordinator Relationship Specialty Start Date End Date Peter Spencer MD PCP - General 11/13/09 [address] [place] [address] documented as of this encounter
--- OUTSIDE RECORDS SUMMARY | 2022-07-10 00:47 | XMS_ITS | Encounter Summary ---
:1960 Author Organization [facility] Address [address] [place] [address] Care Team Providers Name Role Phone Peter Spencer MD Primary Care Provider Encounter Details Date Type Department Care Team Description 12/27/2021 Lab Requisition [facility] Outr Resulting Lab, Pathology & Laboratory Provider [facility] [address] [place], [place] [id number] Social History Tobacco Use Types Packs/Day Years [...] encounter Procedures Procedure Name Priority Date/Time Associated Comments Diagnosis LEGIONELLA ANTIGEN Routine 12/26/2021 17:00 Resul ts for this DETECTION, URINE EDT procedure a re in the results section. documented in this encounter Results LEGIONELLA ANTIGEN DETECTION, URINE (12/26/2021 17:00 EDT) Pathologist Sig nature Legionella Antigen Negative Negative [facility] Detection LABORATORY SERVICES Specimen Urine - Urine (substance) Performing Organization Address City/State/ZIP Code Phon e Number [facility] [address] [place] [address] SERVICES documented in this encounter Visit Diagnoses Not on filedocumented in this encounter Care Teams Conveyor Installer Relationship Specialty Start Date End Date Peter Spencer MD PCP - General 11/13/09 [address] [place] [address] documented as of this encounter
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
--- OUTSIDE RECORDS SUMMARY | 2022-07-10 00:47 | XMS_ITS | Encounter Summary ---
:1960 Author Organization [facility] Address [address] [place] [address] Care Team Providers Name Role Phone Peter Spencer MD Primary Care Provider Encounter Details Date Type Department Care Team Description 01/16/2012 Documentation Visit [facility] Akash Alexander MD Neurosurgery - [address] [place] [address] [address], [place] [address] (Wo rk) Social History Tobacco Use Types Packs/Day Years Used Date Never Smoker Smokeless Tobacco: Current User Alcohol Use Standard Drinks/Week Comments Yes [id number] (1 standard drink = 0.6 oz pure alcohol) Sex Assigned at Date Recorded Not on file documented as of this encounter Progress Notes Aristides Alexander MD - 01/22/2012 0912 EDT Spoke with Mr. Duran by telephone today. Dr. Andrews initially said that the lead array was at C4 for coverage. I can elicit no clear symptoms from C4-5 on the right or left. The question is (1) whether it is warranted to perform an ACDF at C4-5 and then lead placement a fewweeks later, or (2) whether good coverage can be had with electrode placement below C5. Mr. Duran clarified his symptoms as being in the wrist and fingers (C6 - C8 distribution). 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 Will discuss placement of laminotomy lead array with Dr. Andrews. 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
--- OUTSIDE RECORDS SUMMARY | 2022-07-10 00:47 | XMS_ITS | Encounter Summary ---
:1960 Author Organization [facility] Address [address] [place] [address] Care Team Providers Name Role Phone Peter Spencer MD Primary Care Provider Encounter Details Date Type Department Care Team Description 03/29/2012 - [facility] Aristides Alexander MD Neuropathic pain syndrome (non-herpetic) ; 03/30/2012 Encounter Neurosurgery Unit [address] [place] Phantom limb pain (CMS-HCC) [address] [place], [place] [id number] [place], [place] [phone] [place], [address] [place] [address] Social History Tobacco Use Types Packs/Day Years Used Date Never Smoker Smokeless Tobacco: Current User Alcohol Use Standard Drinks/Week Comments Yes [id number] (1 standard drink = 0.6 oz pure alcohol) Sex Assigned at Date Recorded Not on file documented as of this encounter Last Filed Vital Signs Vital Sign Reading Time Taken Comments Blood Pressure 99/55 03/30/2012 1010 EDT Pulse 71 03/30/2012 1010 EDT Temperature 35.7 ??C (96.3 ??F) 03/30/2012 1010 EDT Respiratory Rate 16 03/30/2012 1010 EDT Oxygen Saturation 93% 03/30/2012 1010 EDT Inhaled Oxygen Concentration - - Weight 83.9 kg (185 lb) 03/22/2012 1155 EDT Height 177.8 cm (5' 10) 03/22/2012 1155 EDT Body Mass Index 26.54 03/22/2012 1155 EDT documented in this encounter Discharge Summaries Vijay James MD - 03/30/2012 0739 EDT Discharge Summary Chief Complaint/Reason for Admission: Phantom Limb Pain Principal/Final Diagnosis: Same Principal Procedure: Spinal cord stimulator Date: 03/29/12 Prognosis: good Condition at Discharge: Good Hospital Course: 51 y.o. male with past medical history significant for phantom limb pain. The patient was taken to the OR on 03/11/12 by Aristides Alexander MD for spinal cord stimulator placement. The patient tolerated the procedure well and was transferred to the PACU postoperatively. He remained neurologically stable overnight. He had upright cervical films performed on 03/30/12 that demonstrated good hardware placement. On POD#1 the patient ambulated with minimal assistance, tolerated a full oral diet, and had adequatepain control with oral medications. The patient was discharged to home on 03/30/12 with instructions to call the Neurosurgical Office within a week to schedule a follow-up appointment with Aristides Alexander MD in 3-4 weeks. The patient's incision was closed with glue. Prescribed medications included Oxycodone IR, Robaxin. The patient's stimulator was turned on prior to patient discharge. access representative was contacted CC: MD Catherine AQUINO Paul L, MD Beatrice Disogra, JEANNA Coles, ABEL Toure Discharge Summary Completed: 03/30/12 documented in this encounter Discharge Instructions Vijay Ma MD - 03/30/2012 POST- OPERATIVE INSTRUCTIONS AFTER SURGERY 1. Avoid sitting or standing for more than 30 minutes without changing position. 2. You may walk as much as tolerated, but please begin with short distances. Please hold handrails while climbing stairs. 3. Avoid lifting more than 10 pounds which is the weight of a gallon of milk. Do not bend at the waist to lift. 4. You may shower the day after surgery as long as the incision is free of drainage. Do not soak in a bath or hot tub, or swim until evaluated at your first post-op appointment. 5. You may resume sexual activity, limiting any stress on your back. 6. Drink plenty of fluids while taking pain medications to avoid constipation. You may need to take a stool softener such as Colace 100 mg twice daily. 7. Your wound may be closed with sutures underneath the skin and glue on the outside. The glue will peel off in about a week or two. 8. Please call our office if your wound is closed with sutures or cade to arrange for removal; 10-14 days is typical. 9. Please call our office at [phone] if you experience severe pain, fever, wound drainage, increased numbness, weakness or pain in the hips, legs or feet. There is always a Physician available to you after hours and on weekends. 10. Please call to schedule a follow-up three to four weeks following surgery. documented in this encounter Medications at Time of Discharge Medication Sig Dispensed Refills Start Date End Date acetaminophen (TYLENOL) 500 Take 500 mg by 0 mg tablet mouth every 6 hours. amitriptyline (ELAVIL) 25 Take 25 mg by 0 010 mg tablet mouth at bedtime. cyanocobalamin (VITAMIN Take 1,000 mcg by 0 B-12) 1,000 mcg tablet mouth daily. docusate sodium (COLACE) Take 100 mg by 0 100 mg capsule mouth at bedtime. FENTANYL TD Place 100 mcg onto 0 01/23/2011 the skin every 72 hours. morphine (MS CONTIN) 100 mg Take 100 mg by 0 09/10 CR tablet mouth 3 times daily. pregabalin (LYRICA) 150 mg Take 150 mg by 0 09/19 capsule mouth 3 times daily. senna (SENOKOT) 8.6 mg Take 1-2 Tabs by 0 012 tablet mouth 2 times daily as needed. methocarbamol (ROBAXIN) 500 Take 2 Tabs by 50 Tab 0 03/1204/22/2012 mg tablet mouth every 6 hours as needed. oxycodone (OXY-IR) 15 mg Take 120 mg by 0 010 04/21/2012 immediate release tablet mouth daily. oxycodone (ROXICODONE) 5 mg Take 1-3 Tabs by 50 Tab 0 04/22/2012 immediate release tablet mouth every 6 hours as needed for Pain (discomfort). documented as of this encounter Ordered Prescriptions Prescription Sig Dispensed Refills Start Date End Date senna (SENOKOT) 8.6 mg Take 1-2 Tabs by 0 012 tablet mouth 2 times daily as needed. methocarbamol (ROBAXIN) Take 2 Tabs by 50 Tab 0 03/30/20 12 04/22/2012 500 mg tablet mouth every 6 hours as needed. oxycodone (ROXICODONE) 5 Take 1-3 Tabs by 50 Tab 0 03/3004/22/2012 mg immediate release mouth every 6 hours tablet as needed for Pain (discomfort). documented in this encounter Discharge Disposition Disposition Code Departure Means Destination Home or Self Care documented in this encounter Progress Notes Ashley Anne - 03/30/2012 1257 EDT Brief Discharge/Case Management Assessment Discharge note: Reason for Hospitalization: Phantom limb pain; s/p spinal cord stimulator Current Living Arrangements: [facility], will stay with sisterNargis for few days post d/c Current Social, Health Care and Community Supports: No services in home Identified Case Management/Social Work Needs and Issues (housing, care, financial, transportation, cultural, spiritual, emotional, legal, etc.): Medicaid [place], uses pharmacy in [place], [place] Case Management Actions (completed and planned): Discharged home without services. Ashley Anne RN CM #[id number] Radha Bowen - 03/30/2012 1130 EDT Data: pt with discharge order Action: pt discharge instructions reviewed with pt, prescriptions given, saline lock/IV site d/c'd. Patient education completed. Pt has all belongings and equipment. Response: pt verbalizes understanding of discharge instructions, f/u appts. Discharged to home with . Radha Payne RN 03/30/2012 11:30 KAHTPAristides paula MD - 03/30/2012 0637 EDT Neurosurg Progress Note 03/30/2012 S/P Spinal cord stimulator S: Reports neck is sore, still with normal pain O:Blood pressure 121/65, pulse 71, temperature 36.3 ??C (97.3 ??F), temperature source Tympanic, resp. rate 16, height 177.8 cm (70), weight 83.915 kg (185 lb), SpO2 95.00%. Exam: AAO x3, conversing fluently and responding appropriately Tongue midline Sensation to light touch intact equally in right UE Motor: 5/5 in right UE Incision C/D/I A/P: 51 y.o. male s/p Spinal cord stimulator - Neuro intact - Pain controlled - continue current mgmt ALISA BOLAOÑS MD [id number] Attestation statement: I saw and examined the patient with the resident. I agree with the findings and plan of care documented in the resident's note. POD 1. Spinal cord stimulator placement. Surgical site pain. Stim has not been turned on as planned. Xrays show good midline positioning. Will contact rep to see when system will be activated. ~ Aristides Alexander MD FACS 03/30/2012 at 7:37 Alisa Michael MD - 03/29/2012 1547 EDT Neurosurg Post-Op Note 03/29/2012 S/P Spinal cord stimulator; POD#0 S: Pt seen and examined at bedside, resting comfortably. Pt's pain is controlled. Reports neck is sore O:Blood pressure 149/79, temperature 35.6 ??C (96.1 ??F), temperature source Tympanic, resp. rate 12, height 177.8 cm (70), weight 83.915 kg (185 lb), SpO2 100.00%. Exam: AAO x3, conversing fluently and responding appropriately Tongue midline Sensation to light touch intact equally in right UE Motor: Grossly intact; Strength 5/5 in right UE Incision C/D/I A/P: 51 y.o. male s/p Spinal cord stimulator - Neuro intact - Pain controlled - continue current mgmt ALISA BOLAÑOS MD 6555 KAHT Nicole Garcia - 03/29/2012 1503 EDT Neurosurgery post op CC: Phantom limb pain S Phuong Duran is a 51 y.o. male s/p spinal cord stimulator for phantom limb pain. Currently doingwell. No pain Physical exam BP 152/98 Temp(Src) 35.7 ??C (96.3 ??F) (Tympanic) Resp 12 Ht 177.8 cm (70) Wt 83.915 kg (185 lb) BMI 26.54 kg/m2 SpO2 100% Neurologic exam Alert, oriented to name and place Follows command, few verbalizations Pupils 4mm, equal and reactive Extraocular movements intact Facial sensation at V1, V2, and V3 intact Facial motor symmetric Tongue midline 5/5 on right biceps, triceps, wrist extensor and flexor, planning aide and interossei muscles 2+ reflexes on brachioradialis, and triceps Positive Diaz on right 5/5 on bilateral knee flexor and extensor, dorsiflexion and plantar flexion, extensor hallicus longus Negative babinski bilaterally General sensation intact at upper and lower extremities No pronator drift and dysmetria on finger to nose Assessment Phuong Duran is a 51 y.o. male POD0 for spinal cord stimulator Plan Admit to M6 X-rays tomorrow Cesar Rivera, [id number] signed by Nicole Garcia at 03/29/2012 15:13 Cassidy Gomez RN - 03/29/2012 1426 EDT Pt admitted to pacu>>pt pulling at blankets and monitors > patient reoriented to surroundings.pt denies pain at this time>rep from [facility] in to speak with pt>pt resting with at side>pt awake >tolerating water Andrea Gomez - 03/22/2012 1154 EDT Phuong Duran has been instructed as follows regarding medication administration for the day of thescheduled procedure. Date of Surgery: 03/29/2012 Instructions for Taking Medications Day of Surgery Medication Last Dose Hold DOS Take DOS cyanocobalamin (VITAMIN B-12) 1,000 mcg tablet yes acetaminophen (TYLENOL) 500 mg tablet yes FENTANYL TD yes pregabalin (LYRICA) 150 mg capsule yes amitriptyline (ELAVIL) 25 mg tablet yes oxycodone (OXY-IR) 15 mg immediate release tablet yes morphine (MS CONTIN) 100 mg CR tablet yes documented in this encounter H&P Notes PLAYROOM ATTENDANT, SCAN 2 - 04/04/20122154 EDT Orlando Oh MD - 03/29/2012 1013 EDT The preoperative history and physical which was performed within 30 days of this procedure has been reviewed and the clinically appropriate elements of the physical examination have been repeated. There are no changes to the documented history and physical or if so such changes are documented below ORLANDO CARVALHO MD 03/29/2012 10:14 documented in this encounter Procedure Notes PLAYROOM ATTENDANT, SCAN 2 - 04/04/20122154 EDTAssociated Order(s): IMPLANT RECORD - SCANNED PLAYROOM ATTENDANT, SCAN 2 - 04/04/20122154 EDTAssociated Order(s): ECG REPORT - SCANNED documented in this encounter Nursing Notes PLAYROOM ATTENDANT, SCAN 2 - 04/04/20122154 EDT documented in this encounter OR Notes OR PreOp - PLAYROOM ATTENDANT, SCAN 2 - 04/04/20122154 EDT R Surgeon - Aristides Alexander MD - 03/30/2012 1132 EDT OPERATIVE REPORT SERVICE DATE: 03/29/2012 PREOPERATIVE DIAGNOSIS: Chronic pain syndrome, left phantom limb pain. POSTOPERATIVE DIAGNOSIS: Chronic pain syndrome, left phantom limb pain. PROCEDURE: Cervical laminotomy with placement of an epidural lead array for spinal cord stimulation,placement of two [address] cables [address] [facility] rechargeable pulse generator. SURGEON: Aristides Alexander MD [employer]: Orlando Carvalho MD INDICATIONS: The patient is a 51-year-old [...] include GERD,ulcerative colitis and chronic renal disease. NARRATIVE: The patient was brought to the operating room and once under general anesthesia via endotracheal tube, he was positioned prone on the operating room table with the head held in the Patel pin clamp in a flexed position. Fluoroscopy was used to identify the spinal levels and we could barely see the tip of the C6 spinous process. The skin was then prepped with Hibiclens and ChloraPrep as he was allergic to topical iodine. Local anesthetic was injected and draping was carried out. An incision was made over the C7-T1 interspace. Dissection was carried down to expose the C7 lamina as well as the top of the T1 lamina and retractors were placed. Fluoroscopy was brought back in to identify this level. We were able to tag the bottom of the C6 spinous process with an instrument and confirm ourlocation that way. Using a Leksell rongeur, the inferior portion of the C7 spinous process was takendown and then using a high- speed drill, the inferior portion of the lamina was thinned as well as a small amount of the top of T1. This laminotomy was completed with a small Kerrison rongeur and the ligamentum flavum was elevated and from the underlying epidural fat. The stimulating lead wasthen placed. This was an ANS Penta lead [lot number #[id number]]. Initially, the lead seemed to introduce into the posterior epidural space quite well. Fluoroscopy, however, seemed to show this lead heading to the right lateral gutter of the spinal canal. This was in part a difficulty with aligning the x-rays with the curvature and rotation of the spine; however, on replacement, we were able to introduce the lead more on the left side so that it would at least cover that side even if it was slightly sup eriorly over to the right. At this point, AP fluoroscopy was used and it did seem we achieved a significant amount of electrode array placement on the left. [I would add that postoperative films actually showed the electrode to be in the midline.] In any case, this seemed to be a good position and we proceeded to tunnel the electrodes to a separate incision in the flank and then place two 30 cm extension cables to connect this to a third incision, which had been marked preoperatively over the right flank for the pulse generator. This incision was made and a subcutaneous pocket was created there. The connectors for the extension cables were placed at the intervening incision and then the connectors tunneled to this pulse generator site. They were connected in appropriate fashion to an [facility] pulse generator, 16-channel Zeferino Mini rechargeable device, serial #[id number]. Excess cabling was coiled behind the pulse generator as it was placed in the subcutaneous pocket. All wounds were then thoroughly irrigated. 0 Vicryl was used to close the cervical fascia, taking care not to displace the cervical lead wires. They were generally coming in from the left side. We then tacked down these wires to the cervical fascia using the 2 stay devices and 4-0 Nurolon sutures. Excess wires were looped to take the tension off the connectors. Closure of subcutaneous tissue was carried out with 3-0 Vicryl, followed by tissue adhesive for skin. The patient was turned back supine and extubated without difficulty. ESTIMATED BLOOD LOSS: For this procedure, was negligible and at most 20 mL. COMPLICATIONS: There were no identified complications. Unless otherwise noted, there were no complications, no blood loss, no cultures obtained, no specimens removed, and no drains retained. Aristides Alexander MD 11 07 AM / Aristides Alexander MD ss Confirmation: [id number] Dictation ID: [id number] cc: Peter Spencer MD nesthesia Procedure Notes - PLAYROOM ATTENDANT, SCAN 2 - 03/29/2012 1416 EDT R PreOp - PLAYROOM ATTENDANT, SCAN 2 - 03/29/2012 1407 EDT nesthesia Preprocedure Evaluation - PLAYROOM ATTENDANT, SCAN 2 - 03/29/2012 1150 EDT documented in this encounter Miscellaneous Notes Scanned Note-Null - PLAYROOM ATTENDANT, SCAN 2 - 12/18/2012 0924 EDT canned Note- Null - PLAYROOM ATTENDANT, SCAN 2 - 04/04/2012 2155 EDT canned Note- Null - PLAYROOM ATTENDANT, SCAN 2 - 04/04/2012 2155 EDT lan of Ned Maurizio Winters - 03/30/2012 0333 EDT Problem: PAIN Goal: Patient???s Pain And Discomfort Are Adequately Managed Outcome: Ongoing Active Multi-Disciplinary problems: FALL RISK [711575] (03/29/12) HOSPITAL ORIENTATION/SAFETY [162634] (03/29/12) PAIN [475232] (03/29/12) SKIN INTEGRITY [536964] (03/29/12) DISCHARGE PLANNING [150649] (03/29/12) CIRCULATORY STATUS [585341] (03/29/12) FLUID AND ELECTROLYTE BALANCE [833850] (03/29/12) RESPIRATORY FUNCTION/OXYGENATION [036766] (03/29/12) NUTRITION/DIET [969318] (03/29/12) MOBILITY [440867] (03/29/12) ELIMINATION [585438] (03/29/12) NEUROLOGICAL STATUS [218852] (03/29/12) Data: Pt c/o 10/10 pain in back. Action: PRN oxycodone and tylenol administered. Response: Pt sleeping, will continue to monitor. MAURIZIO WINTERS RN 03/30/2012 3:33 nesthesia Post- Eval - Tani Hernandez CRNA - 03/29/2012 1621 EDT Post Anesthesia Evaluation Note Date of Service: 03/29/2012 Phuong Duran, a 51 y.o. year old male has received General Anesthesia He has been evaluated, assessed and discharged from anesthesia care with stable cardiorespiratory function and alert mental status. The last set of recorded vital signs and pain rating were reviewed: Temp: 36 ??C (96.8 ??F) (03/29/12 1545), Heart Rate: 67 BPM (03/29/12 1600), BP: 136/71 mmHg (03/29/12 1600), Resp: 12 (03/29/12 1600), SpO2: 99 % (03/29/12 1600),Numeric Pain Level (Scale 1-10): 0 Jasso-Medina Pain Rating (Scale 0-10): Hurts a little bit (dozing off to sleep when undisturbed) Phuong Duran participated in this evaluation unless otherwise noted. His pain, nausea and vomitinghave been managed and his body temperature and fluid balance have been restored. Additional monitoring and assessment needs have been addressed. If present, any postoperative events are documented below. If the regional block for postoperative analgesia was intended to last greater than 48 hours, Phuong Duran will be followed by the Acute Pain Service. TANI HERNANDEZ CRNA 03/29/2012 16:21 rief Op Note - Orlando Carvalho MD - 03/29/2012 1333 EDT BRIEF OP NOTE PRE-OP DIAGNOSIS = Phantom limb pain POST-OP DIAGNOSIS = same PROCEDURE = Spinal cord stimulator SURGEON = Catherine [employer] = Deven ANESTHESIA = GETA COMPLICATIONS = none FINDINGS = none EBL = 75cc IVF = 1400cc UOP = NR SPECIMENS/CULTURES = none DRAINS = none SKIN = glue DISPO =PACU--> M6, Xrays tomorrow, AP and lateral c-spine Orlando Carvalho MD Neurosurgery #[phone] (advisor consultant pager) canned Note-Null - PLAYROOM ATTENDANT, SCAN 2 - 03/29/2012 0826 EDT canned Note- Null - PLAYROOM ATTENDANT, SCAN 2 - 03/29/2012 0826 EDT documented in this encounter Plan of Treatment Not on filedocumented as of this encounter Procedures Procedure Name Priority Date/Time Associated Diagnosis Comme nts IMPLANT RECORD - 04/04/2012 21:55 Results for this SCANNED EDT procedure are i n the results section. ECG REPORT - 04/04/2012 21:55 Results for this SCANNED EDT procedure are i n the results section. CERVICAL SPINE 2-3 03/30/2012 6:08 EDT Re sults for this VIEWS procedure are i n the results section. [place] UP TO 1 03/29/2012 13:38 Resu lts for this HOUR EDT procedure are i n the results section. CERVICAL SPINE 1 03/29/2012 12:01 Results for this VIEW EDT procedure are i n the results section. TYPE AND SCREEN Routine 03/29/2012 9:45 EDT Resul ts for this procedure are i n the results section. PTT Routine 03/29/2012 9:24 EDT Results for this procedure are i n the results section. documented in this encounter Results IMPLANT RECORD - SCANNED (04/04/2012 21:55 EDT) Specimen Narrative This result has an attachment that is no t available. Transcriptions PLAYROOM ATTENDANT, SCAN 2 - 04/04/2012 21:55 EDT ECG REPORT - SCANNED (04/04/2012 21:55 EDT) Specimen Narrative This result has an attachment that is no t available. Transcriptions PLAYROOM ATTENDANT, SCAN 2 - 04/04/2012 21:55 EDT CERVICAL SPINE 2-3 VIEWS (03/30/2012 6:08 EDT) Anatomical Region Laterality Modality Other Specimen Narrative [facility] - 03/30/2012 9:24 EDT CERVICAL SPINE 2-3 VIEWS ??Mar 30, 2012 06:08:00 AM Signs and Symptoms/Comments: ??s/p cervi sylvia spinal stimulator placement, check position. ??do AP and l ateral Comparison: MR 01/15/2012 Findings: AP and lateral radiographs of the cervic al spine were obtained. There has been placement of a cervical spinal stimulator within the spinal canal just anterior to the spinous proce sses of the C5-C7 vertebrae. Expected postoperative soft tissue gas i s apparent. Cervical spine alignment is normal except for some stra ightening. Vertebral body heights are maintained. There are mild t o moderate multilevel degenerative changes. Impression: Spinal stimulator is within the spinal c anal posteriorly at the level of C5-C7. I have personally reviewed the images an d the above interpretation and agree with the findings. Procedure Note Iqra Vanessa MD - 03/30/2012 CERVICAL SPINE 2-3 VIEWS Mar 30, 2012 06 :08:00 AM Signs and Symptoms/Comments: s/p cervica l spinal stimulator placement, check position. do AP and lat eral Comparison: MR 01/15/2012 Findings: AP and lateral radiographs of the cervic al spine were obtained. There has been placement of a cervical spinal stimulator within the spinal canal just anterior to the spinous proce sses of the C5-C7 vertebrae. Expected postoperative soft tissue gas i s apparent. Cervical spine alignment is normal except for some stra ightening. Vertebral body heights are maintained. There are mild t o moderate multilevel degenerative changes. Impression: Spinal stimulator is within the spinal c anal posteriorly at the level of C5-C7. I have personally reviewed the images an d the above interpretation and agree with the findings. Performing Organization Address City/[facility]/ZIP Code Phon e Number [facility] [place] UP TO 1 HOUR (03/29/2012 13:38 EDT) Anatomical Region Laterality Modality Other Specimen Narrative [facility] - 03/29/2012 13:38 EDT Non Reportable Exam Procedure Note 03/29/2012 Non Reportable Exam Performing Organization Address [facility]/ZIP Code Phon e Number [facility] CERVICAL SPINE 1 VIEW (03/29/2012 12:01 EDT) Anatomical Region Laterality Modality Other Specimen Narrative [facility] - 03/29/2012 13:20 EDT Single view of the cervical spine March 29, 2012. History: Neuropathic pain syndrome. Findings: A lateral crosstable portable view obtained in the operating room demonstrates a surgical p robe projecting over the C6 spinous process. Dr. Lee discussed the findings aide Alexander in the operating room who concurred. Procedure Note 03/29/2012 Single view of the cervical spine March 112011. History: Neuropathic pain syndrome. Findings: A lateral crosstable portable view obtained in the operating room demonstrates a surgical p robe projecting over the C6 spinous process. Dr. Lee discussed the findings aide Alexander in the operating room who concurred. Performing Organization Address City/[facility]/ZIP Code Phon e Number [facility] TYPE AND SCREEN (03/29/2012 9:45 EDT) Pathologist Sig nature ABO O [facility] Rh Factor Positive [facility] Antibody Screen NegativeComment: [facility] SPECIMEN EXPIRES AT 23:59 ON 04/01/12 Specimen Performing Organization Address City/State/ZIP Code Phon e Number [facility] [address] [place] [address] SERVICES [facility] [address] [place] [address] PTT (03/29/2012 9:24 EDT) Pathologist Sig candido PTT 35Comment: Therapeutic 26 - 37 secs [facility] Heparin range: 65-100 seconds Specimen Blood specimen (specimen) Performing Organization Address City/State/ZIP Code Phon e Number [facility] [address] [place] [address] SERVICES [facility] [address] [place] [address] documented in this encounter Visit Diagnoses Diagnosis Neuropathic pain syndrome (non-herpetic) Neuralgia, neuritis, and radiculitis, un specified Phantom limb pain (HCC-CMS) (HCC) Phantom limb (syndrome) documented in this encounter Administered Medications Inactive Administered Medications - up to 3 most recent administrations Medication Order MAR Action Action Date Dose Rate Site acetaminophen (TYLENOL) tablet Given 03/30/2012 9:49 EDT 650 mg 325-650 mg 325-650 mg, oral, EVERY 4 HOURS PRN, Starting on Wed03/29/12 at 1812, Until Wed03/30/12 at 1339, Pain, Fever, Routine Given 03/30/2012 5:47 EDT 650 mg Given 03/30/2012 2:19 EDT 650 mg amitriptyline (ELAVIL) tablet 25 mg Given 03/29/2012 20:47 EDT 25 mg 25 mg, oral, AT BEDTIME, First dose on Wed03/29/12 at 2100, Until Discontinued, Routine ceFAZolin (ANCEF) 2,000 mg in sodium Given by Other 03/29/2012 14:30 EDT 2,000 mg chloride 0.9 % 50 mL IVPB 2,000 mg, intravenous, Administer over 30 Minutes, EVERY 8 HOURS, 3 doses, First dose on Wed03/29/12 at 1415, Last dose on Wed03/30/12 at 0800, Routine ceFAZolin (ANCEF) 2,000 mg in sodium chloride Given 8:54 EDT 2,000 mg 0.9% 50 mL IVPB 2,000 mg, intravenous, Administer over 30 Minutes, EVERY 8 HOURS, 3 doses, First dose on Wed03/29/12 at 1445, Last dose on Wed03/30/12 at 0800, Routine Given 03/30/2012 1:16 EDT 2,000 mg Given 03/29/2012 14:35 EDT 2,000 mg ceFAZolin (ANCEF) syringe 1 g Given by Other 03/29/2012 10:49 EDT 1 g Right Arm 1 g, intravenous, Administer over 10 Minutes, PRE-OP ONCE, 1 dose, On Wed03/29/12 at 1045, Routine, Pre Op Day of Surgery ceFAZolin (ANCEF) syringe 1 g Given by Other 03/29/2012 10:49 EDT 1 g Right Arm 1 g, intravenous, Administer over 10 Minutes, PRE-OP ONCE, 1 dose, On Wed03/29/12 at 1100, Routine cyanocobalamin tablet 1,000 mcg Given 03/30/2012 8:23 EDT 1,000 mcg 1,000 mcg, oral, DAILY, First dose on Wed03/30/12 at 0900, Until Discontinued, Routine docusate sodium (COLACE) capsule 100 mg Given 03/30/2012 8:23 EDT 100 mg 100 mg, oral, 2 TIMES DAILY, First dose on Wed03/29/12 at 2100, Until Discontinued, Routine Given 03/29/2012 20:47 EDT 100 mg fentanyl (DURAGESIC) patch Patch Applied 03/30/2012 8:21 EDT 100 mcg mL/hr Left Arm 100 mcg 100 mcg, transdermal, EVERY 72 HOURS, First dose on Wed03/30/12 at 0900, Until Discontinued lactated ringers (LR) infusion New Bag 03/29/2012 10:24 EDT 25 mL/hr at 25 mL/hr, intravenous, CONTINUOUS, Starting on Wed03/29/12 at 1045, Until Wed03/29/12 at 1812, Routine, Pre-Op DOS Rx Approved lactated ringers (LR) infusion Given by Other 03/29/2012 18:11 EDT 75 mL/hr at 75 mL/hr, intravenous, CONTINUOUS, Starting on Wed03/29/12 at 1400, Until Wed03/29/12 at 1731, Routine, Recovery (only) morphine (MS CONTIN) CR tablet 100 mg Given 03/30/2012 8:23 EDT 100 mg 100 mg, oral, 3 TIMES DAILY, First dose on Wed03/29/12 at 1530, Until Discontinued, Routine Given 03/29/2012 20:48 EDT 100 mg Given 03/29/2012 15:42 EDT 100 mg oxycodone (ROXICODONE) immediate release tablet Given 2011 9:49 EDT 20 mg 20 mg 20 mg, oral, EVERY 4 HOURS PRN, Starting on Wed03/29/12 at 1812, Until Wed03/30/12 at 1339, Pain, Routine Given 03/30/2012 5:47 EDT 20 mg Given 03/30/2012 2:19 EDT 20 mg oxycodone (ROXICODONE) immediate release tablet Given 03/29/2012 18:10 EDT 10 mg 5-15 mg 5-15 mg, oral, EVERY 4 HOURS PRN, Starting on Wed03/29/12 at 1722, Until Wed03/30/12 at 1339, Pain, discomfort, Routine Given 03/29/2012 17:25 EDT 5 mg pregabalin (LYRICA) capsule 150 mg Given 03/30/2012 8:23 EDT 150 mg 150 mg, oral, 3 TIMES DAILY, First dose on Wed03/29/12 at 2100, Until Discontinued, Routine Given 03/29/2012 20:47 EDT 150 mg sodium chloride 0.9 % with KCl 20 mEq/L New Bag 03/29/2012 15:59 E DT 75 mL/hr infusion at 75 mL/hr, intravenous, CONTINUOUS, Starting on Wed03/29/12 at 1415, Until Wed03/30/12 at 1339, Routine documented in this encounter Discontinued Medications Medication Sig Discontinue Reason Start Date End Date omeprazole (PRILOSEC) 20 Take 40 mg by mouth Error 03/22/2012 mg capsule daily. documented as of this encounter Historical Medications This list may reflect changes made after this encounter. Medication Sig Dispensed Refills Start Date End Date docusate sodium (COLACE) Take 100 mg by mouth 0 100 mg capsule at bedtime. added in this encounter Active and Recently Administered Medications Times are shown in EDT. Scheduled Medication Order 03/28/2012 03/29/2012 03/30/2012 amitriptyline (ELAVIL) tablet 25 mg (CANCELED) 2046 (Given - Provider: Maurizio Winters) 25 mg, Oral, AT BEDTIME, First dose on Wed03/29/12 at 2100, Until Discontinued ceFAZolin (ANCEF) 2,000 mg in sodium chloride 0.9 % 50 mL IV PB (CANCELED) 1430 (Given by Other - Provider: Elodia Paz LPN) 2,000 mg, Intravenous, for 30 Minutes, E VERY 8 HOURS, 3 doses, First dose on Wed03/29/12 at 1415, Last dose on Wed03/30/12 at 0800 ceFAZolin (ANCEF) 2,000 mg in sodium chloride 0.9% 50 mL IVP B (COMPLETED) 1435 (Given - Provider: Cassidy Rebollar RN) 0116 (Given - Provider: Maurizio Winters)0854 (Given - Provider: Radha Payne) 2,000 mg, Intravenous, for 30 Minutes, E VERY 8 HOURS, 3 doses, First dose on Wed03/29/12 at 1445, Last dose on Wed03/30/12 at 0800 ceFAZolin (ANCEF) syringe 1 g (COMPLETED) 1049 (Given by Other - Provider: Saskia Singleton RN - Comment: Given by Cassidy Baca, anesthesia) 1 g, Intravenous, for 10 Minutes, PRE-OP ONCE, 1 dose, Wed at 1045 ceFAZolin (ANCEF) syringe 1 g (COMPLETED) 1049 (Given by Other - Provider: Saskia Singleton RN - Comment: Cassidy Baca MD, anesthesia) 1 g, Intravenous, for 10 Minutes, PRE-OP ONCE, 1 dose, Wed at 1100 cyanocobalamin tablet 1,000 mcg (CANCELED) 08 (Given - Provider: Radha Payne) 1,000 mcg, Oral, DAILY, First dose on Wed03/30/12 at 0900, Until Discontinued docusate sodium (COLACE) capsule 100 mg (CANCELED) 2046 (Given - Provider: Maurizio Winters) 0823 (Given - Provider: Radha Payne) 100 mg, Oral, 2 TIMES DAILY, First dose on Wed03/29/12 at 2100, Until Discontinued fentanyl (DURAGESIC) patch 100 mcg (CANCELED) 820 (Patch Applied - Provider: Radha Payne) 100 mcg, Transdermal, for 72 Hours, EVER Y 72 HOURS, First dose on Wed03/30/12 at 0900, Until Discontinued morphine (MS CONTIN) CR tablet 100 mg (CANCELED) 1542 (Given - Provider: Ricky Pratt, RN)204 (Given - Provider: Maurizio Winters) 0105 (Canceled Entry - Provider: Maurizio Winters)0823 (Given - Provider: Radha Payne) 100 mg, Oral, 3 TIMES DAILY, First dose on Wed03/29/12 at 1530, Until Discontinued pregabalin (LYRICA) capsule 150 mg (CANCELED) 2046 (Given - Provider: Maurizio Winters) 08 (Given - Provider: Radha Payne) 150 mg, Oral, 3 TIMES DAILY, First dose on Wed03/29/12 at 2100, Until Discontinued Continuous Medication Order 03/28/2012 03/29/2012 03/30/2012 lactated ringers (LR) infusion (CANCELED) 1024 (New Bag - Provider: Nia Villa RN) at 25 mL/hr, Intravenous, CONTINUOUS, St arting Wed03/29/12 at 1045, Until Wed03/29/12 at 1812 lactated ringers (LR) infusion (CANCELED) 1811 (Given by Other - Provider: Elodia Paz LPN) at 75 mL/hr, Intravenous, CONTINUOUS, St arting Wed03/29/12 at 1400, Until Wed03/29/12 at 1731 sodium chloride 0.9 % with KCl 20 mEq/L infusion (CANCELED) 1559 (New Bag - Provider: Ricky Pratt RN) at 75 mL/hr, Intravenous, CONTINUOUS, St arting Wed03/29/12 at 1415, Until Wed03/30/12 at 1339 PRN Medication Order 03/28/2012 03/29/2012 03/30/2012 acetaminophen (TYLENOL) tablet 325-650 mg (CANCELED) 1910 (Given - Provider: Elodia Paz LPN)2344 (Given - Provider: Maurizio Winters) 0219 (Given - Provider: Melody Chappell)0547 (Given - Provider: Maurizio Winters)0949 (Given - Provider: Radha Payne) 325-650 mg, Oral, EVERY 4 HOURS PRN, Sta rting 03/29/12 at 1812, Until Wed03/30/12 at 1339, Pain, Fever oxycodone (ROXICODONE) immediate release tablet 20 mg (CANCE LED) 2216 (Given - Provider: Maurizio Winters) 0219 (Given - Provider: Melody Chappell)0547 ( Given - Provider: Maurizio Winters)0949 (Given - Provider: Radha Payne) 20 mg, Oral, EVERY 4 HOURS PRN, Starting 03/29/12 at 1812, Until Wed03/30/12 at 1339, Pain oxycodone (ROXICODONE) immediate release tablet 5-15 mg 1725 (Given - Provider: Ricky Pratt RN)1810 (Given - Provider: Elodia Paz LPN) 5-15 mg, Oral, EVERY 4 HOURS PRN, Starti ng Tue 03/29/12 at 1722, Until Wed03/30/12 at 1339, Pain, discomfort senna (SENOKOT) tablet 1-2 Tab 1-2 Tab, Oral, 2 TIMES DAILY PRN, Starti ng Arlette 03/31/12 at 0000, Until Wed03/30/12 at 1339, Constipation documented in this encounter Orders Medications Ordered That Might Not Have Count Last Ord ered Date First Ordered Date Been Administered oxycodone (ROXICODONE) 5 mg immediate 1 04/02/2012 release tablet acetaminophen (TYLENOL) solution 325-650 012 mg acetaminophen (TYLENOL) suppository 03/29/2012 325-650 mg atropine 0.1 mg/mL 10 mL syringe 0.5 mg 03/29/20 12 bisacodyl (DULCOLAX) suppository 10 mg 2 diphenhydrAMINE (BENADRYL) injection 6.25 2011 mg fentanyl citrate (PF) 50 mcg/mL injection 2011 25-100 mcg hydrALAzine (APRESOLINE) 10 mg in sodium 1 012 chloride (NS) 0.9 % 50 mL IVPB HYDROmorphone (PF) (DILAUDID) 1 mg/mL 1 03/29/2012 injection 0.2-1 mg magnesium hydroxide (MILK OF MAGNESIA) 400 1 03/29 mg/5 mL suspension 30 mL meperidine (PF) (DEMEROL) 25 mg/0.5 mL 1 2 injection 12.5-25 mg metoCLOPramide (REGLAN) injection 10 mg 1 03/29/20 12 morphine injection 1-2 mg 1 03/29/2012 morphine injection 1-5 mg 1 03/29/2012 Multivitamins with Minerals tablet 1 Tab 1 012 naloxone (NARCAN) injection 0.2 mg 1 03/29/2012 ondansetron (PF) (ZOFRAN) injection 2 mg 1 012 ondansetron (PF) (ZOFRAN) injection 2-4 mg 1 03/29 oxycodone-acetaminophen (PERCOCET) 5-325 1 012 mg per tablet 1-2 Tab senna (SENOKOT) tablet 1-2 Tab 1 03/29/2012 sodium phosphate (FLEET) enema 1 Enema 1 2 Nursing Count Last Ordered Date First Ordered Date PLACE SEQUENTIAL COMPRESSION DEVICE 1 03/29/[address] ROBERTO HOSE 1 03/29/2012 Admission Count Last Ordered Date First Ordered Date STATUS: OUTPATIENT SURGICAL OP 1 03/29/2012 BED/SERVICES Transfer Count Last Ordered Date First Ordered Date NOTIFY PPS OF DISCHARGE COMPLETE 03/30/2012 NOTIFY PPS OF ROOM CHANGE COMPLETE 03/29/2012 NOTIFY PPS PATIENT ARRIVAL IN PACU 03/29/2012 NOTIFY PPS PATIENT TRANSFERRED OUT OF PACU 03/29 PPS NOTIFICATION OF PATIENT ARRIVAL ON 2 UNIT TEACHING SERVICE 1 03/29/2012 documented in this encounter Care Teams Supervisor Microbiology Technologists Relationship Specialty Start Date End Date Peter Spencer MD PCP - General 11/13/09 [address] [place] [address] documented as of this encounter
--- OUTSIDE RECORDS SUMMARY | 2022-07-10 00:47 | XMS_ITS | Encounter Summary ---
:1960 Author Organization [facility] Address [address] [place] [address] Care Team Providers Name Role Phone Peter Spencer MD Primary Care Provider Reason for Visit Reason Comments Hand Pain left hand pain Encounter Details Date Type Department Care Team Description 08/11/2011 Office Visit [facility] - Unknown, Pr MD maylin Phantom limb pain (CMS-HCC); [facility] Hugo Andrews III, DO [address] [place] [address] Neuropathic pain syndrome (non-herpetic) [facility] Derek Pratt, DO [address] [place] [address] Interventional Pain [address] [place], [place] [address] Social History Tobacco Use Types Packs/Day Years Used Date Never Smoker Smokeless Tobacco: Current User Alcohol Use Standard Drinks/Week Comments Yes [id number] (1 standard drink = 0.6 oz pure alcohol) Sex Assigned at Date Recorded Not on file documented as of this encounter Last Filed Vital Signs Vital Sign Reading Time Taken Comments Blood Pressure 126/83 08/11/2011 1305 EDT Pulse 77 08/11/2011 1305 EDT Temperature 35.7 ??C (96.3 ??F) 08/11/2011 1305 EDT Respiratory Rate 16 08/11/2011 1305 EDT Oxygen Saturation - - Inhaled Oxygen Concentration - - Weight 88.5 kg (195 lb) 08/11/2011 1305 EDT Height 177.8 cm (5' 10) 08/11/2011 1305 EDT Body Mass Index 27.98 08/11/2011 1305 EDT documented in this encounter Progress Notes Jackie Grant - 08/11/2011 1704 EDT [facility] Follow Up Note Patient Name: Phuong Duran : 1960 Date of Service: 08/11/2011 Interval History: Mr. Duran presents for removal of his SCS trial lead today. He states he has had great relief over the past week with the use of the trial lead. Specifically he has not required any break through narcotic and his normal use is approximately 8-9 tabs of Oxy IR per day. He states thathis pain scale normally runs 6-9/10 daily and this week it has been 1-2/10. His is eager to move forward with the placement of the permanent device. He did have a discussion with the ANS rep that surrounded the location of the leads and referenced the possibility of placement slightly lower than before. ROS: ROS: Patient reports no other symptoms as pertinent positives. CONSTITUTIONAL: Patient does not report fevers, nausea, vomiting. NEURO/EYES: Patient does not report headaches, dizziness, or visual changes. HEME: Patient does not report any known coagulopathies. PULM/CARDIAC: Patient does not report shortness of breath or chest pain. GI/: Patient does not report bowel or bladder incontinence. Physical Examination: Vital signs: Blood pressure 126/83, pulse 77, temperature 35.7 ??C (96.3 ??F), temperature source Tympanic, resp. rate 16, height 177.8 cm (70), weight 88.451 kg (195 lb). PE: Patient is an otherwise pleasant white male. Patient is in NAD. Alert and oriented x3 and appropriate in conversation today. Ambulates without an assist device. The site was mildly erythematous at the suture site and the point of entry of the lead - approximately 5 milimeters. No exudate or swelling. Mild tenderness to palpation. The lead was removed easily and intact. The rest of the physical exam was deferred. Assessment: 1. No diagnosis found. 2. Encounter Diagnoses Name Primary? Phantom limb pain ??? Neuropathic pain syndrome (non-herpetic) Plan: Follow up with scheduling of the permanent SCS lead. A suture kit was used to remove the anchoring suture. The lead was intact and removed without resistance. The entry points were then cleaned with betadine and then alcohol immediatlely after. Dressing was applied. documented in this encounter Plan of Treatment Not on filedocumented as of this encounter Visit Diagnoses Diagnosis Phantom limb pain (HCC-CMS) (HCC) Phantom limb (syndrome) Neuropathic pain syndrome (non-herpetic) Neuralgia, neuritis, and radiculitis, un specified documented in this encounter Care Teams Recharger Relationship Specialty Start Date End Date Peter Spencer MD PCP - General 11/13/09 [address] [place] [address] documented as of this encounter
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
--- OUTSIDE RECORDS SUMMARY | 2022-07-10 00:47 | XMS_ITS | Encounter Summary ---
:[address] [facility] Address [address] [place] [address] Care Team Providers Name Role Phone Peter Spencer MD Primary Care Provider Encounter Details Date Type Department Care Team Description 01/15/2012 Hospital Encounter [facility] - [facility] Scott Tilley DO [address] [place], [place] [address] [place], [place] [phone] Social History Tobacco Use Types Packs/Day Years Used Date Never Smoker Smokeless Tobacco: Current User Alcohol Use Standard Drinks/Week Comments Yes [id number] (1 standard drink = 0.6 oz pure alcohol) Sex Assigned at Date Recorded Not on file documented as of this encounter Medications at Time of Discharge Medication Sig Dispensed Refills Start Date End Date acetaminophen (TYLENOL) 500 Take 500 mg by 0 mg tablet mouth every 6 hours. amitriptyline (ELAVIL) 25 Take 25 mg by 0 010 mg tablet mouth at bedtime. cyanocobalamin (VITAMIN Take 1,000 mcg by 0 B-12) 1,000 mcg tablet mouth daily. FENTANYL TD Place 100 mcg onto 0 01/23/2011 the skin every 72 hours. morphine (MS CONTIN) 100 mg Take 100 mg by 0 09/10 CR tablet mouth 3 times daily. pregabalin (LYRICA) 150 mg Take 150 mg by 0 09/19 capsule mouth 3 times daily. omeprazole (PRILOSEC) 20 mg Take 40 mg by 0 03/22/2012 capsule mouth daily. oxycodone (OXY-IR) 15 mg Take 120 mg by 0 010 04/21/2012 immediate release tablet mouth daily. documented as of this encounter Discharge Disposition Disposition Code Departure Means Destination Home or Self Custodial documented in this encounter Plan of Treatment Not on filedocumented as of this encounter Visit Diagnoses Not on filedocumented in this encounter Care Teams Cake Puller Relationship Specialty Start Date End Date Peter Spencer MD PCP - General 11/13/09 [address] [place] [address] documented as of this encounter
--- OUTSIDE RECORDS SUMMARY | 2022-07-10 00:47 | XMS_ITS | Encounter Summary ---
:1960 Author Organization [facility] Address [address] [place] [address] Care Team Providers Name Role Phone Peter Spencer MD Primary Care Provider Encounter Details Date Type Department Care Team Description 12/26/2021 Lab Requisition [facility] Outr Resulting Lab, Pathology & Laboratory Provider [facility] [address], [place] [phone] Social History Tobacco Use Types Packs/Day Years [...] Name Priority Date/Time Associated Diagnosis Comme nts CHRONIC HEPATITIS Routine 12/26/2021 9:15 EDT Res ults for this PROFILE, UNKNOWN procedure a re in TYPE the results section. documented in this encounter Results CHRONIC HEPATITIS PROFILE, UNKNOWN TYPE (12/26/2021 9:15 EDT) Hep B Surface Ag Negative Negative [facility] Hep B Surface Ab, <3.1 See Note mIU/mL [facility] Quantitative Comment: [facility] Reference Range for Hep B Surface Ab, Quant: SERVICES Positive: >= 10.0 mIU/mL Negative: ??< 10.0 mIU/mL Patient is presumed to not be immune to infection with Hepatitis B Virus. Hep B Surface Ab, Negative See Note [facility] Qualitative Comment: [facility] Reference Range for Hep B Surface Ab, Qual: SERVICES Unvaccinated: ??Negative Vaccinated: ??Positive Hepatitis B Core Negative Negative [facility] Ab, Total [facility] Hep C Antibody Negative Negative [facility] Specimen Blood - Venous blood (substance) Performing Organization Address City/State/ZIP Code Phon e Number [facility] [address] [place] [address] SERVICES documented in this encounter Visit Diagnoses Not on filedocumented in this encounter Care Teams Hair Spring Winder Relationship Specialty Start Date End Date Peter Spencer MD PCP - General 11/13/09 [address] [place], [place] [phone] documented as of this encounter
--- OUTSIDE RECORDS SUMMARY | 2022-07-10 00:47 | XMS_ITS | Encounter Summary ---
:1960 Author Organization [facility] Address [address] [place] [address] Care Team Providers Name Role Phone Peter Spencer MD Primary Care Provider Encounter Details Date Type Department Care Team Description 04/21/2012 - [facility] Aristides Alexander MD Neuropathic pain 04/22/2012 Encounter Neurosurgery Unit 111 [facility] 111 [facility] (non-herpetic) [address] [phone] [facility] Level [address] [place] [address] Social History Tobacco Use Types [...] Body Mass Index 18.73 04/15/2012 1140 EDT documented in this encounter Functional Status Cognitive Status Response Date of Assessment Because of a physical, mental, or emotional condition, do Ye s 04/21/2012 you have serious difficulty concentrating, remembering, or making decisions? (5 years old or older) documented as of this encounter Discharge Summaries Evita Nguyễn MD - 04/22/2012 0759 EDT Discharge Summary Chief Complaint/Reason for Admission: Neuropathic pain Principal/Final Diagnosis: same Principal Procedure: Adjustment of spinal cord stimulator placement Date: 04/21/12 Prognosis: good Condition at Discharge: Good Hospital Course: 51 y.o. 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 A spinal cord stimulator was recently placed but was suboptimal and needed revision The patient was taken to the OR on 04/21/12 by Aristides Alexander MD for adjustment of spinal cord stimulator placement. The patient toleratedthe procedure well and was transferred to the PACU postoperatively. On POD#1 the patient ambulated with minimal assistance, tolerated a full oral diet, and had adequatepain control with oral medications. The patient was discharged to home on 04/22/12 with instructions to call the Neurosurgical Office within a week to schedule a follow-up appointment with Aristides Alexander MD in 10- 14 days The patient's incision was closed with cade. Prescribed medications included robaxin and oxycodone. CC: MD Catherine AQUINO Paul L, MD Beatrice Disogra, JEANNA Coles RN Discharge Summary Completed: 04/22/12 documented in this encounter Discharge Instructions InstructionsEvita Nguyễn MD - 04/22/2012 POST-OPERATIVE INSTRUCTIONS AFTER POSTERIOR CERVICAL SURGERY 1. Wear the collar for one week. 2. Muscle spasms and tightness into both shoulder and down between the shoulder blades is common. Use the muscle relaxant medication, apply heat or ice to the area as needed. 3. You should walk normally with normal swing with your arms and walk as much as tolerated. 4. No lifting more than 10 pounds, no pushing or pulling with your arms. 6. Please call if you are unable to tolerate your medications or if they do not adequately manage your symptoms. 7. Avoid using your hands and arms above your shoulder height or holding your head and neck in one position for prolonged periods of time such as hours on the computer. 8. Avoid house work or yard work. You may cook but limit your lifting to 10 pound. Do not vacuum or sweep. Avoid loading or lifting laundry unless one article at a time. 9. No swimming or bike riding until seen in follow-up appointment. 10. Please avoid car rides unless absolutely necessary for the first three weeks. You may not drive until seen in follow-up with your surgeon. 11. Your cade need to be removed in 14 days. Call our office at or for an appointment or if any problems such as signs of infection or above symptoms. Please call the office in one week for follow up in 10-14 days with Johanna Davis. documented in this encounter Medications at Time [...] as needed. documented as of this encounter Ordered Prescriptions Prescription Sig Dispensed Refills Start Date End Date oxycodone (ROXICODONE) 5 mg Take 1-3 Tabs by 50 Tab 0 immediate release tablet mouth every 4 hours as needed for Pain (discomfort). methocarbamol (ROBAXIN) 500 Take 2 Tabs by mouth 60 Tab 1 04/22/2012 mg tablet 4 times daily. documented in this encounter Discharge Disposition Disposition Code Departure Means Destination Home or Self Care documented in this encounter Progress Notes Manisha Ruth - 04/22/2012 1102 EDT Brief Case Management Assessment and discharge note Reason for Hospitalization: Admited for revision of spinal cord electrode stimulator. POD 1, being d/c home today. Current Living Arrangements: Lives alone in a [place] apartment. Sister lives close by. 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 Has plus [facility] for insurance and medication coverage. Sister Nargis will provide transportation home today. Case Management Actions (completed and planned): Met with patient this morning. He states he is managing well at home. No concerns for discharge today. Plan is to d/c home, without home health services at this time. Manisha Ruth RN CM #[id number] Aristides Zimmerman MD - 04/22/2012 0903 EDT POD 1. Revision of electrode Doing well, less pain than anticipated. We expect stimulator to be turned on today. Likely discharge later. Aristides Alexander MD FACS Professor, Neurological Surgery Evita Yoon MD - 04/22/2012 0723 EDT Neurosurgery Progress Note Chief Complaint: Neuropathic pain Principle Dx: same 24 hour events: Adjustment of spinal cord stimulator placement Subjective: I feel better than I did the last time Objective: Vital Signs: Blood pressure 98/57, pulse 65, temperature 35.6 ??C (96.1 ??F), temperature source Tympanic, resp. rate 16, height 180.3 cm (71), weight 60.9 kg (134 lb 4.2 oz), SpO2 96.00%. I/O: 04/21 0700 - 04/22 0659 In: 2186.3 [P.O.:200; I.V.:1986.3] Out: 1750 [Urine:1750] amitriptyline; cyanocobalamin; docusate sodium; fentanyl; methocarbamol; morphine; pregabalin; senna Exam: Awake, alert Speech clear Oriented to Duran, Wednesday and Shah Elmer Face symmetric Tongue midline No drift Computer Methods Analyst, biceps, triceps full strength on right only Sensation intact in UE IP/TA/EHL/gastroc full strength Sensation intact in lower extremities Dressing with sanguinous fluid Milton J in place WBC/Hgb/Hct/Plts: 4.63/12.5/36.1/146 (04/21 184) Assessment and Plan 51 y.o. male, LOS: 1 day S/P Adjustment of spinal cord stimulator placement ?? Programming of stimulator today ?? Milton J x7 days ?? Dc today Evita Nguyễn MD Neurosurgery resident 04/22/2012 7:23 Neurosurgery Service Pager [phone] Vijay Estes MD - 04/21/2012 5322 EDT Neurosurgery CC/ Neuropathic pain, s/p Repositioning of the spinal cord stimulator. S/ No weakness, numbness, tingling. Mild cervical tenderness Blood pressure 125/69, pulse 67, temperature 35.6 ??C (96.1 ??F), temperature source Tympanic, resp.rate 18, height 180.3 cm (71), weight 60.9 kg (134 lb 4.2 oz), SpO2 96.00%. Alert Verbalizes appropriately, fluently Follows commands x4 Extraocular movements intact Face symmetric Tongue midline UE Strength - RIGHT Deltoid (C5) 5/5 Bicep (C5, 6) 5/5 Tricep (C6, 7) 5/5 Computer Methods Analyst (C8) 5/5 No drift Sensation intact in bilateral upper extremities (C5/C6/C7/C8 distributions) LE Strength - LEFT Iliopsoas(L2, 3) 5/5 Gastroc (S1, S2) 5/5 Anterior Tibialis (L4, 5) 5/5 LE Strength - RIGHT Iliopsoas(L2, 3) 5/5 Gastroc (S1, S2) 5/5 Anterior Tibialis (L4, 5) 5/5 Sensation intact in bilateral lower extremities (L4/L5/S1 distributions) Dressing in place - minimal staining. 51 year old male, s/p repositioning of spinal cord stimulator. Doing well post-operatively Follow examination Pain control Maintain normotension Vijay James MD Radha Wolff, JEANNA - 04/21/2012 1948 EDT Pt awakened slowly from anesthesia, but has been alert, oriented x3, deutsch, cranial nerves intact, chatty w/sister and nursing, tolerated cup of pepsi. Ambulated to bathroom, very slightly unsteady, but no weakness, attempted to void, unable. Bladder scanned for 664, I/O cathed for 600 cc. Neuro Chi to bedside to examine pt, dressing CDI, pain tolerable, denies nausea, VSS. Rona Sanchez RN - 04/15/2012 1139 EDT Phuong Duran has been instructed as follows regarding medication administration for the day of thescheduled procedure. Date of Surgery: 04/21/2012 Instructions for Taking Medications Day of Surgery Medication Last Dose Hold DOS Take DOS senna (SENOKOT) 8.6 mg tablet y oxycodone (ROXICODONE) 5 mg immediate release tablet y methocarbamol (ROBAXIN) 500 mg tablet y docusate sodium (COLACE) 100 mg capsule y cyanocobalamin (VITAMIN B-12) 1,000 mcg tablet y acetaminophen (TYLENOL) 500 mg tablet y FENTANYL TD y pregabalin (LYRICA) 150 mg capsule y amitriptyline (ELAVIL) 25 mg tablet y oxycodone (OXY-IR) 15 mg immediate release tablet y morphine (MS CONTIN) 100 mg CR tablet y Avoid aspirin and ibuprofen documented in this encounter H&P Notes DIVE SUPERVISOR, SCAN 2 - 04/27/2012 1844 EDT Marco Antonio Whyte MD - 04/21/2012 1116 EDT The preoperative history and physical which was performed within 30 days of this procedure has been reviewed and the clinically appropriate elements of the physical examination havebeen repeated. There are no changes to the documented history and physical or if so such changes aredocumented below MARCO ANTONIO BLANTON MD 04/21/2012 11:16 documented in this encounter Procedure Notes DIVE SUPERVISOR, SCAN 2 - 04/27/2012 1844 EDTAssociated Order(s): ECG REPORT - SCANNED documented in this encounter Nursing Notes DIVE SUPERVISOR, SCAN 2 - 04/27/2012 1844 EDT documented in this encounter OR Notes OR PreOp - DIVE SUPERVISOR, SCAN 2 - 04/27/2012 1844 EDT R Surgeon - Aristides Alexander MD - 04/22/2012 1035 EDT OPERATIVE REPORT SERVICE DATE: 04/21/2012 PREOPERATIVE DIAGNOSIS: Phantom limb pain, failure of coverage of spinal cord stimulator system. PROCEDURE: Cervical laminectomy at C7 and repositioning of cervical spinal cord stimulator lead array using fluoroscopy. SURGEON: Aristides Alexander MD SILO TENDER: Evita Nguyễn MD INDICATIONS: The patient is a 51-year-old man who underwent placement of a cervical spinal cord stimulator lead for phantom limb pain on 03/29/12. Initially, he was thought to be getting good left phantom limb coverage, but this turned out not to be the case after he had gone home and had further reprog ramming done by [facility]. Therefore, the x-rays had shown that the lead had spanned the midline, but clearly was not covering enough of the left side and so physiologically was all right-sided. We therefore planned to place this lead completely on the left side of the canal relative to it's current position. NARRATIVE: The patient was brought to the operating room and once under general anesthesia via endotracheal tube, a Sweeney catheter was placed and the Patel pin clamp applied and he was turned prone on the operating room table with the neck flexed and all pressure points padded. The skin of the backof the neck was prepared with Hibiclens, alcohol and ChloraPrep because of an iodine allergy. He wasgiven intravenous antibiotics. After sterile draping, I the previous midline incision was reopened and not extended. Suture material was removed. With subperiosteal dissection, we were able to once again expose the lamina of C7 with the electrode entering at the C7-T1 interspace. A retractor was placed. A complete laminectomy was carried out at C7 to expose the electrode in the epidural space. It didappear that physically the electrode was in the midline, but we knew this not to be the case physiologically. We then removed more of the lamina on the left side out to the lateral recess. The electrode was then extracted, taking care to note its current position and then we were able to place it in the epidural space above the scar tissue and partially underneath the lamina of C6. It did traverse that space without any difficulty. A 5-0 Prolene stitch was then placed to the scar tissue at the midline and to secure the electrode. The wires themselves remained in the same relative position. Hemostasis was assured with Surgifoam powder. X-rays were taken in AP and lateral views. The wound was thoroughly irrigated and closed with 2-0 Vicryl and 3-0 Vicryl for muscle and fascia, 3-0 Vicryl subcu and cade for the skin. ESTIMATED BLOOD LOSS: Negligible. COMPLICATIONS: There were no complications. Unless otherwise noted, there were no complications, no blood loss, no cultures obtained, no specimens removed, and no drains retained. Aristides Alexander MD 08 43 AM / Aristides Alexander MD css Confirmation: [id number] Dictation ID: [id number] cc: Peter Spencer MD nesthesia Procedure Notes - DIVE SUPERVISOR, SCAN 2 - 04/21/2012 1721 EDT R PreOp - DIVE SUPERVISOR, SCAN 2 - 04/21/2012 1716 EDT nesthesia Preprocedure Evaluation - DIVE SUPERVISOR, SCAN 2 - 04/21/2012 1343 EDT documented in this encounter Miscellaneous Notes Scanned Note-Null - DIVE SUPERVISOR, SCAN 2 - 04/27/2012 1844 EDT canned Note- Null - DIVE SUPERVISOR, SCAN 2 - 04/27/2012 1844 EDT lan of Care - Maggie Brown, RN - 04/22/2012 1130 EDT Problem: DISCHARGE PLANNING Goal: Patient???s Continuum Of Care Needs Are Met Outcome: Completed Date Met: 04/22/12 Data: pt with discharge order Action: pt discharge instructions reviewed with pt, prescriptions given, saline lock/IV site d/c'd. Patient education completed. Pt has all belongings and equipment. Response: pt verbalizes understanding of discharge instructions, f/u appts. Discharged to home with sister via w/c. Maggie Brown RN 04/22/2012 11:30 lan of Care - Nat Ruff RN - 04/22/2012 0435 EDT Problem: HOSPITAL ORIENTATION/SAFETY Goal: Oriented To Hospital Environment Active Multi-Disciplinary problems: FALL RISK [188780] (04/21/12) HOSPITAL ORIENTATION/SAFETY [400589] (04/22/12) DAILY CARE [215788] (04/22/12) PAIN [[id number]] (04/22/12) DISCHARGE PLANNING [108502] (04/22/12) NEUROLOGICAL STATUS [[id number]] (04/22/12) Data: Pt admitted s/p reposition of spinal cord stimulator. Pt is at neuro baseline. Pt is rating pain at 3-4/10 in neck and lower back. Pt voided on own. Action: Assessments performed. Pt medicated with scheduled robaxin and morphine and prn oxycodone. Assisted pt as needed. Oriented to environment. Response: Pt rating pain at 2/10 and able to rest through shift. Will continue to monitor and assess. Nat Ruff RN 04/22/2012 4:31 nesthesia Post-Eval - Glynn Segura - 04/21/2012 1841 EDT Post Anesthesia Evaluation Note Date of Service: 04/21/2012 Phuong Duran, a 51 y.o. year old male has received General Anesthesia He has been evaluated, assessed and discharged from anesthesia care with stable cardiorespiratory function and easily arousable mental status. The last set of recorded vital signs and pain rating were reviewed: Temp: 36.2 ??C (97.2 ??F) (04/21/12 1716), Heart Rate: 76 BPM (04/21/121814), BP: 148/81 mmHg (04/21/121814), Resp: 15 (04/21/121814), SpO2: 98 % (04/21/12 1815),Numeric Pain Level (Scale 1-10): 0 Phuong Duran participated in this evaluation unless [...] be followed by the Acute Pain Service. GLYNN SEGURA MD 04/21/2012 18:41 rief Op Note - Evita Nguyễn MD - 04/21/2012 1653 EDT Neurosurgery Operative Note PRE-OP DIAGNOSIS = Neuropathic pain POST-OP DIAGNOSIS = same PROCEDURE = Repositioning of spinal cord stimulator SURGEON = Dr. Alexander SILO TENDER = Dr. Nguyễn ANESTHESIA = General and local COMPLICATIONS = none FINDINGS = Stimulator with too medial placement EBL = minimal IVF = 1500cc UOP = 850 SPECIMENS/CULTURES = none DRAINS = none SKIN = cade DISPO = [facility] for one week Evita Nguyễn MD Neurosurgery Resident 04/21/2012 16:57 Neurosurgery Service Pager [phone] canned Note- Null - DIVE SUPERVISOR, SCAN 2 - 04/21/2012 1041 EDT canned Note- Null - DIVE SUPERVISOR, SCAN 2 - 04/21/2012 1041 EDT documented in this encounter Plan of Treatment Not on filedocumented as of this encounter Procedures Procedure Name Priority Date/Time Associated Comments Diagnosis ECG REPORT - SCANNED 04/27/2012 18:44 Res ults for this EDT procedure are i n the results section. COMPLETE BLOOD COUNT Routine 04/21/2012 18:48 Res ults for this AND DIFFERENTIAL EDT procedure a re in the results section. PORT FLUORO UP TO 1 04/21/2012 16:40 Resu lts for this HOUR EDT procedure are i n the results section. CERVICAL SPINE 2-3 Routine 04/21/2012 16:40 Resul ts for this VIEWS EDT procedure are i n the results section. documented in this encounter Results ECG REPORT - SCANNED (04/27/2012 18:44 EDT) Specimen Narrative This result has an attachment that is no t available. Transcriptions DIVE SUPERVISOR, SCAN 2 - 04/27/2012 18:44 EDT (ABNORMAL) HEMAGRAM AND DIFFERENTIAL (04/21/2012 18:48 EDT) Pathologist Sig nature WBC 4.63 4.0 - 10.4 K/cmm [facility] RBC 4.11 (L) 4.36 - 5.78 M/cmm [facility] Hemoglobin 12.5 (L) 13.8 - 17.3 gm/dl [facility] HCT 36.1 (L) 39.5 - 50.2 % [facility] MCV 88 81 - 95 fl [facility] MCH 30.3 27.6 - 33.0 pg [facility] MCHC 34.5 32.8 - 36.4 gm/dl [facility] PLT 146 141 - 320 K/cmm [facility] RDW-CV 14.4 (H) 11.8 - 14.1 % [facility] Neutrophils 85.4 (H) 45.5 - 79.7 % [facility] Lymphocytes 11.9 (L) 15.0 - 46.8 % [facility] Monocytes 1.3 (L) 1.8 - 12.0 % [facility] Eosinophils 1.0 0.6 - 6.9 % [facility] Basophils 0.4 0.2 - 1.4 % [facility] ABS Neutrophils 3.96 2.20 - 8.85 K/cmm [facility] ABS Lymphs 0.55 (L) 1.09 - 3.30 K/cmm [facility] ABS Monocytes 0.06 (L) 0.1 - 0.8 K/cmm [facility] ABS Eosinophils 0.04 0.03 - 0.61 K/cmm [facility] ABS Basophils 0.02 0.01 - 0.11 K/cmm [facility] Type of Diff: Automated [facility] Specimen Blood specimen (specimen) Performing Organization Address City/[facility]/ZIP Code Phon e Number [facility] [address] [place] [address] SERVICES [facility] [address] [place] [address] PORT FLUORO UP TO 1 HOUR (04/21/2012 16:40 EDT) Anatomical Region Laterality Modality Other Specimen Narrative [facility] - 04/21/2012 16:40 EDT Non Reportable Exam Procedure Note 04/21/2012 Non Reportable Exam Performing Organization Address [facility]/ZIP Code Phon e Number [facility] CERVICAL SPINE 2-3 VIEWS (04/21/2012 16:40 EDT) Anatomical Region Laterality Modality Other Specimen Narrative [facility] - 04/26/2012 16:30 EDT Findings: 2 fluoroscopic saved images from the ope rating room were obtained of the cervical spine. Support tubes are in place. A spinal cord stimulator electrodes in place. Please s ee operative note for details. Procedure Note 04/26/2012 Findings: 2 fluoroscopic saved images from the ope rating room were obtained of the cervical spine. Support tubes are in place. A spinal cord stimulator electrodes in place. Please s ee operative note for details. Performing Organization Address [facility] Phon e Number [facility] documented in this encounter Visit Diagnoses Diagnosis Neuropathic pain syndrome (non-herpetic) Neuralgia, neuritis, and radiculitis, un specified documented in this encounter Administered Medications Inactive Administered Medications - up to 3 most recent administrations Medication Order MAR Action Action Date Dose Rate Site acetaminophen (TYLENOL) tablet Given 04/21/2012 13:12 EDT 1,000 mg 1,000 mg 1,000 mg, oral, PRE-OP ONCE, 1 dose, On Arlette 04/21/12 at 1230, Routine acetaminophen (TYLENOL) tablet 650 mg Given 04/21/2012 18:58 EDT 650 mg 650 mg, oral, EVERY 6 HOURS PRN, Starting on Arlette 04/21/12 at 1650, Until Arlette 12 at 2037, Pain, Routine, Recovery (only) amitriptyline (ELAVIL) tablet 25 mg Given 04/21/2012 21:24 EDT 25 mg 25 mg, oral, AT BEDTIME, First dose on Arlette 04/21/12 at 2100, Until Discontinued, Routine ceFAZolin (ANCEF) syringe 1 g Given 04/21/2012 13:51 EDT 1 g 1 g, intravenous, Administer over 10 Minutes, PRE-OP ONCE, 1 dose, On Arlette 04/21/12 at 1215, Routine, Pre Op Day of Surgery cyanocobalamin tablet 1,000 mcg Given 04/22/2012 8:13 EDT 1,000 mcg 1,000 mcg, oral, DAILY, First dose on Wed04/22/12 at 0900, Until Discontinued, Routine docusate sodium (COLACE) capsule 100 mg Given 04/21/2012 21:24 EDT 100 mg 100 mg, oral, AT BEDTIME, First dose on Arlette 04/21/12 at 2100, Until Discontinued, Routine fentanyl (DURAGESIC) patch Patch Applied 04/22/2012 8:13 EDT 100 mcg mL/hr Left Arm 100 mcg 100 mcg, transdermal, EVERY 72 HOURS, First dose on Wed04/22/12 at 0900, Until Discontinued lactated ringers (LR) infusion New Bag 04/21/2012 11:48 EDT 25 mL/hr at 25 mL/hr, intravenous, CONTINUOUS, Starting on Arlette 04/21/12 at 1215, Until Wed04/22/12 at 1336, Routine, Pre-Op DOS Rx Approved lactated ringers (LR) infusion Rate Documented 04/21/2012 17:16 EDT 75 mL/hr at 75 mL/hr, intravenous, CONTINUOUS, Starting on Arlette 04/21/12 at 1715, Until Wed04/21/12 at 2037, Routine, Recovery (only) methocarbamol (ROBAXIN) tablet 1,000 mg Given 04/22/2012 8:13 EDT 1,000 mg 1,000 mg, oral, 4 TIMES DAILY, First dose on Arlette 04/21/12 at 2100, Until Discontinued, Routine Given 04/21/2012 21:24 EDT 1,000 mg morphine (MS CONTIN) CR tablet 100 mg Given 04/21/2012 13:12 EDT 100 mg 100 mg, oral, PRE-OP ONCE, 1 dose, On Arlette 04/21/12 at 1230, Routine morphine (MS CONTIN) CR tablet 100 mg Given 04/22/2012 8:12 EDT 100 mg 100 mg, oral, 3 TIMES DAILY, First dose on Arlette 04/21/12 at 2100, Until Discontinued, Routine Given 04/21/2012 21:24 EDT 100 mg oxycodone (ROXICODONE) immediate release tablet Given 2011 8:19 EDT 15 mg 5-15 mg 5-15 mg, oral, EVERY 4 HOURS PRN, Starting on Arlette 04/21/12 at 2014, Until Wed04/22/12 at 1336, Pain, discomfort, Routine Given 04/22/2012 3:25 EDT 15 mg oxycodone (ROXICODONE) immediate release tablet Given 04/21/2012 18:56 EDT 15 mg 5-30 mg 5-30 mg, oral, PRN, 2 doses, Starting on Arlette 04/21/12 at 1650, Until Wed04/21/12 at 2037, Pain, x 2 doses, Routine, Recovery (only) pregabalin (LYRICA) capsule 150 mg Given 04/21/2012 13:12 EDT 150 mg 150 mg, oral, PRE-OP ONCE, 1 dose, On Arlette 04/21/12 at 1245, Routine pregabalin (LYRICA) capsule 150 mg Given 04/22/2012 8:13 EDT 150 mg 150 mg, oral, 3 TIMES DAILY, First dose on Arlette 04/21/12 at 2100, Until Discontinued, Routine Given 04/21/2012 21:25 EDT 150 mg senna (SENOKOT) tablet 1-2 Tab Given 04/22/2012 8:14 EDT 1 Tablet 1-2 Tablet, oral, 2 TIMES DAILY, First dose on Arlette 04/21/12 at 2100, Until Discontinued, Routine sodium chloride 0.9 % with KCl 20 mEq/L New Bag 04/21/2012 20:12 E DT 75 mL/hr infusion at 75 mL/hr, intravenous, CONTINUOUS, Starting on Arlette 04/21/12 at 1845, Until Wed04/22/12 at 1336, Routine documented in this encounter Discontinued Medications Medication Sig Discontinue Reason Start Date End Date oxycodone (OXY-IR) 15 mg Take 120 mg by Error 09/19/2010 0 04/21/2012 immediate release tablet mouth daily. methocarbamol (ROBAXIN) Take 2 Tabs by 03/30/2012 500 mg tablet mouth every 6 hours as needed. oxycodone (ROXICODONE) 5 Take 1-3 Tabs by 03/30/2012 04/22/2012 mg immediate release mouth every 6 tablet hours as needed for Pain (discomfort). documented as of this encounter Active and Recently Administered Medications Times are shown in EDT. Scheduled Medication Order 04/20/2012 04/21/2012 04/22/2012 acetaminophen (TYLENOL) tablet 1,000 mg (COMPLETED) 1312 (Given - Provider: Beth Booker RN) 1,000 mg, Oral, PRE-OP ONCE, 1 dose, Arlette 04/21/12 at 1230 amitriptyline (ELAVIL) tablet 25 mg (CANCELED) 2123 (Given - Provider: Nat Ruff RN) 25 mg, Oral, AT BEDTIME, First dose on Wed04/21/12 at 2100, Until Discontinued ceFAZolin (ANCEF) syringe 1 g (COMPLETED) 1351 (Given - Provider: Jamia Temple RN - Comment: given by Noé TRINH) 1 g, Intravenous, for 10 Minutes, PRE-OP ONCE, 1 dose, Arlette at 1215 cyanocobalamin tablet 1,000 mcg (CANCELED) 812 (Given - Provider: Maggie Brown RN) 1,000 mcg, Oral, DAILY, First dose on Wed04/22/12 at 0900, Until Discontinued docusate sodium (COLACE) capsule 100 mg (CANCELED) 2123 (Given - Provider: Nat Ruff RN) 100 mg, Oral, AT BEDTIME, First dose on Arlette 04/21/12 at 2100, Until Discontinued fentanyl (DURAGESIC) patch 100 mcg (CANCELED) 812 (Patch Applied - Provider: Maggie Brown RN) 100 mcg, Transdermal, for 72 Hours, EVER Y 72 HOURS, First dose on Wed04/22/12 at 0900, Until Discontinued methocarbamol (ROBAXIN) tablet 1,000 mg 2123 (Given - Provider: Nat Ruff RN) 08 (Given - Provider: Maggie lemons RN) 1,000 mg, Oral, 4 TIMES DAILY, First dos e on Arlette 04/21/12 at 2100, Until Discontinued morphine (MS CONTIN) CR tablet 100 mg (COMPLETED) 131 (Given - Provider: Beth Booker RN) 100 mg, Oral, PRE-OP ONCE, 1 dose, Arlette 04/21/12 at 1230 morphine (MS CONTIN) CR tablet 100 mg (CANCELED) 2123 (Given - Provider: Nat Ruff RN) 08 (Given - Provider: Maggie lemons RN) 100 mg, Oral, 3 TIMES DAILY, First dose on Arlette 04/21/12 at 2100, Until Discontinued pregabalin (LYRICA) capsule 150 mg (COMPLETED) 1311 (Given - Provider: Beth Booker RN) 150 mg, Oral, PRE-OP ONCE, 1 dose, Arlette 04/21/12 at 1245 pregabalin (LYRICA) capsule 150 mg (CANCELED) 2124 (Given - Provider: Nat Ruff RN) 08 (Given - Provider: Maggie lemons RN) 150 mg, Oral, 3 TIMES DAILY, First dose on Arlette 04/21/12 at 2100, Until Discontinued senna (SENOKOT) tablet 1-2 Tab (CANCELED) 2127 (Not Given - Provider: Nat Ruff RN - Reason: Order parameters not met) 0814 (Given - Provider: Maggie Brown RN) 1-2 Tab, Oral, 2 TIMES DAILY, First dose on Arlette 04/21/12 at 2100, Until Discontinued Continuous Medication Order 04/20/2012 04/21/2012 04/22/2012 lactated ringers (LR) infusion (CANCELED) 1148 (New Bag - Provider: Katie Browning, JEANNA) at 25 mL/hr, Intravenous, CONTINUOUS, St arting Arlette 04/21/12 at 1215, Until Wed04/22/12 at 1336 lactated ringers (LR) infusion (CANCELED) 1716 (Rate Documented - Provider: Radha Wolff, JEANNA)1999 (Completed - Provider: Radha Wolff, JEANNA) at 75 mL/hr, Intravenous, CONTINUOUS, St arting Arlette 04/21/12 at 1715, Until Arlette 04/21/12 at 203 sodium chloride 0.9 % with KCl 20 mEq/L infusion (CANCELED) 2011 (New Bag - Provider: Radha Wolff, RN) at 75 mL/hr, Intravenous, CONTINUOUS, [facility] Arlette 04/21/12 at 1845, Until 04/22/12 at 1336 PRN Medication Order 04/20/2012 04/21/2012 04/22/2012 acetaminophen (TYLENOL) tablet 650 mg (CANCELED) 185 (Given - Provider: Radha Wolff, JEANNA) 650 mg, Oral, EVERY 6 HOURS PRN, Startin g Arlette 04/21/12 at 1650, Until Arlette 04/21/12 at 203, Pain oxycodone (ROXICODONE) immediate release tablet 5-15 mg 0325 (Given - Provider: Nat Ruff RN)0819 (Given - Provider: Maggie Brown RN) 5-15 mg, Oral, EVERY 4 HOURS PRN, Starti ng Arlette 04/21/12 at 2014, Until 04/22/12 at 1336, Pain, discomfort oxycodone (ROXICODONE) immediate release tablet 5-30 mg (CAN CELED) 185 (Given - Provider: Radha Wolff, JEANNA) 5-30 mg, Oral, PRN, 2 doses, Starting Th u 04/21/12 at 1650, Until Arlette 04/21/12 at 203, Pain, x 2 doses documented in this encounter Orders Medications Ordered That Might Not Have Count Last Ord ered Date First Ordered Date Been Administered acetaminophen (TYLENOL) tablet 1,000 mg 1 04/22/20 12 atropine 0.1 mg/mL 10 mL syringe 0.5 mg 1 04/21/20 diphenhydrAMINE (BENADRYL) injection 6.25 1 2011 mg fentanyl citrate (PF) 50 mcg/mL injection 1 2011 25-100 mcg hydrALAzine (APRESOLINE) 10 mg in sodium 1 012 chloride (NS) 0.9 % 50 mL IVPB HYDROmorphone (PF) (DILAUDID) 1 mg/mL 1 04/21/2012 injection 0.2-1 mg meperidine (PF) (DEMEROL) 25 mg/0.5 mL 1 2 injection 12.5 mg morphine injection 1-5 mg 1 04/21/2012 morphine injection 2-4 mg 1 04/21/2012 naloxone (NARCAN) injection 0.2 mg 1 04/21/2012 ondansetron (PF) (ZOFRAN) injection 2-4 mg 1 04/21 ondansetron (PF) (ZOFRAN) injection 4 mg 1 012 Nursing Count Last Ordered Date First Ordered Date INSERT SWEENEY CATHETER 1 04/21/2012 INSERT PERIPHERAL IV 1 04/21/2012 Admission Count Last Ordered Date First Ordered Date STATUS: INPATIENT ACUTE ADMISSION 1 04/21/2012 STATUS: OUTPATIENT SURGICAL OP 1 04/21/2012 BED/SERVICES Transfer Count Last Ordered Date First Ordered Date NOTIFY PPS OF DISCHARGE COMPLETE 1 04/22/2012 NOTIFY PPS PATIENT ARRIVAL IN PACU 1 04/21/2012 NOTIFY PPS PATIENT TRANSFERRED OUT OF PACU 04/21 PPS NOTIFICATION OF PATIENT ARRIVAL ON 2 UNIT TRANSFER PATIENT 1 04/21/2012 Discharge Count Last Ordered Date First Ordered Date DISCHARGE PATIENT 1 04/22/2012 documented in this encounter Care Teams Multiple Knife Edge Trimmer Operator Relationship Specialty Start Date End Date Peter Spencer MD PCP - General 11/13/09 [address] [place] [address] documented as of this encounter
--- OUTSIDE RECORDS SUMMARY | 2022-07-10 00:47 | XMS_ITS | Encounter Summary ---
:1960 Author Organization [facility] Address [address] [place] [address] Care Team Providers Name Role Phone Peter Spencer MD Primary Care Provider Encounter Details Date Type Department Care Team Description 09/19/2010 Abstract Used for ABSTRACTING Data Petre Spencer MD [phone] [address] [place], [place] [address] (Wo rk) Social History Tobacco Use Types Packs/Day Years Used Date Never Assessed Sex Assigned at Date Recorded Not on file documented as of this encounter Plan of Treatment Not on filedocumented as of this encounter Visit Diagnoses Not on filedocumented in this encounter Historical Medications This list may reflect changes made after this encounter. Medication Sig Dispensed Refills Start Date End Date morphine (MS CONTIN) 100 mg Take 100 mg by 0 09/10 CR tablet mouth 3 times daily. amitriptyline (ELAVIL) 25 Take 25 mg by 0 010 mg tablet mouth at bedtime. pregabalin (LYRICA) 150 mg Take 150 mg by 0 09/19 capsule mouth 3 times daily. oxycodone (OXY-IR) 15 mg Take 120 mg by 0 010 04/21/2012 immediate release tablet mouth daily. added in this encounter Care Teams Science Interpreter Relationship Specialty Start Date End Date Peter Spencer MD PCP - General 11/13/09 [address] [place] [address] documented as of this encounter
--- OUTSIDE RECORDS SUMMARY | 2022-07-10 00:47 | XMS_ITS | Encounter Summary ---
:1960 Author Organization [facility] Address [address] [place] [address] Care Team Providers Name Role Phone Peter Spencer MD Primary Care Provider Encounter Details Date Type Department Care Team Description 09/30/2011 Hospital Encounter [facility] Hugo Andrews I II, Perioperative Services- [facility] [address] [place], [place] [id number] [place] [phone] (Wo rk) Social History Tobacco Use Types Packs/Day Years Used Date Never Smoker Smokeless Tobacco: Current User Alcohol Use Standard Drinks/Week Comments Yes [id number] (1 standard drink = 0.6 oz pure alcohol) Sex Assigned at Date Recorded Not on file documented as of this encounter Last Filed Vital Signs Vital Sign Reading Time Taken Comments Blood Pressure 140/84 09/30/2011 1615 EST Pulse - - Temperature 36.4 ??C (97.5 ??F) 09/30/2011 1615 EST Respiratory Rate 11 09/30/2011 1615 EST Oxygen Saturation 98% 09/30/2011 1615 EST Inhaled Oxygen Concentration - - Weight - - Height - - Body Mass Index - - documented in this encounter Discharge Instructions Elodia Lee RN - 09/30/2011 Call the [facility] at [phone] with any questions. We will be calling you with an appointment for Neurosurgery for placement of your nerve stimulator. If you have any redness at the incision sites, fevers, chills, headache, uncontrollable pain, nauseaor vomiting, please contact the [facility] at the above telephone number. Thank you. documented in this encounter Medications at Time [...] Care documented in this encounter Progress Notes Elodia Brandon RN - 09/30/2011 1600 EST 1541- Pt admit to PACU with anesthesia Julio C Shelton MD in attendance. Pt stable. Placed on cardiac monitors. Pain score is 3/10. Denies nausea. Awake and Alert. Responds appropriately to commands. Juliana Arias MD and Cameron Pratt MD to bedside to assess patient and talk with him about the procedure and the plan for discharge. 1628- Pt discharged to home with sister in stable condition via wheelchair. documented in this encounter H&P Notes Hugo Andrews - 09/30/2011 1232 EST SURGICAL HISTORY AND PHYSICAL Name: Phuong Duran :: Age: 51 y.o. :: Attending physician: Hugo Andrews MD Jigger Artisan: Derek Pratt DO HPI: Patient is a 51 y.o. year old male who presents for a dorsal column spinal cord stimulator, single lead implantation for the amelioration of LEFT upper extremity phantom limb pain. He successfullycompleted a trial period with this intervention from August 04 to August 11, 2011. During that time period he had increased tolerance for activities of daily living and a reduced need for oral analgesics. He denies interval change in his health since our last office consultation. ROS: Past Medical History Diagnosis Date ??? Allergy ??? Neuromuscular disease ??? GERD (gastroesophageal reflux disease) ??? Peptic ulcer disease ??? Arthritis ??? Ulcerative colitis ??? Chronic kidney disease Patient Active Problem List Diagnoses ??? Phantom limb pain ??? Neuropathic pain syndrome (non-herpetic) Past Surgical History Procedure Date ??? Appendectomy ??? Abdomen surgery ??? Fracture surgery Home Medications No current facility-administered medications on file prior to encounter. Current Outpatient Prescriptions on File Prior to Encounter Medication Sig Dispense Refill ??? cyanocobalamin (VITAMIN [...] 100 mg by mouth 3 times daily. Hospital Medications Current Facility-Administered Medications Medication Route Frequency ??? lactated ringers (LR) infusion Intravenous CONTINUOUS ??? ceFAZolin (ANCEF) syringe 2 g Intravenous PRE-OP ONCE Allergies Allergies Allergen Reactions ??? Chocolate Flavor Hives ??? Copper ??? Iodine-Iodine Containing PE: Vitals: Blood pressure 146/91, temperature 35.5 ??C (95.9 ??F), temperature source Tympanic, resp. rate 16, SpO2 96.00%. Neuro: grossly intact CV: S1 S2 Pulm: clear to auscultation Site: skin clear, nonerythematous Assessment: Patient is a 51 y.o. yo male for single lead dorsal column spinal cord stimulator for LEFT upper extremity phantom limb pain. Plan: 1. To operative suite for planned intervention today. 2. Follow up in clinic in 10 days for postoperative check and visit. 12:32 09/30/2011 Derek Pratt DO Attending attestation: I saw and examined the patient with the resident/fellow. I agree with the findings and plan of care documented in the resident's/fellow's note. In addition, I was present and participated during the entire procedure. Hugo Andrews MD 09/30/2011 documented in this encounter Procedure Notes Hugo Andrews - 10/07/2011 1423 ESTProcedure(s): AK PERCUT IMPLNT NEUROELECT,EPIDURAL; AK IMPLANT SPINAL NEUROSTIM/RECEIVERPre-Procedure Diagnose(s): Cervical radiculopathy; Phantom limb pain (HCC-CMS) (HCC)Post- Procedure Diagnose(s): Phantom limb pain (HCC-CMS) (HCC); Cervical radiculopathy OPERATIVE REPORT DATE OF SURGERY 09/30/2011 PROCEDURE Attempted Implantation of pulse generator spinal cord stimulator and percutaneous stimulator lead(s) ANESTHESIA Local/MAC EBL Minimal URINE OUTPUT Not measured IV FLUIDS < 1 liter Lactated Ringers COMPLICATIONS None CONSENT The patient signed an informed consent to proceed with permanent implantation of a spinal cord stimulator system after a detailed discussion of the procedure and the associated benefits and potential risks. NARRATIVE The patient was marked in pre-op hold, cefazolin 2 gm IV was administered, and he was transported tot O.R. where he was placed prone on the OR table. MAC anesthesia commenced and the surgical area was prepped with alcohol followed by chlorhexadine. The surgical site was draped with 2 U-drapes. Flouroscopy was used to evaluate the thoracic and cervical spine. The soft tissue overlying the T5 pedicle (right) was anesthetized with 1% lidocaine with epi. A 16 gauge touhy needle was advanced towards the T2-3 interspace, however, due to the difficult anatomy we were unable to access the epidural space despite multiple attempts at T2-3 and T3-4. We ultimately decided to abort the operation. The small puncture wound was washed and dried, then dressed with steri-strips. The patient tolerated the operation well and he was transferred to PACU awake and stable. DISPOSITION The patient was discharged in excellent condition. dministrator, Scan - 10/07/2011 1241 EST Associated Order(s): ECG REPORT - SCANNED documented in this encounter OR Notes OR PreOp - Site Safety Manager, Scan - 10/08/2011 0848 EST R PreOp - Site Safety Manager, Scan - 10/07/2011 1241 EST nesthesia Procedure Notes - Site Safety Manager, Scan - 09/30/2011 1541 EST nesthesia Preprocedure Evaluation - Site Safety Manager, Scan - 09/30/2011 1325 EST documented in this encounter Miscellaneous Notes Scanned Note-Null - Site Safety Manager, Scan - 10/07/2011 1241 EST canned Note- Null - Site Safety Manager, Scan - 10/07/2011 1241 EST rief Op Note - Hugo Andrews - 09/30/2011 2117 EST Brief Post-Op Note Date of Surgery: 09/30/2011 Surgeon: Hugo Andrews MD Assitant: Cameron Brown DO Procedure: Percutaneous spinal cord stimulator inmplantation-aborted Anesthesia Type: Local MAC Blood Loss: Minimal Complications: None Disposition and Condition: Phuong Duran was sent to PACU in Good condition. Hugo Andrews MD 09/30/2011 21:18 Unless otherwise noted, there was minimal blood loss, specimens removed, cultures obtained, or drains retained. nesthesia Post- Eval - David Knight MD - 09/30/2011 1606 EST Post Anesthesia Evaluation Note Date of Service: 09/30/2011 Phuong Duran, a 51 y.o. year old male has received MAC today. He has been evaluated, assessed and discharged from anesthesia care with stable cardiorespiratory function and alert mental status. The last set of recorded vital signs and pain rating were reviewed: Temp: 36.6 ??C (97.9 ??F) (09/30/11 1541), Heart Rate: 66 BPM (09/30/11 1600), BP: 137/83 mmHg (09/30/11 1600), Resp: 12 (09/30/11 1600), SpO2: 95 % (09/30/11 1600),Numeric Pain Level (Scale 1-10): 5 Phuong Duran participated in this evaluation unless otherwise noted. His pain, nausea and vomitinghave been managed and his body temperature and fluid balance have been restored. Additional monitoring and assessment needs have been addressed. If present, any postoperative events are documented below. David Knight MD 09/30/2011 16:06 documented in this encounter Plan of Treatment Not on filedocumented as of this encounter Procedures Procedure Name Priority Date/Time Associated Diagnosis Comme nts ECG REPORT - 10/07/2011 12:41 Results for this SCANNED EST procedure are i n the results section. PORT FLUORO UP TO 1 09/30/2011 15:37 Resu lts for this HOUR EST procedure are i n the results section. documented in this encounter Results ECG REPORT - SCANNED (10/07/2011 12:41 EST) Specimen Narrative This result has an attachment that is no t available. Transcriptions Site Safety Manager, Scan - 10/07/2011 12:[address] [place] FLU[place]O UP TO 1 HOUR (09/30/2011 15:37 EST) Anatomical Region Laterality Modality Other Specimen Narrative [facility] - 09/30/2011 15:37 EST Non Reportable Exam Procedure Note 09/30/2011 Non Reportable Exam Performing Organization Address City/State/ZIP Code Phon e Number [facility] documented in this encounter Visit Diagnoses Not on filedocumented in this encounter Administered Medications Inactive Administered Medications - up to 3 most recent administrations Medication Order MAR Action Action Date Dose Rate Site ceFAZolin (ANCEF) syringe 2 g Given by Other 09/30/2011 13:13 EST 2 g 2 g, intravenous, Administer over 10 Minutes, PRE-OP ONCE, 1 dose, On Wed09/30/11 at 1245, Routine lactated ringers (LR) infusion New Bag 09/30/2011 11:41 EST 25 mL/hr at 25 mL/hr, intravenous, CONTINUOUS, Starting on Wed09/30/11 at 1200, Until Wed09/30/11 at 1411, Routine, Pre-Op DOS Rx Approved lactated ringers (LR) infusion Rate Documented 09/30/2011 15:41 EST 75 mL/hr at 75 mL/hr, intravenous, CONTINUOUS, Starting on Wed09/30/11 at 1600, Until Wed09/30/11 at 1913, Routine, Recovery (only) documented in this encounter Active and Recently Administered Medications Times are shown in EST. Scheduled Medication Order 09/28/2011 09/29/2011 09/30/2011 ceFAZolin (ANCEF) syringe 2 g (COMPLETED) 1313 (Given by Other - Provider: Naomy Castro - Comment: Given in OR by anesthesia, Jessa Porter) 2 g, Intravenous, for 10 Minutes, PRE-OP ONCE, 1 dose, 09/30 at 1245 Continuous Medication Order 09/28/2011 09/29/2011 09/30/2011 lactated ringers (LR) infusion (CANCELED) 1141 (New Bag - Provider: Antonette Licona RN) at 25 mL/hr, Intravenous, CONTINUOUS, St arting Wed09/30/11 at 1200, Until Wed09/30/11 at 1411 lactated ringers (LR) infusion (CANCELED) 1541 (Rate Documented - Provider: Elodia Brandon RN) at 75 mL/hr, Intravenous, CONTINUOUS, St arting Wed09/30/11 at 1600, Until Wed09/30/11 at 1913 documented in this encounter Orders Medications Ordered That Might Not Have Count Last Ord ered Date First Ordered Date Been Administered atropine 0.1 mg/mL 10 mL syringe 0.5 mg 1 09/30/20 11 naloxone (NARCAN) injection 0.2 mg 1 09/30/2011 ondansetron (PF) (ZOFRAN) injection 2 mg 1 011 oxycodone (ROXICODONE) immediate release 1 011 tablet 10 mg Nursing Count Last Ordered Date First Ordered Date INSERT PERIPHERAL IV 1 09/30/2011 Admission Count Last Ordered Date First Ordered Date NOTIFY PPS PACU PATIENT DISCHARGE 1 09/30/2011 NOTIFY PPS PATIENT ARRIVAL IN PACU 2 09/30/2011 Discharge Count Last Ordered Date First Ordered Date DISCHARGE PATIENT 1 09/30/2011 documented in this encounter Care Teams Coffee Shop Aide Relationship Specialty Start Date End Date Peter Spencer MD PCP - General 11/13/09 [address] [place] [address] documented as of this encounter
--- OUTSIDE RECORDS SUMMARY | 2022-07-10 00:47 | XMS_ITS | Encounter Summary ---
:1960 Author Organization [facility] Address [address] [place] [address] Care Team Providers Name Role Phone Peter Spencer MD Primary Care Provider Reason for Visit (Routine/Next Available) - Receiving Office to Obtain Authorization Specialty Diagnoses / Procedures Referred By Contact Refer red To Contact Procedures Imaging, External US OUTSIDE IMAGES BODY Referral ID Status Reason Start Expiration Visits Visits Date Date Requested Authorized [id number] Receiving Office 03/18/2022 1 1 to Obtain Authorization Encounter Details Date Type Department Care Team Description 03/18/2022 Hospital Encounter [facility] Secondary Reads [place] Social History Tobacco [...] Name Priority Date/Time Associated Diagnosis Comme nts US OUTSIDE IMAGES Routine 03/18/2022 18:30 Result s for this BODY EDT procedure are i n the results section. documented in this encounter Results US OUTSIDE IMAGES BODY (03/18/2022 18:30 EDT) Specimen Narrative 03/18/2022 18:30 EDT This is a non-reportable exam. documented in this encounter Visit Diagnoses Not on filedocumented in this encounter Care Teams Corporate Securities Research Analyst Relationship Specialty Start Date End Date Peter Spencer MD PCP - General 11/13/09 [address] [place] [address] documented as of this encounter
--- OUTSIDE RECORDS SUMMARY | 2022-07-10 00:47 | XMS_ITS | Encounter Summary ---
:1960 Author Organization [facility] Address [address] [place] [address] Care Team Providers Name Role Phone Unavailable Primary Care Provider Unavailable Encounter Details Date Type Department Care Team Description 11/24/2001 Hospital Encounter [facility] - Araceli Garcia MD [facility] [address] [place], [place] [id number] [facility] AvrilCalderon lyon MD [address] [place] [phone] [address] [place], [place] [id number] Social History Tobacco Use Types Packs/Day Years Used Date Never Assessed Sex Assigned at Date Recorded Not on file documented as of this encounter Discharge Disposition Disposition Code Departure Means Destination Auto Discharge documented in this encounter Plan of Treatment Not on filedocumented as of this encounter Visit Diagnoses Not on filedocumented in this encounter
--- OUTSIDE RECORDS SUMMARY | 2022-07-10 00:47 | XMS_ITS | Encounter Summary ---
:1960 Author Organization [facility] Address [address] [place] [address] Care Team Providers Name Role Phone Peter Spencer MD Primary Care Provider Encounter Details Date Type Department Care Team Description 12/28/2021 Lab Requisition [facility] Outr Resulting Lab, Pathology & Laboratory Provider [facility] [address] [place], [place] [id number] Social History Tobacco Use Types Packs/Day Years [...] Associated Diagnosis Comme nts CHRONIC HEPATITIS Routine 12/27/2021 9:45 EDT Res ults for this PROFILE, UNKNOWN procedure a re in TYPE the results section. documented in this encounter Results CHRONIC HEPATITIS PROFILE, UNKNOWN TYPE (12/27/2021 9:45 EDT) Hep B Surface Ag Negative Negative [facility] Hep B Surface Ab, <3.1 See Note mIU/mL [facility] Quantitative Comment: [facility] Reference Range for Hep B Surface Ab, Quant: SERVICES Positive: >= 10.0 mIU/mL Negative: ??< 10.0 mIU/mL Patient is presumed to not be immune to infection with Hepatitis B Virus. Hep B Surface Ab, Negative See Note [facility] Qualitative Comment: [facility] Reference Range for Hep B Surface Ab, Qual: SERVICES Unvaccinated: ??Negative Vaccinated: ??Positive Hepatitis B Core Negative Negative [facility] Ab, Total [facility] Hep C Antibody Negative Negative [facility] Specimen Blood - Venous blood (substance) Performing Organization Address City/State/ZIP Code Phon e Number [facility] [address] [place] [address] SERVICES documented in this encounter Visit Diagnoses Not on filedocumented in this encounter Care Teams Tuckpointer Relationship Specialty Start Date End Date Peter Spencer MD PCP - General 11/13/09 [address] [place], [place] [phone] documented as of this encounter
--- OUTSIDE RECORDS SUMMARY | 2022-07-10 00:47 | XMS_ITS | Encounter Summary ---
:1960 Author Organization [facility] Address [address] [place] [address] Care Team Providers Name Role Phone Peter Spencer MD Primary Care Provider Encounter Details Date Type Department Care Team Description 12/28/2021 Lab Requisition [facility] Outr Resulting Lab, Pathology & Laboratory Provider [facility] [address] [place], [place] [phone] Social History Tobacco Use Types Packs/Day Years [...] Procedure Name Priority Date/Time Associated Comments Diagnosis HIV 1/2 ANTIGEN AND Routine 12/27/2021 9:45 EDT R esults for this ANTIBODY, 4TH procedure are in GENERATION the results section. documented in this encounter Results HIV 1/2 ANTIGEN AND ANTIBODY, 4TH GENERATION (12/27/2021 9:45 EDT) HIV 1 and 2 NegativeComment: If Negative [facility] Antibody/p24 acute HIV-1 LABORATORY Antigen, 4th infection is SERVICES Generation suspected in a high risk patient, submit plasma specimen for HIV-1 RNA quantitation test. Specimen Blood - Venous blood (substance) Narrative [facility] - 12/29/2021 12:10 EDT Fourth Generation assay performed on the Siemens Centaur XPT. Performing Organization Address City/State/ZIP Code Phon e Number [facility] [address] [place] [address] SERVICES documented in this encounter Visit Diagnoses Not on filedocumented in this encounter Care Teams Assembly Machine Feeder Relationship Specialty Start Date End Date Peter Spencer MD PCP - General 11/13/09 [address] [place] [address] documented as of this encounter
--- OUTSIDE RECORDS SUMMARY | 2022-07-10 00:47 | XMS_ITS | Encounter Summary ---
:1960 Author Organization [facility] Address [address] [place] [address] Care Team Providers Name Role Phone Peter Spencer MD Primary Care Provider Encounter Details Date Type Department Care Team Description 09/25/2011 Hospital Encounter [facility] Rosa Pfeiffer sa, MD Perioperative Services- Ian Scott, DO [address] [place] [address] [facility], DO [address] [facility] [address] [place], [place] [address] [address], [place] [address] Social History Tobacco Use Types Packs/Day Years Used Date Never Smoker Smokeless Tobacco: Current User Alcohol Use Standard Drinks/Week Comments Yes [id number] (1 standard drink = 0.6 oz pure alcohol) Sex Assigned at Date Recorded Not on file documented as of this encounter Last Filed Vital Signs Vital Sign Reading Time Taken Comments Blood Pressure - - Pulse - - Temperature - - Respiratory Rate - - Oxygen Saturation - - Inhaled Oxygen Concentration - - Weight 86.2 kg (190 lb) 09/18/2011 1334 EST Height 177.8 cm (5' 10) 09/18/2011 1334 EST Body Mass Index 27.26 09/18/2011 1334 EST documented in this encounter Medications at Time [...] documented in this encounter Progress Notes Ashley Clifford RN - 09/25/2011 1031 EST OR cancelled per Dr. Andrews, surgeon is ill. Pt on the wait list for Oct 20, 2011. Discussed with pt and his family, they didn't get the message from the office about this because they had spent the night in [facility]. Catalina Bustos - 09/18/2011 1332 EST Phuong Duran has been instructed as follows regarding medication administration for the day of thescheduled procedure. Date of Surgery: 09/25/11 Instructions for Taking Medications Day of Surgery Medication Last Dose Hold DOS Take DOS cyanocobalamin (VITAMIN B-12) 1,000 mcg tablet YES omeprazole (PRILOSEC) 20 mg capsule States He Doesn't Take. acetaminophen (TYLENOL) 500 mg tablet YES FENTANYL TD YES pregabalin (LYRICA) 150 mg capsule YES amitriptyline (ELAVIL) 25 mg tablet YES oxycodone (OXY-IR) 15 mg immediate release tablet YES morphine (MS CONTIN) 100 mg CR tablet YES documented in this encounter Plan of Treatment Not on filedocumented as of this encounter Visit Diagnoses Not on filedocumented in this encounter Care Teams Food Safety Manager Relationship Specialty Start Date End Date Peter Spencer MD PCP - General 11/13/09 [address] [place] [address] documented as of this encounter
--- OUTSIDE RECORDS SUMMARY | 2022-07-10 00:47 | XMS_ITS | Encounter Summary ---
:1960 Author Organization [facility] Address [address] [place] [address] Care Team Providers Name Role Phone Unavailable Primary Care Provider Unavailable Encounter Details Date Type Department Care Team Description 10/14/2001 Hospital Encounter [facility] - Dandre Renteria, [facility] [id number] [place] [phone] (Wo rk) Social History Tobacco Use Types [...]
--- OUTSIDE RECORDS SUMMARY | 2022-07-10 00:47 | XMS_ITS | Encounter Summary ---
:1960 Author Organization [facility] Address [address] [place] [address] Care Team Providers Name Role Phone Peter Spencer MD Primary Care Provider Reason for Visit Reason Onset Date Comments Appointment Related 03/01/2013 Nerve Stimulator Encounter Details Date Type Department Care Team Description 03/01/2013 Telephone [facility] Aristides Alexander MD Appointment Related Neurosurgery - [address] (Nerve Stimulator) [address] [place] [address] Pavilion, [place] [phone] (Wo rk) Social History Tobacco Use Types [...] this encounter Miscellaneous Notes Telephone Encounter - Yolanda Paulino V. - 03/02/2013 0817 EDT Referral being routed to Pain Mgmt. elephone Encounter - Yolanda Paulino V. - 03/01/2013 1553 EDT This patient needs a FUR, requested by PCP thru the Referral Center. TRACI Felix, did not know how to handle this and asked to have sent to the nurse Request if to see if nerve stimulator can be programmed at a higher level. Thank you documented in this encounter Plan of Treatment Not on filedocumented as of this encounter Visit Diagnoses Not on filedocumented in this encounter Care Teams Investment Director Relationship Specialty Start Date End Date Peter Spencer MD PCP - General 11/13/09 [address] [place] [address] documented as of this encounter
--- OUTSIDE RECORDS SUMMARY | 2022-07-10 00:47 | XMS_ITS | Encounter Summary ---
:1960 Author Organization [facility] Address [address] [place] [address] Care Team Providers Name Role Phone Peter Spencer MD Primary Care Provider Reason for Visit Reason Comments Arm Pain l arm Encounter Details Date Type Department Care Team Description 08/04/2011 Office Visit [facility] - Unknown, Pr MD maylin Phantom limb pain (CMS-HCC) (Primary Dx) ; [facility] Hugo Andrews III, DO [address] [place] [address] Neuropathic pain syndrome (non-herpetic) [facility] Derek Pratt, DO [address] [place] [address] Interventional Pain [address] [place], [place] [address] Social History Tobacco Use Types Packs/Day Years Used Date Never Smoker Smokeless Tobacco: Current User Alcohol Use Standard Drinks/Week Comments Yes [id number] (1 standard drink = 0.6 oz pure alcohol) Sex Assigned at Date Recorded Not on file documented as of this encounter Last Filed Vital Signs Vital Sign Reading Time Taken Comments Blood Pressure 144/82 08/04/2011 1737 EDT Pulse 72 08/04/2011 1737 EDT Temperature 36 ??C (96.8 ??F) 08/04/2011 1348 EDT Respiratory Rate 18 08/04/2011 1348 EDT Oxygen Saturation - - Inhaled Oxygen Concentration - - Weight 86.2 kg (190 lb) 08/04/2011 1348 EDT Height 177.8 cm (5' 10) 08/04/2011 1348 EDT Body Mass Index 27.26 08/04/2011 1348 EDT documented in this encounter Patient Instructions Patient InstructionsJenn Espitia RN - 08/04/2011 15:41 EDT [facility] [address] [address] Post-Trial Spinal Cord Implant Patient Instructions You have had your Trial Spinal Cord Stimulator implant. The purpose of this procedure is to see if this gives you some pain relief. Follow your Physicians??? and the Reps post procedure instructions. They include: Take it easy for the rest of today. DO NOT drive a car for the remainder of the day and any time you have the stimulator on. You may experience soreness where the needle(s) entered for wire placement, this is normal. If you develop a flare-up of pain over the next few days, please apply ice to the area 10-20 minutes every hour while you are awake. Do not use heat for several days, as this may cause swelling and increase you pain. Build up your physical strength by walking for brief periods each day. Sleep on your back or side on a firm mattress that supports your back and legs equally. Use caution when changing your positions. Move your body without twisting by moving your shoulders and hips at the same time. If the area that the needle(s) were inserted becomes hot, red, swollen, pus or drainage present or increasingly tender, or if you develop a fever (100.5 or greater) or chills along with these symptoms, please call our office immediately. If you develop increasingly severe neck/back pain, continued numbness or weakness of the arms/legs or changes in your bladder or bowel functions, please call our office at once. Check with the Physician about resuming you pain meds. DO NOT: DO NOT REACH, BEND OR STRETCH Lift more than five pounds. Pull on the trial cable(s) or leads. Disconnect the trail cable from the leads. Drive with the system on. Operate vehicles, machinery or power equipment with the transmitter on. Climb many stairs. Sleep on your stomach. To promote healing of your wound: Small dressings including adhesive strips will cover your wound. No shower/bath/hot tub until seen at follow appointment. Take a sponge bath only and avoid getting the dressing wet. Dressing to remain intact until seen at follow up appointment. Call the Rep for specific instructions/questions about the operation of the Stimulator. You will come back to the Clinic in 3-7 days for removal of the temporary stimulator and discuss with the Physician how this worked for you. If you have any questions about your block, please call Patient Education Topic: post procedure instructions Method: Handout and Verbal Taught to: Patient Barriers: None Outcomes: independent and verbalized understanding Signature:JENN ESPITIA RN documented in this encounter Discharge Disposition Disposition Code Departure Means Destination Auto Discharge documented in this encounter Progress Notes Derek Pratt. - 08/04/2011 1636 EDT Patient Name: Phuong Duran : 1960 Date of Service: 08/04/2011 Staff Nurse Anesthetist: Huog Andrews DO Human Resource Professional: Derek Pratt DO Procedure: Dorsal column Spinal Cord Stimulator Trial Interval History: Mr. Duran presents at the request of Peter Spencer for evaluation and treatment of his left hand pain and that is phantom in nature. The pain is described as shooting and electric shock-like in character. The average pain intensity is severe and intermittent. Response to conservative measures has been marginal. Allergies: Allergies Allergen Reactions ??? Chocolate Flavor Hives ??? Copper ??? Iodine-Iodine Containing ROS: Negative for any fever, chills, nausea/vomiting, headaches, chest pain, palpitations, shortness of breath, bladder/bowel incontinence, easy bruising, bleeding, anti-coagulation or recent infections. Physical Examination: Vital signs: Blood pressure 115/72, pulse 69, temperature 36 ??C (96.8 ??F), temperature source Tympanic, resp. rate 18, height 177.8 cm (70), weight 86.183 kg (190 lb). General:awake, alert, cooperative, no apparent distress HEAD: normocephalic and atraumatic EYES: PERRLA and EOMI ENT: malampati 2 Heart: normal S1 and S2 Lungs: clear to auscultation b/l Cervical Spine: nontender and skin clear Thoracic spine: nontender and skin clear Assessment: Encounter Diagnoses Name Primary? Phantom limb pain Yes ??? Neuropathic pain syndrome (non-herpetic) Plan: Proceed with SCS Trial today. The patient will return in 5-7 days for removal the the trial leads and discussion of results with use over the previous week. Procedure: Spinal Cord Stimulator Trial Placement with single leads. Indications: Left Upper Extremity Distal [facility] Licensed Mortgage Loan Officer was present during the entire procedure and performed post- procedure education. REF # [id number] Lot # [id number] 1 Octrode Trial Lead Kit, 60cm Length Expiration date 06/2013 After informed consent was signed and an IV started the patient was placed in the prone position on the fluoroscopy table and pressure points were padded. Standard monitors were applied including continuous pulse ox, heart rate, and intermittent blood pressure recordings. A guzman moment was performedwith everyone present. The patient received IV sedation with 3 mg of Midazolam and 100 mcg of Fentanyl. Prophylactic IV Cefazolin 1 gram(s) was administered within 30 minutes of the start of the procedure. The back was prepped and draped in a sterile fashion. An AP fluoroscopic view of T3-T4 was identified and marked as point of entry with a LEFT paramedian approach. Then 2% lidocaine was used for anesthetizing the skin and subcutaneous area at point of entry. A 14g Touhy epidural needle was then advanced toward the midline and access was gained to the epidural space at T2-T4 utilizing CECILIA technique with saline and intermittent fluoroscopic guidance. A stimulator lead (identification above) was advanced under continuous pulsed fluoroscopic guidance to C4. Final lead position is at the level of the vertebral body of C4 just towards the LEFT of midline. Stimulation of the patients Left>Right arm was verified with a paresthesia and the patient reported excellent coverage of the painful areas. The lead was secured and a dressing was placed with Mastisol, multiple anchoring steri- strips, guaze and 2 tegaderms. The patient appeared to tolerate the procedure well. The SCS sales account representative educated the patient regarding the use of the SCS and did pre- and post- procedure teaching in the recovery area. Disposition: The patient will follow up in 1 week for removal of SCS lead. No apparent complications/adverse events were noted. Attending attestation: I saw and examined the patient with the resident/fellow. I agree with the findings and plan of care documented in the resident's/fellow's note. In addition, I was present and participated during the entire procedure. 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 yes Is patient NPO? (Solids since midnight & liquids for 4 hrs) ;ast evening solids Liquids c meds <1 hr Blood Thinners: Is patient on Blood Thinners? stopped If yes, taking? If stopped, who authorized stopping? Related comments: Infections: Any recent infections, fever of illnesses? pnuemonia 3-4 weeks ago If on antibiotics, is it 7-10 days past the date of completion of antibiotics? : (for females of child-bearing age) na Is there a chance current ? Other: Patient was hospitalized 3 weeks ago for pnuemonia. States he has beensx free for >7 days. He didsay he had some soda to drink 30 minutes before getting here. said it was to get meds in and hestated he was thirsty and had a sip. R AC PIV 22 ga, NS 500cc at 125 cc/hr, taped and patent. GIRISH AZEVEDO RN documented in this encounter Procedure Notes TENTER, SCAN 2 - 02/09/2012 1112 EDTAssociated Order(s): PROCEDURE REPORTS - SCANNED documented in this encounter Miscellaneous Notes Scanned Note-Null - Floor Broker, Scan - 08/06/2011 1315 EDT canned Note- Null - Floor Broker, Scan - 08/06/2011 1126 EDT documented in this encounter Plan of Treatment Not on filedocumented as of this encounter Procedures Procedure Name Priority Date/Time Associated Diagnosis Comme nts PROCEDURE REPORTS - 02/09/2012 11:12 Resu lts for this SCANNED EDT procedure are i n the results section. documented in this encounter Results PROCEDURE REPORTS - SCANNED (02/09/2012 11:12 EDT) Specimen Narrative This result has an attachment that is no t available. Transcriptions TENTER, CHETNA 2 - 02/09/2012 11:12 EDT documented in this encounter Visit Diagnoses Diagnosis Phantom limb pain (HCC-CMS) (HCC) - Prim guerita Phantom limb (syndrome) Neuropathic pain syndrome (non-herpetic) Neuralgia, neuritis, and radiculitis, un specified documented in this encounter Historical Medications This list may reflect changes made after this encounter. Medication Sig Dispensed Refills Start Date End Date acetaminophen (TYLENOL) 500 Take 500 mg by 0 mg tablet mouth every 6 hours. cyanocobalamin (VITAMIN Take 1,000 mcg by 0 B-12) 1,000 mcg tablet mouth daily. omeprazole (PRILOSEC) 20 mg Take 40 mg by 0 03/22/2012 capsule mouth daily. added in this encounter Orders Medications Ordered That Might Not Have Count Last Ord ered Date First Ordered Date Been Administered fentanyl citrate (PF) 50 mcg/mL injection 1 2010 150 mcg midazolam (VERSED) injection 3 mg 1 08/09/2011 ceFAZolin (ANCEF) injection 1,000 mg 1 08/04/2011 documented in this encounter Care Teams Engineering Drafter Relationship Specialty Start Date End Date Peter Spencer MD PCP - General 11/13/09 [address] [place] [address] documented as of this encounter
--- OUTSIDE RECORDS SUMMARY | 2022-07-10 00:47 | XMS_ITS | Encounter Summary ---
:1960 Author Organization [facility] Address [address] [place] [address] Care Team Providers Name Role Phone Peter Spencer MD Primary Care Provider Reason for Visit Reason Onset Date Comments Discuss Surgery 02/03/2012 Encounter Details Date Type Department Care Team Description 02/03/2012 Telephone [facility] Aristides Alexander MD Discuss Surgery Neurosurgery - [address], [address] [place], [place] [address] [place] [address] [phone] (Wo rk) Social History Tobacco Use Types Packs/Day Years Used Date Never Smoker Smokeless Tobacco: Current User Alcohol Use Standard Drinks/Week Comments Yes 8.878510961585691799 (1 standard drink = 0.6 oz pure alcohol) Sex Assigned at Date Recorded Not on file documented as of this encounter Miscellaneous Notes Telephone Encounter - Dasia Espitia RN - 02/08/2012 1329 EDT Returned patient's call, spoke with Phuong's sister regarding a follow up appointment with . She states they already have an appointment and she will be attending this appointment with him. elephone Encounter - Alexandra Rodríguez - 02/04/2012 1252 EDT Spoke with Phuong and informed him Dr. Alexander had talked with Dr. Andrews who was going to be in touch with Phuong regarding plan. Transferred him over to Dr. Andrews's office. Telephone Encounter - Alexandra Rodríguez - 02/03/2012 1250 EDT Mr. Duran is wondering what the plan is regarding surgery. Initially scheduled for spinal cord stim. Placement on 02/02/12, but surgery was cancelled by Dr. Alexander due to cervical MRI findings he needed to discuss with Dr. Andrews. documented in this encounter Plan of Treatment Not on filedocumented as of this encounter Visit Diagnoses Not on filedocumented in this encounter Care Teams Lamp Replacer Relationship Specialty Start Date End Date Peter Spencer MD PCP - General 11/13/09 [address] [place] [address] documented as of this encounter
--- OUTSIDE RECORDS SUMMARY | 2022-07-10 00:47 | XMS_ITS | Encounter Summary ---
:1960 Author Organization [facility] Address [address] [place] [address] Care Team Providers Name Role Phone Peter Spencer MD Primary Care Provider Reason for Visit Reason Onset Date Comments Appointment Related 12/10/2011 Encounter Details Date Type Department Care Team Description 12/10/2011 Telephone [facility] Aristides Alexander MD Appointment Related Neurosurgery - [address], [address] [place], [place] [address] [place] [address] [phone] (Wo rk) Social History Tobacco Use Types Packs/Day Years Used Date Never Smoker Smokeless Tobacco: Current User Alcohol Use Standard Drinks/Week Comments Yes [id number] (1 standard drink = 0.6 oz pure alcohol) Sex Assigned at Date Recorded Not on file documented as of this encounter Miscellaneous Notes Telephone Encounter - Alexandra Rodríguez - 12/10/2011 1439 EST Patient states this call was transferred to us from the Pain Clinic at [facility]. States he is to have anappt with Dr. Alexander regarding spinal cord stim implantation. Informed patient I would speak with regarding scheduling an appt. Patient states Dr. Andrews was to be in touch with Dr. Alexander regarding scheduling him for the OR. documented in this encounter Plan of Treatment Not on filedocumented as of this encounter Visit Diagnoses Not on filedocumented in this encounter Care Teams Senior Firewall Engineer Relationship Specialty Start Date End Date Peter Spencer MD PCP - General 11/13/09 [address] [place], [place] [id number] documented as of this encounter
--- OUTSIDE RECORDS SUMMARY | 2022-07-10 00:47 | XMS_ITS | Encounter Summary ---
:1960 Author Organization [facility] Address [address] [place] [address] Care Team Providers Name Role Phone Peter Spencer MD Primary Care Provider Reason for Visit Reason Comments Pain left arm Encounter Details Date Type Department Care Team Description 02/10/2012 Office Visit [facility] - Unknown, Pr MD maylin Phantom limb pain (CMS-HCC); [facility] [place] [address] [place] [address] Neuropathic pain syndrome (non-herpetic) [facility] Derek Pratt, DO [address] [place], [place] [id number] Interventional Pain [address] [place], [place] [address] Social History Tobacco Use Types Packs/Day Years Used Date Never Smoker Smokeless Tobacco: Current User Alcohol Use Standard Drinks/Week Comments Yes 8.132412600946596290 (1 standard drink = 0.6 oz pure alcohol) Sex Assigned at Date Recorded Not on file documented as of this encounter Last Filed Vital Signs Vital Sign Reading Time Taken Comments Blood Pressure 136/70 02/10/2012 1336 EDT Pulse 63 02/10/2012 1336 EDT Temperature 35.4 ??C (95.7 ??F) 02/10/2012 1336 EDT Respiratory Rate 16 02/10/2012 1336 EDT Oxygen Saturation - - Inhaled Oxygen Concentration - - Weight 86.2 kg (190 lb) 02/10/2012 1336 EDT Height 180.3 cm (5' 11) 02/10/2012 1336 EDT Body Mass Index 26.5 02/10/2012 1336 EDT documented in this encounter Progress Notes Harsha Lawson - 02/15/2012 1552 EDT No billing for this encounter. Pt needed to speak with Dr. Andrews, who is not in clinic. Harsha Lawson MD documented in this encounter Plan of Treatment Not on filedocumented as of this encounter Visit Diagnoses Diagnosis Phantom limb pain (HCC-CMS) (HCC) Phantom limb (syndrome) Neuropathic pain syndrome (non-herpetic) Neuralgia, neuritis, and radiculitis, un specified documented in this encounter Care Teams Escort Service Attendant Relationship Specialty Start Date End Date Peter Spencer MD PCP - General 11/13/09 [address] [place] [address] documented as of this encounter
--- OUTSIDE RECORDS SUMMARY | 2022-07-10 00:47 | XMS_ITS | Encounter Summary ---
:1960 Author Organization [facility] Address [address] [place] [address] Care Team Providers Name Role Phone Peter Spencer MD Primary Care Provider Reason for Visit Reason Comments Pain phantom pain right hand and fingers Encounter Details Date Type Department Care Team Description 09/25/2010 Office Visit [facility] [place], Phantom limb pain ([facility]) (Primary Dx); [facility] MD Venkata Dutta neuritis or radiculitis [facility] Interventional Pain [address] [place], [place] [address] Social History Tobacco Use Types Packs/Day Years Used Date Never Assessed Sex Assigned at Date Recorded Not on file documented as of this encounter Last Filed Vital Signs Vital Sign Reading Time Taken Comments Blood Pressure 141/87 09/25/2010 1505 EST Pulse 87 09/25/2010 1505 EST Temperature 36 ??C (96.8 ??F) 09/25/2010 1505 EST Respiratory Rate 20 09/25/2010 1505 EST Oxygen Saturation - - Inhaled Oxygen Concentration - - Weight 88.5 kg (195 lb) 09/25/2010 1505 EST Height 175.3 cm (5' 9) 09/25/2010 1505 EST Body Mass Index 28.8 09/25/2010 1505 EST documented in this encounter Discharge Disposition Disposition Code Departure Means Destination Auto Discharge documented in this encounter Progress Notes Char Arellano MD - 09/25/2010 1615 EST [facility] Follow Up Note Patient Name: Phuong Duran : 1960 Date of Service: 09/25/2010 Interval History: Mr. Duran presents for follow-up of neuropathic and phantom limb pain in his leftupper extremity. Patient states the left stellate ganglion block 8 months ago did not provide any sustained relief. Patient also notes if he presses on his shoulder, it helps to relieve his pain. He has not had any medication changes. He states his pain is a electricity like shooting pain in his left shoulder and phantom pain in his amputated left upper extremity. This pain has been increasing in intensity over the years. ROS: Negative for any fever, chills, nausea/vomiting, headaches, chest pain, palpitations, shortness of breath, bladder/bowel incontinence, easy bruising, bleeding, anti-coagulation or known recent infections. Physical Examination: Vital signs: Patient Vitals in the past 24 hrs: BP Temp Temp src Pulse Resp Height Weight 09/25/10 1505 141/87 mmHg 36 ??C (96.8 ??F) Tympanic 87 20 175.3 cm (69) 88.451 kg (195 lb) GENERAL: Alert and oriented x3. Appears in no acute distress. Mood and affect are congruent. HEENT: Atraumatic, normocephalic. Poor dentition. PULMONARY: Unlabored breathing. MUSKULOSKELETAL: Left arm amputation. Remainder of physical exam deferred. 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 Patient has not achieved good pain control despite multiple pharmacologic interventions and trial of stellate ganglion block. Patient had a trial of SCS 8 years ago which was not successful as the lead co uld not be threaded into appropriate position. 1. Encounter Diagnoses Name Primary? Phantom limb pain Yes ??? Brachial neuritis or radiculitis NOS Plan: Discussed with the patient that it would be reasonable at this time to attempt a repeat SCS trial. He was previously cleared for this trial but the trial failed because of technical challenges inplacement. If the lead can be appropriately threaded he may very well benefit. It is our hope that using newer SCS electrodes may allow for better success in placement. I do not have any additional medication or injection recs to make at this time. Follow up in 4 week(s) for Stimulators Spinal cord stimulator trial Attending attestation: I saw and examined the patient with the resident/fellow. I agree with the findings and plan of care documented in the resident's/fellow's note. Luzmaria Pfeiffer MD documented in this encounter Plan of Treatment Not on filedocumented as of this encounter Visit Diagnoses Diagnosis Phantom limb pain (HCC-CMS) (HCC) - Prim guerita Phantom limb (syndrome) Brachial neuritis or radiculitis NOS Brachial neuritis or radiculitis nos documented in this encounter Care Teams Sandblast Carver Relationship Specialty Start Date End Date Peter Spencer MD PCP - General 11/13/09 [address] [place] [address] documented as of this encounter
--- OUTSIDE RECORDS SUMMARY | 2022-07-10 00:47 | XMS_ITS | Encounter Summary ---
:1960 Author Organization [facility] Address [address] [place] [address] Care Team Providers Name Role Phone Peter Spencer MD Primary Care Provider Reason for Visit Reason Onset Date Comments Appointment Related 12/07/2011 Encounter Details Date Type Department Care Team Description 12/07/2011 Telephone [facility] - Hugo Andrews III, Appointment Related [facility] [address] [facility] [address] [place] [address] [place] [address] [phone] Social History Tobacco Use Types Packs/Day Years Used Date Never Smoker Smokeless Tobacco: Current User Alcohol Use Standard Drinks/Week Comments Yes [id number] (1 standard drink = 0.6 oz pure alcohol) Sex Assigned at Date Recorded Not on file documented as of this encounter Miscellaneous Notes Telephone Encounter - Shanna Galvez RN - 12/10/2011 1021 EST Pt. Called to be aware that the referrals have been put in to place. Pt. Advised to call Dr. Alexander'maria teresafice if he does not hear from them in a few days. Telephone Encounter - Melanie Orosco - 12/09/2011 1416 EST Patient is calling again about having the SCS, patient states he has not heard anything. Believe Dr Andrews was going to refer patient to Dr Be office. elephone Encounter - Bindu Medley - 12/07/2011 1550 EST Pt is calling to see when he is going to be scheduled for his SCS. He had the trial and he is waiting for the regular SCS. Please call him back to let him know what is going on. documented in this encounter Plan of Treatment Not on filedocumented as of this encounter Visit Diagnoses Not on filedocumented in this encounter Care Teams Camp Head Counselor Relationship Specialty Start Date End Date Peter Spencer MD PCP - General 11/13/09 [address] [place] [address] documented as of this encounter
--- OUTSIDE RECORDS SUMMARY | 2022-07-10 00:47 | XMS_ITS | Encounter Summary ---
:1960 Author Organization [facility] Address [address] [place] [address] Care Team Providers Name Role Phone Peter Spencer MD Primary Care Provider Encounter Details Date Type Department Care Team Description 03/23/2012 Pre-Procedure Orders [facility] Sonia Bhagat Encounter Neurosurgery - [facility] ABEL Wilson [place] [address] [place] [id number] [place] [address], [facility] [address] [place] [phone] (Wo rk) Social History Tobacco Use Types Packs/Day Years Used Date Never Smoker Smokeless Tobacco: Current User Alcohol Use Standard Drinks/Week Comments Yes [id number] (1 standard drink = 0.6 oz pure alcohol) Sex Assigned at Date Recorded Not on file documented as of this encounter Plan of Treatment Not on filedocumented as of this encounter Visit Diagnoses Not on filedocumented in this encounter Care Teams Program Scheduler Relationship Specialty Start Date End Date Peter Spencer MD PCP - General 11/13/09 [address] [place] [address] documented as of this encounter
--- OUTSIDE RECORDS SUMMARY | 2022-07-10 00:47 | XMS_ITS | Encounter Summary ---
:1960 Author Organization [facility] Address [address] [place] [address] Care Team Providers Name Role Phone Unavailable Primary Care Provider Unavailable Encounter Details Date Type Department Care Team Description 05/13/2000 Hospital Encounter [facility] - Dandre Renteria, [facility] [id number] [place] [phone] (Wo rk) Social History Tobacco Use Types [...]
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
--- NOTE | 2022-07-10 07:46 | DI.NM_ITS ---
Exam(s) NM DTPA RENOGRAM WO LASIX EXAM: NM DTPA RENOGRAM WO LASIX CLINICAL HISTORY: assess differential renal function,lt hydronephrosis, n13.30. COMPARISON: CT CT CHEST/ABD/PEL WO from 05/21/2022 TECHNIQUE: DTPA renogram was performed with intravenous infusion of 12.0 millicuries technetium 99 l abeled DTPA. FINDINGS: Following injection of radiopharmaceutical, split function imaging shows 52.3 percent left kidney, 47 .7 percent right kidney. Visually there is symmetrical appearance of the nephrograms on the initial 2 minutes of scanning. There is also symmetrical appearance of radiopharmaceutical in the right uret er and in the presumed left nephrostomy tube. Please correlate with recent surgical procedure and cu rrent stent/nephrostomy tube anatomy. IMPRESSION: DATA REPOSITORY:
== END ==
PROVIDERS: PCP Internal Medicine; Visit Provider Urology
DX: N13.30 Unspecified hydronephrosis (principal)
CPT/HCPCS: 78707

== ENCOUNTER 2022-08-01 10:08 | Emergency (ER) | payer MEDICAID, SELFPAY ==
[2022-08-01 10:13] VITALS: BP 124/85; PULSE 125; RESP 18; TEMP 36.6; O2SAT 95
--- NOTE | 2022-08-01 10:34 | ED.GENADUL_ITS ---
Discharge Plan Disposition Patient Disposition: HOME Condition: Improving Discharge Details Clinical Impression: Complication of Galindo catheter, Acute UTI Primary Care Provider: Peter Spencer ED Provider: Louie Reid Home Meds and New Rx's Prescriptions: New cephalexin 500 mg capsule 500 mg PO BID Qty: 14 0RF Continued tamsulosin 0.4 mg capsule 0.4 mg PO QHS pantoprazole 20 mg tablet,delayed release (DR/EC) 20 mg PO DAILY amitriptyline 50 mg tablet 50 mg PO QHS docusate sodium [Colace] 100 mg capsule 100 mg PO TID PRN acetaminophen 500 mg tablet 500 mg PO Q3H PRN naloxone [Narcan] 4 mg/actuation spray,non-aerosol 4 mg intranasal Q2-3M PRN Label Comments: sister states pt. doesnt have Rx Instructions: spray 1 dose into ONE nostril; alternate nostrils w each dose until help arrives pregabalin [Lyrica] 150 MG capsule 150 mg PO TID oxycodone 15 mg Tablet, Oral Only 1 tab PO QID Rx Instructions: 09/21/18 pt states that he does not take this one any more morphine 15 mg Tablet 30 mg PO TID PRN (Reason: Pain) vitamin B complex Tablet Extended Release 1 tab PO DAILY lisinopril 5 mg Tablet 5 mg PO HS cholecalciferol (vitamin D3) [Vitamin D3] 50 mcg (2,000 unit) Capsule 50 mcg PO DAILY Discharge Instructions Additional Instructions: Keflex as directed. Please watch for new or worsening symptoms and return to the ER for any concerns. Please follow-up with Dr. Camacho on Wednesday as already scheduled. Medical Decision Making 62-year-old gentleman who has an indwelling Galindo catheter, left-sided nephrostomy tube, seen by our urology team for hydronephrosis and obstruction, being referred to [facility] for likely nephrectomy, presenting to the ER reporting that his Galindo catheter has been clogged for the past 12 hours or so. He reports lower abdominal pressure but denies recent illness, abdominal pain, nausea, vomiting, dysuria or hematuria. Initial examination reveals heart rate in the 120s. Plan is to change Galindo catheter, obtain urinalysis and reassess Galindo catheter changed without difficulty. Patient drained moderate amount of urine, reports that his suprapubic pressure has gone away and he feels at baseline. Heart rate improving, now 116 Urinalysis reveals positive nitrite, small leuk esterase 20-50 red cells and greater than 50 white cells. Discussed urinalysis with patient and sister, will initiate Keflex therapy. HR now 108. We discussed his complicated past medical history, persistent mild tachycardia although improving, initiating IV, obtaining CBC, CMP, assessing for more systemic infection, renal function, etc. Patient states that he feels well and does not want to proceed with this. His sister reports that at times he does have mild tachycardia. They do understand the risk of not pursuing further work-up. They do have proper follow-up with urology on Wednesday which is reassuring and they do assure me they will return to the ER for worsening symptoms. Standard discharge and return precautions were provided. Patient understands, is agreeable to this plan, and has no additional questions or concerns upon discharge. This documentation was generated using eIQnetworksation system, please disregard any oddities of phrase or misspellings. Medical Records Medical records reviewed: Yes I reviewed the patient's medical records. Lab Data Lab results reviewed: Yes I reviewed the patient's lab results. Labs: 08/01/22 11:05 Urine - Reflex from Ua Urine Culture - Pending Laboratory Tests Range/Units 08/01/22 11:05 Urine Color (Yellow) Yellow Urine Clarity (Clear) Cloudy Urine pH (5-8) 6.0 Ur Specific Buhler (1.005-1.025) >= 1.030 H Urine Protein (Negative) mg/dL 100 H Urine Ketones (Negative) mg/dL Negative Urine Blood (Negative) Moderate H Urine Nitrite (Negative) Positive H Urine Bilirubin (Negative) Negative Urine Urobilinogen (Up TO 0.2) EU/dL 0.2 Ur Leukocyte Esterase (Negative) Small H Urine RBC (0-2) HPF 20-50 H Urine WBC (0-5) HPF >50 H Ur Epithelial Cells (Negative) HPF Negative Urine Crystals (Negative) HPF Mod Calcium Oxalate Urine Bacteria (Negative) HPF Moderate Urine Casts (Negative) LPF Negative Urine Mucus (Negative) Negative Ur Culture Indicated? Yes Urine Glucose (Negative) mg/dL Negative HPI General Mode of arrival: ambulatory . Date/Time Provider Initiated Documentation: 08/01/22 10:10 . Limitations to Documentation: no limitations . Information obtained by: patient and family . HPI Narrative: This is a 62-year-old gentleman who has a complicated urology history who is currently being evaluated by our urology team for obstruction, hydronephrosis, being referred to [facility] for higher level of care presents today because his indwelling Galindo catheter that has been present for approximately 5 months is not functioning over the past 12 hours. He reports he was actually scheduled to see Dr. Camacho on Wednesday to have it changed. He reports mild suprapubic pressure but denies any fever, nausea, vomiting, hematuria. Related Data Home Medications Medication Instructions Recorded Confirmed pregabalin 150 mg capsule (Lyrica) 150 mg PO TID 08/13/14 08/01/22 morphine 15 mg immediate release 30 mg PO TID PRN Pain 09/21/18 08/01/22 tablet oxycodone 15 mg tablet,oral ONLY 1 tab PO QID 09/21/18 08/01/22 (not feeding tubes) vitamin B complex 1 tab PO DAILY 12/25/21 08/01/22 acetaminophen 500 mg tablet 500 mg PO Q3H PRN 02/18/22 08/01/22 amitriptyline 50 mg tablet 50 mg PO QHS 02/18/22 08/01/22 docusate sodium 100 mg capsule 100 mg PO TID PRN 02/18/22 08/01/22 (Colace) naloxone 4 mg/actuation nasal 4 mg intranasal Q2-3M PRN 02/18/22 08/01/22 spray (Narcan) pantoprazole 20 mg tablet,delayed 20 mg PO DAILY 02/18/22 08/01/22 release tamsulosin 0.4 mg capsule 0.4 mg PO QHS 03/26/22 08/01/22 lisinopril 5 mg tablet 5 mg PO HS 04/23/22 08/01/22 cholecalciferol (vitamin D3) 50 50 mcg PO DAILY 05/21/22 08/01/22 mcg (2,000 unit) capsule (Vitamin D3) cephalexin 500 mg capsule 500 mg PO BID #14 caps 08/01/22 Previous Rx's Medication Instructions Recorded cephalexin 500 mg capsule 500 mg PO BID #14 caps 08/01/22 Allergies Allergy/AdvReac Type Severity Reaction Status Date / Time iodine Allergy Severe Topical Unverified 08/01/22 10:17 Irritation copper Allergy Intermediate Unverified 08/01/22 10:17 chocolate flavor AdvReac Unverified 08/01/22 10:17 General Stated Complaint: Urinary TALITA: 3 Review of Systems Constitutional Constitutional: Denies fever(s) Cardiovascular Cardiovascular: Denies chest pain and Denies dyspnea Respiratory Respiratory: Denies dyspnea Gastrointestinal Gastrointestinal: Reports abdominal pain, Denies nausea and Denies vomiting Genitourinary Genitourinary: Denies hematuria and Denies dysuria Musculoskeletal Musculoskeletal: Denies back pain Integumentary/Breasts Skin/Breast: Denies rash PFSH All Active Problems (Updated 08/01/22 @ 12:10 by ABEL Freeman) Complication of Galindo catheter (Acute) Acute UTI (Acute) Left ureteral injury (Acute) Hydronephrosis, left (Acute) Hydronephrosis due to obstruction of ureter (Acute) Retroperitoneal fluid collection (Acute) Fever (Acute) Left arm cellulitis (Acute) Acute anemia (Acute) Acute kidney injury (Acute) Vitamin D deficiency (Acute) Phantom limb (syndrome) (Chronic) Status post VNS (vagus nerve stimulator) placement (Acute) Peptic ulcer disease (Chronic) 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 states this has not been done History of gastrectomy Hx of fracture of hip Hx of fracture of wrist Hx of fracture of wrist pt. reports metal in place Hx of peptic ulcer Personal history of COVID-19 Rib fractures Right leg injury S/P placement of nerve stimulator Ulnar neuritis Surgical History Hx of cystoscopy Hx of total hip arthroplasty t. reports fracture with metal repair Social History Smoking/Tobacco Use Status: Current every day Tobacco Type: smokeless tobacco Smoking risk assessment performed?: Yes Alcohol Intake: never Drug use: Never Substance use type: does not use Do you feel safe at home: Yes Do you feel safe in your relationship?: Yes Exam Const General: cooperative, healthy appearing, comfortable and no acute distress Orientation: alert and awake [facility] Head: normal to inspection, normocephalic and atraumatic Face and sinus: normal facial exam Mouth: moist mucous membranes Eyes Conjunctivae: conjunctivae normal Neck Neck: normal visual inspection, full ROM, no meningeal signs, trachea midline and supple Resp Effort & Inspection: normal respiratory effort and able to speak in complete sentences Auscultation: clear to auscultation bilaterally Cardio Rate: tachycardic (122) Rhythm: regular rhythm GI Inspection: normal to inspection Palpation: soft, not firm, no guarding and nontender Auscultation: normal bowel sounds Back/Spine/Pelvis Back: no CVA tenderness and No back tenderness Other: Left-sided nephrostomy tube, unremarkable Skin General skin exam: no rashes or lesions noted Neuro General: patient alert, patient awake, moves all extremities and no focal motor deficits Sensory Exam: no sensory deficits noted Psych Appearance: grossly normal Mental Status: mental status grossly normal Course Vital Signs Vital signs: Vital Signs Temperature 36.6 C 08/01/22 10:13 Pulse 125 H 08/01/22 10:13 Respiratory Rate 18 08/01/22 10:13 Blood Pressure 124/85 08/01/22 10:13 Pulse Oximetry 95 08/01/22 10:13 Temperature 36.6 C 08/01/22 10:13 Temperature Source Tympanic 08/01/22 10:13 Pulse 125 H 08/01/22 10:13 Respiratory Rate 18 08/01/22 10:13 Respiratory Effort Non-Labored 08/01/22 10:19 Blood Pressure 124/85 08/01/22 10:13 Blood Pressure Position Sitting 08/01/22 10:13 Pulse Oximetry 95 08/01/22 10:13 Oxygen Delivery Method Room Air 08/01/22 10:13 Oxygen Flow Rate 0 08/01/22 10:13 Pain Level 5 08/01/22 10:13
[2022-08-01] MEDS: Lidocaine 2% Jelly 6 ML SYR (11:02)
[2022-08-01 11:27] LABS: Bilirubin Negative (Negative); Blood Moderate (Negative); Clarity Cloudy (Clear); Glucose Negative (Negative); Ketones Negative (Negative); Leukocyte Esterase Small (Negative); Nitrite Positive (Negative); Specific Gravity >= 1.030 (1.005-1.025); Urobilinogen 0.2 EU/dL (Up TO 0.2)
[2022-08-01 11:36] LABS: Bacteria Moderate HPF (Negative); Epithelial Cells Negative HPF (Negative); RBC 20-50 HPF (0-2); WBC >50 HPF (0-5)
[2022-08-01 11:37] LABS: C & S Indicated? Yes; Casts Negative LPF (Negative); Crystals Mod Calcium Oxalate HPF (Negative); Mucus Negative (Negative)
[2022-08-01 11:53] VITALS: BP 107/76; PULSE 124; RESP 18; TEMP 37; O2SAT 94
[2022-08-01] MEDS: Cephalexin 500 MG CAP PO (12:19)
== END 2022-08-01 12:24 | disposition home or self-care (01) ==
PROVIDERS: Emergency Provider Physician Assistant; PCP Internal Medicine
DX: T83.098A Other mechanical complication of other urinary catheter, initial encounter (principal); N39.0 Urinary tract infection, site not specified; B95.61 Methicillin susceptible Staphylococcus aureus infection as the cause of diseases classified elsewhere
CPT/HCPCS: 51702; 87077; 99283; 81003; 81015; 87086; 87186

== ENCOUNTER 2022-08-01 15:14 | Emergency (ER) | payer MEDICAID, SELFPAY ==
--- OUTSIDE RECORDS SUMMARY | 2022-08-01 15:19 | XMS_ITS | Encounter Summary ---
:1960 Author Organization [facility] Address [address] [place] [address] Care Team Providers Name Role Phone Peter Spencer MD Primary Care Provider Encounter Details Date Type Department Care Team Description 04/21/2012 - [facility] Aristides Alexander MD Neuropathic pain 04/22/2012 Encounter Neurosurgery Unit 111 [facility] 111 [facility] (non-herpetic) [address] [phone] [facility] Level [address] [place] [address] Social History Tobacco Use Types [...] Current Living Arrangements: Lives alone in a [place] apartment. Sister lives close by. 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 Has plus [facility] for insurance and medication coverage. Sister Nagris will provide transportation home today. Case Management [...] Elmer Face symmetric Tongue midline No drift Physician Interventional Cardiologist, biceps, triceps full strength on right only Sensation intact in UE IP/TA/EHL/gastroc full strength Sensation intact in lower extremities Dressing with sanguinous fluid Ruthton J in place WBC/Hgb/Hct/Plts: 4.63/12.5/36.1/146 (04/21 184) Assessment and Plan 51 y.o. male, LOS: 1 day S/P Adjustment of spinal cord stimulator placement ?? Programming of stimulator today ?? Ruthton J x7 days ?? Dc today Evita Nguyễn MD Neurosurgery resident 04/22/2012 7:23 Neurosurgery Service Pager [phone] Vijay Estes MD - 04/21/2012 6320 EDT Neurosurgery CC/ Neuropathic pain, s/p Repositioning [...] (C5, 6) 5/5 Tricep (C6, 7) 5/5 Physician Interventional Cardiologist (C8) 5/5 No drift Sensation intact in [...] ibuprofen documented in this encounter H&P Notes ADMITTING CLERK, SCAN 2 - 04/27/2012 1844 EDT Marco [...] 11:16 documented in this encounter Procedure Notes ADMITTING CLERK, SCAN 2 - 04/27/2012 1844 EDTAssociated Order(s): ECG REPORT - SCANNED documented in this encounter Nursing Notes ADMITTING CLERK, SCAN 2 - 04/27/2012 1844 EDT documented in this encounter OR Notes OR PreOp - ADMITTING CLERK, SCAN 2 - 04/27/2012 1844 EDT R Surgeon - Aristides Alexander MD - 04/22/2012 1035 EDT OPERATIVE REPORT SERVICE DATE: 04/21/2012 PREOPERATIVE DIAGNOSIS: Phantom limb pain, failure of coverage of spinal cord stimulator system. PROCEDURE: Cervical laminectomy at C7 and repositioning of cervical spinal cord stimulator lead array using fluoroscopy. SURGEON: Aristides Alexander MD TRIAL MANAGER: Evita Nguyễn MD INDICATIONS: The patient is a 51-year-old man who underwent placement of a cervical spinal cord stimulator lead for phantom limb pain on 03/29/12. Initially, he was thought to be getting good left phantom limb coverage, but this turned out not to be the case after he had gone home and had further reprog ramming done by [employer]. Therefore, the x-rays had shown that the [...] AM / Aristides Alexander MD css Confirmation: [id number] Dictation ID: [id number] cc: Peter Spencer MD nesthesia Procedure Notes - ADMITTING CLERK, SCAN 2 - 04/21/2012 1721 EDT R PreOp - ADMITTING CLERK, SCAN 2 - 04/21/2012 1716 EDT nesthesia Preprocedure Evaluation - ADMITTING CLERK, SCAN 2 - 04/21/2012 1343 EDT documented in this encounter Miscellaneous Notes Scanned Note-Null - ADMITTING CLERK, SCAN 2 - 04/27/2012 1844 EDT canned Note- Null - ADMITTING CLERK, SCAN 2 - 04/27/2012 1844 EDT lan [...] Hospital Environment Active Multi-Disciplinary problems: FALL RISK [608178] (04/21/12) HOSPITAL ORIENTATION/SAFETY [[id number]] (04/22/12) DAILY CARE [[id number]] (04/22/12) PAIN [[id number]] (04/22/12) DISCHARGE PLANNING [[id number]] (04/22/12) NEUROLOGICAL STATUS [[id number]] (04/22/12) Data: Pt admitted s/p reposition of [...] spinal cord stimulator SURGEON = Dr. Alexander TRIAL MANAGER = Dr. Nguyễn ANESTHESIA = General and local COMPLICATIONS = none FINDINGS = Stimulator with too medial placement EBL = minimal IVF = 1500cc UOP = 850 SPECIMENS/CULTURES = none DRAINS = none SKIN = cade DISPO = [facility] for one week Evita Nguyễn MD Neurosurgery Resident 04/21/2012 16:57 Neurosurgery Service Pager [phone] canned Note- Null - ADMITTING CLERK, SCAN 2 - 04/21/2012 1041 EDT canned Note- Null - ADMITTING CLERK, SCAN 2 - 04/21/2012 1041 EDT documented [...] attachment that is no t available. Transcriptions ADMITTING CLERK, SCAN 2 - 04/27/2012 18:44 EDT (ABNORMAL) [...] Specimen Blood specimen (specimen) Performing Organization Address City/[facility]/ZIP Code Phon e Number [facility] [address] [place] [address] SERVICES [facility] [address] [place] [address] [place] UP TO 1 HOUR (04/21/2012 16:40 EDT) Anatomical Region Laterality Modality Other Specimen Narrative [facility] - 04/21/2012 16:40 EDT Non Reportable Exam Procedure Note 04/21/2012 Non Reportable Exam Performing Organization Address [facility]/ZIP Code Phon e Number [facility] CERVICAL SPINE 2-3 VIEWS (04/21/2012 16:40 EDT) Anatomical Region Laterality Modality Other Specimen Narrative [facility] - 04/26/2012 16:30 EDT Findings: 2 [...] operative note for details. Performing Organization Address [facility] Phon e Number [facility] documented in this encounter Visit [...] RN) at 75 mL/hr, Intravenous, CONTINUOUS, [facility] 04/21/12 at 1845, Until 04/22/12 [...] 04/22/2012 documented in this encounter Care Teams Poultry Breeder Relationship Specialty Start Date End Date Peter Spencer MD PCP - General 11/13/09 [address] [place] [address] documented as of this encounter
--- OUTSIDE RECORDS SUMMARY | 2022-08-01 15:19 | XMS_ITS | Encounter Summary ---
:1960 Author Organization [facility] Address [address] [place] [address] Care Team Providers Name Role Phone Peter Spencer MD Primary Care Provider Reason for Visit Reason Onset Date Comments Appointment Related 03/01/2013 Nerve Stimulator Encounter Details Date Type Department Care Team Description 03/01/[address] [facility] Aristides Alexander MD Appointment Related Neurosurgery - [address] (Nerve Stimulator) [address] [place] [address] Pavilion, [place] [phone] (Wo rk) Social History Tobacco Use Types [...] on filedocumented in this encounter Care Teams Lvn Lpn Relationship Specialty Start Date End Date Peter Spencer MD PCP - General 11/13/09 [address] [place] [address] documented as of this encounter
--- OUTSIDE RECORDS SUMMARY | 2022-08-01 15:19 | XMS_ITS | Encounter Summary ---
:1960 Author Organization [facility] Address [address] [place] [address] Care Team Providers Name Role Phone Peter Spencer MD Primary Care Provider Encounter Details Date Type Department Care Team Description 06/30/2022 Lab Requisition [facility] William Camacho cified Pathology & MD [place] hydronephrosis Laboratory Medicine [address] [place], [place] 111 [facility] [address] [place], [place] [phone] (Work) [phone] Social History Tobacco Use Types Packs/Day Years [...] Priority Date/Time Associated Diagnosis Comme nts NON MENDER KNIT GOODS/FNA Today 06/29/2022 12:04 Unspecified Results for this CYTOLOGY EDT hydronephrosis procedure are in the results section. documented in this encounter Results NON MENDER KNIT GOODS/FNA CYTOLOGY (06/29/2022 12:04 EDT) Pathologist Sig nature Note to Patient The following [facility] pathology results [facility] have been SERVICES interpreted by your pathologist and may be available to you before your health provider has had the opportunity to review them. Please allow time for your provider to receive these results and explore management options, if applicable. Final Diagnosis URINE, WASHING, CYTOLOGIC EVALUATION: [facility] - Negative for high grade urothelial carcinoma. [facility] - Background contains abundant acute inflammation. SERVICES Attestation By the signature below, the attending physician certifies that they have personally conducted a gross and/or microscopic [facility] ICA Electronically signed examination of the described specimens and rendered or confirmed the above diagnosis. [facility] by Ludin Kennedy MD on 022 at 0907 Clinical History Ureteral stricture; [facility] unspecified [facility] hydronephrosis; SERVICES N13.30 Gross Description A. [facility] 70 cc's of clear pale yellow fluid with Cytolyt added were received and processed by selective cellular enhancement technique. [facility] Performing Lab [facility] SERVICES Scanned Images [facility] SERVICES Specimen Urine - Wash - dosing instruction impera tive (qualifier value) Performing Organization Address City/State/ZIP Code Phon e Number [facility] [address] [place] [address] SERVICES documented in this encounter Visit Diagnoses Diagnosis Unspecified hydronephrosis documented in this encounter Care Teams Lighter Captain Relationship Specialty Start Date End Date Peter Spencer MD PCP - General 11/13/09 [place] [address] documented as of this encounter
--- OUTSIDE RECORDS SUMMARY | 2022-08-01 15:19 | XMS_ITS | Encounter Summary ---
:1960 Author Organization [facility] Address [address] [place] [address] Care Team Providers Name Role Phone Peter Spencer MD Primary Care Provider Reason for Visit (Routine/Next Available) - Receiving Office to Obtain Authorization Specialty Diagnoses / Procedures Referred By Contact Refer red To Contact Procedures Imaging, External [place] OUTSIDE IMAGES Referral ID Status Reason Start Expiration Visits Visits Date Date Requested Authorized [id number] Receiving Office 05/24/2022 1 1 to Obtain Authorization Encounter Details Date Type Department Care Team Description 05/22/2022 Hospital Encounter [facility] Secondary Reads [place] Social History Tobacco [...] on filedocumented in this encounter Care Teams Slasher Tender Helper Relationship Specialty Start Date End Date Peter Spencer MD PCP - General 11/13/09 [place] [address] documented as of this encounter
--- OUTSIDE RECORDS SUMMARY | 2022-08-01 15:19 | XMS_ITS | Encounter Summary ---
:1960 Author Organization [facility] Address [address] [place] [address] Care Team Providers Name Role Phone Peter Spencer MD Primary Care Provider Reason for Visit Reason Onset Date Comments Appointment Related 02/15/2012 Encounter Details Date Type Department Care Team Description 02/15/2012 Telephone [facility] - Soledad Azevedo ppointment Related [facility] Interventional Pain [address] [place], [place] [address] Social History Tobacco Use Types Packs/Day Years Used Date Never Smoker Smokeless Tobacco: Current User Alcohol Use Standard Drinks/Week Comments Yes [id number] (1 standard drink = 0.6 oz pure [...] on filedocumented in this encounter Care Teams Furniture Designer Relationship Specialty Start Date End Date Peter Spencer MD PCP - General 11/13/09 [address] [place], [place] [phone] documented as of this encounter
--- OUTSIDE RECORDS SUMMARY | 2022-08-01 15:19 | XMS_ITS | Encounter Summary ---
:1960 Author Organization [facility] Address [address] [place] [address] Care Team Providers Name Role Phone Peter Spencer MD Primary Care Provider Encounter Details Date Type Department Care Team Description 12/28/2021 Lab Requisition [facility] Center Outr Resulting Lab, Pathology & Laboratory Provider [facility] [address] [place], [place] [phone] Social History Tobacco Use Types Packs/Day Years [...] EDT) Hep B Surface Ag Negative Negative [facility] SERVICES Hep B Surface Ab, <3.1 See Note mIU/mL [facility] Quantitative Comment: [facility] Reference Range for Hep B Surface Ab, Quant: SERVICES Positive: >= 10.0 mIU/mL Negative: ??< 10.0 mIU/mL Patient is presumed to not be immune to infection with Hepatitis B Virus. Hep B Surface Ab, Negative See Note [facility] Qualitative Comment: [facility] Reference Range for Hep B Surface Ab, Qual: SERVICES Unvaccinated: ??Negative Vaccinated: ??Positive Hepatitis B Core Negative Negative [facility] Ab, Total [facility] SERVICES Hep C Antibody Negative Negative [facility] SERVICES Specimen Blood - Venous blood (substance) Performing Organization Address City/State/ZIP Code Phon e Number [facility] [address] [place] [address] SERVICES documented in this encounter Visit Diagnoses Not on filedocumented in this encounter Care Teams Professor Of Literature Relationship Specialty Start Date End Date Peter Spenecr MD PCP - General 11/13/09 [address] [place] [address] documented as of this encounter
--- OUTSIDE RECORDS SUMMARY | 2022-08-01 15:19 | XMS_ITS | Encounter Summary ---
:1960 Author Organization [facility] Address [address] [place] [address] Care Team Providers Name Role Phone Peter Spencer MD Primary Care Provider Encounter Details Date Type Department Care Team Description 12/26/2021 Lab Requisition [facility] Center Outr Resulting Lab, Pathology & Laboratory Provider [facility] [address] [place], [place] [id number] Social History Tobacco Use Types Packs/Day Years [...] EDT) Hep B Surface Ag Negative Negative [facility] SERVICES Hep B Surface Ab, <3.1 See Note mIU/mL [facility] MEDICAL Quantitative Comment: [facility] Reference Range for Hep B Surface Ab, Quant: SERVICES Positive: >= 10.0 mIU/mL Negative: ??< 10.0 mIU/mL Patient is presumed to not be immune to infection with Hepatitis B Virus. Hep B Surface Ab, Negative See Note [facility] MEDICAL Qualitative Comment: [facility] Reference Range for Hep B Surface Ab, Qual: SERVICES Unvaccinated: ??Negative Vaccinated: ??Positive Hepatitis B Core Negative Negative [facility] MEDICAL Ab, Total [facility] SERVICES Hep C Antibody Negative Negative [facility] SERVICES Specimen Blood - Venous blood (substance) Performing Organization Address City/State/ZIP Code Phon e Number [facility] [address] [place] [address] SERVICES documented in this encounter Visit Diagnoses Not on filedocumented in this encounter Care Teams Machine Operator Relationship Specialty Start Date End Date Peter Spencer MD PCP - General 11/13/09 [address] [place] [address] documented as of this encounter
--- OUTSIDE RECORDS SUMMARY | 2022-08-01 15:19 | XMS_ITS | Encounter Summary ---
:1960 Author Organization [facility] Address [address] [place] [address] Care Team Providers Name Role Phone Peter Spencer MD Primary Care Provider Encounter Details Date Type Department Care Team Description 03/29/2012 - [facility] Aristides Alexander MD Neuropathic pain syndrome (non-herpetic) ; 03/30/2012 Encounter Neurosurgery Unit [address] [place] Phantom limb pain (CMS-HCC) [address] [place], [place] [id number] [place], [place] [phone] [place], [address] [place] [address] Social History Tobacco Use Types Packs/Day Years Used Date Never Smoker Smokeless Tobacco: Current User Alcohol Use Standard Drinks/Week Comments Yes 8.898682060778205403 (1 standard drink = 0.6 oz pure [...] was turned on prior to patient discharge. sales representatives was contacted CC: MD Catherine AQUINO Paul [...] typical. 9. Please call our office at [phone] if you experience severe pain, fever, wound [...] Current Living Arrangements: [facility], will stay with sisterNargis for few days post d/c Current Social, Health Care and Community Supports: No services in home Identified Case Management/Social Work Needs and Issues (housing, care, financial, transportation, cultural, spiritual, emotional, legal, etc.): Medicaid [place], uses pharmacy in [place] Case Management Actions (completed and planned): Discharged home without services. Ashley Anne RN CM #[id number] Radha Bowen - 03/30/2012 1130 EDT Data: [...] continue current mgmt ALISA BOLAÑOS MD [id number] Attestation statement: I saw and [...] right biceps, triceps, wrist extensor and flexor, interpreter and interossei muscles 2+ reflexes on brachioradialis, [...] Admit to M6 X-rays tomorrow Cesar Rivera, [id number] signed by Nicole Garcia at 03/29/2012 15:13 [...] yes documented in this encounter H&P Notes PUBLIC ADDRESS SYSTEM INSTALLER, SCAN 2 - 04/04/20122154 EDT Orlando Oh [...] 10:14 documented in this encounter Procedure Notes PUBLIC ADDRESS SYSTEM INSTALLER, SCAN 2 - 04/04/20122154 EDTAssociated Order(s): IMPLANT RECORD - SCANNED PUBLIC ADDRESS SYSTEM INSTALLER, SCAN 2 - 04/04/20122154 EDTAssociated Order(s): ECG REPORT - SCANNED documented in this encounter Nursing Notes PUBLIC ADDRESS SYSTEM INSTALLER, SCAN 2 - 04/04/20122154 EDT documented in this encounter OR Notes OR PreOp - PUBLIC ADDRESS SYSTEM INSTALLER, SCAN 2 - 04/04/20122154 EDT R Surgeon [...] rechargeable pulse generator. SURGEON: Aristides Alexander MD US ADMINISTRATIVE LAW JUDGE: Orlando Carvalho MD INDICATIONS: The patient is [...] was an ANS Penta lead [lot number #[id number]]. Initially, the lead seemed to introduce into [...] were connected in appropriate fashion to an [facility] pulse generator, 16-channel Zeferino Mini rechargeable device, serial #[id number]. Excess cabling was coiled behind the pulse [...] AM / Aristides Alexander MD ss Confirmation: [id number] Dictation ID: [id number] cc: Peter Spencer MD nesthesia Procedure Notes - PUBLIC ADDRESS SYSTEM INSTALLER, SCAN 2 - 03/29/2012 1416 EDT R PreOp - PUBLIC ADDRESS SYSTEM INSTALLER, SCAN 2 - 03/29/2012 1407 EDT nesthesia Preprocedure Evaluation - PUBLIC ADDRESS SYSTEM INSTALLER, SCAN 2 - 03/29/2012 1150 EDT documented in this encounter Miscellaneous Notes Scanned Note-Null - PUBLIC ADDRESS SYSTEM INSTALLER, SCAN 2 - 12/18/2012 0924 EDT canned Note- Null - PUBLIC ADDRESS SYSTEM INSTALLER, SCAN 2 - 04/04/2012 2155 EDT canned Note- Null - PUBLIC ADDRESS SYSTEM INSTALLER, SCAN 2 - 04/04/2012 2155 EDT lan of Ned Maurizio Winters - 03/30/2012 0333 EDT Problem: PAIN Goal: Patient???s Pain And Discomfort Are Adequately Managed Outcome: Ongoing Active Multi-Disciplinary problems: FALL RISK [610639] (03/29/12) HOSPITAL ORIENTATION/SAFETY [376156] (03/29/12) PAIN [749935] (03/29/12) SKIN INTEGRITY [600598] (03/29/12) DISCHARGE PLANNING [416875] (03/29/12) CIRCULATORY STATUS [697324] (03/29/12) FLUID AND ELECTROLYTE BALANCE [021052] (03/29/12) RESPIRATORY FUNCTION/OXYGENATION [029476] (03/29/12) NUTRITION/DIET [727932] (03/29/12) MOBILITY [257719] (03/29/12) ELIMINATION [111100] (03/29/12) NEUROLOGICAL STATUS [413974] (03/29/12) Data: Pt c/o 10/10 pain in [...] = Spinal cord stimulator SURGEON = Catherine US ADMINISTRATIVE LAW JUDGE = Deven ANESTHESIA = GETA COMPLICATIONS = none FINDINGS = none EBL = 75cc IVF = 1400cc UOP = NR SPECIMENS/CULTURES = none DRAINS = none SKIN = glue DISPO =PACU--> M6, Xrays tomorrow, AP and lateral c-spine Orlando Carvalho MD Neurosurgery #[id number] (material preparation worker pager) canned Note-Null - PUBLIC ADDRESS SYSTEM INSTALLER, SCAN 2 - 03/29/2012 0826 EDT canned Note- Null - PUBLIC ADDRESS SYSTEM INSTALLER, SCAN 2 - 03/29/2012 0826 EDT documented [...] attachment that is no t available. Transcriptions PUBLIC ADDRESS SYSTEM INSTALLER, SCAN 2 - 04/04/2012 21:55 EDT ECG REPORT - SCANNED (04/04/2012 21:55 EDT) Specimen Narrative This result has an attachment that is no t available. Transcriptions PUBLIC ADDRESS SYSTEM INSTALLER, SCAN 2 - 04/04/2012 21:55 EDT CERVICAL SPINE 2-3 VIEWS (03/30/2012 6:08 EDT) Anatomical Region Laterality Modality Other Specimen Narrative [facility] - 03/30/2012 9:24 EDT CERVICAL SPINE [...] agree with the findings. Performing Organization Address City/[facility]/ZIP Code Phon e Number [facility] [place] UP TO 1 HOUR (03/29/2012 13:38 EDT) Anatomical Region Laterality Modality Other Specimen Narrative [facility] - 03/29/2012 13:38 EDT Non Reportable Exam Procedure Note 03/29/2012 Non Reportable Exam Performing Organization Address [facility]/ZIP Code Phon e Number [facility] CERVICAL SPINE 1 VIEW (03/29/2012 12:01 EDT) Anatomical Region Laterality Modality Other Specimen Narrative [facility] - 03/29/2012 13:20 EDT Single view [...] process. Dr. Lee discussed the findings aide Alexanedr in the operating room who concurred. Performing Organization Address City/[facility]/ZIP Code Phon e Number [facility] TYPE AND SCREEN (03/29/2012 9:45 EDT) Pathologist Sig nature ABO O [facility] Rh Factor Positive [facility] Antibody Screen NegativeComment: [facility] SPECIMEN EXPIRES AT 23:59 ON 04/01/12 Specimen Performing Organization Address City/State/ZIP Code Phon e Number [facility] [address] [place] [address] SERVICES [facility] [address] [place] [address] PTT (03/29/2012 9:24 EDT) Pathologist Sig candido PTT 35Comment: Therapeutic 26 - 37 secs [facility] Heparin range: 65-100 seconds Specimen Blood specimen (specimen) Performing Organization Address City/State/ZIP Code Phon e Number [facility] [address] [place] [address] SERVICES [facility] [address] [place] [address] documented in this encounter Visit Diagnoses Diagnosis [...] 03/29/2012 documented in this encounter Care Teams Insect Control Inspector Relationship Specialty Start Date End Date Peter Spencer MD PCP - General 11/13/[address] [place] [address] documented as of this encounter
--- OUTSIDE RECORDS SUMMARY | 2022-08-01 15:19 | XMS_ITS | Encounter Summary ---
:[address] [facility] Address [address] [place] [address] Care Team Providers Name Role Phone Peter Spencer MD Primary Care Provider Reason for Visit (Routine/Next Available) - Receiving Office to Obtain Authorization Specialty Diagnoses / Procedures Referred By Contact Refer red To Contact Procedures Imaging, External CT OUTSIDE IMAGES BODY Referral ID Status Reason Start Expiration Visits Visits Date Date Requested Authorized [id number] Receiving Office 03/18/2022 1 1 to Obtain Authorization Encounter Details Date Type Department Care Team Description 03/18/2022 Hospital Encounter [facility] Secondary Reads [place] Social History Tobacco Use [...] on filedocumented in this encounter Care Teams Environmental Inspector Relationship Specialty Start Date End Date Peter Spencer MD PCP - General 11/13/09 [place] [address] documented as of this encounter
--- OUTSIDE RECORDS SUMMARY | 2022-08-01 15:19 | XMS_ITS | Encounter Summary ---
:1960 Author Organization [facility] Address [address] [place] [address] Care Team Providers Name Role Phone Peter Spencer MD Primary Care Provider Encounter Details Date Type Department Care Team Description 03/23/2012 Pre-Procedure Orders [facility] Sonia Bhagat Encounter Neurosurgery - [facility] ABEL [place] [address] [place] [id number] [place] [address], [facility] [address] [place] [phone] (Wo rk) Social History Tobacco Use Types Packs/Day Years Used Date Never Smoker Smokeless Tobacco: Current User Alcohol Use Standard Drinks/Week Comments Yes 8.124239230123929304 (1 standard drink = 0.6 oz pure alcohol) Sex Assigned at Date Recorded Not on file documented as of this encounter Plan of Treatment Not on filedocumented as of this encounter Visit Diagnoses Not on filedocumented in this encounter Care Teams Transport Aide Relationship Specialty Start Date End Date Peter Spencer MD PCP - General 11/13/09 [address] [place] [address] documented as of this encounter
--- OUTSIDE RECORDS SUMMARY | 2022-08-01 15:19 | XMS_ITS | Encounter Summary ---
:1960 Author Organization [facility] Address [address] [place] [address] Care Team Providers Name Role Phone Peter Spencer MD Primary Care Provider Reason for Referral Radiology Services (Routine/Next Available) - Closed Specialty Diagnoses / Procedures Referred By Contact Refer red To Contact Diagnoses Neuralgia, neuritis, and radiculitis, unspecified Aristides Alexander MD Procedures CERVICAL SPINE 2-[address] [place] [address] [address] [place] [address] Referral ID Status Reason Start Date Expiration Date Visits Requ ested Visits Authorized [id number] Closed 04/20/2012 1 1 Encounter Details Date Type Department Care Team Description 04/20/2012 Orders Only [facility] Aristides Alexander MD Neuralgia, neuritis, Neurosurgery - Main [address] [place] [address] and [facility] [address] unspecified (Primary [address] [facility]) [address] [place] [address] (Wo rk) Social History Tobacco Use Types Packs/Day Years Used Date Never Smoker Smokeless Tobacco: Current User Alcohol Use Standard Drinks/Week Comments Yes 8.971015691016693296 (1 standard drink = 0.6 oz pure alcohol) Sex Assigned at Date Recorded Not on file documented as of this encounter Plan of Treatment Not on filedocumented as of this encounter Procedures Procedure Name Priority Date/Time Associated Diagnosis Comme nts CERVICAL SPINE 2-3 Routine 04/21/2012 12:24 Neuralgia, neuriti s, Results for this VIEWS EDT and radiculitis, procedure a re in unspecified the results section. documented in this encounter Results CERVICAL SPINE 2-3 VIEWS (04/21/2012 12:24 EDT) Anatomical Region Laterality Modality Other Specimen Narrative [facility] RADIOLOG[facility] - 04/21/2012 12:48 EDT Cervical spine April 21, 2012 History: Spinal electrode repositioning Comparison: March 30, 2012 AP and lateral views were obtained. Again noted is a spinal stimulator proje cted anterior to the spinous processes at the C5-C7 levels, stable in appearance and position. There is straightening of the normal adair dotic curve. There is moderate to advanced degenerative disc d isease involving C3-C7. Procedure Note 04/21/2012 Cervical spine April 21, 2012 History: Spinal electrode repositioning Comparison: March 30, 2012 AP and lateral views were obtained. Again noted is a spinal stimulator proje cted anterior to the spinous processes at the C5-C7 levels, stable in appearance and position. There is straightening of the normal adair dotic curve. There is moderate to advanced degenerative disc d isease involving C3-C7. Performing Organization Address City/State/ZIP Code Phon e Number [facility] MAIN [facility] documented in this encounter Visit Diagnoses Diagnosis Neuralgia, neuritis, and radiculitis, un specified - Primary documented in this encounter Care Teams Car Unloader Relationship Specialty Start Date End Date Peter Spencer MD PCP - General 11/13/09 [address] [place] [address] documented as of this encounter
--- OUTSIDE RECORDS SUMMARY | 2022-08-01 15:19 | XMS_ITS | Encounter Summary ---
:1960 Author Organization [facility] Address [address] [place] [address] Care Team Providers Name Role Phone Peter Spencer MD Primary Care Provider Reason for Visit Reason Onset Date Comments Post-OP Follow Up 04/27/2012 Encounter Details Date Type Department Care Team Description 04/27/2012 Telephone [facility] Brigitte Kim Pos t-OP Follow Up Neurosurgery - [facility] RN [address] [place], [place] [id number] Social History Tobacco Use Types Packs/Day Years [...] will have cade out by PCP at [facility]. He had no questions or complaints. documented in this encounter Plan of Treatment Not on filedocumented as of this encounter Visit Diagnoses Not on filedocumented in this encounter Care Teams Enterprise Sales Executive Relationship Specialty Start Date End Date Peter Spencer MD PCP - General 11/13/09 [address] [place], [place] [address] documented as of this encounter
--- OUTSIDE RECORDS SUMMARY | 2022-08-01 15:19 | XMS_ITS | Encounter Summary ---
:[address] [facility] Address [address] [place] [address] Care Team Providers Name Role Phone Peter Spencer MD Primary Care Provider Encounter Details Date Type Department Care Team Description 05/16/2012 Documentation Visit [facility] Akash Alexander MD Neurosurgery - [address] [place] [address] [address]ilion, [place] [address] (Wo rk) Social History Tobacco [...] - 05/16/2012 1056 EDT From Osvaldo Barclay, [employer] rep dated 05-13-2012: I saw him today [...] on filedocumented in this encounter Care Teams Director Of Science Relationship Specialty Start Date End Date Peter Spencer MD PCP - General 11/13/09 [address] [place] [address] documented as of this encounter
--- OUTSIDE RECORDS SUMMARY | 2022-08-01 15:19 | XMS_ITS | Encounter Summary ---
:1960 Author Organization [facility] Address [address] [place] [address] Care Team Providers Name Role Phone Peter Spencer MD Primary Care Provider Reason for Visit (Routine/Next Available) - Receiving Office to Obtain Authorization Specialty Diagnoses / Procedures Referred By Contact Refer red To Contact Procedures Imaging, External XR OUTSIDE IMAGES CHEST Referral ID Status Reason Start Expiration Visits Visits Date Date Requested Authorized [id number] Receiving Office 05/24/2022 1 1 to Obtain Authorization Encounter Details Date Type Department Care Team Description 05/21/2022 Hospital Encounter [facility] Secondary Reads [place] Social History Tobacco [...] on filedocumented in this encounter Care Teams Fire Protection Inspector Relationship Specialty Start Date End Date Peter Spencer MD PCP - General 11/13/09 [place] [address] documented as of this encounter
--- OUTSIDE RECORDS SUMMARY | 2022-08-01 15:19 | XMS_ITS | Clinical Summary ---
:1960 Author Organization [facility] Address [address] [place] [address] Care Team Providers Name Role Phone Peter [...] home and had further reprogramming done by [employer]. Therefore, the x-rays had shown that the [...] Priority Date/Time Associated Diagnosis Comme nts NON BRAKE PRESS OPERATOR/FNA Today 06/29/2022 12:04 Unspecified Results for this [...] section. from Last 3 Months Results NON BRAKE PRESS OPERATOR/FNA CYTOLOGY (06/29/2022 12:04 EDT) Pathologist Sig nature Note to Patient The following [facility] pathology results [facility] have been SERVICES interpreted by your pathologist and may be available to you before your health provider has had the opportunity to review them. Please allow time for your provider to receive these results and explore management options, if applicable. Final Diagnosis URINE, WASHING, CYTOLOGIC EVALUATION: [facility] MEDICAL - Negative for high grade urothelial carcinoma. [facility] - Background contains abundant acute inflammation. SERVICES Attestation By the signature below, the attending physician certifies that they have personally conducted a gross and/or microscopic [facility] Electronically signed examination of the described specimens and rendered or confirmed the above diagnosis. [facility] by Ludin Kennedy MD on 022 at 0907 Clinical History Ureteral stricture; [facility] unspecified [facility] hydronephrosis; SERVICES N13.30 Gross Description A. [facility] 70 cc's of clear pale yellow fluid with Cytolyt added were received and processed by selective cellular enhancement technique. [facility] SERVICES Performing Lab [facility]ORATORY SERVICES Scanned Images [facility]OR[facility]ORY SERVICES Specimen Urine - Wash - dosing instruction impera tive (qualifier value) Performing Organization Address City/State/ZIP Code Phon e Number [facility] [address] [place] [address] OUTSIDE IMAGES BODY (05/24/2022 10:43 [...] / Group Dates MEDICAID ACO MEDICAID ACO [id number] 2020-Pres [phone] [address] Medicaid [place] ent [address] [place] [address] (Work) Care Teams Cardiovascular Radiologic Technologist Relationship Specialty Start Date End Date Peter Spencer MD PCP - General 11/13/09 [address] [place] [address]
--- OUTSIDE RECORDS SUMMARY | 2022-08-01 15:19 | XMS_ITS | Encounter Summary ---
:[address] [facility] Address [address] [place] [address] Care Team Providers Name Role Phone Peter Spencer MD Primary Care Provider Reason for Visit (Routine/Next Available) - Receiving Office to Obtain Authorization Specialty Diagnoses / Procedures Referred By Contact Refer red To Contact Procedures Imaging, External XR OUTSIDE IMAGES CHEST Referral ID Status Reason Start Expiration Visits Visits Date Date Requested Authorized [id number] Receiving Office 03/18/2022 1 1 to Obtain Authorization Encounter Details Date Type Department Care Team Description 03/18/2022 Hospital Encounter [facility] Secondary Reads [place] Social History Tobacco [...] on filedocumented in this encounter Care Teams Cellular Tower Climber Relationship Specialty Start Date End Date Peter Spencer MD PCP - General 11/13/09 [place] [address] documented as of this encounter
--- OUTSIDE RECORDS SUMMARY | 2022-08-01 15:19 | XMS_ITS | Encounter Summary ---
:1960 Author Organization [facility] Address [address] [place] [address] Care Team Providers Name Role Phone Peter Spencer MD Primary Care Provider Encounter Details Date Type Department Care Team Description 12/27/2021 Lab Requisition [facility] Outr Resulting Lab, Pathology & Laboratory Provider [facility] [address] [place], [place] [address] Social History Tobacco Use Types Packs/Day Years [...] Pathologist Sig nature Legionella Antigen Negative Negative [facility] Detection LABORATORY SERVICES Specimen Urine - Urine (substance) Performing Organization Address City/State/ZIP Code Phon e Number [facility] [address] [place] [address] SERVICES documented in this encounter Visit Diagnoses Not on filedocumented in this encounter Care Teams Connection Worker Relationship Specialty Start Date End Date Peter Spencer MD PCP - General 11/13/09 [address] [place] [address] documented as of this encounter
--- OUTSIDE RECORDS SUMMARY | 2022-08-01 15:19 | XMS_ITS | Encounter Summary ---
:1960 Author Organization [facility] Address [address] [place] [address] Care Team Providers Name Role Phone Peter Spencer MD Primary Care Provider Encounter Details Date Type Department Care Team Description 12/28/2021 Lab Requisition [facility] Outr Resulting Lab, Pathology & Laboratory Provider [facility] [address] [place], [place] [phone] Social History Tobacco Use Types Packs/Day Years [...] HIV 1 and 2 NegativeComment: If Negative [facility] Antibody/p24 acute HIV-1 LABORATORY Antigen, 4th infection is SERVICES Generation suspected in a high risk patient, submit plasma specimen for HIV-1 RNA quantitation test. Specimen Blood - Venous blood (substance) Narrative [facility] LABORATORY SERVICES - 12/29/2021 12:10 EDT Fourth Generation assay performed on the Siemens Centaur XPT. Performing Organization Address City/State/ZIP Code Phon e Number [facility] [address] [place] [address] SERVICES documented in this encounter Visit Diagnoses Not on filedocumented in this encounter Care Teams Sewer Cleaner Relationship Specialty Start Date End Date Peter Spencre MD PCP - General 11/13/09 [address] [place] [address] documented as of this encounter
--- OUTSIDE RECORDS SUMMARY | 2022-08-01 15:19 | XMS_ITS | Encounter Summary ---
:1960 Author Organization [facility] Address [address] [place] [address] Care Team Providers Name Role Phone Peter Spencer MD Primary Care Provider Encounter Details Date Type Department Care Team Description 04/16/2012 Documentation Visit [facility] Akash Alexander MD Neurosurgery - [address] [place] [address] Pavilion, [place] [address] (Wo rk) Social History Tobacco Use Types Packs/Day Years Used Date Never Smoker Smokeless Tobacco: Current User Alcohol Use Standard Drinks/Week Comments Yes 8.576411616684205639 (1 standard drink = 0.6 oz pure [...] I received the following email from the [employer] physician relations representative: I saw patient Teo Duran in [...] you have any additional questions. Osvaldo Barclay Global Position System Technician, [place] [facility] We are therefore making plans to reposition the electrode, which should be done as soon as feasible. Aristides Alexander MD FACS Professor, Neurological Surgery documented in this encounter Plan of Treatment Not on filedocumented as of this encounter Visit Diagnoses Not on filedocumented in this encounter Care Teams Commercial Lending Vice President Relationship Specialty Start Date End Date Peter Spencer MD PCP - General 11/13/09 [address] [place] [address] documented as of this encounter
--- OUTSIDE RECORDS SUMMARY | 2022-08-01 15:19 | XMS_ITS | Encounter Summary ---
:1960 Author Organization [facility] Address [address] [place] [address] Care Team Providers Name Role Phone Peter Spencer MD Primary Care Provider Reason for Visit (Routine/Next Available) - Receiving Office to Obtain Authorization Specialty Diagnoses / Procedures Referred By Contact Refer red To Contact Procedures Imaging, External CT OUTSIDE IMAGES NEURO Referral ID Status Reason Start Expiration Visits Visits Date Date Requested Authorized [id number] Receiving Office 03/18/2022 1 1 to Obtain Authorization Encounter Details Date Type Department Care Team Description 03/18/2022 Hospital Encounter [facility] Secondary Reads [place] Social History [...] on filedocumented in this encounter Care Teams Health Administrator Relationship Specialty Start Date End Date Peter Spencer MD PCP - General 11/13/09 [place] [address] documented as of this encounter
--- OUTSIDE RECORDS SUMMARY | 2022-08-01 15:19 | XMS_ITS | Encounter Summary ---
:[address] [facility] Address [address] [place] [address] Care Team Providers Name Role Phone Peetr Spencer MD Primary Care Provider Reason for Visit (Routine/Next Available) - Receiving Office to Obtain Authorization Specialty Diagnoses / Procedures Referred By Contact Refer red To Contact Procedures Imaging, External CT OUTSIDE IMAGES BODY Referral ID Status Reason Start Expiration Visits Visits Date Date Requested Authorized [id number] Receiving Office 05/24/2022 1 1 to Obtain Authorization Encounter Details Date Type Department Care Team Description 05/21/2022 Hospital Encounter [facility] Secondary [place] Social History Tobacco Use [...] on filedocumented in this encounter Care Teams Auto Slip Cover Installer Relationship Specialty Start Date End Date Peter Spencer MD PCP - General 11/13/09 [place] [address] documented as of this encounter
--- OUTSIDE RECORDS SUMMARY | 2022-08-01 15:19 | XMS_ITS | Encounter Summary ---
:1960 Author Organization [facility] Address [address] [place] [address] Care Team Providers Name Role Phone Peter Spencer MD Primary Care Provider Encounter Details Date Type Department Care Team Description 04/20/2012 Pre-Procedure Orders [facility] Sonia Bhagat Encounter Neurosurgery - [facility] ABEL Wilson Benham [address] [place] [phone] [place] [address], [facility] Level [address] [place] [phone] (Wo rk) Social History Tobacco Use Types Packs/Day Years Used Date Never Smoker Smokeless Tobacco: Current User Alcohol Use Standard Drinks/Week Comments Yes 8.895875949126001189 (1 standard drink = 0.6 oz pure alcohol) Sex Assigned at Date Recorded Not on file documented as of this encounter Plan of Treatment Not on filedocumented as of this encounter Visit Diagnoses Not on filedocumented in this encounter Care Teams Division Leader Relationship Specialty Start Date End Date Peter Spencer MD PCP - General 11/13/09 [address] [place] [address] documented as of this encounter
--- OUTSIDE RECORDS SUMMARY | 2022-08-01 15:20 | XMS_ITS | Encounter Summary ---
:1960 Author Organization [facility] Address [address] [place] [address] Care Team Providers Name Role Phone Unavailable Primary Care Provider Unavailable Encounter Details Date Type Department Care Team Description 02/24/2002 Hospital Encounter [facility] [place], [facility] [address] [place] [address] MILLA THACKER [phone] (Wo rk) Social History Tobacco Use Types [...]
--- OUTSIDE RECORDS SUMMARY | 2022-08-01 15:20 | XMS_ITS | Encounter Summary ---
:1960 Author Organization [facility] Address [address] [place] [address] Care Team Providers Name Role Phone Peter Spencer MD Primary Care Provider Encounter Details Date Type Department Care Team Description 01/15/2012 Hospital Encounter [facility] - Ashley Scott Tilley DO [address] [place], [place] [address] [place], [place] [phone] [address] Social History Tobacco Use Types Packs/Day Years Used Date Never Smoker Smokeless Tobacco: Current User Alcohol Use Standard Drinks/Week Comments Yes 8.596326064607892177 (1 standard drink = 0.6 oz pure [...] Code Departure Means Destination Home or Self Jail documented in this encounter Plan of Treatment Not on filedocumented as of this encounter Visit Diagnoses Not on filedocumented in this encounter Care Teams Grants Specialist Relationship Specialty Start Date End Date Peter Spencer MD PCP - General 11/13/09 [place] [address] documented as of this encounter
--- OUTSIDE RECORDS SUMMARY | 2022-08-01 15:20 | XMS_ITS | Encounter Summary ---
:1960 Author Organization [facility] Address [address] [place] [address] Care Team Providers Name Role Phone Unavailable Primary Care Provider Unavailable Encounter Details Date Type Department Care Team Description 10/14/2001 Hospital Encounter [facility] - Dandre Renteria, [facility] [id number] [place] [phone] (Wo rk) Social History Tobacco Use Types [...]
--- OUTSIDE RECORDS SUMMARY | 2022-08-01 15:20 | XMS_ITS | Encounter Summary ---
:1960 Author Organization [facility] Address [address] [place] [address] Care Team Providers Name Role Phone Peter Spencer MD Primary Care Provider Reason for Visit Reason Onset Date Comments Appointment Related 12/10/2011 Encounter Details Date Type Department Care Team Description 12/10/2011 Telephone [facility] Aristides Alexander MD Appointment Related Neurosurgery - [address], [address] [place], [place] [address] [place] [address] [phone] (Wo rk) Social History Tobacco Use Types Packs/Day Years Used Date Never Smoker Smokeless Tobacco: Current User Alcohol Use Standard Drinks/Week Comments Yes 8.799539671761852197 (1 standard drink = 0.6 oz pure alcohol) Sex Assigned at Date Recorded Not on file documented as of this encounter Miscellaneous Notes Telephone Encounter - Alexandra Rodríguez - 12/10/2011 1439 EST Patient states this call was transferred to us from the [facility] at [facility]. States he is to have anappt with [...] on filedocumented in this encounter Care Teams Liturgical Music Director Relationship Specialty Start Date End Date Peter Spencer MD PCP - General 11/13/09 [address] [place] [address] documented as of this encounter
--- OUTSIDE RECORDS SUMMARY | 2022-08-01 15:20 | XMS_ITS | Encounter Summary ---
:1960 Author Organization [facility] Address [address] [place] [address] Care Team Providers Name Role Phone Peter Spencer MD Primary Care Provider Reason for Visit Reason Comments Back Pain consideration of SCS implant ation Encounter Details Date Type Department Care Team Description 12/30/2011 Office Visit [facility] Aristides Alexander MD Phantom limb pain Neurosurgery - [address] [place] [address] [address]ilion, [place] [phone] (Wo rk) Social History Tobacco Use Types Packs/Day Years Used Date Never Smoker Smokeless Tobacco: Current User Alcohol Use Standard Drinks/Week Comments Yes 8.021746510355547402 (1 standard drink = 0.6 oz pure [...] - documented in this encounter Progress Notes WASTE TRANSPORTATION TECHNICIAN, SCAN 2 - 01/11/2012 1106 EDT Aristides [...] neck pain. 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 He has [...] (syndrome) documented in this encounter Care Teams Flight Crew Scheduler Relationship Specialty Start Date End Date Peter Spencer MD PCP - General 11/13/09 [address] [place] [address] documented as of this encounter
--- OUTSIDE RECORDS SUMMARY | 2022-08-01 15:20 | XMS_ITS | Encounter Summary ---
:[address] [facility] Address [address] [place] [address] Care Team Providers Name Role Phone Peter Spencer MD Primary Care Provider Encounter Details Date Type Department Care Team Description 09/25/2011 Hospital Encounter [facility] Rosa Pfeiffer sa, MD Perioperative Services- Ian Scott, DO [address] [place] [address] [facility], DO [address] [place], [place] [address] [address] [place], [place] [address] Social History Tobacco Use Types Packs/Day Years Used Date Never Smoker Smokeless Tobacco: Current User Alcohol Use Standard Drinks/Week Comments Yes 8.619753818224389917 (1 standard drink = 0.6 oz pure [...] because they had spent the night in [facility]. Catalina Bustos - 09/18/2011 1332 EST Phuong [...] on filedocumented in this encounter Care Teams Poacher Wringer Operator Relationship Specialty Start Date End Date Peter Spencer MD PCP - General 11/13/09 [address] [place] [address] documented as of this encounter
--- OUTSIDE RECORDS SUMMARY | 2022-08-01 15:20 | XMS_ITS | Encounter Summary ---
:1960 Author Organization [facility] Address [address] [place] [address] Care Team Providers Name Role Phone Unavailable Primary Care Provider Unavailable Encounter Details Date Type Department Care Team Description 11/24/2001 Hospital Encounter [facility] - Araceli Garcia MD [facility] [address] [place], [place] [phone] [facility] AvrilCalderon lyon MD [address] [place] [phone] [address] [place], [place] [phone] Social History Tobacco Use Types Packs/Day Years Used Date Never Assessed Sex Assigned at Date Recorded Not on file documented as of this encounter Discharge Disposition Disposition Code Departure Means Destination Auto Discharge documented in this encounter Plan of Treatment Not on filedocumented as of this encounter Visit Diagnoses Not on filedocumented in this encounter
--- OUTSIDE RECORDS SUMMARY | 2022-08-01 15:20 | XMS_ITS | Encounter Summary ---
:1960 Author Organization [facility] Address [address] [place] [address] Care Team Providers Name Role Phone Unavailable Primary Care Provider Unavailable Encounter Details Date Type Department Care Team Description 03/08/2001 - Hospital Encounter [facility] [place] 03/09/2001 Neurosurgery Unit MD Rinku [address] [place] [address] [facility] [phone] [place] [address] Social History Tobacco Use Types Packs/Day Years Used Date Never Assessed Sex Assigned at Date Recorded Not on file documented as of this encounter Discharge Disposition Disposition Code Departure Means Destination Home-Health Care S[facility] documented in this encounter Plan of Treatment Not on filedocumented as of this encounter Procedures Procedure Name Priority Date/Time Associated Diagnosis Comme nts SURGICAL PATHOLOGY Routine 03/08/2001 0:00 EDT Re sults for this procedure are i n the results section. documented in this encounter Results SURGICAL PATHOLOGY (03/08/2001 0:00 EDT) Pathology Report: SURGICAL PATHOLOGY REPORT AARON MENDEZ Reports generated via electronic interface contain nicole ginal data; LAB however they are lacking the format of the original re port. Caution should be taken when reading/interpreting unfo rmatted reports. Name: ? ENRIQUE DURAN ? Accession #: ? [id number] ? : ? 1960 (Age: 40) ??M ? Collect Date: ? 03/08/2001 ? Location: ? M006 ? Receive Date: ? 001 ? Provider: BRAIN THORNTON MD Copy to: DEEPTI LOPEZ MD ? Final Pathologic Diagnosis: ? Left arm, left jlkdg-tzn-jpsrg amputation: - Consistent with brachial plexopathy. ??Gross only. ? ? Document reviewed and electronically signed by: Soniya Vallecillo [facility] Report ??Date: 03/09/2001 17:08 By the signature above, the attending physician certif ies that he/she has personally conducted a gross and/or microscopic examin ation of the described specimens and rendered or confirmed the above diagnosi s. Specimen(s) Received: ? L above elbow amp Clinical History: ? L brachial plexopathy Gross Description: ? Received fresh labelled Roger is the product of an kiele-hvj-tgyrz amputation of the left arm. ??The specimen measu res 50.0 cm from the proximal humeral resection margin to the tip of the longest finger. ??The specimen reaches a maximum width, proximally, of 12.0 cm and distally of 10.0 cm. ??The proximal resection margin appears evelyne ssly viable. ??The humerus extends to a distance of 1.0 cm from the soft tissue resection margin. ??The fingers appear with a slight purple discoloration. ??Ther e is slight to moderate wasting of the muscles of the forearm. ??The forearm has a maximum circumference of 14.5 cm. ??Gross only. ??(Dr. Monique)/[facility] End of Report Specimen Performing Organization Address City/State/ZIP Code Phon e Number [facility] [address] [place] [address] SERVICES [facility] [address] [place] [address] documented in this encounter Visit Diagnoses Not on filedocumented in this encounter
--- OUTSIDE RECORDS SUMMARY | 2022-08-01 15:20 | XMS_ITS | Encounter Summary ---
:1960 Author Organization [facility] Address [address] [place] [address] Care Team Providers Name Role Phone Peter Spencer MD Primary Care Provider Reason for Visit Reason Comments Arm Pain l arm Encounter Details Date Type Department Care Team Description 08/04/2011 Office Visit [facility] - Unknown, Pr MD maylin Phantom limb pain (CMS-HCC) (Primary Dx) ; [facility] Hugo Andrwes III, DO [address] [place] [address] Neuropathic pain syndrome (non-herpetic) [facility] [place] Derek Pratt, DO [address] [place] [address] Interventional Pain [address] [place], [place] [address] Social History Tobacco Use Types Packs/Day Years Used Date Never Smoker Smokeless Tobacco: Current User Alcohol Use Standard Drinks/Week Comments Yes 8.260111193745614193 (1 standard drink = 0.6 oz pure [...] InstructionsJenn Espitia RN - 08/04/2011 15:41 EDT [facility] [address] [address] Post-Trial Spinal Cord Implant Patient [...] Duran : 1960 Date of Service: 08/04/2011 Hazard Mitigation Officer: Hugo Andrews DO Book Or Script Editor: Derek Pratt DO Procedure: Dorsal column Spinal [...] Left Upper Extremity Distal [facility] Cig[facility] Sorter was present during the entire procedure and performed post- procedure education. REF # [id number] Lot # [id number] 1 Octrode Trial Lead Kit, 60cm Length [...] to tolerate the procedure well. The SCS financial services sales representative educated the patient regarding the use [...] Girish carlson RN - 08/04/2011 1402 EDT [facility] Rooming Note Does patient have a Corn Lab Technician? yes Is patient NPO? (Solids since midnight [...] RN documented in this encounter Procedure Notes BILINGUAL SPEECH THERAPIST, SCAN 2 - 02/09/2012 1112 EDTAssociated Order(s): PROCEDURE REPORTS - SCANNED documented in this encounter Miscellaneous Notes Scanned Note-Null - [employer] Program Coordinator, Scan - 08/06/2011 1315 EDT canned Note- Null - [employer] Program Coordinator, Scan - 08/06/2011 1126 EDT documented in [...] attachment that is no t available. Transcriptions BILINGUAL SPEECH THERAPIST, CHETNA 2 - 02/09/2012 11:12 EDT documented [...] 08/04/2011 documented in this encounter Care Teams Screening Representative Relationship Specialty Start Date End Date Peter Spencer MD PCP - General 11/13/09 [address] [place] [address] documented as of this encounter
--- OUTSIDE RECORDS SUMMARY | 2022-08-01 15:20 | XMS_ITS | Encounter Summary ---
:1960 Author Organization [facility] Address [address] [place] [address] Care Team Providers Name Role Phone Peter Spencer MD Primary Care Provider Reason for Visit Reason Onset Date Comments Discuss Surgery 02/03/2012 Encounter Details Date Type Department Care Team Description 02/03/2012 Telephone [facility] Aristides Alexander MD Discuss Surgery Neurosurgery - [address], [address] [place], [place] [address] [place] [address] [phone] (Wo rk) Social History Tobacco Use Types Packs/Day Years Used Date Never Smoker Smokeless Tobacco: Current User Alcohol Use Standard Drinks/Week Comments Yes 8.016419297477834566 (1 standard drink = 0.6 oz pure [...] on filedocumented in this encounter Care Teams Oxyacetylene Torch Operator Relationship Specialty Start Date End Date Peter Spencer MD PCP - General 11/13/09 [address] [place] [address] documented as of this encounter
--- OUTSIDE RECORDS SUMMARY | 2022-08-01 15:20 | XMS_ITS | Encounter Summary ---
:1960 Author Organization [facility] Address [address] [place] [address] Care Team Providers Name Role Phone Peter Spencer MD Primary Care Provider Reason for Visit Reason Onset Date Comments Appointment Related 12/07/2011 Encounter Details Date Type Department Care Team Description 12/07/2011 Telephone [facility] - Hugo Andrews III, Appointment Related [facility] [address] rapha[address] Interventional Pain [address] [facility] [place] [address] [address] [address] [phone] Social History Tobacco Use Types Packs/Day Years Used Date Never Smoker Smokeless Tobacco: Current User Alcohol Use Standard Drinks/Week Comments Yes 8.713829546196131891 (1 standard drink = 0.6 oz pure [...] on filedocumented in this encounter Care Teams Virtual Classroom Manager Relationship Specialty Start Date End Date Peter Spencer MD PCP - General 11/13/09 [address] [place] [address] documented as of this encounter
--- OUTSIDE RECORDS SUMMARY | 2022-08-01 15:20 | XMS_ITS | Encounter Summary ---
:1960 Author Organization [facility] Address [address] [place] [address] Care Team Providers Name Role Phone Peter Spencer MD Primary Care Provider Reason for Visit Reason Comments Hand Pain left hand pain Encounter Details Date Type Department Care Team Description 08/11/2011 Office Visit [facility] - Unknown, Pr MD maylin Phantom limb pain (CMS-HCC); [facility] Hugo Andrews III, DO [address] [place] [address] Neuropathic pain syndrome (non-herpetic) [facility] Derek Pratt, DO [address] [place] [address] Interventional Pain [address] [place], [place] [address] Social History Tobacco Use Types Packs/Day Years Used Date Never Smoker Smokeless Tobacco: Current User Alcohol Use Standard Drinks/Week Comments Yes 8.930126118495447087 (1 standard drink = 0.6 oz pure [...] Notes Jackie Grant - 08/11/2011 1704 EDT .[facility] Follow Up Note Patient [...] specified documented in this encounter Care Teams Healthcare Translator Relationship Specialty Start Date End Date Peter Spencer MD PCP - General 11/13/[address] [place] [address] documented as of this encounter
--- OUTSIDE RECORDS SUMMARY | 2022-08-01 15:20 | XMS_ITS | Encounter Summary ---
:1960 Author Organization [facility] Address [address] [place] [address] Care Team Providers Name Role Phone Peter Spencer MD Primary Care Provider Encounter Details Date Type Department Care Team Description 09/19/2010 Abstract Used for ABSTRACTING Data Peter Spencer MD [phone] [address] [place], [place] [address] (Wo rk) Social History Tobacco Use Types [...] daily. added in this encounter Care Teams Survey Research Manager Relationship Specialty Start Date End Date Peter Spencer MD PCP - General 11/13/09 [address] [place] [address] documented as of this encounter
--- OUTSIDE RECORDS SUMMARY | 2022-08-01 15:20 | XMS_ITS | Encounter Summary ---
:1960 Author Organization [facility] Address [address] [place] [address] Care Team Providers Name Role Phone Peter Spencer MD Primary Care Provider Encounter Details Date Type Department Care Team Description 09/30/2011 Hospital Encounter [facility] Hugo Andrews I II, Perioperative Services- [facility] [address] [facility] [address] [place], [place] [address] [place] [address] [phone] (Wo rk) Social History Tobacco Use Types Packs/Day Years Used Date Never Smoker Smokeless Tobacco: Current User Alcohol Use Standard Drinks/Week Comments Yes 8.771327034202099854 (1 standard drink = 0.6 oz pure [...] Elodia Lee RN - 09/30/2011 Call the [facility] at [phone] with any questions. We will be calling [...] y.o. :: Attending physician: Hugo Andrews MD Family Law Attorney: Derek Pratt DO HPI: Patient is a [...] Notes Hugo Andrews - 10/07/2011 1423 ESTProcedure(s): [place] PERCUT IMPLNT NEUROELECT,EPIDURAL; [place] IMPLANT SPINAL NEUROSTIM/RECEIVERPre-Procedure Diagnose(s): Cervical radiculopathy; Phantom [...] this encounter OR Notes OR PreOp - Special Population Paraprofessional, Scan - 10/08/2011 0848 EST R PreOp - Special Population Paraprofessional, Scan - 10/07/2011 1241 EST nesthesia Procedure Notes - Special Population Paraprofessional, Scan - 09/30/2011 1541 EST nesthesia Preprocedure Evaluation - Special Population Paraprofessional, Scan - 09/30/2011 1325 EST documented in this encounter Miscellaneous Notes Scanned Note-Null - Special Population Paraprofessional, Scan - 10/07/2011 1241 EST canned Note- Null - Special Population Paraprofessional, Scan - 10/07/2011 1241 EST rief Op [...] attachment that is no t available. Transcriptions Special Population Paraprofessional, Scan - 10/07/2011 12:[address] [place] UP TO 1 HOUR (09/30/2011 15:37 EST) Anatomical Region Laterality Modality Other Specimen Narrative [facility] - 09/30/2011 15:37 EST Non Reportable Exam Procedure Note 09/30/2011 Non Reportable Exam Performing Organization Address City/State/ZIP Code Phon e Number [facility] documented in this encounter Visit Diagnoses [...] (CANCELED) 1541 (Rate Documented - Provider: Elodia Brandon, RN) at 75 mL/hr, Intravenous, CONTINUOUS, St [...] 09/30/2011 documented in this encounter Care Teams Rotary Surface Grinder Relationship Specialty Start Date End Date Peter Spencer MD PCP - General 11/13/09 [address] [place] [address] documented as of this encounter
--- OUTSIDE RECORDS SUMMARY | 2022-08-01 15:20 | XMS_ITS | Encounter Summary ---
:1960 Author Organization [facility] Address [address] [place] [address] Care Team Providers Name Role Phone Peter Spencer MD Primary Care Provider Encounter Details Date Type Department Care Team Description 01/16/2012 Documentation Visit [facility] Akash Alexander MD Neurosurgery - [address] [place] [address] Pavilion, [place] [address] (Wo rk) Social History Tobacco Use Types Packs/Day Years Used Date Never Smoker Smokeless Tobacco: Current User Alcohol Use Standard Drinks/Week Comments Yes [id number] (1 standard drink = 0.6 oz pure alcohol) Sex Assigned at Date Recorded Not on file documented as of this encounter Progress Notes Aristides Alexander MD - 01/22/2012 0961 EDT Spoke with Mr. Duran by telephone [...] Aristides Alexander MD FACS Professor, Neurological Surgery Aristdies Zimmerman MD - 01/16/2012 1123 EDT Reviewed MRI [...] on filedocumented in this encounter Care Teams Kiln Furniture Saw Tender Relationship Specialty Start Date End Date Peter Spencer MD PCP - General 11/13/09 [address] [place] [address] documented as of this encounter
--- OUTSIDE RECORDS SUMMARY | 2022-08-01 15:20 | XMS_ITS | Encounter Summary ---
:1960 Author Organization [facility] Address [address] [place] [address] Care Team Providers Name Role Phone Peter Spencer MD Primary Care Provider Encounter Details Date Type Department Care Team Description 12/16/2011 Orders Only [facility] - Derek Pratt P hantom limb pain ([facility]); [facility] Neuropathic pain syndrome (non-herpetic) [facility] [address] Interventional Pain [place], [place] [address] Stephanie Meek [address] [place], [place] [address] [phone] Social History Tobacco Use Types Packs/Day Years Used Date Never Smoker Smokeless Tobacco: Current User Alcohol Use Standard Drinks/Week Comments Yes [id number] (1 standard drink = 0.6 oz pure alcohol) Sex Assigned at Date Recorded Not on file documented as of this encounter Plan of Treatment Not on filedocumented as of this encounter Procedures Procedure Name Priority Date/Time Associated Diagnosis Comme nts MR CERVICAL SPINE 01/15/2012 14:35 Phantom limb pain R esults for this WO CONTRAST EDT ([facility]) procedure are in Neuropathic pain the results [...] City/State/ZIP Code Phon e Number [facility] MRI [facility] MRI documented in this encounter Visit Diagnoses Diagnosis Phantom limb pain (HCC-CMS) (HCC) Phantom limb (syndrome) Neuropathic pain syndrome (non-herpetic) Neuralgia, neuritis, and radiculitis, un specified documented in this encounter Care Teams Machine Puller Relationship Specialty Start Date End Date Peter Spencer MD PCP - General 11/13/09 [address] [place] [address] documented as of this encounter
--- OUTSIDE RECORDS SUMMARY | 2022-08-01 15:20 | XMS_ITS | Encounter Summary ---
:1960 Author Organization [facility] Address [address] [place] [address] Care Team Providers Name Role Phone Peter Spencer MD Primary Care Provider Reason for Visit Reason Comments Pain phantom pain right hand and fingers Encounter Details Date Type Department Care Team Description 09/25/2010 Office Visit [facility] [place], Phantom limb pain ([facility]) (Primary Dx); [facility] MD Venkata Dutta neuritis or radiculitis [facility] Interventional Pain [address] [facility] [address] [place], [place] [address] Social History Tobacco Use [...] Char Arellano MD - 09/25/2010 1615 EST [facility] Follow Up Note Patient [...] nos documented in this encounter Care Teams Linseed Oil Refiner Relationship Specialty Start Date End Date Peter Spencer MD PCP - General 11/13/09 [address] [place] [address] documented as of this encounter
--- OUTSIDE RECORDS SUMMARY | 2022-08-01 15:20 | XMS_ITS | Encounter Summary ---
:1960 Author Organization [facility] Address [address] [place] [address] Care Team Providers Name Role Phone Peter Spencer MD Primary Care Provider Encounter Details Date Type Department Care Team Description 01/17/2010 Hospital Encounter [facility] - Unknown, ProviderMD [facility] Luzmaria Pfeiffer MD Medical Center Alise Lyn MD [address] [id number] Interventional Pain [address] [facility] [address] [place], [place] [address] Social History Tobacco Use Types Packs/Day Years Used Date Never Assessed Sex Assigned at Date Recorded Not on file documented as of this encounter Discharge Disposition Disposition Code Departure Means Destination Home or Self Usp documented in this encounter Procedure Notes Alise Lyn MD - 01/17/2010 0000 EDT DIVISION OF PAIN MANAGEMENT PROCEDURE REPORT SERVICE DATE: 01/17/2010 RADIATION TECHNICIAN: Luzmaria Pfeiffer MD SENIOR IT ASSISTANT: Alise Lyn MD PROCEDURE: Left stellate ganglion block. PREPROCEDURE DIAGNOSIS: Left phantom limb pain. POSTPROCEDURE DIAGNOSIS: Left phantom limb pain. INTERVAL HISTORY: The patient returns to clinic after last being seen 12/13/2009, at which point we provided him with left stellate ganglion block. The patient states he did receive one week of relief with his injection. Patient states that he significantly decreased his oxycodone intake during that time. He went from over 8 pills of oxycodone per day to 1, during this 1 week pain free interval. The patient reports that the pain is back in the same distribution and pattern as in the past. He describes it as a 3 to 4 out of 10, located along his left phantom limb. He feels as if there is electric spark shooting out of his phantom left hand. He states nothing seems to truly alleviate except for oxyco done. It is worsened by any activity of daily living. REVIEW OF SYSTEMS: Negative for chest pain, shortness of breath, nausea, vomiting, diarrhea, constipation, bowel or bladder incontinence, infectious issues or anticoagulation issues. OBJECTIVE: Mr Siddiqi is awake, alert and oriented x3 in no acute distress. He is 5 feet 10 inches tall and weighs 180 pounds. Blood pressure 132/94, pulse 76, respiratory rate 20, temperature at 35.6.Inspection of his cervical spine does not reveal any obvious deformities or malformations. He has free range of motion of his cervical spine. 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 The patient, however, continues to feel as if his left hand is resting upon his abdomen. ASSESSMENT: 1. Phantom limb pain, left side with significant relief of symptoms with previous stellate ganglion block. PLAN: 1. Today we will proceed with a repeat left stellate ganglion block in hopes of getting him significantly longer duration of relief. The patient is to return to clinic in two weeks for consideration ofrepeat stellate ganglion. 2. We did discuss with him the possibility of cervical stimulation trial should the stellate ganglion blocks to prove to be less and less effective over time. PROCEDURE NOTE: After obtaining informed consent, patient brought in the procedure room after a guzman moment was performed. After sterile prep and drape with chlorhexidine solution while the patient is in supine position, we located, under fluoroscopic guidance, his left-sided C7 vertebral body. The skin and subcutaneous tissues were anesthetized with 2% lidocaine. A 25-gauge, 2-1/2-inch spinal needle was advanced under fluoroscopic guidance to lie inferior and medial to uncinate process of C7 vertebral body. After negative aspiration, 1 mL gadolinium was injected, which did not show ideal spread.As such, the needle was re-stiletted and removed and repositioned 1 cm lateral and then advanced to lie at the inferior border of the uncinate process. After negative heme and CSF aspiration at all times and confirmation under fluoroscopic guidance using digital subtraction with negative intravascularuptake. We used gadolinium for confirmation, then injected total of 2 mL of gadolinium and 10 mL of 0.25% bupivacaine. The needle was re-stiletted and removed. The patient tolerated the procedure well without any apparent complications. He is to return to clinic in a two weeks for consideration of repeat stellate ganglion block. The patient's postprocedure vital signs 148/89, pulse of 75. Unless otherwise noted, there were no complications, no blood loss, cultures obtained, specimens removed, or drains retained. I was present during the entire procedure. Electronically Signed by Luzmaria Pfeiffer MD 01/30/2010 23:24 Alise Lyn MD Luzmaria Pfeiffer MD - Alise Lyn MD - CJAdolfo Job ID: SM Doc ID: [id number] Ext Doc ID: [id number] cc: Peter Spencer MD documented in this encounter Plan of Treatment Not on filedocumented as of this encounter Visit Diagnoses Not on filedocumented in this encounter Care Teams Surplus Property Disposal Agent Relationship Specialty Start Date End Date ePter Spencer MD PCP - General 11/13/[address] [place] [id number] documented as of this encounter
--- OUTSIDE RECORDS SUMMARY | 2022-08-01 15:20 | XMS_ITS | Encounter Summary ---
:1960 Author Organization [facility] Address [address] [place] [address] Care Team Providers Name Role Phone Unavailable Primary Care Provider Unavailable Encounter Details Date Type Department Care Team Description 05/13/2000 Hospital Encounter [facility] Dandre Renteria, [facility] [id number] [place] [phone] (Wo rk) Social History Tobacco Use Types [...]
--- OUTSIDE RECORDS SUMMARY | 2022-08-01 15:20 | XMS_ITS | Encounter Summary ---
:[address] [facility] Address [address] [place] [address] Care Team Providers Name Role Phone Peter Spencer MD Primary Care Provider Reason for Visit Reason Comments Pain left arm Encounter Details Date Type Department Care Team Description 02/10/2012 Office Visit [facility] - Unknown, Pr MD maylin Phantom limb pain (CMS-HCC); [facility] [place] [address] [place] [address] Neuropathic pain syndrome (non-herpetic) [facility] [place] Derek Pratt, DO [address] [place], [place] [id number] Interventional Pain [address] [place], [place] [address] Social History Tobacco Use Types Packs/Day Years Used Date Never Smoker Smokeless Tobacco: Current User Alcohol Use Standard Drinks/Week Comments Yes [id number] (1 standard drink = 0.6 oz pure [...] specified documented in this encounter Care Teams Rail Bonder Relationship Specialty Start Date End Date Peter Spencer MD PCP - General 11/13/[address] [place] [id number] documented as of this encounter
[2022-08-01 15:34] VITALS: BP 102/73; PULSE 100; RESP 18; TEMP 36.7; O2SAT 94
--- NOTE | 2022-08-01 16:39 | W.ED.GENAD ---
Discharge Plan Disposition Patient Disposition: HOME Condition: Stable Discharge Details Clinical Impression: Malfunction of nephrostomy tube Primary Care Provider: Peter Spencer ED Provider: Cammie Tran Home Meds and New Rx's Prescriptions: Continued tamsulosin 0.4 mg capsule 0.4 mg PO QHS pantoprazole 20 mg tablet,delayed release (DR/EC) 20 mg PO DAILY amitriptyline 50 mg tablet 50 mg PO QHS docusate sodium [Colace] 100 mg capsule 100 mg PO TID PRN acetaminophen 500 mg tablet 500 mg PO Q3H PRN naloxone [Narcan] 4 mg/actuation spray,non-aerosol 4 mg intranasal Q2-3M PRN Label Comments: sister states pt. doesnt have Rx Instructions: spray 1 dose into ONE nostril; alternate nostrils w each dose until help arrives pregabalin [Lyrica] 150 MG capsule 150 mg PO TID oxycodone 15 mg Tablet, Oral Only 1 tab PO QID Rx Instructions: 09/21/18 pt states that he does not take this one any more morphine 15 mg Tablet 30 mg PO TID PRN (Reason: Pain) vitamin B complex Tablet Extended Release 1 tab PO DAILY cephalexin 500 mg capsule 500 mg PO BID Qty: 14 0RF lisinopril 5 mg Tablet 5 mg PO HS cholecalciferol (vitamin D3) [Vitamin D3] 50 mcg (2,000 unit) Capsule 50 mcg PO DAILY Discharge Instructions Instructions: Nephrostomy Tube Care (ED) Additional Instructions: Please drain the ostomy bag as needed. This is just a temporary fix until you can see urology. This will allow the tube to drain. Please call urologist Wednesday morning or present for your previously scheduled appointment on Wednesday. Please continue take the antibiotics you are previously given. Follow up with Urology in 1-2 days. Return to ED sooner if any worsening or concerns. Increase oral fluids. Referrals: William Camacho MD [ [facility] STAFF PHYSICIAN] - 2 days Peter Spencer MD [Primary Care Provider] - Discharge Data Discharge Date/Time-TO BE ENTERED AT DEPARTURE: 08/01/22 17:21 Medical Decision Making 62-year-old male presents to the ER after accidentally cutting his nephrostomy tube during a dressing change approximately 2 hours prior to arrival. His caregiver other reports she was changing his dressing and actually cut his nephrostomy tube. A urostomy bag was placed over the catheter to allow for drainage. An additional pair bag was given. I did advise to follow-up with urology on Wednesday morning. According to medical record review patient has a urology appointment on Wednesday with Dr. Camacho. Medical Records Medical records reviewed: Yes I reviewed the patient's medical records. HPI General Mode of arrival: ambulatory. Date/Time Provider Initiated Documentation: 08/01/22 15:45. Limitations to Documentation: no limitations. Information obtained by: patient, RN notes reviewed and old records reviewed. HPI Narrative: 62-year-old male presents to the ER after accidentally cutting his nephrostomy tube during a dressing change approximately 2 hours prior to arrival. His caregiver other reports she was changing his dressing and actually cut his nephrostomy tube. He was here earlier for a clogged Galindo catheter which has since resolved and is draining without difficulty. He was placed on antibiotics for UTI. He does have an appointment with urology on Wednesday. He denies any other associated symptoms. Related Data Home Medications Medication Instructions Recorded Confirmed pregabalin 150 mg capsule (Lyrica) 150 mg PO TID 08/13/14 08/01/22 morphine 15 mg immediate release 30 mg PO TID PRN Pain 09/21/18 08/01/22 tablet oxycodone 15 mg tablet,oral ONLY 1 tab PO QID 09/21/18 08/01/22 (not feeding tubes) vitamin B complex 1 tab PO DAILY 12/25/21 08/01/22 acetaminophen 500 mg tablet 500 mg PO Q3H PRN 02/18/22 08/01/22 amitriptyline 50 mg tablet 50 mg PO QHS 02/18/22 08/01/22 docusate sodium 100 mg capsule 100 mg PO TID PRN 02/18/22 08/01/22 (Colace) naloxone 4 mg/actuation nasal 4 mg intranasal Q2-3M PRN 02/18/22 08/01/22 spray (Narcan) pantoprazole 20 mg tablet,delayed 20 mg PO DAILY 02/18/22 08/01/22 release tamsulosin 0.4 mg capsule 0.4 mg PO QHS 03/26/22 08/01/22 lisinopril 5 mg tablet 5 mg PO HS 04/23/22 08/01/22 cholecalciferol (vitamin D3) 50 50 mcg PO DAILY 05/21/22 08/01/22 mcg (2,000 unit) capsule (Vitamin D3) cephalexin 500 mg capsule 500 mg PO BID #14 caps 08/01/22 Previous Rx's Medication Instructions Recorded cephalexin 500 mg capsule 500 mg PO BID #14 caps 08/01/22 Allergies Allergy/AdvReac Type Severity Reaction Status Date / Time iodine Allergy Severe Topical Unverified 08/01/22 10:17 Irritation copper Allergy Intermediate Unverified 08/01/22 10:17 chocolate flavor AdvReac Unverified 08/01/22 10:17 General Stated Complaint: Urinary TALITA: 4 Review of Systems All systems reviewed & are unremarkable except as noted in HPI and below PFSH All Active Problems (Updated 08/01/22 @ 17:14 by Cammie Tran NP) Complication of Galindo catheter (Acute) Acute UTI (Acute) Malfunction of nephrostomy tube (Acute) Left ureteral injury (Acute) Hydronephrosis, left (Acute) Hydronephrosis due to obstruction of ureter (Acute) Retroperitoneal fluid collection (Acute) Fever (Acute) Left arm cellulitis (Acute) Acute anemia (Acute) Acute kidney injury (Acute) Vitamin D deficiency (Acute) Phantom limb (syndrome) (Chronic) Status post VNS (vagus nerve stimulator) placement (Acute) Peptic ulcer disease (Chronic) 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 states this has not been done History of gastrectomy Hx of fracture of hip Hx of fracture of wrist Hx of fracture of wrist pt. reports metal in place Hx of peptic ulcer Personal history of COVID-19 Rib fractures Right leg injury S/P placement of nerve stimulator Ulnar neuritis Surgical History Hx of cystoscopy Hx of total hip arthroplasty t. reports fracture with metal repair Social History Smoking/Tobacco Use Status: Current every day Tobacco Type: smokeless tobacco Smoking risk assessment performed?: Yes Alcohol Intake: never Drug use: Never Substance use type: does not use Do you feel safe at home: Yes Do you feel safe in your relationship?: Yes Exam Back/Spine/Pelvis Back: no CVA tenderness Thoracic/Lumbar Spine: other (Nephrostomy tube noted to left flank, tied in a knot and cut at the end) Course Vital Signs Vital signs: Vital Signs Temperature 36.7 C 08/01/22 15:34 Pulse 100 H 08/01/22 15:34 Respiratory Rate 18 08/01/22 15:34 Blood Pressure 102/73 08/01/22 15:34 Pulse Oximetry 94 08/01/22 15:34 Temperature 36.7 C 08/01/22 15:34 Temperature Source Temporal Artery Scan 08/01/22 15:34 Pulse 100 H 08/01/22 15:34 Respiratory Rate 18 08/01/22 15:34 Blood Pressure 102/73 08/01/22 15:34 Blood Pressure Position Sitting 08/01/22 15:34 Pulse Oximetry 94 08/01/22 15:34 Oxygen Delivery Method Room Air 08/01/22 15:34 Oxygen Flow Rate 0 08/01/22 15:34
== END 2022-08-01 17:21 | disposition home or self-care (01) ==
PROVIDERS: Emergency Provider Registered Nurse Emergency; PCP Internal Medicine
DX: N99.522 Malfunction of incontinent external stoma of urinary tract (principal); F17.200 Nicotine dependence, unspecified, uncomplicated; Z93.6 Other artificial openings of urinary tract status; Y83.8 Other surgical procedures as the cause of abnormal reaction of the patient, or of later complication, without mention of misadventure at the time of the procedure
CPT/HCPCS: 99281

== ENCOUNTER 2022-08-06 11:58 | Day surgery (SDC) | payer MEDICAID, SELFPAY ==
--- NOTE | 2022-08-06 12:12 | W.PM.HP.N ---
Date of service: 08/06/22 Time of Service: 12:13 Assessment and Plan Assessment and plan (1) Malfunction of nephrostomy tube: Status: Acute (2) Hydronephrosis, left: Status: Acute Assessment and plan: We will attempt to replace his nephrostomy tube over a guidewire. We will utilize fluoroscopy to ensure the correct positioning of the catheter. History of Present Illness History of Present Illness Chief Complaint: Left hydronephrosis Narrative: This is a 62-year-old gentleman who has a history of a left ureteral stone. He was treated with ureteroscopy and holmium laser lithotripsy. About a month following his procedure, he was found to have left hydronephrosis in the urinoma due to the ureteral injury. I was unable to place a ureteral stent in a retrograde manner, so he had a nephrostomy tube placed. We converted the IR nephrostomy tube into a [employer] Galindo catheter type tube when we did a nephrostogram. The patient presented to the emergency department after he inadvertently cut the nephrostomy tube. The tube stayed in place and he presents now to have a new nephrostomy tube placed over a wire. Will not require anesthesia for the procedure but we will utilize fluoroscopy. Review of Systems Constitutional Comments: No fevers or chills No vision change or dysphasia No diabetes or thyroid dysfunction No shortness of breath, cough or hemoptysis No chest pain or palpitations No hepatitis, ulcers, jaundice Chronic pain/phantom limb syndrome. 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 states this has not been done History of gastrectomy Hx of fracture of hip Hx of fracture of wrist Hx of fracture of wrist pt. reports metal in place Hx of peptic ulcer Personal history of COVID-19 Rib fractures Right leg injury S/P placement of nerve stimulator Ulnar neuritis Surgical History Hx of cystoscopy Hx of total hip arthroplasty t. reports fracture with metal repair Social History Smoking/Tobacco Use Status: Current every day Tobacco Type: smokeless tobacco Smoking risk assessment performed?: Yes Alcohol Intake: never Drug use: Never Substance use type: does not use Do you feel safe at home: Yes Do you feel safe in your relationship?: Yes Meds Allergies and Home Medications Allergies Allergy/AdvReac Type Severity Reaction Status Date / Time iodine Allergy Severe Topical Unverified 08/06/22 12:16 Irritation copper Allergy Intermediate Unverified 08/06/22 12:16 chocolate flavor AdvReac Unverified 08/06/22 12:16 Home Medications Medication Instructions Recorded Confirmed Type pregabalin 150 mg capsule (Lyrica) 150 mg PO TID 08/13/14 08/01/22 History morphine 15 mg immediate release 30 mg PO TID PRN Pain 09/21/18 08/01/22 History tablet oxycodone 15 mg tablet,oral ONLY 1 tab PO QID 09/21/18 08/01/22 History (not feeding tubes) vitamin B complex 1 tab PO DAILY 12/25/21 08/01/22 History acetaminophen 500 mg tablet 500 mg PO Q3H PRN 02/18/22 08/01/22 History amitriptyline 50 mg tablet 50 mg PO QHS 02/18/22 08/01/22 History docusate sodium 100 mg capsule 100 mg PO TID PRN 02/18/22 08/01/22 History (Colace) naloxone 4 mg/actuation nasal 4 mg intranasal Q2-3M PRN 02/18/22 08/01/22 History spray (Narcan) pantoprazole 20 mg tablet,delayed 20 mg PO DAILY 02/18/22 08/01/22 History release tamsulosin 0.4 mg capsule 0.4 mg PO QHS 03/26/22 08/01/22 History lisinopril 5 mg tablet 5 mg PO HS 04/23/22 08/01/22 History cholecalciferol (vitamin D3) 50 50 mcg PO DAILY 05/21/22 08/01/22 History mcg (2,000 unit) capsule (Vitamin D3) cephalexin 500 mg capsule 500 mg PO BID #14 caps 08/01/22 Rx Exam Narrative Exam Narrative: Appears chronically ill His vital signs are documented elsewhere His abdomen is soft with no mass The urine draining from the left nephrostomy tube is clear There is a Galindo catheter in place in the urethra He is awake and alert
[2022-08-06] MEDS: Sulfameth/Trimeth DS TAB 1 TAB PO (12:22)
[2022-08-06 12:23] VITALS: BP 121/59; PULSE 79; RESP 16; TEMP 36.5; O2SAT 98
--- NOTE | 2022-08-06 13:31 | DI.RAD_ITS ---
Exam(s) XR NEPHROSTOMY INSERT IN OR EXAM: XR NEPHROSTOMY INSERT IN OR CLINICAL HISTORY: change nephrostomy tube TECHNIQUE: 2D and realtime digital imaging was performed. CONTRAST MATERIAL: Refer to procedure report. COMPARISON: No exams were available for comparison FINDINGS: Fluoroscopy was provided for Dr. Camacho during the performance of a nephrostomy tube placement. Plea se refer to the procedure report for complete details. Ka,r=33.7 mGy IMPRESSION: RADIATION DOSE DELIVERED:
--- NOTE | 2022-08-06 13:36 | W.PM.DSUDISC ---
Date of service: 08/06/22 Time of Service: 13:36 Discharge Plan Disposition Patient Disposition: HOME Condition: Good Discharge Details Reason For Visit: change nephrostomy tube Attending Provider: William Camacho Primary Care Provider: Peter Spencer Home Meds and New Rx's Prescriptions: No Action tamsulosin 0.4 mg capsule 0.4 mg PO QHS pantoprazole 20 mg tablet,delayed release (DR/EC) 20 mg PO DAILY amitriptyline 50 mg tablet 50 mg PO QHS docusate sodium [Colace] 100 mg capsule 100 mg PO TID PRN acetaminophen 500 mg tablet 500 mg PO Q3H PRN naloxone [Narcan] 4 mg/actuation spray,non-aerosol 4 mg intranasal Q2-3M PRN Label Comments: sister states pt. doesnt have Rx Instructions: spray 1 dose into ONE nostril; alternate nostrils w each dose until help arrives pregabalin [Lyrica] 150 MG capsule 150 mg PO TID oxycodone 15 mg Tablet, Oral Only 1 tab PO QID Rx Instructions: 09/21/18 pt states that he does not take this one any more morphine 15 mg Tablet 30 mg PO TID PRN (Reason: Pain) vitamin B complex Tablet Extended Release 1 tab PO DAILY cephalexin 500 mg capsule 500 mg PO BID Qty: 14 0RF cholecalciferol (vitamin D3) [Vitamin D3] 50 mcg (2,000 unit) Capsule 50 mcg PO DAILY Discharge Instructions Additional Instructions: nephrostomy tube to gravity drainage keep followup visit as scheduled Activity:: Activity as Tolerated Remove Dressings/Wound Care:: 24 hours Shower/Bathe:: 24 hours Diet:: As Tolerated Discharge Orders Discharge Orders: Discharge Order (Routine); Ordered 08/06/22 Ordered By: William Camacho DS: Diagnosis Discharge Diagnosis (1) Malfunction of nephrostomy tube: Status: Acute (2) Hydronephrosis, left: Status: Acute
[2022-08-06 13:45] VITALS: BP 129/84; PULSE 75; RESP 18; TEMP 36.1; O2SAT 97
--- NOTE | 2022-08-06 13:47 | ROE_ITS ---
Date of service: 08/06/22 Time of Service: 13:47 Operative Note Operative Note DATE OF PROCEDURE: 08/06/22 PRE-OP DIAGNOSIS: Left nephrostomy tube malfunction POST-OP DIAGNOSIS: same PROCEDURE: change left nephrostomy tube SURGEON: William Camacho ANESTHESIA TYPE: Local By Surgeon Refer to Anesthesia Record ESTIMATED BLOOD LOSS: 0 PATHOLOGY: none sent COMPLICATIONS: None Patient was transported to: same day Patient's condition: stable Implants: 16 [place] tipped nephrostomy tube with 3 cc sterile water in balloon Indications: A 62-year-old gentleman who has a history of a left ureteral stone. He was treated ureteroscopically, but developed a left ureteral stricture postoperatively. I was unable to place a ureteral stent in a retrograde manner. He now has a left nephrostomy tube. His caregiver inadvertently resected the nephrostomy tube during a recent dressing change. The tube has remained in place, but there is no securing loop or balloon holding it in place. He presents now for nephrostomy tube change. Findings: Proximal left ureteral stenosis with no extravasation of contrast Procedure Description: The patient was brought to the operating room on 08/06/2022. He was given a dose of preoperative antibiotics. He was placed in the left lateral position and fluoroscopy was utilized to visualize the left kidney. A Glidewire was advanced down through the lumen of the nephrostomy tube. Once the wire was in place, the nephrostomy tube was removed. A dual-lumen catheter was then advanced over the wire and Omnipaque was injected to the second port of the dual-lumen catheter. We utilized fluoroscopy to ensure that we were in the collecting system. I then positioned a second wire through the dual-lumen catheter. I attempted to pass a 16 [place] havasupai tip catheter over one of the wires, but I was not successful. I then dilated the tract to 18 [place] using fascial dilators. A 16 [place] catheter could then be passed over the wires. The positioning of the ca theter was confirmed by injecting Omnipaque through the lumen of the catheter with a Eugenie syringe. Once the catheter positioning was confirmed, we inflated the catheter balloon with 3 cc of sterile water and hooked the catheter to gravity drainage. The second (safety) wire was then removed. A dry sterile dressing was applied to the catheter site.
== END 2022-08-06 14:10 | disposition home or self-care (01) ==
PROVIDERS: PCP Internal Medicine; Visit Provider Urology
PROC: (CPT 50435; principal; 2022-08-06 13:00)
DX: T83.098A Other mechanical complication of other urinary catheter, initial encounter (principal); N13.30 Unspecified hydronephrosis
CPT/HCPCS: 50435; 74475

== ENCOUNTER 2022-09-24 15:41 | Outpatient (REF) | payer MEDICAID, SELFPAY | END 2022-09-24 15:42 | disposition home or self-care (01) | LOC: LBN 15:41 | PROVIDERS: PCP Internal Medicine; Visit Provider Urology | DX: N13.5 Crossing vessel and stricture of ureter without hydronephrosis (principal) | CPT/HCPCS: 87077; 87086; 87186 ==

== ENCOUNTER 2022-09-30 16:30 | Outpatient (REF) | payer MEDICAID, SELFPAY ==
[2022-09-30 21:33] LABS: HGB 12.1 g/dL (13.5-17.5); MCH 26.8 pg (27.0-33.0); MCHC 30.3 % (32.0-36.0); MCV 89 fL (80-95); Platelet Count 260 10^3/uL (130-400); RBC 4.51 10^6/uL (4.36-5.78); RDW 15.4 % (11.8-14.1); RDW-SD 50.5 fL; WBC 9.57 10^3/uL (4.4-10.8)
[2022-09-30 21:36] LABS: BUN 19 mg/dL (7-18); CREATININE 1.2 mg/dL (0.70-1.30); Calcium 8.8 mg/dL (8.5-10.1); Chloride 105 mmol/L (98-107); Estimated GFR 67.95 (mL/min/1.73m2); Glucose 121 mg/dL (74-106); Potassium 4.1 mmol/L (3.5-5.1); Sodium 141 mmol/L (136-145)
== END 2022-09-30 16:31 | disposition home or self-care (01) ==
LOC: NCHCN 16:30
PROVIDERS: PCP Internal Medicine; Visit Provider Internal Medicine
DX: D64.9 Anemia, unspecified (principal); R10.32 Left lower quadrant pain; R33.9 Retention of urine, unspecified; Z87.442 Personal history of urinary calculi
CPT/HCPCS: 80048; 85027

== ENCOUNTER 2022-09-30 16:45 | Emergency (ER) | payer MEDICAID, SELFPAY ==
[2022-09-30 16:50] VITALS: BP 141/70; PULSE 91; RESP 18; TEMP 36.9; O2SAT 96
--- NOTE | 2022-09-30 17:00 | DI.CT_ITS ---
Exam(s) CT RENAL COLIC WO EXAM: CT RENAL COLIC WO CLINICAL HISTORY: Left flank pain, nephrostomy tube not draining. TECHNIQUE: Imaging Protocol: Axial computed tomography images with coronal and sagittal reformatted images were created and reviewed. CONTRAST MATERIAL: Noncontrast COMPARISON: CT CT CHEST/ABD/PEL WO from 05/21/2022 FINDINGS: ABDOMEN: Lung Bases: Mild basilar atelectasis or scarring. Heart size normal. Coronary artery calcificatio ns noted. Liver: Mild fatty infiltration. No measurable mass. Gallbladder and biliary tract: Status post cholecystectomy. No radiodense calculus or significant di lation. Pancreas: Normal density, no calcifications or inflammatory process. Spleen: Normal. Kidneys: Left nephrostomy tube projects in the left ureteropelvic junction. There is not no abnormal perinephric collection. A calcification is visible at the UPJ measuring 2 millimeters. There is mo derate dilatation of the renal pelvis, similar to prior.. A few other nonobstructing stones are note d bilaterally.. Adrenal glands: No masses seen. Abdominal Aorta: Abdominal portion non-dilated. Mild atherosclerotic changes. Soft tissues: Stimulator device posterior right lower paraspinal region. Small fatty containing umbilical hernia. PELVIS: Bladder: Decompressed by Galindo catheter. Bowel: Large quantity of stool throughout the colon. No obstruction or bowel wall thickening. Prior gastric bypass surgery. Reproductive: Status post hysterectomy. Peritoneal cavity: No ascites, collection or mesenteric inflammatory response. Bones: Scoliosis and degenerative changes again noted. Severe degenerative disc changes at L2-3 with prominent left-sided osteophytes. There is prominent sclerosis. There is has been interval increas e in the amount of irregularity seen at the L2 and L3 vertebral endplates. Mild irregularity was not ed previously. No definite surrounding inflammation. Hardware right proximal femur. IMPRESSION: . Left nephrostomy tube is in place. Stable moderate hydronephrosis. 2 millimeter stone remains pr esent at the left ureteropelvic junction. Worsening endplate irregularity at L2-3. Findings could represent osteo myelitis versus worsening of degenerative changes. MRI with contrast could be considered if clinically indicated. RADIATION DOSE DELIVERED: 1,051.36mGy.cm Total DLP DATA REPOSITORY: All CT scans at this facility are submitted to the National Radiology Data Registry (NRDR) Dose Index Registry (DIR) with the [employer] ([employer]). RADIATION OPTIMIZATION: All CT scans at this facility use at least one of these dose optimization te chniques: automated exposure control; mA and/or kV adjustment per patient size (includes targeted exa ms where dose is matched to clinical indication); or iterative reconstruction.
[2022-09-30] MEDS: HYDROmorphone 2 MG/ML SYR 0.5 MG IVP (17:32)
[2022-09-30 17:41] LABS: Abs Immature Grans 0.03 10^3/uL (0.0-0.06); Absolute Basophil Count 0.02 10^3/uL (0.0-0.2); Absolute Eosinophil Count 0.01 10^3/uL (0.0-0.7); Absolute Lymphocyte Count 0.71 10^3/uL (1.2-3.4); Absolute Monocyte Count 0.48 10^3/uL (0.1-0.8); Absolute Neutrophil Count 8.05 10^3/uL (1.2-6.7); Basophils % 0.2; Eosinophils % 0.1; HCT 39.1 % (40.0-50.0); HGB 12.2 g/dL (13.5-17.5); Immature Grans % 0.3; Lymphocytes % 7.6; MCH 27.3 pg (27.0-33.0); MCHC 31.2 % (32.0-36.0); MCV 88 fL (80-95); MPV 9.6 fL (8.0-11.0); Monocytes % 5.2; Neutrophils % 86.6; Platelet Count 223 10^3/uL (130-400); RBC 4.47 10^6/uL (4.36-5.78); RDW 15.6 % (11.8-14.1); RDW-SD 49.6 fL
[2022-09-30 17:56] LABS: ALT 19 U/L (16-63); AST 15 U/L (15-37); Albumin 3.1 g/dL (3.4-5.0); Alkaline Phosphatase 278 U/L (46-116); Anion Gap 7.5 mmol/L (3-11); BUN 19 mg/dL (7-18); Bilirubin, Total 0.3 mg/dL (0.2-1.0); CO2 28.5 mmol/L (21.0-32.0); CREATININE 1.3 mg/dL (0.70-1.30); Calcium 8.8 mg/dL (8.5-10.1); Chloride 105 mmol/L (98-107); Estimated GFR 61.73 (mL/min/1.73m2); Glucose 133 mg/dL (74-106); Potassium 3.9 mmol/L (3.5-5.1); Sodium 141 mmol/L (136-145)
[2022-09-30 17:59] LABS: Bilirubin Negative (Negative); Blood Small (Negative); Clarity Cloudy (Clear); Glucose Negative (Negative); Ketones Negative (Negative); Leukocyte Esterase Large (Negative); Nitrite Positive (Negative); Urobilinogen 0.2 EU/dL (Up TO 0.2); pH 6.5 (5-8)
[2022-09-30 18:04] LABS: Bacteria Many HPF (Negative); C & S Indicated? Yes; Crystals Negative HPF (Negative); Epithelial Cells Negative HPF (Negative); Mucus Negative (Negative); WBC >50 HPF (0-5)
--- NOTE | 2022-09-30 18:52 | DI.VRAD_ITS ---
PROCEDURE INFORMATION: Exam: CT Abdomen And Pelvis Without Contrast Exam date and time: 09/30/2022 6:28 PM Age: 62 years old Clinical indication: Abdominal pain; Flank; Left; Additional info: Left flank pain, neph tube not draining TECHNIQUE: Imaging protocol: Computed tomography of the abdomen and pelvis without contrast. Radiation optimization: All CT scans at this facility use at least one of these dose optimization techniques: automated exposure control; mA and/or kV adjustment per patient size (includes targeted exams where dose is matched to clinical indication); or iterative reconstruction. COMPARISON: CT CHEST/ABD/PEL WO 05/21/2022 8:38 PM FINDINGS: Minimal basilar subsegmental atelectasis versus scarring. Liver: Normal. No mass. Gallbladder and bile ducts: Prior cholecystectomy. Dilated common bile duct may be related to reservoir effect Pancreas: Normal. No ductal dilation. Spleen: Normal. No splenomegaly. Adrenal glands: Normal. No mass. Kidneys and ureters: Percutaneous left nephrostomy tube projecting into the left ureteropelvic junction. Faint calculus at the left UPJ measuring 2 mm with moderate left hydronephrosis. Nephrolithiasis noted bilaterally measuring up to 5 mm in the lower pole on the left Stomach and bowel: Moderate to large stool in the rectal vault and colon No obstruction. No mucosal thickening. Prior gastric bypass surgery Appendix: No evidence of appendicitis. Intraperitoneal space: Unremarkable. No free air. No significant fluid collection. Vasculature: Unremarkable. No abdominal aortic aneurysm. Lymph nodes: Unremarkable. No enlarged lymph nodes. Urinary bladder: The urinary bladder is decompressed by a Galindo catheter. Reproductive: Unremarkable as visualized. Bones/joints: Right femoral rosibel and hip screw noted. Severe degenerative changes at the L2-L3 level and associated moderate dextroscoliosis. Findings increased since the prior study. Additional lucency increased in the posterior disc space/endplates. Moderate central canal stenosis and severe foraminal stenosis noted No acute fracture. Soft tissues: Implanted device in the posterior right lower paraspinal tissues with electrode partially visualized IMPRESSION: Left percutaneous nephrostomy projecting at the left UPJ as noted. A 2 mm calculus in the proximal left ureter/UPJ noted with moderate left hydronephrosis Bilateral nephrolithiasis Abnormal findings at L2-L3 increased since the prior study. Acute on chronic osteomyelitis not excluded. Moderate central canal stenosis and severe foraminal stenosis. Consider further evaluation with contrast enhanced lumbar MRI as indicated Dictated and Authenticated by: Otoniel Dwyer MD. Ordering:CLYDE Fabian MD
--- NOTE | 2022-09-30 19:16 | ED.GENADUL_ITS ---
Discharge Plan Disposition Patient Disposition: Home Condition: Improving Discharge Details Clinical Impression: Obstructed nephrostomy tube, UTI (urinary tract infection) Primary Care Provider: Peter Spencer ED Provider: Rui Huang Home Meds and New Rx's Prescriptions: New sulfamethoxazole-trimethoprim [Bactrim DS] 800-160 mg tablet 1 tab PO BID 7 Days Qty: 14 0RF Continued tamsulosin 0.4 mg capsule 0.4 mg PO QHS pantoprazole 20 mg tablet,delayed release (DR/EC) 20 mg PO DAILY amitriptyline 50 mg tablet 50 mg PO QHS docusate sodium [Colace] 100 mg capsule 100 mg PO TID PRN acetaminophen 500 mg tablet 500 mg PO Q3H PRN naloxone [Narcan] 4 mg/actuation spray,non-aerosol 4 mg intranasal Q2-3M PRN Label Comments: sister states pt. doesnt have Rx Instructions: spray 1 dose into ONE nostril; alternate nostrils w each dose until help arrives pregabalin [Lyrica] 150 MG capsule 150 mg PO TID oxycodone 15 mg Tablet, Oral Only 1 tab PO QID Rx Instructions: 09/21/18 pt states that he does not take this one any more morphine 15 mg Tablet 30 mg PO TID PRN (Reason: Pain) vitamin B complex Tablet Extended Release 1 tab PO DAILY cephalexin 500 mg capsule 500 mg PO BID Qty: 14 0RF cholecalciferol (vitamin D3) [Vitamin D3] 50 mcg (2,000 unit) Capsule 50 mcg PO DAILY Discharge Instructions Instructions: Urinary Tract Infection in Men (ED) Additional Instructions: If patient develops any further complications with nephrostomy tube, fever chills, severe back pain, or any other symptoms please return to the emergency department immediately for reassessment and further treatment as needed. Otherwise stay well-hydrated and take your normally prescribed medications. Referrals: William Camacho MD [ [facility] STAFF PHYSICIAN] - 3 days Discharge Data Discharge Date/Time-TO BE ENTERED AT DEPARTURE: 09/30/22 22:02 Medical Decision Making Patient presenting to the emergency department for chief complaint of left flank pain and nephrostomy tube not draining. Patient and significant other state that tube had a little bit of blood noted this morning but which is not uncommon. When they went to the primary care office patient had started to have some flank pain. Primary care provider went to check nephrostomy tube and bag and there was no drainage noted. Patient was sent immediately to the emergency department. Patient denies fever chills, abdominal pain, chest pain. Physical exam shows slight erythema around the nephrostomy tube but no surrounding cellulitis, abdomen is soft and nontender, spine is nontender, there is no drainage noted in nephrostomy bag but in Galindo catheter bag there is appropriate drainage. Patient is not septic in appearance and nontoxic. We will plan on checking labs and CT imaging. Pending results will give hydromorphone. Reviewed labs and patient has chronic but stable anemia otherwise no severe leukocytosis or shift noted, BUN is slightly elevated at 19 and creatinine of 1.3 GFR 61. Glucose is 133. Alk phos is elevated at 278 which is higher than normal. All of the labs are unremarkable. Urinalysis was reviewed and does show blood, nitrite and leukocyte Estrace positive with RBCs of 10-20 and WBCs greater than 50. Reflexive culture was ordered and will give patient dose of Rocephin given patient's history of urosepsis and kidney infections and that patient has nephrostomy and catheter tube in place. Reviewed CT imaging does show hydronephrosis of the left kidney but nephrostomy tube is in place. They did state abnormal finding with worsening findings of L2-L3 with them saying osteomyelitis could not be excluded. Given patient's symptoms related to nephrostomy tube I do not feel this is an acute or emergent finding and patient denies any spinal pain different than his baseline. Call and speak with [facility] urology Dr. Loyola who recommended flushing the nephrostomy tube and if that is appropriate that patient could have disposition of home with follow-up to local urologist. Did discuss potential infectious findings which she stated that it was okay to treat for potential infection given history but feels that patient may also just be colonized which I agree. I did flush nephrostomy tube with 20 cc of sterile water using sterile technique. Was able to open up nephrostomy tube and urine was drained. Did monitor patient for an additional 30 minutes to 1 hour and patient stated resolution of his flank pain and clear urine was then noted in the bag. I do feel that patient is able to be safely discharged home but will continue antibiotics. I did review previous urine culture and patient was sensitive to Bactrim we will start patient on Bactrim DS for 7 days. Discussed with patient and significant other low threshold to return to the emergency department for reassessment for any new or worsening symptoms. After discussion of diagnosis and plan of care patient has no further needs, questions, or concerns and states clear understanding to return to the emergency department for any worsening symptoms. This documentation was generated using [employer] dictation system, please disregard any oddities of phrase or misspellings. Imaging Data Radiologic Study: Imaging: CT Scan Radiologist's impression: Exam: CT Abdomen And Pelvis Without Contrast Exam date and time: 09/30/2022 6:28 PM Age: 62 years old Clinical indication: Abdominal pain; Flank; Left; Additional info: Left flank pain, neph tube not draining TECHNIQUE: Imaging protocol: Computed tomography of the abdomen and pelvis without contrast. Radiation optimization: All CT scans at this facility use at least one of these dose optimization techniques: automated exposure control; mA and/or kV adjustment per patient size (includes targeted exams where dose is matched to clinical indication); or iterative reconstruction. COMPARISON: CT CHEST/ABD/PEL WO 05/21/2022 8:38 PM FINDINGS: Minimal basilar subsegmental atelectasis versus scarring. Liver: Normal. No mass. Gallbladder and bile ducts: Prior cholecystectomy. Dilated common bile duct may be related to reservoir effect Pancreas: Normal. No ductal dilation. Spleen: Normal. No splenomegaly. Adrenal glands: Normal. No mass. Kidneys and ureters: Percutaneous left nephrostomy tube projecting into the left ureteropelvic junction. Faint calculus at the left UPJ measuring 2 mm with moderate left hydronephrosis. Nephrolithiasis noted bilaterally measuring up to 5 mm in the lower pole on the left Stomach and bowel: Moderate to large stool in the rectal vault and colon No obstruction. No mucosal thickening. Prior gastric bypass surgery Appendix: No evidence of appendicitis. Intraperitoneal space: Unremarkable. No free air. No significant fluid collection. Vasculature: Unremarkable. No abdominal aortic aneurysm. Lymph nodes: Unremarkable. No enlarged lymph nodes. Urinary bladder: The urinary bladder is decompressed by a Galindo catheter. Reproductive: Unremarkable as visualized. Bones/joints: Right femoral rosibel and hip screw noted. Severe degenerative changes at the L2-L3 level and associated moderate dextroscoliosis. Findings increased since the prior study. Additional lucency increased in the posterior disc space/endplates. Moderate central canal stenosis and severe foraminal stenosis noted No acute fracture. Soft tissues: Implanted device in the posterior right lower paraspinal tissues with electrode partially visualized IMPRESSION: Left percutaneous nephrostomy projecting at the left UPJ as noted. A 2 mm calculus in the proximal left ureter/UPJ noted with moderate left hydronephrosis Bilateral nephrolithiasis Abnormal findings at L2-L3 increased since the prior study. Acute on chronic osteomyelitis not excluded. Moderate central canal stenosis and severe foraminal stenosis. Consider further evaluation with contrast enhanced lumbar MRI as indicated HPI General Mode of arrival: ambulatory . Date/Time Provider Initiated Documentation: 09/30/22 16:54 . Information obtained by: patient, family and RN notes reviewed . History of Present Illness 62 year old M presents to the emergency department with the chief complaint of Left flank pain nephrostomy tube not draining, described as moderate, with intensity rated at 8. Quality is described as aching and sharp, and is localized to the back. Patient reports no radiation. Patient started experiencing this hour(s) and it has been constant. No relieving fac tors improve symptom(s), No exacerbating factors reported . Patient notes no other symptoms.. Patient did receive the following treatments prior to arrival, none Related Data Home Medications Medication Instructions Recorded Confirmed pregabalin 150 mg capsule (Lyrica) 150 mg PO TID 08/13/14 09/30/22 morphine 15 mg immediate release 30 mg PO TID PRN Pain 09/21/18 09/30/22 tablet oxycodone 15 mg tablet,oral ONLY 1 tab PO QID 09/21/18 09/30/22 (not feeding tubes) vitamin B complex 1 tab PO DAILY 12/25/21 09/30/22 acetaminophen 500 mg tablet 500 mg PO Q3H PRN 02/18/22 09/30/22 amitriptyline 50 mg tablet 50 mg PO QHS 02/18/22 09/30/22 docusate sodium 100 mg capsule 100 mg PO TID PRN 02/18/22 09/30/22 (Colace) naloxone 4 mg/actuation nasal 4 mg intranasal Q2-3M PRN 02/18/22 08/06/22 spray (Narcan) pantoprazole 20 mg tablet,delayed 20 mg PO DAILY 02/18/22 09/30/22 release tamsulosin 0.4 mg capsule 0.4 mg PO QHS 03/26/22 09/30/22 cholecalciferol (vitamin D3) 50 50 mcg PO DAILY 05/21/22 09/30/22 mcg (2,000 unit) capsule (Vitamin D3) cephalexin 500 mg capsule 500 mg PO BID #14 caps 08/01/22 08/06/22 sulfamethoxazole 800 1 tab PO BID 7 days #14 tabs 09/30/22 mg-trimethoprim 160 mg tablet (Bactrim DS) Previous Rx's Medication Instructions Recorded cephalexin 500 mg capsule 500 mg PO BID #14 caps 08/01/22 sulfamethoxazole 800 1 tab PO BID 7 days #14 tabs 09/30/22 mg-trimethoprim 160 mg tablet (Bactrim DS) Allergies Allergy/AdvReac Type Severity Reaction Status Date / Time iodine Allergy Severe Topical Unverified 09/30/22 18:23 Irritation copper Allergy Intermediate Unverified 09/30/22 18:23 chocolate flavor AdvReac Hives Unverified 09/30/22 18:23 General Stated Complaint: GenMedical TALITA: 3 Review of Systems Constitutional Constitutional: Denies chills, Denies fever(s), Denies headache(s) and Denies malaise ENT Ears, Nose, Mouth, and Throat: Denies headache(s) Cardiovascular Cardiovascular: Denies chest pain and Denies dyspnea Respiratory Respiratory: Denies cough and Denies dyspnea Gastrointestinal Gastrointestinal: Denies abdominal pain and Reports nausea Genitourinary Genitourinary: Reports as per HPI and Reports oliguria Integumentary/Breasts Skin/Breast: Denies erythema Neurologic Neurologic: Denies headache(s) PFSH All Active Problems (Updated 09/30/22 @ 21:45 by Rui Huang NP) Obstructed nephrostomy tube (Acute) UTI (urinary tract infection) (Acute) Left ureteral injury (Acute) Hydronephrosis, left (Acute) Hydronephrosis due to obstruction of ureter (Acute) Retroperitoneal fluid collection (Acute) Fever (Acute) Left arm cellulitis (Acute) Acute anemia (Acute) Acute kidney injury (Acute) Vitamin D deficiency (Acute) Phantom limb (syndrome) (Chronic) Status post VNS (vagus nerve stimulator) placement (Acute) Peptic ulcer disease (Chronic) 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 states this has not been done History of gastrectomy Hx of fracture of hip Hx of fracture of wrist Hx of fracture of wrist pt. reports metal in place Hx of peptic ulcer Personal history of COVID-19 Rib fractures Right leg injury S/P placement of nerve stimulator Ulnar neuritis Surgical History Hx of cystoscopy Hx of total hip arthroplasty t. reports fracture with metal repair Social History Smoking/Tobacco Use Status: Current every day Tobacco Type: smokeless tobacco Smoking risk assessment performed?: Yes Alcohol Intake: never Drug use: Never Substance use type: does not use Do you feel safe at home: Yes Do you feel safe in your relationship?: Yes Exam Const General: cooperative Orientation: alert, awake and oriented x3 Resp Effort & Inspection: normal respiratory effort and able to speak in complete sentences Auscultation: clear to auscultation bilaterally Cardio Rate: regular rate Rhythm: regular rhythm Heart Sounds: S1 normal and S2 normal GI Palpation: soft, no hepatosplenomegaly, not firm, no guarding, no masses, no pulsatile masses, not rigid, no splenomegaly and tender Auscultation: normal bowel sounds Back/Spine/Pelvis Back: other (Nephrostomy tube in place no purulent drainage or surrounding cellulitis) Neuro General: patient alert, patient awake, patient oriented x3, gait normal and moves all extremities Course Vital Signs Vital signs: Vital Signs Temperature 36.9 C 09/30/22 16:50 Pulse 91 H 09/30/22 16:50 Respiratory Rate 18 09/30/22 16:50 Blood Pressure 141/70 H 09/30/22 16:50 Pulse Oximetry 96 09/30/22 16:50 Temperature 36.9 C 09/30/22 16:50 Temperature Source Tympanic 09/30/22 16:50 Pulse 91 H 09/30/22 16:50 Respiratory Rate 18 09/30/22 16:50 Respiratory Effort 12/21/22 16:57 Blood Pressure 141/70 H 09/30/22 16:50 Blood Pressure Position Supine 09/30/22 16:50 Pulse Oximetry 96 09/30/22 16:50 Oxygen Delivery Method Room Air 09/30/22 16:50 Oxygen Flow Rate 0 09/30/22 16:50 Pain Level 8 09/30/22 17:32 Lab/Test Results Lab/Test Results: 09/30/22 17:45 Urine - Reflex from Ua Urine Culture - Pending Laboratory Tests Range/Units 09/30/22 09/30/22 09/30/22 17:34 17:34 17:45 WBC (4.4-10.8) 10^3/uL 9.30 RBC (4.36-5.78) 10^6/uL 4.47 Hgb (13.5-17.5) g/dL 12.2 L Hct (40.0-50.0) % 39.1 L MCV (80-95) fL 88 MCH (27.0-33.0) pg 27.3 MCHC (32.0-36.0) % 31.2 L RDW (11.8-14.1) % 15.6 H Plt Count (130-400) 10^3/uL 223 MPV (8.0-11.0) fL 9.6 Immature Gran % 0.3 Neutrophils % 86.6 Lymphocytes % 7.6 Monocytes % 5.2 Eosinophils % 0.1 Basophils % 0.2 Nucleated RBC % (0.0-0.3) % 0.0 Absolute Neutrophils (1.2-6.7) 10^3/uL 8.05 H Absolute Lymphocytes (1.2-3.4) 10^3/uL 0.71 L Absolute Monocytes (0.1-0.8) 10^3/uL 0.48 Absolute Eosinophils (0.0-0.7) 10^3/uL 0.01 Absolute Basophils (0.0-0.2) 10^3/uL 0.02 Sodium (136-145) mmol/L 141 Potassium (3.5-5.1) mmol/L 3.9 Chloride (98-107) mmol/L 105 Carbon Dioxide (21.0-32.0) mmol/L 28.5 Anion Gap (3-11) mmol/L 7.5 BUN (7-18) mg/dL 19 H Creatinine (0.70-1.30) mg/dL 1.3 Est GFR (CKD-EPI 2020) (mL/min/1.73m2) 61.73 Glucose (74-106) mg/dL 133 H Calcium (8.5-10.1) mg/dL 8.8 Total Bilirubin (0.2-1.0) mg/dL 0.3 AST (15-37) U/L 15 ALT (16-63) U/L 19 Alkaline Phosphatase (46-116) U/L 278 H Total Protein (6.4-8.2) g/dL 7.0 Albumin (3.4-5.0) g/dL 3.1 L Urine Color (Yellow) Yellow Urine Clarity (Clear) Cloudy Urine pH (5-8) 6.5 Ur Specific Mason (1.005-1.025) 1.020 Urine Protein (Negative) mg/dL Trace H Urine Ketones (Negative) mg/dL Negative Urine Blood (Negative) Small H Urine Nitrite (Negative) Positive H Urine Bilirubin (Negative) Negative Urine Urobilinogen (Up TO 0.2) EU/dL 0.2 Ur Leukocyte Esterase (Negative) Large H Urine RBC (0-2) HPF 10-20 H Urine WBC (0-5) HPF >50 H Ur Epithelial Cells (Negative) HPF Negative Urine Crystals (Negative) HPF Negative Urine Bacteria (Negative) HPF Many Urine Mucus (Negative) Negative Ur Culture Indicated? Yes Urine Glucose (Negative) mg/dL Negative
[2022-09-30] MEDS: cefTRIAXone 1 GM/50 ML BAG IVPB (19:18)
[2022-09-30 19:23] VITALS: RESP 20
--- NOTE | 2022-09-30 23:01 | NUR.NOTE ---
Referral faxed to [facility] Urology to f/u 10/02/22 for nephrostomy tube check. Nursing Note:
== END 2022-09-30 22:02 | disposition home or self-care (01) ==
PROVIDERS: Emergency Provider Nurse Practitioner Family; PCP Internal Medicine
DX: T83.092A Other mechanical complication of nephrostomy catheter, initial encounter (principal); N39.0 Urinary tract infection, site not specified; R79.89 Other specified abnormal findings of blood chemistry; T83.512A Infection and inflammatory reaction due to nephrostomy catheter, initial encounter; D64.9 Anemia, unspecified; N13.30 Unspecified hydronephrosis; Z86.16 Personal history of COVID-19; Z87.11 Personal history of peptic ulcer disease; Y83.8 Other surgical procedures as the cause of abnormal reaction of the patient, or of later complication, without mention of misadventure at the time of the procedure
CPT/HCPCS: 80053; 87077; 96365; 96375; 99284; 74176; 81003; 81015; 85025; 87086; 87186; J0696; J1170

== ENCOUNTER 2022-11-07 11:37 | Emergency (ER) | payer MEDICAID, SELFPAY ==
[2022-11-07] VITALS (22 sets, daily range): BP systolic 117–145; BP diastolic 65–106; PULSE 68–101; RESP 20; TEMP 37.1; O2SAT 81–98
--- NOTE | 2022-11-07 11:42 | ED.GENADUL_ITS ---
Discharge Plan Discharge Details Chief Complaint: Urinary Primary Care Provider: Peter Spencer ED Provider: Louie Reid Home Meds and New Rx's Prescriptions: No Action tamsulosin 0.4 mg capsule 0.4 mg PO QHS pantoprazole 20 mg tablet,delayed release (DR/EC) 20 mg PO DAILY amitriptyline 50 mg tablet 50 mg PO QHS docusate sodium [Colace] 100 mg capsule 100 mg PO TID PRN acetaminophen 500 mg tablet 500 mg PO Q3H PRN naloxone [Narcan] 4 mg/actuation spray,non-aerosol 4 mg intranasal Q2-3M PRN Label Comments: sister states pt. doesnt have Rx Instructions: spray 1 dose into ONE nostril; alternate nostrils w each dose until help arrives pregabalin [Lyrica] 150 MG capsule 150 mg PO TID oxycodone 15 mg Tablet, Oral Only 1 tab PO QID Rx Instructions: 09/21/18 pt states that he does not take this one any more morphine 15 mg Tablet 30 mg PO TID PRN (Reason: Pain) finasteride 5 mg Tablet 5 mg PO DAILY Medical Decision Making 62-year-old gentleman with indwelling Galindo catheter, left-sided nephrostomy tube, scheduled for nephrectomy on 11-19-2022 at [facility], presents for concern of infection and possible obstruction of the left nephrostomy tube. Plan to obtain IV access, routine screening laboratory values, will obtain urinalysis from both his indwelling Galindo catheter and left-sided nephrostomy tube, as well as a wound culture at the site of nephrostomy tube. Will obtain CT imaging, give IV fluid, and will likely require urology consultation. CBC and CMP unremarkable for any obvious emergent process. Creatinine is 1.4, last visit was 1.3, no significant change. No urinary output whether it be through the Galindo catheter or nephrostomy tube. CT imaging reveals a nephrostomy tube in place within the left renal pelvis. Moderate left-sided hydronephrosis similar to previous exam. Multiple small stones seen within the left ureter. Images were pushed to [facility] and I was then able to speak with urology, Dr. Tejeda. We discussed the patient's overall presentation today. He recommends irrigation of the nephrostomy tube and if successful can be discharged home with outpatient follow-up. This will be done in sterile fashion. He does recommend that we provide supplies to the sister so she may irrigate this at home to keep patency. I did discuss this with the patient's sister who is a retired RN and comfortable with sterile irrigation. Using sterile procedure, I irrigated the left nephrostomy tube with approximately 20-25 cc sterile saline. A milky urine with moderate sedimentation present, patient draining at least 50 cc urine. During the pr ocedure, patient and his sister report they believe that the nephrostomy tube was pulled, maybe an 1-2 inches. Discussed options. At this time will obtain repeat CT imaging for placement of nephrostomy tube. At time of signout awaiting CT imaging for nephrostomy tube placement, assessment of urinalysis, potential need for additional irrigation of nephrostomy tube and urology consultation This documentation was generated using orderTalkation system, please disregard any oddities of phrase or misspellings. Medical Records Medical records reviewed: Yes I reviewed the patient's medical records. Imaging Data Radiologic Study: Attestation: I personally reviewed and interpreted this imaging study as follows: Imaging: CT Scan Radiologist's impression: PROCEDURE INFORMATION: Exam: CT Abdomen And Pelvis Without Contrast Exam date and time: 11/07/2022 1:09 PM Age: 62 years old Clinical indication: Device placement; Urinary device; Percutaneous nephroureteral drain or stent; Other: Purulent drainage out of nephrostomy tube; Patient HX: Nephrostomy tube clogged purulent drainage. TECHNIQUE: Imaging protocol: Computed tomography of the abdomen and pelvis without contrast. Radiation optimization: All CT scans at this facility use at least one of these dose optimization techniques: automated exposure control; mA and/or kV adjustment per patient size (includes targeted exams where dose is matched to clinical indication); or iterative reconstruction. COMPARISON: CT RENAL COLIC WO 30/09/2022 18:28 FINDINGS: Tubes, catheters and devices: Left nephrostomy tube in place. Catheter has been partially withdrawn compared to previous exam with tip now in the lower portion of the renal pelvis. Moderate left-sided hydronephrosis. There is a small stone in the proximal left ureter. Multiple additional small stones within the distal left ureter. Largest measures about 3 mm. Lungs: Mild fibrotic change and bronchiectasis in the lung bases. Liver: Normal. No mass or intrahepatic biliary ductal dilatation. Gallbladder and bile ducts: Gallbladder is absent. Common bile duct enlarged to 15 mm but unchanged. No significant intrahepatic ductal dilatation. Pancreas: Normal. No mass or ductal dilation. Spleen: Normal. No splenomegaly. Adrenal glands: Normal. No mass. Kidneys and ureters: Small calcifications in the right kidney with no hydronephrosis. ENRIQUE STEEN ccession: [id number] and bowel: Previous distal gastrectomy and duodenectomy. No bowel dilatation. Appendix: No evidence of appendicitis. Intraperitoneal space: Unremarkable. No free air. No significant fluid collection. Vasculature: Unremarkable. No abdominal aortic aneurysm or significant atherosclerosis. Lymph nodes: Multiple lymph nodes in the a Patak emanuel measuring up to 12 mm. These are similar to previous exam. Urinary bladder: Galindo catheter in the bladder. Multiple small stones within the bladder lumen. Reproductive: Unremarkable as visualized. Bones/joints: Advanced degenerative changes in the thoracolumbar spine with dextroscoliosis. Soft tissues: Unremarkable. IMPRESSION: 1. Nephrostomy tube remains in place within the left renal pelvis. There is moderate left-sided hydronephrosis similar to previous exam. Multiple small stones seen within the left ureter. 2. Other incidental findings as above. No other acute abnormality. Thank you for allowing us to participate in the care of your patient. Lab Data Lab results reviewed: Yes I reviewed the patient's lab results. Labs: 11/07/22 13:00 Back - Left Wound Culture - Pending 11/07/22 13:00 Back - Left Gram Stain - Final Laboratory Tests Range/Units 11/07/22 11/07/22 12:23 12:23 WBC (4.4-10.8) 10^3/uL 9.51 RBC (4.36-5.78) 10^6/uL 3.63 L Hgb (13.5-17.5) g/dL 10.2 L Hct (40.0-50.0) % 33.6 L MCV (80-95) fL 93 MCH (27.0-33.0) pg 28.1 MCHC (32.0-36.0) % 30.4 L RDW (11.8-14.1) % 13.1 Plt Count (130-400) 10^3/uL 348 MPV (8.0-11.0) fL 9.5 Immature Gran % 0.5 Neutrophils % 78.4 Lymphocytes % 10.2 Monocytes % 7.7 Eosinophils % 2.8 Basophils % 0.4 Nucleated RBC % (0.0-0.3) % 0.0 Absolute Neutrophils (1.2-6.7) 10^3/uL 7.45 H Absolute Lymphocytes (1.2-3.4) 10^3/uL 0.97 L Absolute Monocytes (0.1-0.8) 10^3/uL 0.73 Absolute Eosinophils (0.0-0.7) 10^3/uL 0.27 Absolute Basophils (0.0-0.2) 10^3/uL 0.04 Sodium (136-145) mmol/L 137 Potassium (3.5-5.1) mmol/L 4.1 Chloride (98-107) mmol/L 103 Carbon Dioxide (21.0-32.0) mmol/L 28.9 Anion Gap (3-11) mmol/L 5.1 BUN (7-18) mg/dL 18 Creatinine (0.70-1.30) mg/dL 1.4 H Est GFR (CKD-EPI 2020) (mL/min/1.73m2) 56.48 Glucose (74-106) mg/dL 102 Calcium (8.5-10.1) mg/dL 8.9 Total Bilirubin (0.2-1.0) mg/dL 0.2 AST (15-37) U/L 12 L ALT (16-63) U/L 14 L Alkaline Phosphatase (46-116) U/L 158 H Total Protein (6.4-8.2) g/dL 7.2 Albumin (3.4-5.0) g/dL 2.6 L Lipase (73-393) U/L 39 HPI General Mode of arrival: ambulatory . Date/Time Provider Initiated Documentation: 11/07/22 11:39 . Limitations to Documentation: no limitations . Information obtained by: patient and family (sister) . HPI Narrative: This is a 62-year-old gentleman with a past medical history that includes anemia, amputation of left arm, urinary retention, complicated renal stone resulting in indwelling Galindo catheter, left-sided nephrostomy tube, scheduled for left nephrectomy on November 19 at [facility], presenting now for concern of left nephrostomy tube obstruction concern for infection of the nephrostomy tube. Reports decreased output over the past 24 hours, now with no output. Patient reports yesterday he felt slightly warm but no documented fever. Denies any pain whatsoever. Denies nausea or vomiting. Reports that the Galindo catheter was changed last Wednesday and has been draining normally. The nephrostomy tube was changed likely 3 or 4 months ago. Denies hematuria Related Data Home Medications Medication Instructions Recorded Confirmed pregabalin 150 mg capsule (Lyrica) 150 mg PO TID 08/13/14 11/07/22 morphine 15 mg immediate release 30 mg PO TID PRN Pain 09/21/18 11/07/22 tablet oxycodone 15 mg tablet,oral ONLY 1 tab PO QID 09/21/18 11/07/22 (not feeding tubes) acetaminophen 500 mg tablet 500 mg PO Q3H PRN 02/18/22 11/07/22 amitriptyline 50 mg tablet 50 mg PO QHS 02/18/22 11/07/22 docusate sodium 100 mg capsule 100 mg PO TID PRN 02/18/22 11/07/22 (Colace) naloxone 4 mg/actuation nasal 4 mg intranasal Q2-3M PRN 02/18/22 11/07/22 spray (Narcan) pantoprazole 20 mg tablet,delayed 20 mg PO DAILY 02/18/22 11/07/22 release tamsulosin 0.4 mg capsule 0.4 mg PO QHS 03/26/22 11/07/22 finasteride 5 mg tablet 5 mg PO DAILY 11/07/22 11/07/22 Allergies Allergy/AdvReac Type Severity Reaction Status Date / Time iodine Allergy Severe Topical Unverified 09/30/22 18:23 Irritation copper Allergy Intermediate Unverified 09/30/22 18:23 chocolate flavor AdvReac Hives Unverified 09/30/22 18:23 lactose AdvReac Diarrhea Unverified 11/07/22 11:55 General TALITA: 3 Review of Systems Constitutional Constitutional: Reports fever(s) (Subjectively felt warm) and Denies weakness Cardiovascular Cardiovascular: Denies chest pain and Denies dyspnea Respiratory Respiratory: Denies cough and Denies dyspnea Gastrointestinal Gastrointestinal: Denies abdominal pain, Denies nausea and Denies vomiting Genitourinary Genitourinary: Denies hematuria and Denies dysuria Musculoskeletal Musculoskeletal: Denies back pain Integumentary/Breasts Skin/Breast: Reports erythema Neurologic Neurologic: Denies weakness PFSH All Active Problems Retention of urine (Acute) Left ureteral injury (Acute) Hydronephrosis, left (Acute) Hydronephrosis due to obstruction of ureter (Acute) Retroperitoneal fluid collection (Acute) Fever (Acute) Left arm cellulitis (Acute) Acute anemia (Acute) Acute kidney injury (Acute) Vitamin D deficiency (Acute) Phantom limb (syndrome) (Chronic) Status post VNS (vagus nerve stimulator) placement (Acute) Peptic ulcer disease (Chronic) 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 states this has not been done History of gastrectomy Hx of fracture of hip Hx of fracture of wrist Hx of fracture of wrist pt. reports metal in place Hx of peptic ulcer Personal history of COVID-19 Rib fractures Right leg injury Ulnar neuritis Surgical History Hx of cystoscopy Hx of total hip arthroplasty t. reports fracture with metal repair S/P placement of nerve stimulator Social History Smoking/Tobacco Use Status: Current every day Tobacco Type: smokeless tobacco Smoking risk assessment performed?: Yes Alcohol Intake: never Drug use: Never Substance use type: does not use Do you feel safe at home: Yes Do you feel safe in your relationship?: Yes Additional Social history: sister at bedside. lives at home with sister. Exam Const General: cooperative, comfortable and no acute distress Orientation: alert and awake [facility] Head: normal to inspection, normocephalic and atraumatic Mouth: moist mucous membranes abnormal (Slightly dry) Eyes Conjunctivae: conjunctivae normal Neck Neck: normal visual inspection, full ROM, no meningeal signs, trachea midline and supple Resp Effort & Inspection: normal respiratory effort and able to speak in complete sentences Auscultation: clear to auscultation bilaterally Cardio Rate: regular rate Rhythm: regular rhythm GI Palpation: soft, not firm, no guarding, no pulsatile masses and nontender Auscultation: normal bowel sounds Other: Indwelling Galindo catheter, otherwise unremarkable Back/Spine/Pelvis Back: no CVA tenderness Other: Left nephrostomy tube in place. There is a dressing in place and the dressing is soiled with what appears to be a bloody-purulent drainage. There is minimal erythema and tenderness at the site of the nephrostomy tube. In the nephrostomy tube bag there is what appears to be cloudy urine. Skin General skin exam: erythema (As noted above) Neuro General: patient alert, patient awake, moves all extremities and no focal motor deficits Cognition: normal cognition Sensory Exam: no sensory deficits noted Psych Appearance: grossly normal Mental Status: mental status grossly normal
[2022-11-07 12:37] LABS: Abs Immature Grans 0.05 10^3/uL (0.0-0.06); Absolute Basophil Count 0.04 10^3/uL (0.0-0.2); Absolute Eosinophil Count 0.27 10^3/uL (0.0-0.7); Absolute Lymphocyte Count 0.97 10^3/uL (1.2-3.4); Absolute Monocyte Count 0.73 10^3/uL (0.1-0.8); Absolute Neutrophil Count 7.45 10^3/uL (1.2-6.7); Basophils % 0.4; Eosinophils % 2.8; HCT 33.6 % (40.0-50.0); HGB 10.2 g/dL (13.5-17.5); Immature Grans % 0.5; Lymphocytes % 10.2; MCH 28.1 pg (27.0-33.0); MCHC 30.4 % (32.0-36.0); MCV 93 fL (80-95); MPV 9.5 fL (8.0-11.0); Monocytes % 7.7; Neutrophils % 78.4; Platelet Count 348 10^3/uL (130-400); RBC 3.63 10^6/uL (4.36-5.78); RDW 13.1 % (11.8-14.1); RDW-SD 44.7 fL; WBC 9.51 10^3/uL (4.4-10.8)
[2022-11-07 12:51] LABS: ALT 14 U/L (16-63); AST 12 U/L (15-37); Albumin 2.6 g/dL (3.4-5.0); Alkaline Phosphatase 158 U/L (46-116); Anion Gap 5.1 mmol/L (3-11); BUN 18 mg/dL (7-18); Bilirubin, Total 0.2 mg/dL (0.2-1.0); CO2 28.9 mmol/L (21.0-32.0); CREATININE 1.4 mg/dL (0.70-1.30); Calcium 8.9 mg/dL (8.5-10.1); Chloride 103 mmol/L (98-107); Estimated GFR 56.48 (mL/min/1.73m2); Glucose 102 mg/dL (74-106); Lipase 39 U/L (73-393); Potassium 4.1 mmol/L (3.5-5.1); Sodium 137 mmol/L (136-145); Total Protein 7.2 g/dL (6.4-8.2)
--- NOTE | 2022-11-07 13:02 | DI.CT_ITS ---
Exam(s) CT ABDOMEN PELVIS WO EXAM: CT ABDOMEN PELVIS WO CLINICAL HISTORY: Nephrostomy tube clogged, purulent drainage. TECHNIQUE: Imaging Protocol: Axial computed tomography images with coronal and sagittal reformatted images were created and reviewed. Oral: no COMPARISON: CT CT RENAL COLIC WO from 09/30/2022 FINDINGS: ABDOMEN: Lung Bases: Dependent changes. Liver: Mild hepatic steatosis. No measurable mass. Gallbladder and biliary tract: Status post cholecystectomy. No radiodense calculus. Stable dilation of common bile duct.. Pancreas: Normal density, no abnormal calcifications or inflammatory process. Spleen: Normal. Kidneys: left nephrostomy tube remains present. The tip is now located within the proximal portion of the renal pelvis. It was more distally position previously, distally in the renal pelvis. There is been no change in the stone at the ureteropelvic junction. Stable moderate hydronephrosis. Addit ional bilateral nonobstructing stones are seen. Stones are again noted in the distal left ureter. N o right ureteral calculi. There is no perinephric collection. No collection along the nephrostomy t ube. Adrenal glands: No masses seen. Lymph nodes: Within normal limits. Abdominal Aorta: Abdominal portion non-dilated. Tissues: Spine stimulator device noted PELVIS: Bladder: Galindo catheter. Multiple small stones. Bowel: Prior surgery to distal stomach and duodenum. No obstruction or bowel wall thickening. Peritoneal cavity: No ascites, collection or mesenteric inflammatory response. Reproductive organs: Within normal limits. Bones: Severe degenerative changes lumbar spine and scoliosis. Hardware in right proximal femur. IMPRESSION: Stable moderate left hydronephrosis. The left nephrostomy tube has been withdrawn since the prior ex am, now located in the for proximal portion of the renal pelvis rather than distally. Stable appear ance of stone at left ureteropelvic junction and stones in the distal left ureter. Bladder calculi a gain noted. RADIATION DOSE DELIVERED: 982.59mGy.cm Total DLP DATA REPOSITORY: All CT scans at this facility are submitted to the National Radiology Data Registry (NRDR) Dose Index Registry (DIR) with the [employer] (ACR). RADIATION OPTIMIZATION: All CT scans at this facility use at least one of these dose optimization te chniques: automated exposure control; mA and/or kV adjustment per patient size (includes targeted exa ms where dose is matched to clinical indication); or iterative reconstruction.
[2022-11-07] MEDS: Normal Saline 1,000 ML 1000 ML IV (13:08)
--- NOTE | 2022-11-07 13:41 | DI.VRAD_ITS ---
PROCEDURE INFORMATION: Exam: CT Abdomen And Pelvis Without Contrast Exam date and time: 11/07/2022 1:09 PM Age: 62 years old Clinical indication: Device placement; Urinary device; Percutaneous nephroureteral drain or stent; Other: Purulent drainage out of nephrostomy tube; Patient HX: Nephrostomy tube clogged purulent drainage. TECHNIQUE: Imaging protocol: Computed tomography of the abdomen and pelvis without contrast. Radiation optimization: All CT scans at this facility use at least one of these dose optimization techniques: automated exposure control; mA and/or kV adjustment per patient size (includes targeted exams where dose is matched to clinical indication); or iterative reconstruction. COMPARISON: CT RENAL COLIC WO 30/09/2022 18:28 FINDINGS: Tubes, catheters and devices: Left nephrostomy tube in place. Catheter has been partially withdrawn compared to previous exam with tip now in the lower portion of the renal pelvis. Moderate left-sided hydronephrosis. There is a small stone in the proximal left ureter. Multiple additional small stones within the distal left ureter. Largest measures about 3 mm. Lungs: Mild fibrotic change and bronchiectasis in the lung bases. Liver: Normal. No mass or intrahepatic biliary ductal dilatation. Gallbladder and bile ducts: Gallbladder is absent. Common bile duct enlarged to 15 mm but unchanged. No significant intrahepatic ductal dilatation. Pancreas: Normal. No mass or ductal dilation. Spleen: Normal. No splenomegaly. Adrenal glands: Normal. No mass. Kidneys and ureters: Small calcifications in the right kidney with no hydronephrosis. Stomach and bowel: Previous distal gastrectomy and duodenectomy. No bowel dilatation. Appendix: No evidence of appendicitis. Intraperitoneal space: Unremarkable. No free air. No significant fluid collection. Vasculature: Unremarkable. No abdominal aortic aneurysm or significant atherosclerosis. Lymph nodes: Multiple lymph nodes in the a Patak emanuel measuring up to 12 mm. These are similar to previous exam. Urinary bladder: Galindo catheter in the bladder. Multiple small stones within the bladder lumen. Reproductive: Unremarkable as visualized. Bones/joints: Advanced degenerative changes in the thoracolumbar spine with dextroscoliosis. Soft tissues: Unremarkable. IMPRESSION: 1. Nephrostomy tube remains in place within the left renal pelvis. There is moderate left-sided hydronephrosis similar to previous exam. Multiple small stones seen within the left ureter. 2. Other incidental findings as above. No other acute abnormality. Dictated and Authenticated by: Marco Antonio Park MD. Ordering:SIMA Palma MD
[2022-11-07] MEDS: HYDROmorphone 2 MG/ML SYR 1 MG IVP (14:18)
[2022-11-07] MEDS: Normal Saline-STERILE FIELD 0.9% 10 ML SYR (14:24)
--- NOTE | 2022-11-07 14:45 | DI.CT_ITS ---
Exam(s) CT ABDOMEN PELVIS WO EXAM: CT ABDOMEN PELVIS WO CLINICAL HISTORY: tube pulled out, nephrostomy tube placement asses. TECHNIQUE: Imaging Protocol: Axial computed tomography images with coronal and sagittal reformatted images were created and reviewed. Oral: / no COMPARISON: CT CT ABDOMEN PELVIS WO from 11/07/2022 FINDINGS: ABDOMEN: Lung Bases: Normal where visualized. Liver: Normal density. No measurable mass. Gallbladder and biliary tract: Status post cholecystectomy. No radiodense calculus. Stable mild dil ation of the common bile duct.. Pancreas: Somewhat atrophic, no abnormal calcifications or inflammatory process. Spleen: Normal. Kidneys: Left nephrostomy tube has been further pulled out and now lies in the subcutaneous fat of th e left flank. There is stable left hydronephrosis. Stable positioning of stone at the left ureterop elvic junction and stones in the distal left ureter. Stable appearance of stone in the left lower po le. Stable right-sided renal calculi. No right hydronephrosis. No perinephric collections. Adrenal glands: No masses seen. Lymph nodes: Within normal limits. Abdominal Aorta: Abdominal portion non-dilated. PELVIS: Bladder:Galindo catheter. Small bladder calculi again noted. Bowel: Partial gastrectomy and duodenectomy, unchanged in appearance. No obstruction or bowel wall t hickening. Peritoneal cavity: No ascites, collection or mesenteric inflammatory response. Reproductive organs: Within normal limits. Bones: Severe degenerative changes and scoliosis as well as right proximal femoral hardware, unchange d.. Soft tissues: Small stimulator device right flank. IMPRESSION: The tip of the nephrostomy catheter now lies in the subcutaneous fat of the left flank region.. Stab le left hydronephrosis. Stable position of left sided calculi. RADIATION DOSE DELIVERED: 1,377.47mGy.cm Total DLP DATA REPOSITORY: All CT scans at this facility are submitted to the National Radiology Data Registry (NRDR) Dose Index Registry (DIR) with the [employer] (ACR). RADIATION OPTIMIZATION: All CT scans at this facility use at least one of these dose optimization te chniques: automated exposure control; mA and/or kV adjustment per patient size (includes targeted exa ms where dose is matched to clinical indication); or iterative reconstruction.
--- NOTE | 2022-11-07 15:53 | ED.PROG_ITS ---
Date of service: 11/07/22 Time of Service: 15:53 Medical Decision Making Care assumed from provider (ABEL Us) Please see their initial HPI, PE, and documentation. Discussed patient details and case and pending workup and disposition. Patient is hemodynamically stable, and alert and oriented. At the time of signout awaiting repeat CT abdomen pelvis to verify urostomy placement. And urinalysis. See CT result below it does appear as if the left nephrostomy tube has been inadvertently removed. Images forwarded to [facility]. We will place a consult with [facility] urology. 1620: Call made to [facility] transfer center for consult with urology my colleague did speak with Dr. Tejeda earlier. Images were pushed. Patient and family aware of CT result. 1627: Spoke with Dr. Phillips he recommends urgent transfer to ED for interventional radiology for replacement of Nephrostomy tube. Spoke with ED Anthony Duval MD regarding transfer request he verbalizes understanding will continue with transfer ED to ED. Discussed plan of care with family who verbalized understanding. They are in agreement with the plan. Pending transport to [facility] for transfer. 1900: Patient discharged via EMS BLS crew to [facility] ED patient remained hemodynamically stable throughout the entirety of his stay. Medical Records Medical records reviewed: Yes I reviewed the patient's medical records. Imaging Data Radiologic Study: Imaging: CT Scan Radiologist's impression: CT Abd Pelvis #2 FINDINGS: Lungs: Visualized lung bases are clear. Liver: Normal. No mass or intrahepatic biliary ductal dilatation. Gallbladder and bile ducts: Gallbladder is absent. Pancreas: Pancreas is atrophic. Spleen: Normal. No splenomegaly. Adrenal glands: Normal. No mass. Kidneys and ureters: Small stones in both kidneys. Previous left nephrostomy tube has been removed. Continued moderate left hydronephrosis. Small stones within the ureter as identified on previous exam. Stomach and bowel: Previous partial gastrectomy and duodenectomy. No bowel dilatation. Appendix: No evidence of appendicitis. Intraperitoneal space: Unremarkable. No free air. No significant fluid collection. Vasculature: Unremarkable. No abdominal aortic aneurysm or significant atherosclerosis. Lymph nodes: No enlarged retroperitoneal or mesenteric lymph nodes. Urinary bladder: Galindo catheter in the bladder. Small bladder stones. Reproductive: Unremarkable as visualized. Bones/joints: Unremarkable. No acute fracture. No lytic lesion. Soft tissues: Unremarkable. IMPRESSION: Interval removal of left nephrostomy tube. Continued moderate left hydronephrosis. No other new acute abnormality. Thank you for allowing us to participate in the care of your patient. Dictated and Authenticated by: Marco Antonio Park MD Lab Data Lab results reviewed: Yes I reviewed the patient's lab results. Labs: 11/07/22 16:14 Urine - Reflex from Ua Urine Culture - Pending 11/07/22 13:00 Back - Left Wound Culture - Pending 11/07/22 13:00 Back - Left Gram Stain - Final Laboratory Tests Range/Units 11/07/22 11/07/22 11/07/22 12:23 12:23 16:14 WBC (4.4-10.8) 10^3/uL 9.51 RBC (4.36-5.78) 10^6/uL 3.63 L Hgb (13.5-17.5) g/dL 10.2 L Hct (40.0-50.0) % 33.6 L MCV (80-95) fL 93 MCH (27.0-33.0) pg 28.1 MCHC (32.0-36.0) % 30.4 L RDW (11.8-14.1) % 13.1 Plt Count (130-400) 10^3/uL 348 MPV (8.0-11.0) fL 9.5 Immature Gran % 0.5 Neutrophils % 78.4 Lymphocytes % 10.2 Monocytes % 7.7 Eosinophils % 2.8 Basophils % 0.4 Nucleated RBC % (0.0-0.3) % 0.0 Absolute Neutrophils (1.2-6.7) 10^3/uL 7.45 H Absolute Lymphocytes (1.2-3.4) 10^3/uL 0.97 L Absolute Monocytes (0.1-0.8) 10^3/uL 0.73 Absolute Eosinophils (0.0-0.7) 10^3/uL 0.27 Absolute Basophils (0.0-0.2) 10^3/uL 0.04 Sodium (136-145) mmol/L 137 Potassium (3.5-5.1) mmol/L 4.1 Chloride (98-107) mmol/L 103 Carbon Dioxide (21.0-32.0) mmol/L 28.9 Anion Gap (3-11) mmol/L 5.1 BUN (7-18) mg/dL 18 Creatinine (0.70-1.30) mg/dL 1.4 H Est GFR (CKD-EPI 2020) (mL/min/1.73m2) 56.48 Glucose (74-106) mg/dL 102 Calcium (8.5-10.1) mg/dL 8.9 Total Bilirubin (0.2-1.0) mg/dL 0.2 AST (15-37) U/L 12 L ALT (16-63) U/L 14 L Alkaline Phosphatase (46-116) U/L 158 H Total Protein (6.4-8.2) g/dL 7.2 Albumin (3.4-5.0) g/dL 2.6 L Lipase (73-393) U/L 39 Urine Color (Yellow) Yellow Urine Clarity (Clear) Sl Cloudy Urine pH (5-8) 6.0 Ur Specific [place] (1.005-1.025) 1.020 Urine Protein (Negative) mg/dL Negative Urine Ketones (Negative) mg/dL Negative Urine Blood (Negative) Negative Urine Nitrite (Negative) Negative Urine Bilirubin (Negative) Negative Urine Urobilinogen (Up TO 0.2) EU/dL 0.2 Ur Leukocyte Esterase (Negative) Moderate H Urine RBC (0-2) HPF Negative Urine WBC (0-5) HPF >50 H Ur Epithelial Cells (Negative) HPF Rare Urine Crystals (Negative) HPF Negative Urine Bacteria (Negative) HPF Moderate Urine Mucus (Negative) Negative Urine Other (Negative) Many Yeast Ur Culture Indicated? Yes Urine Glucose (Negative) mg/dL Negative Sign Out Sign Out Data: Sign Out Comment: Awaiting repeat CT imaging for assessment of nephrostomy tube placement and urinalysis evaluation. Patient may require additional irrigation and/or urology consultation. Urology team at [facility] is currently following the patient. Last updated by Louie Reid PA at 11/07/22 15:30 Discharge Plan Disposition Patient Disposition: Transfer-Acute Inpatient Care Specific Acute Inpt Facility: [facility] Condition: Stable Discharge Details Clinical Impression: Displacement of nephrostomy catheter Primary Care Provider: Peter Spencer ED Provider: Cammie Tran Home Meds and New Rx's Prescriptions: No Action tamsulosin 0.4 mg capsule 0.4 mg PO QHS pantoprazole 20 mg tablet,delayed release (DR/EC) 20 mg PO DAILY amitriptyline 50 mg tablet 50 mg PO QHS docusate sodium [Colace] 100 mg capsule 100 mg PO TID PRN acetaminophen 500 mg tablet 500 mg PO Q3H PRN naloxone [Narcan] 4 mg/actuation spray,non-aerosol 4 mg intranasal Q2-3M PRN Label Comments: sister states pt. doesnt have Rx Instructions: spray 1 dose into ONE nostril; alternate nostrils w each dose until help arrives pregabalin [Lyrica] 150 MG capsule 150 mg PO TID oxycodone 15 mg Tablet, Oral Only 1 tab PO QID Rx Instructions: 09/21/18 pt states that he does not take this one any more morphine 15 mg Tablet 30 mg PO TID PRN (Reason: Pain) finasteride 5 mg Tablet 5 mg PO DAILY
--- NOTE | 2022-11-07 16:16 | DI.VRAD_ITS ---
PROCEDURE INFORMATION: Exam: CT Abdomen And Pelvis Without Contrast Exam date and time: 11/07/2022 4:01 PM Age: 62 years old Clinical indication: Screening exam; Other: Tube pulled out, nephrostomy tube placement asses TECHNIQUE: Imaging protocol: Computed tomography of the abdomen and pelvis without contrast. COMPARISON: CT ABDOMEN PELVIS WO 07/11/2022 13:09 FINDINGS: Lungs: Visualized lung bases are clear. Liver: Normal. No mass or intrahepatic biliary ductal dilatation. Gallbladder and bile ducts: Gallbladder is absent. Pancreas: Pancreas is atrophic. Spleen: Normal. No splenomegaly. Adrenal glands: Normal. No mass. Kidneys and ureters: Small stones in both kidneys. Previous left nephrostomy tube has been removed. Continued moderate left hydronephrosis. Small stones within the ureter as identified on previous exam. Stomach and bowel: Previous partial gastrectomy and duodenectomy. No bowel dilatation. Appendix: No evidence of appendicitis. Intraperitoneal space: Unremarkable. No free air. No significant fluid collection. Vasculature: Unremarkable. No abdominal aortic aneurysm or significant atherosclerosis. Lymph nodes: No enlarged retroperitoneal or mesenteric lymph nodes. Urinary bladder: Galindo catheter in the bladder. Small bladder stones. Reproductive: Unremarkable as visualized. Bones/joints: Unremarkable. No acute fracture. No lytic lesion. Soft tissues: Unremarkable. IMPRESSION: Interval removal of left nephrostomy tube. Continued moderate left hydronephrosis. No other new acute abnormality. Dictated and Authenticated by: Marco Antonio Park MD. Ordering:SIMA Palma MD
[2022-11-07 16:21] LABS: Bilirubin Negative (Negative); Blood Negative (Negative); Clarity Sl Cloudy (Clear); Glucose Negative (Negative); Ketones Negative (Negative); Leukocyte Esterase Moderate (Negative); Nitrite Negative (Negative); Urobilinogen 0.2 EU/dL (Up TO 0.2)
[2022-11-07 16:37] LABS: Bacteria Moderate HPF (Negative); C & S Indicated? Yes; Crystals Negative HPF (Negative); Epithelial Cells Rare HPF (Negative); Mucus Negative (Negative); RBC Negative HPF (0-2); WBC >50 HPF (0-5)
--- NOTE | 2022-11-07 17:55 | NUR.NOTE ---
Nursing Note: Nurse to Nurse report given to Howard at [facility] ED.
== END 2022-11-07 19:20 | disposition short-term general hospital (02) ==
PROVIDERS: Physician Assistant; Emergency Provider Registered Nurse Emergency; PCP Internal Medicine
DX: T83.022A Displacement of nephrostomy catheter, initial encounter (principal); N13.2 Hydronephrosis with renal and ureteral calculous obstruction; Z86.16 Personal history of COVID-19; Y83.3 Surgical operation with formation of external stoma as the cause of abnormal reaction of the patient, or of later complication, without mention of misadventure at the time of the procedure
CPT/HCPCS: 36415; 80053; 83690; 96361; 96374; 99285; 74176; 81003; 81015; 85025; 87070; 87086; 87205; 99284; J1170

== ENCOUNTER 2022-12-11 14:35 | Outpatient (REF) | payer MEDICAID, SELFPAY | END 2022-12-11 14:36 | disposition home or self-care (01) | LOC: LBN 14:35 | PROVIDERS: PCP Internal Medicine; Visit Provider Urology | DX: R82.998 Other abnormal findings in urine (principal) | CPT/HCPCS: 87086 ==

== ENCOUNTER 2023-03-25 07:00 | Inpatient (IN) | payer MEDICAID, SELFPAY ==
[2023-03-25] VITALS (12 sets, daily range): BP systolic 101–155; BP diastolic 55–77; PULSE 61–93; RESP 10–22; TEMP 35.6–36.6; O2SAT 95–100; BMI 26.6
[2023-03-25] MEDS: Lactated Ringers 1,000 ML 80 ML IV ×3 (08:00→23:43)
--- NOTE | 2023-03-25 08:32 | W.ANESPRE ---
General Info Date of Service Date Performed: 03/25/23 Height: 5 ft 6 in Weight: 74.843 kg Body Mass Index (BMI): 26.6 Surgical Procedure: Operation Date: 03/25/23 08:40 Proposed Procedure Side Surgeon p Cysto, Transurethral Resection Prostate William Camacho MD Meds Allergies and Home Medications Allergies Allergy/AdvReac Type Severity Reaction Status Date / Time iodine Allergy Severe Topical Unverified 03/24/23 11:31 Irritation latex Allergy Severe Skin Rash Unverified 03/24/23 11:31 copper Allergy Intermediate Unverified 03/24/23 11:31 chocolate flavor AdvReac Hives Unverified 03/24/23 11:31 lactose AdvReac Diarrhea Unverified 03/24/23 11:31 Home Medication Medication Instructions Recorded pregabalin 150 mg capsule (Lyrica) 150 mg PO TID 08/13/14 morphine 15 mg immediate release 30 mg PO TID PRN Pain 09/21/18 tablet oxycodone 15 mg tablet,oral ONLY 1 tab PO QID 09/21/18 (not feeding tubes) acetaminophen 500 mg tablet 500 mg PO Q3H PRN 02/18/22 amitriptyline 50 mg tablet 50 mg PO QHS 02/18/22 docusate sodium 100 mg capsule 100 mg PO TID PRN 02/18/22 (Colace) naloxone 4 mg/actuation nasal 4 mg intranasal Q2-3M PRN 02/18/22 spray (Narcan) pantoprazole 20 mg tablet,delayed 20 mg PO DAILY 02/18/22 release tamsulosin 0.4 mg capsule 0.4 mg PO QHS 03/26/22 finasteride 5 mg tablet 5 mg PO DAILY 11/07/22 Current Visit Medications: Current Medications Generic Name Dose Route Start Last Admin Trade Name Freq PRN Reason Stop Dose Admin Ringer's Solution 1,000 mls @ 80 mls/hr 03/25/23 06:00 IV 04/23/23 23:59 INFUSION BETTE Cefazolin Sodium/Dextrose 2 gm in 50 mls @ 100 mls/hr 03/25/23 06:00 Ancef Duplex IVPB 04/23/23 23:59 PREOP BETTE Gentamicin Sulfate 120 mg/ 103 mls @ 206 mls/hr 03/25/23 06:00 Sodium Chloride IVPB 03/25/23 18:00 PREOP BETTE IV Miscellaneous Supplies 1 each 03/25/23 06:00 Iv Access IV 04/23/23 23:59 DIRECTED BETTE Sodium Chloride 0 ml 03/25/23 06:00 Normal Saline Flush 10 Ml Syr IV 04/23/23 23:59 PRN PRN Sodium Chloride 0 ml 03/25/23 06:00 Normal Saline 10 Ml Vial IJ 04/23/23 23:59 DIRECTED PRN Sterile Water 0 ml 03/25/23 06:00 Water,Injection,Sterile 10 Ml Vial IJ 04/23/23 23:59 DIRECTED PRN PFSH Active Problems Active Problems: Problem Status Onset Code Vitamin D deficiency E55.9 Phantom limb (syndrome) G54.7 Status post VNS (vagus nerve stimulator) placement Z96.89 Peptic ulcer disease K27.9 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 states this has not been done History of gastrectomy Hx of fracture of hip Hx of fracture of wrist Hx of fracture of wrist pt. reports metal in place Hx of peptic ulcer Personal history of COVID-19 Rib fractures Right leg injury Ulnar neuritis Surgical History Surgical History (Updated 03/24/23 @ 11:29 by Sanjay Harvey) History of nephrectomy, left Hx of cystoscopy Hx of total hip arthroplasty t. reports fracture with metal repair S/P placement of nerve stimulator Tobacco Smoking/Tobacco Use Status: Current every day Tobacco Type: smokeless tobacco Alcohol Alcohol Intake: never Substance Use Substance use: Never Substance use type: does not use Vital Signs and Lab Results Lab Results Blood Type / Crossmatch: No Data to Display Complete Blood Count: No Data to Display Complete Metabolic Panel: No Data to Display Liver Function Panel: No Data to Display Coagulation Panel: No Data to Display Cardiac Panel: No Data to Display Arterial Blood Gas: No Data to Display Venous Blood Gas: No Data to Display Pancreas Panel: No Data to Display Thyroid Panel: No Data to Display Infectious Disease: No Data to Display Blood Cultures: No Data to Display Toxicology Panel: No Data to Display Imaging and Studies Imaging and Studies Study information below may be from another EMR and interpreted by another provider. Please see original notes in EMR for more complete details. EKG Summary: Conclusion Sinus tachycardia...rate> 99. Sinus. Normal axis. No STEMI. 05/21/22 Anesthesia Assessment and Plan Anesthesia History Personal History: Delayed Emergence Family History: No Family History of Anesthesia Complications Exercise Tolerance Exercise Tolerance: Metabolic Equivalents>4 Pertinent Negatives Pertinent Negatives: No Symptoms of GERD Cardiac & Pulmonary Exam Cardiac Exam: Normal S1/S2 Heart Sounds Pulmonary Exam: Clear Bilateral Breath Sounds Implantable Cardiac Device Does patient have a Pacemaker or an ICD?: No Airway Exam Known Difficult Airway: No Mallampati Class: 2 Mouth Opening: Normal (> 3cm) Thyromental Distance: Greater than 3 cm Neck Range of Motion: Limited ROM (Cannot turn head to the left) Neck Circumference: Normal Teeth Condition: Generalized Poor Dentition, Loose or Chipped (Patient unsure if any loose) and Dental Caries ASA Classification ASA Score: ASA 3 Emergency Case?: No NPO Status NPO Status: NPO Clears >2 hours, Solids >8 hours Anesthesia Plan Resuscitation Status: Full Code Anesthesia Technique: General Anesthesia Airway Planned: Endotracheal Tube Monitors Used: Standard Monitors
[2023-03-25] MEDS: ceFAZolin 2 GM/50 ML BAG IVPB (09:28)
[2023-03-25] MEDS: GENTAMICIN 120 MG in Normal Saline 100 ML 206 MG IVPB (09:33)
[2023-03-25] MEDS: Lidocaine 2% Jelly 11 ML SYR (09:51)
--- NOTE | 2023-03-25 10:10 | PROST_PTH ---
PATIENT: Phuong Duran LOC: U#:[id number] AGE/SX: 62/M ROOM: 215 RE03/25/[address]: William Camacho MD : 1960 BED: A DIS: 03/26/2023 SPEC #: [id number] RECD: 03/25/23 12:43 STATUS: SOUJackson REQ #: [id number] CHRISTIE: 03/25/23 10:[address]: William Camacho DEPT: Surgical Specimen RECD BY: Sigrid Pickard ENTERED: 03/25/23 12:44 SP TYPE: PROST OTHR DR: Peter Spencer Tissues: 1 - PROSTATE CURRETTINGS Procedures: GROSS AND MICRO LEVEL 4 Comments: [id number]
--- NOTE | 2023-03-25 10:42 | W.PM.OP ---
Date of service: 03/25/23 Time of Service: 10:42 Operative Note Operative Note DATE OF PROCEDURE: 03/25/23 PRE-OP DIAGNOSIS: Urinary retention POST-OP DIAGNOSIS: same PROCEDURE: Cystoscopy with TURP ANESTHESIA TYPE: General LMA/ETT Refer to Anesthesia Record ESTIMATED BLOOD LOSS: 100 PATHOLOGY: other (prostate chips) Patient was transported to: PACU Patient's condition: stable Implants: 24 [place] coude tipped irrigating catheter with 30 cc sterile water in balloon Indications: This is a 62-year-old gentleman who has a history of urinary retention. He has failed maximal medical therapy. He presents for transurethral resection of the prostate. Findings: Trabeculated bladder with small diverticuli Some lateral lobe enlargement of the prostate with no significant median lobe Procedure Description: The patient was brought to the operating room on 03/25/2023. He was given preoperative IV antibiotics. After successful induction of general anesthesia with intubation, he was placed in the dorsal lithotomy position. His indwelling catheter balloon was deflated and the catheter was removed. His genitalia was then prepped and draped. A 26 [place] resectoscope sheath was passed through the urethra into the bladder. The urethra and bladder were inspected with a 30 degree lens. The pendulous, bulbar and membranous urethra's appeared normal with no strictures. The prostatic urethra was not overly long. There was some lateral lobe enlargement and no significant median lobe. The bladder neck was entered and the bladder mucosa was inspected. Multiple stone fragments were seen within the bladder. These fragments were hand irrigated out using a Eugenie syringe. The bladder appeared moderately trabeculated with a few small diverticuli. Both ureteral orifices could be identified. Clear urine could be seen coming from the right ureteral orifice. The patient previously had a left nephrectomy. We then used an [employer] resectoscope and bipolar cautery to perform transurethral resection of the prostate from the bladder neck out to the verumontanum. The depth of the resection was down to the prostatic capsule. We initially resected the prostate tissue then changed over to the plasma button to vaporize and cauterized the remaining prostate tissue. At the completion of the procedure, the prostate fossa appeared open at rest. The bladder was filled with irrigant. All resected tissue was evacuated and sent to pathology for permanent section. The resectoscope was removed. I initially passed a 22 [place] hematuria catheter through the urethra into the bladder. I had difficulty hand irrigating the catheter, so I switched to a 24 [place] hematuria catheter and the catheter was easily hand irrigated. The catheter balloon was inflated with 30 cc of sterile water. Continuous bladder irrigation was begun and traction was placed on the catheter until the irrigant became clear. The traction was then released and the catheter was hooked to gravity drainage.
--- NOTE | 2023-03-25 11:02 | W.ANESPOSTOP ---
Postoperative Evaluation Date, Time and Location Date Performed: 03/25/23 Time Performed: 11:02 Patient Location: PACU Assessment Mental Status: Arousable with meaningful communication Airway and Respiratory Function: Patent airway with normal (patient baseline) respiratory exam Cardiovascular Function: Hemodynamically Stable Hydration Status: Adequately Hydrated Nausea & Vomiting: No Nausea or Vomiting Pain: Pain is tolerable per patient Peripheral Nerve Block: Patient did not receive a nerve block
[2023-03-25] MEDS: Ketorolac 15 MG/ML VIAL IVP (12:51)
[2023-03-25] MEDS: Pregabalin 150 MG CAP PO ×2 (14:03→19:17)
[2023-03-25] MEDS: ceFAZolin 1 GM/50 ML BAG IVPB ×2 (15:13→21:35)
[2023-03-25] MEDS: Acetaminophen 325 MG TAB 650 MG PO ×2 (18:21→23:41)
[2023-03-25] MEDS: Docusate Sodium 100 MG CAP PO (19:17)
[2023-03-25] MEDS: oxyCODONE 10 MG TAB PO (19:17)
[2023-03-25] MEDS: Normal Saline Flush 10 ML SYR IV (19:19)
[2023-03-25] MEDS: Amitriptyline 50 MG TAB PO (21:35)
[2023-03-25] MEDS: Tamsulosin 0.4 MG CAPCR PO (21:35)
[2023-03-26 02:19] VITALS: BP 118/66; PULSE 72; RESP 18; TEMP 36.2; O2SAT 94
[2023-03-26] MEDS: oxyCODONE 10 MG TAB PO ×2 (02:27→07:35)
[2023-03-26] MEDS: Ketorolac 15 MG/ML VIAL IVP (02:41)
[2023-03-26] MEDS: ceFAZolin 1 GM/50 ML BAG IVPB (04:23)
[2023-03-26 06:39] LABS: Abs Immature Grans 0.02 10^3/uL (0.0-0.06); Absolute Basophil Count 0.01 10^3/uL (0.0-0.2); Absolute Eosinophil Count 0.13 10^3/uL (0.0-0.7); Absolute Lymphocyte Count 0.54 10^3/uL (1.2-3.4); Absolute Monocyte Count 0.42 10^3/uL (0.1-0.8); Absolute Neutrophil Count 4.63 10^3/uL (1.2-6.7); Basophils % 0.2; Eosinophils % 2.3; HCT 28.3 % (40.0-50.0); HGB 8.7 g/dL (13.5-17.5); Immature Grans % 0.3; Lymphocytes % 9.4; MCH 28.2 pg (27.0-33.0); MCHC 30.7 % (32.0-36.0); MCV 92 fL (80-95); MPV 10.3 fL (8.0-11.0); Monocytes % 7.3; Neutrophils % 80.5; Platelet Count 150 10^3/uL (130-400); RBC 3.09 10^6/uL (4.36-5.78); RDW 15.4 % (11.8-14.1); RDW-SD 51.4 fL; WBC 5.75 10^3/uL (4.4-10.8)
[2023-03-26 06:53] LABS: Anion Gap 7.3 mmol/L (3-11); BUN 16 mg/dL (7-18); CO2 25.7 mmol/L (21.0-32.0); CREATININE 1.2 mg/dL (0.70-1.30); Calcium 7.6 mg/dL (8.5-10.1); Chloride 111 mmol/L (98-107); Estimated GFR 67.95 (mL/min/1.73m2); Glucose 96 mg/dL (74-106); Potassium 4.2 mmol/L (3.5-5.1); Sodium 144 mmol/L (136-145)
[2023-03-26] MEDS: Docusate Sodium 100 MG CAP PO (07:27)
[2023-03-26] MEDS: Pantoprazole 20 MG TABCR PO (07:27)
[2023-03-26] MEDS: Pregabalin 150 MG CAP PO (07:27)
[2023-03-26] MEDS: Acetaminophen 325 MG TAB 650 MG PO (07:27)
--- NOTE | 2023-03-26 07:31 | W.PM.PROGNOT ---
Date of Service Date of service: 03/26/23 Time of Service: 07:31 Assessment and Plan Assessment and plan (1) Retention of urine: Status: Acute Assessment and plan: We will discontinue his bladder irrigation and his IV fluids. We will place a catheter plug on the irrigating port of his Galindo. He will be discharged to home today and return to our office early next week for a voiding trial. Subjective Subjective Interval history since last seen: He feels comfortable. He has had some sensations of needing to void, but no clot retention. Exam Narrative Exam Narrative: His vital signs are documented elsewhere His urine is clear with with CBI He is awake and alert His labs are appropriate for postoperative day #1 Objective Last Vital Signs Temp 36.2 C L 03/26/23 02:19 Pulse 72 03/26/23 02:19 Resp 18 03/26/23 02:19 BP 118/66 03/26/23 02:19 Pulse Ox 94 03/26/23 02:19 Laboratory Results - last 24 hr 03/26/23 03/26/23 06:10 06:10 WBC 5.75 RBC 3.09 L Hgb 8.7 L Hct 28.3 L MCV 92 MCH 28.2 MCHC 30.7 L RDW 15.4 H Plt Count 150 MPV 10.3 Immature Gran % 0.3 Neutrophils % 80.5 Lymphocytes % 9.4 Monocytes % 7.3 Eosinophils % 2.3 Basophils % 0.2 Nucleated RBC % 0.0 Absolute Neutrophils 4.63 Absolute Lymphocytes 0.54 L Absolute Monocytes 0.42 Absolute Eosinophils 0.13 Absolute Basophils 0.01 Sodium 144 Potassium 4.2 Chloride 111 H Carbon Dioxide 25.7 Anion Gap 7.3 BUN 16 Creatinine 1.2 Est GFR (CKD-EPI 2020) 67.95 Glucose 96 Calcium 7.6 L Time Spent with Patient Time Spent with Patient: <25 minutes Time was spent: other
--- NOTE | 2023-03-26 07:33 | W.PM.DS.N ---
Date of service: 03/26/23 Time of Service: 07:33 DS: Diagnosis Discharge Diagnosis (1) Retention of urine: Status: Acute Discharge Plan Disposition Patient Disposition: Home Condition: Stable Discharge Details Reason For Visit: Urinary Retention Admit Date/Time: 03/25/23 07:00 Admit Provider: William Camacho Attending Provider: William Camacho Primary Care Provider: Peter Spencer Hospital Course Hospital Course: The patient was admitted and taken to the operating room on 03/25/2023 where he underwent a cystoscopy and transurethral resection of his prostate. A few small bladder stones were found and were evacuated during the procedure as well. Following the procedure, an irrigating catheter was placed. Continuous bladder irrigation was maintained over the next 24 hours. By postoperative day #1, the irrigant was clear and no clots were identified. He was able to tolerate oral nutrition and medications. His laboratory studies were stable. He was felt to be ready for discharge. Home Meds and New Rx's Prescriptions: No Action tamsulosin 0.4 mg capsule 0.4 mg PO QHS pantoprazole 20 mg tablet,delayed release (DR/EC) 20 mg PO DAILY amitriptyline 50 mg tablet 50 mg PO QHS docusate sodium [Colace] 100 mg capsule 100 mg PO TID PRN acetaminophen 500 mg tablet 500 mg PO Q3H PRN naloxone [Narcan] 4 mg/actuation spray,non-aerosol 4 mg intranasal Q2-3M PRN Patient Comments: sister states pt. doesnt have Rx Instructions: spray 1 dose into ONE nostril; alternate nostrils w each dose until help arrives pregabalin [Lyrica] 150 MG capsule 150 mg PO TID oxycodone 15 mg Tablet, Oral Only 1 tab PO QID Rx Instructions: 09/21/18 pt states that he does not take this one any more morphine 15 mg Tablet 30 mg PO TID PRN (Reason: Pain) finasteride 5 mg Tablet 5 mg PO DAILY Discharge Instructions Additional Instructions: Resume all his home medications Catheter plug to irrigation port Follow-up in office next week for voiding trial Follow-up appointment with me in 2 weeks to review pathology. Activity:: No straining or to live t Equipment/Supplies:: Galindo to gravity, cathete Diet:: As Tolerated Discharge Orders Discharge Orders: Discharge Order (Routine); Ordered 03/26/23 Ordered By: William Camacho DS: Summary Time Spent with Patient providing and/or coordinating discharge services: Less than 30 minutes Status at Discharge Functional status at discharge: uses cane/walker Overall status at discharge: patient is back to baseline Mental Status: mental status grossly normal Speech and Movement: speech and movement normal Mood: congruent mood Affect: normal affect Exam Narrative Exam Narrative: On the morning of discharge, he appears comfortable His vital signs are documented elsewhere His chest wall motion is normal. He is not short of breath at rest. His abdomen is soft with no peritoneal signs His urine is clear in his catheter bag He is awake and alert Psych Mental Status: mental status grossly normal Speech and Movement: speech and movement normal Mood: congruent mood Affect: normal affect DS: Data Vitals/I&O Vitals and I&O: Vital Signs Temperature 36.2 C L 03/26/23 02:19 Temperature Source Tympanic 03/26/23 02:19 Pulse 72 03/26/23 02:19 Pulse Rhythm Irregular 03/25/23 19:48 Respiratory Rate 18 03/26/23 02:19 Respiratory Effort Normal 03/25/23 19:48 Respiratory Depth Normal 03/25/23 19:48 Respiratory Pattern Normal 03/25/23 19:48 Blood Pressure 118/66 03/26/23 02:19 Pulse Oximetry 94 03/26/23 02:19 Respiratory End-tidal CO2 39 03/25/23 11:45 Oxygen Delivery Method Room Air 03/26/23 02:19 Oxygen Flow Rate 0 03/26/23 02:19 Pain Level 8 03/26/23 02:41 Intake & Output 03/25/23 03/25/23 03/26/23 11:59 23:59 11:59 Intake Total 2518. 154 / 2518. 72.667 / 72.667 Output Total 1874 275 / 275 Balance 953 / 644.667 -331 / 644.667 -202.333 / -202.333 Weight 74.843 kg 169 kg Intake: IV 1043 / 72.667 / 72.667 Oral 500 / 500 Output: Urine 1874 / 1874 275 / 275 Other: Urine Color [place] Urine Appearance Clots Clear Urine Odor None Comment scant blood from cbi Emesis Description None Data Completed and Pending Labs on day of discharge: Labs from last 24 hours 03/26/23 03/26/23 06:10 06:10 WBC 5.75 RBC 3.09 L Hgb 8.7 L Hct 28.3 L MCV 92 MCH 28.2 MCHC 30.7 L RDW 15.4 H Plt Count 150 MPV 10.3 Immature Gran % 0.3 Neutrophils % 80.5 Lymphocytes % 9.4 Monocytes % 7.3 Eosinophils % 2.3 Basophils % 0.2 Nucleated RBC % 0.0 Absolute Neutrophils 4.63 Absolute Lymphocytes 0.54 L Absolute Monocytes 0.42 Absolute Eosinophils 0.13 Absolute Basophils 0.01 Sodium 144 Potassium 4.2 Chloride 111 H Carbon Dioxide 25.7 Anion Gap 7.3 BUN 16 Creatinine 1.2 Est GFR (CKD-EPI 2020) 67.95 Glucose 96 Calcium 7.6 L PFSH All Active Problems Vitamin D deficiency (Acute) Phantom limb (syndrome) (Chronic) Status post VNS (vagus nerve stimulator) placement (Acute) Peptic ulcer disease (Chronic) Ulnar neuropathy at elbow of right upper extremity (Acute) Right carpal tunnel syndrome (Acute) Pneumonia (Acute) Acute kidney injury (Acute) Ureteral calculus, left (Acute) Sepsis due to urinary tract infection (Acute) Pneumonia (Acute) Fever (Acute) Left arm cellulitis (Acute) Acute anemia (Acute) Acute kidney injury (Acute) Retroperitoneal fluid collection (Acute) Hydronephrosis due to obstruction of ureter (Acute) Hydronephrosis, left (Acute) Left ureteral injury (Acute) Retention of urine (Acute) Medical History Amputation of left arm Cataracts, bilateral pt. states this has not been done History of gastrectomy Hx of fracture of hip Hx of fracture of wrist Hx of fracture of wrist pt. reports metal in place Hx of peptic ulcer Personal history of COVID-19 Rib fractures Right leg injury Ulnar neuritis Surgical History History of nephrectomy, left Hx of cystoscopy Hx of total hip arthroplasty t. reports fracture with metal repair S/P placement of nerve stimulator Social History Smoking/Tobacco Use Status: Current every day Tobacco Type: smokeless tobacco Smoking risk assessment performed?: Yes Alcohol Intake: never Drug use: Never Substance use type: does not use Additional Social history: sister at bedside. lives at home with sister. Time Spent with Patient Time Spent with Patient: <45 minutes Time was spent: other
[2023-03-26] MEDS: Finasteride 5 MG TAB PO (07:42)
[2023-03-26 07:49] VITALS: BP 134/78; PULSE 66; RESP 20; TEMP 36.6; O2SAT 96
--- NOTE | 2023-03-26 10:39 | PDOC.CMIN ---
Date of service: 03/26/23 Time of Service: 10:39 Care Management Initial Assmt Initial Assessment REASON FOR HOSPITALIZATION:: urinary retention PFSH All Active Problems Vitamin D deficiency (Acute) Phantom limb (syndrome) (Chronic) Status post VNS (vagus nerve stimulator) placement (Acute) Peptic ulcer disease (Chronic) Ulnar neuropathy at elbow of right upper extremity (Acute) Right carpal tunnel syndrome (Acute) Pneumonia (Acute) Acute kidney injury (Acute) Ureteral calculus, left (Acute) Sepsis due to urinary tract infection (Acute) Pneumonia (Acute) Fever (Acute) Left arm cellulitis (Acute) Acute anemia (Acute) Acute kidney injury (Acute) Retroperitoneal fluid collection (Acute) Hydronephrosis due to obstruction of ureter (Acute) Hydronephrosis, left (Acute) Left ureteral injury (Acute) Retention of urine (Acute) Medical History Amputation of left arm Cataracts, bilateral pt. states this has not been done History of gastrectomy Hx of fracture of hip Hx of fracture of wrist Hx of fracture of wrist pt. reports metal in place Hx of peptic ulcer Personal history of COVID-19 Rib fractures Right leg injury Ulnar neuritis Surgical History History of nephrectomy, left Hx of cystoscopy Hx of total hip arthroplasty t. reports fracture with metal repair S/P placement of nerve stimulator Social History Smoking/Tobacco Use Status: Current every day Tobacco Type: smokeless tobacco Smoking risk assessment performed?: Yes Alcohol Intake: never Drug use: Never Substance use type: does not use Additional Social history: sister at bedside. lives at home with sister.
--- NOTE | 2023-03-26 10:41 | PDOC.CMPRO ---
Date of service: 03/26/23 Time of Service: 10:41 Care Management Progress Note Progress Note Text Progress Note Text: Phuong was admitted on 03/25/23 for a cysto and TURP . The procedure went well and he was able to tolerate food and fluids post operatively. Phuong was discharged home early in the day on 03/26/23, before CM was able to meet with him. He had a parham cathjeter in place at discharge. he will follow up with Dr. Camacho for a voiding trial next week.
== END 2023-03-26 12:24 | disposition home or self-care (01) | DRG 666 ==
LOC: PDS 09:21 → MS 12:38
PROVIDERS: Admitting Provider Urology; PCP Internal Medicine; Visit Provider Urology
PROC: 0VT08ZZ Resection of Prostate, Via Natural or Artificial Opening Endoscopic (ICD-10-PCS; CPT 52601; principal; 2023-03-25 08:30)
DX: R33.9 Retention of urine, unspecified (principal); N13.1 Hydronephrosis with ureteral stricture, not elsewhere classified; N40.0 Benign prostatic hyperplasia without lower urinary tract symptoms; E55.9 Vitamin D deficiency, unspecified; G54.7 Phantom limb syndrome without pain; Z96.89 Presence of other specified functional implants; G56.21 Lesion of ulnar nerve, right upper limb; G56.01 Carpal tunnel syndrome, right upper limb; Z89.202 Acquired absence of left upper limb, unspecified level; N32.89 Other specified disorders of bladder; N21.0 Calculus in bladder; Z90.5 Acquired absence of kidney; Z87.11 Personal history of peptic ulcer disease; F17.290 Nicotine dependence, other tobacco product, uncomplicated
CPT/HCPCS: 52601; 36415; 80048; 88305; J3490; 85025; J0690; J1580; J1885; J2704; J3010

== ENCOUNTER 2023-04-12 14:44 | Outpatient (REF) | payer MEDICAID, SELFPAY ==
[2023-04-12 15:02] LABS: Abs Immature Grans 0.03 10^3/uL (0.0-0.06); Absolute Basophil Count 0.04 10^3/uL (0.0-0.2); Absolute Lymphocyte Count 1.02 10^3/uL (1.2-3.4); Absolute Monocyte Count 0.35 10^3/uL (0.1-0.8); Absolute Neutrophil Count 3.34 10^3/uL (1.2-6.7); Basophils % 0.8; Eosinophils % 5.9; HCT 36.9 % (40.0-50.0); HGB 11.4 g/dL (13.5-17.5); Immature Grans % 0.6; Lymphocytes % 20.1; MCH 28.6 pg (27.0-33.0); MCHC 30.9 % (32.0-36.0); MCV 93 fL (80-95); MPV 10.9 fL (8.0-11.0); Monocytes % 6.9; Neutrophils % 65.7; Platelet Count 226 10^3/uL (130-400); RBC 3.99 10^6/uL (4.36-5.78); RDW 15.6 % (11.8-14.1); RDW-SD 53.3 fL; WBC 5.08 10^3/uL (4.4-10.8)
[2023-04-12 15:44] LABS: Iron 38 ug/dL (65-175); Total Iron Binding Capacity 187 ug/dL (250-450); Transferrin Sat 20 % (20-55)
== END 2023-04-12 14:45 | disposition home or self-care (01) ==
LOC: NCHCN 14:44
PROVIDERS: PCP Internal Medicine; Visit Provider Internal Medicine
DX: I10 Essential (primary) hypertension (principal); D64.9 Anemia, unspecified
CPT/HCPCS: 83540; 83550; 85025

== ENCOUNTER 2023-07-13 15:05 | Outpatient (REF) | payer MEDICAID, SELFPAY ==
[2023-07-13 21:05] LABS: Abs Immature Grans 0.03 10^3/uL (0.0-0.06); Absolute Basophil Count 0.03 10^3/uL (0.0-0.2); Absolute Lymphocyte Count 0.94 10^3/uL (1.2-3.4); Absolute Monocyte Count 0.35 10^3/uL (0.1-0.8); Absolute Neutrophil Count 2.23 10^3/uL (1.2-6.7); Basophils % 0.8; Eosinophils % 5.3; HCT 35.8 % (40.0-50.0); HGB 11.2 g/dL (13.5-17.5); Immature Grans % 0.8; Lymphocytes % 24.9; MCH 28.8 pg (27.0-33.0); MCHC 31.3 % (32.0-36.0); MCV 92 fL (80-95); MPV 11.4 fL (8.0-11.0); Monocytes % 9.3; Neutrophils % 58.9; Platelet Count 172 10^3/uL (130-400); RBC 3.89 10^6/uL (4.36-5.78); RDW 14.8 % (11.8-14.1); RDW-SD 49.7 fL; WBC 3.78 10^3/uL (4.4-10.8)
[2023-07-13 21:27] LABS: Iron 70 ug/dL (65-175); Total Iron Binding Capacity 163 ug/dL (250-450); Transferrin Sat 43 % (20-55)
[2023-07-13 21:35] LABS: ALT 24 U/L (16-63); AST 16 U/L (15-37); Alkaline Phosphatase 206 U/L (46-116); Anion Gap 11.8 mmol/L (3-11); BUN 17 mg/dL (7-18); Bilirubin, Total 0.3 mg/dL (0.2-1.0); CO2 22.2 mmol/L (21.0-32.0); CREATININE 1.5 mg/dL (0.70-1.30); Calcium 8.6 mg/dL (8.5-10.1); Chloride 108 mmol/L (98-107); Estimated GFR 51.67 (mL/min/1.73m2); Glucose 102 mg/dL (74-106); Sodium 142 mmol/L (136-145); Total Protein 6.3 g/dL (6.4-8.2)
== END 2023-07-13 15:06 | disposition home or self-care (01) ==
LOC: NCHCN 15:05
PROVIDERS: PCP Internal Medicine; Visit Provider Internal Medicine
DX: D64.9 Anemia, unspecified (principal); G54.7 Phantom limb syndrome without pain; Z87.442 Personal history of urinary calculi
CPT/HCPCS: 80053; 83540; 83550; 85025

== ENCOUNTER 2023-07-19 13:05 | Outpatient (CLI) | payer MEDICAID, SELFPAY ==
--- NOTE | 2023-07-19 13:45 | DI.RAD_ITS ---
Exam(s) XR ELBOW RT COMPLETE EXAM: XR ELBOW RT COMPLETE CLINICAL HISTORY: eval R elbow, setting of severe cubital. TECHNIQUE: 2D digital imaging was performed. Three views. COMPARISON: No exams were available for comparison FINDINGS: BONES: No acute fracture is present. No bony destructive lesion is seen. small enthesophyte at maddie ps insertion on the ulna. JOINTS: The elbow is normally aligned. No joint effusion is seen. Narrowing at the radiocapitellar fay int space. Degenerative changes most severe at the proximal radial ulnar joint with prominent periart icular spurring. SOFT TISSUE: Vascular calcifications. IMPRESSION: Advanced degenerative changes. DATA REPOSITORY: RADIATION DOSE DELIVERED:
== END 2023-07-19 13:06 | disposition home or self-care (01) ==
LOC: DIORS 08-12 11:34
PROVIDERS: PCP Internal Medicine; Visit Provider Student in an Organized Health Care Education/Training Program
DX: G56.21 Lesion of ulnar nerve, right upper limb (principal); M19.021 Primary osteoarthritis, right elbow
CPT/HCPCS: 73080

== ENCOUNTER 2023-07-27 10:42 | Day surgery (SDC) | payer MEDICAID, SELFPAY ==
[2023-07-27] VITALS (9 sets, daily range): BP systolic 115–150; BP diastolic 44–85; PULSE 68–80; RESP 14–24; TEMP 36.4–36.7; O2SAT 94–97; BMI 29.1
--- NOTE | 2023-07-27 06:49 | ANES.PREOP_ITS ---
General Info Height: 5 ft 6 in Weight: 85.554 kg Body Mass Index (BMI): 30.4 Surgical Procedure: Operation Date: 07/27/23 14:25 Proposed Procedure Side Surgeon p Cubital Tunnel Release Right Derek Nazario MD Meds Allergies and Home Medications Allergies Allergy/AdvReac Type Severity Reaction Status Date / Time iodine Allergy Severe Topical Verified 07/26/23 13:13 Irritation latex Allergy Severe Skin Rash Verified 07/26/23 13:13 copper Allergy Intermediate Verified 07/26/23 13:13 chocolate flavor AdvReac Hives Verified 07/26/23 13:13 lactose AdvReac Diarrhea Verified 07/26/23 13:13 Home Medication Medication Instructions Recorded pregabalin 150 mg capsule (Lyrica) 150 mg PO TID 08/13/14 morphine 15 mg immediate release 30 mg PO TID PRN Pain 09/21/18 tablet acetaminophen 500 mg tablet 500 mg PO Q3H PRN 02/18/22 amitriptyline 50 mg tablet 50 mg PO QHS 02/18/22 docusate sodium 100 mg capsule 100 mg PO TID PRN 02/18/22 (Colace) naloxone 4 mg/actuation nasal 4 mg intranasal Q2-3M PRN 02/18/22 spray (Narcan) pantoprazole 20 mg tablet,delayed 20 mg PO DAILY 02/18/22 release cholecalciferol (vitamin D3) 50 50 mcg PO DAILY 04/20/23 mcg (2,000 unit) capsule morphine 30 mg tablet,extended 30 mg PO TID 04/20/23 release oxycodone 10 mg tablet 10 mg PO BID PRN 04/20/23 oxycodone 10 mg tablet 10 mg PO DAILY PRN 04/20/23 vitamin B complex (B 1 tab PO DAILY 04/20/23 Complex-Vitamin B12 tablet) ferrous sulfate 325 mg (65 mg 325 mg PO BID 05/10/23 iron) tablet Current Visit Medications: Current Medications Generic Name Dose Route Start Last Admin Trade Name Freq PRN Reason Stop Dose Admin Ringer's Solution 1,000 mls @ 80 mls/hr 07/27/23 06:00 IV 08/25/23 23:59 INFUSION BETTE Cefazolin Sodium/Dextrose 2 gm in 50 mls @ 100 mls/hr 07/27/23 06:00 Ancef Duplex IVPB 07/27/23 16:00 PREOP BETTE IV Miscellaneous Supplies 1 each 07/27/23 06:00 Iv Access IV 08/25/23 23:59 DIRECTED BETTE Sodium Chloride 0 ml 07/27/23 06:00 Normal Saline Flush 10 Ml Syr IV 08/25/23 23:59 PRN PRN Sodium Chloride 0 ml 07/27/23 06:00 Normal Saline 10 Ml Vial IJ 08/25/23 23:59 DIRECTED PRN Sterile Water 0 ml 07/27/23 06:00 Water,Injection,Sterile 10 Ml Vial IJ 08/25/23 23:59 DIRECTED PRN PFSH Active Problems Active Problems: Problem Status Onset Code Vitamin D deficiency E55.9 Phantom limb (syndrome) G54.7 Status post VNS (vagus nerve stimulator) placement Z96.89 Peptic ulcer disease K27.9 Ulnar neuropathy at elbow of right upper extremity G56.21 Right carpal tunnel syndrome G56.01 Pneumonia J18.9 Acute kidney injury N17.9 Ureteral calculus, left N20.1 Sepsis due to urinary tract infection A41.9, N39.0 Pneumonia J18.9 Fever R50.9 Left arm cellulitis L03.114 Acute anemia D64.9 Acute kidney injury N17.9 Retroperitoneal fluid collection R18.8 Hydronephrosis due to obstruction of ureter N13.1 Hydronephrosis, left N13.30 Left ureteral injury S37.10XA Medical History Medical History Retention of urine Rib fractures Hx of fracture of wrist pt. reports metal in place Hx of fracture of wrist Hx of fracture of hip Right leg injury History of gastrectomy Amputation of left arm Hx of peptic ulcer Personal history of COVID-19 Cataracts, bilateral pt. states this has not been done Ulnar neuritis Medical History Comments:: vagal nerve stim in situ Surgical History Surgical History History of nephrectomy, left Hx of total hip arthroplasty t. reports fracture with metal repair Hx of cystoscopy S/P placement of nerve stimulator Tobacco Smoking/Tobacco Use Status: Current every day Tobacco Type: smokeless tobacco Alcohol Alcohol Intake: never Substance Use Substance use: Never Substance use type: does not use Vital Signs and Lab Results Lab Results Blood Type / Crossmatch: No Data to Display Complete Blood Count: White Blood Count 3.78 10^3/uL (4.4-10.8) L 07/13/23 14:45 Red Blood Count 3.89 10^6/uL (4.36-5.78) L 07/13/23 14:45 Hemoglobin 11.2 g/dL (13.5-17.5) L 07/13/23 14:45 Hematocrit 35.8 % (40.0-50.0) L 07/13/23 14:45 Platelet Count 172 10^3/uL (130-400) 07/13/23 14:45 Complete Metabolic Panel: Sodium 142 mmol/L (136-145) 07/13/23 14:45 Potassium 4.0 mmol/L (3.5-5.1) 07/13/23 14:45 Chloride 108 mmol/L (98-107) H 07/13/23 14:45 Carbon Dioxide 22.2 mmol/L (21.0-32.0) 07/13/23 14:45 BUN 17 mg/dL (7-18) 07/13/23 14:45 Creatinine 1.5 mg/dL (0.70-1.30) H 07/13/23 14:45 Est GFR (CKD-EPI 2020) 51.67 (mL/min/1.73m2) 07/13/23 14:45 Calcium 8.6 mg/dL (8.5-10.1) 07/13/23 14:45 Albumin 3.0 g/dL (3.4-5.0) L 07/13/23 14:45 Glucose 102 mg/dL (74-106) 07/13/23 14:45 Liver Function Panel: Alanine Aminotransferase (ALT/SGPT) 24 U/L (16-63) 07/13/23 14: 45 Aspartate Amino Transf (AST/SGOT) 16 U/L (15-37) 07/13/23 14:45 Coagulation Panel: No Data to Display Cardiac Panel: No Data to Display Arterial Blood Gas: No Data to Display Venous Blood Gas: No Data to Display Pancreas Panel: No Data to Display Thyroid Panel: No Data to Display Infectious Disease: No Data to Display Blood Cultures: No Data to Display Toxicology Panel: No Data to Display Imaging and Studies Imaging and Studies Study information below may be from another EMR and interpreted by another provider. Please see original notes in EMR for more complete details. EKG Summary: Conclusion Sinus tachycardia...rate> 99. Sinus. Normal axis. No STEMI. 05/21/22 Anesthesia Assessment and Plan Anesthesia History Personal History: Delayed Emergence Family History: No Family History of Anesthesia Complications Exercise Tolerance Exercise Tolerance: Metabolic Equivalents>4 Implantable Cardiac Device Does patient have a Pacemaker or an ICD?: No Airway Exam Known Difficult Airway: No Mallampati Class: 2 Mouth Opening: Normal (> 3cm) Thyromental Distance: Greater than 3 cm Neck Range of Motion: Limited ROM (Cannot turn head to the left) Neck Circumference: Normal Teeth Condition: Generalized Poor Dentition, Loose or Chipped (Patient unsure if any loose) and Dental Caries Preoperative Comments:: 63 yo male for cubital tunnel release. Sig PMHx: vagus nerve stimulator, GERD (pantoprazole), gastrectomy, peptic ulcer, chewing tobacco. Previous Anes: - TURP, glide 3 grade 1, two hands with opa mask. - ureteroscopy, prop, natural airway, no issues. - cysto, glide 3 grade 1, no masking. - cysto, LMA 4, no issues. - cysto, glide 3 grade 1, no masking, no issues.
[2023-07-27] MEDS: Lactated Ringers 1,000 ML 80 ML IV (12:20)
--- NOTE | 2023-07-27 12:36 | PDOC.DSDIS_ITS ---
Date of service: 07/27/23 Time of Service: 12:58 Discharge Plan Disposition Condition: Good Discharge Details Reason For Visit: Right cubital and carpal tunnel syndrome Attending Provider: Derek Nazario Primary Care Provider: Peter Spencer Home Meds and New Rx's Prescriptions: Continued ferrous sulfate 325 mg (65 mg iron) tablet 325 mg PO BID Hold Instructions: Changed by Provider pantoprazole 20 mg tablet,delayed release (DR/EC) 20 mg PO DAILY amitriptyline 50 mg tablet 50 mg PO QHS docusate sodium [Colace] 100 mg capsule 100 mg PO TID PRN acetaminophen 500 mg tablet 500 mg PO Q3H PRN naloxone [Narcan] 4 mg/actuation spray,non-aerosol 4 mg intranasal Q2-3M PRN Patient Comments: sister states pt. doesnt have Rx Instructions: spray 1 dose into ONE nostril; alternate nostrils w each dose until help arrives vitamin B complex [B Complex-Vitamin B12] Tablet 1 tab PO DAILY morphine 30 mg tablet extended release 30 mg PO TID cholecalciferol (vitamin D3) 50 mcg (2,000 unit) capsule 50 mcg PO DAILY oxycodone 10 mg tablet 10 mg PO DAILY PRN oxycodone 10 mg tablet 10 mg PO BID PRN pregabalin [Lyrica] 150 MG capsule 150 mg PO TID morphine 15 mg Tablet 30 mg PO TID PRN (Reason: Pain) carbamazepine 200 mg tablet 200 mg PO BID Patient Comments: TAKE ONE TABLET BY MOUTH EVERY DAY FOR 2 WEEKS, THEN INCREASE TO 1 TABLET TWICE DAILY Discharge Instructions Additional Instructions: Cubital Tunnel Decompression Discharge Instructions Activity: You should stay in the sling for the first 2 weeks. You may come out of the sling for gentle motion and hygiene but should largely remain in the sling to allow the incision site to heal. Gentle motion of the elbow, hand, wr ist, and fingers is okay and encouraged after the first few days, but no repetitive activites nor heavy lifting. You may apply ice. Medications: - You should take Tylenol and Ibuprofen around the clock. - You take a narcotic at baseline - continue with your prescription of Oxycodone for breakthrough pain. Dressings: - The initial surgical dressing should stay in place for 3 days. It may then be removed and kept clean and dry. You should cover with a light gauze dressing. - You may shower after 3 days and get the wound wet. Follow-up: 10 days Stand Alone Forms: Mansi Garza Tunnel Release Referrals: Derek Nazario MD [ [facility] STAFF PHYSICIAN] - Equipment/Supplies: Sling Activity:: Activity as Tolerated Remove Dressings/Wound Care:: 72 hours Shower/Bathe:: 72 hours and Cover Activity:: Activity as Tolerated Diet:: As Tolerated
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
[2023-07-27] MEDS: ceFAZolin 2 GM/50 ML BAG IVPB (13:25)
--- NOTE | 2023-07-27 14:47 | W.PM.OP ---
Date of service: 07/27/23 Time of Service: 14:00 Operative Note Operative Note DATE OF PROCEDURE: 07/27/23 PRE-OP DIAGNOSIS: Right Carpal Tunnel and Right Cubital Tunnel Syndrome POST-OP DIAGNOSIS: same PROCEDURE: Right Endoscopic Carpal Tunnel Release and Right Cubital Tunnel Decompression with Anterior Subcutaneous Transposition SURGEON: Derek Nazario UROGYNAECOLOGIST: Padmini Shah ANESTHESIA TYPE: General LMA/ETT Refer to Anesthesia Record ESTIMATED BLOOD LOSS: 0 PATHOLOGY: none sent TOURNIQUET TIME: 33 COMPLICATIONS: None Patient was transported to: PACU Patient's condition: stable Indications: Phuong is a 63 year old male who has had symptoms of carpal and cubital tunnel syndrome. The cubital tunnel was quite severe with muscle wasting. Nonoperative treatment options had been trialed. Nerve conduction studies identified the carpal and cubital tunnel as the point of compression. Given failure of nonoperative treatments and persistent symptoms, I offered operative intervention. I reviewed the technical details of a carpal tunnel release and cubital tunnel decompression with possible anterior subcutaneous transposition. I reviewed the risk of the procedure to include bleeding, infection, pain, stiffness, nerve instability, damage to superficial nerves, persistent symptoms, and incomplete release. Despite these risks, the patient elected to proceed. Findings: The carpal tunnel was release with a standard endoscopic technique without difficulty and excellent visualization. There was a tightened cubital tunnel. There were significant bony constraints between the medial ulna and the medial epicondyle which seem to be pinching and abrading the nerve. The ulnar nerve was release from the first motor branch distally through the [place] proximally. An anterior subcutaneous transposition was performed. Procedure Description: Phuong was greeted in the preoperative holding area where the correct side was identified and marked. The consent was reviewed with the patient and signed. The history and physical was updated. All questions were answered. He was taken back to the operating room. The patient was placed into the supine position on the operating room table with the right arm on an arm board. A nonsterile tourniquet was placed high onto the arm, into the axilla. All bony prominences were well padded. Prophylactic antibiotics in the form of Cefazolin were administered. The right arm was then prepped with Chloraprep and draped in a standard fashion with stockinette and extremity drape. A timeout to confirm correct identity, side and site, procedure, allergies, anesthesia, and medical concerns was performed. The surgical site was marked in the volar wrist creases in line with the radial border of the fourth ray. This area was anesthetized with approximately 6cc of 1% Lidocaine with Epinephrine. The surgical site about the medial elbow was drawn on the skin just posterior to the medial epicondyle borders. The planned surgical field was anesthetized with 1% Lidocaine with Epinephrine. The limb was then exsanguinated with an Esmarch. Starting with the carpal tunnel, the skin was incised with a 15 blade, approximately 1cm. The skin only was cut and the deeper tissue was dissected bluntly with a tenotomy scissor, avoiding passing nerve and venous structures. The fascia was penetrated and opened bluntly. A two-prong skin hook was placed under this proximal fascial edge. A series of hamate finders were used to identify and dilate the carpal tunnel. Synovial elevator was used to free synovial attachments to the underside of the transverse carpal ligament. My thumb was kept in the palm to cesar the distal extent of the carpal tunnel and correctly position the hand. The [employer] endoscope was inserted without difficulty and without resistance. Excellent visualization showed horizontally running fibers of the transverse carpal ligament (TCL). The distal extent of the TCL was visualized and the end of the scope palpated with the thumb. The blade was elevated and withdrawn from distal to proximal. The TCL was split into two flaps. The endoscope was reinserted to confirm complete release and any remnant ligament was incised. The scope was withdrawn and the proximal aspect of the carpal tunnel was grossly inspected and appeared release with the median nerve visible. The antebrachial fascia at the level of the wrist was then freed from the overlying skin and then the underlying median nerve with blunt dissection. This was transected longitudinally for about 3cm proximal to the wrist incision. The wound was then irrigated with easy flow of irrigant distally and proximally. The incision was closed with a single 4-0 Nylon suture. . Attention was then turned to the cubital tunnel release. The skin of the medial elbow was incised only with the elbow in some flexion and on a bump. The deep tissue and subcutaneous fat was dissected with a tenotomy scissors trying to protect any branches of the medial antebrachial cutaneous nerve. Any branches that were identified were retracted out of the way. The ulnar nerve was palpated and identified. A small window into the cubital tunnel, sheath overlying the nerve, was created and the nerve was able to be palpated with the [place]. A Metzenbaum scissor was then used to open up the sheath starting with Devi's ligament. I then worked distal over the ulnar nerve releasing any constraints against the nerve all the way to the fascia of the FCU muscle belly. This muscle belly was bluntly all the way down to the first motor branch of the ulnar nerve and the overlying fascia was incised. Likewise starting there at the medial epicondyle, I proceeded to work proximally to release any constraints over the ulnar nerve. There was notable bony compression of the nerve in this region between the medial ulnar and the medial condyle. While there are some prominence of bone there is no true osteophyte or large spike of bone but simply a compression of the tunnel contents from the bony surroundings. The decompression was taken all the way to the arc[place] of [place]. The medial intermuscular septum was also palpated and any sharp edges against the ulnar nerve were resected and released. After fully releasing the nerve it was inspected visually. I was also able to palpate the nerve fully and reach one finger up into the proximal and distal aspects to make sure there were no constraints against the nerve. A freer elevator was also used to slide easily against the ulnar nerve without any points of constriction. The arm was then taken through range of motion. The ulnar nerve did sublux/dislocate out of its groove behind the lateral epicondyle. Therefore transposition was performed. The ulnar nerve was freed circumferentially both proximally and distally. A flap of fascia from the flexor?pronator origin was raise off of the medial condyle. Any bony irregularity and prominence was smoothed with a rongeur. The nerve was then moved anteriorly and the sling was fashioned against the dermis overlying the medial condyle. This was secured with two #3-0 Vicryl sutures. The nerve was inspected and showed be resting anteriorly without any sign of compression against the intermuscular septum or against the fascia of the FCU. A [place] was ran against the nerve which had full freedom of passage without any point of compression. The tourniquet was then deflated. Any areas of bleeding were cauterized with bipolar electrocautery. The wound was thoroughly irrigated. The deep tissue was closed with a 3-0 Vicryl. The skin was closed with a 4-0 nylon. The wounds were dressed with Xeroform, 4 x 4's, ABD, Kerlix and an Ifeanyi wrap. Phuong was transferred back to the PACU in a stable condition.
--- NOTE | 2023-07-27 15:15 | W.ANESPOSTOP ---
Postoperative Evaluation Date, Time and Location Date Performed: 07/27/23 Time Performed: 15:15 Patient Location: PACU Vital Signs Most Recent Imported Vital Signs: Most Recent Vital Signs Temp Pulse Resp BP Pulse Ox 36.4 C L 74 18 116/44 L 95 07/27/23 14:41 07/27/23 14:51 07/27/23 14:51 07/27/23 14:51 07/27/23 14:51 Pain Score Most Recent Pain Score: Most Recent Pain Score Pain Level 0 07/27/23 14:51 Assessment Mental Status: Awake (Alert & Oriented to Patient Baseline) Airway and Respiratory Function: Abnormal Respiratory exam (See explanation) (Patient still on 1 lpm, working on downtitration and deep breathing/coughing. Patient appropriately progressing at this point. ) Cardiovascular Function: Hemodynamically Stable Hydration Status: Adequately Hydrated Nausea & Vomiting: No Nausea or Vomiting Pain: Pt. Denies Any Pain Peripheral Nerve Block: Patient did not receive a nerve block
== END 2023-07-27 17:37 | disposition home or self-care (01) ==
PROVIDERS: PCP Internal Medicine; Visit Provider Student in an Organized Health Care Education/Training Program
PROC: (CPT 64718; principal; 2023-07-27 14:15)
DX: G56.01 Carpal tunnel syndrome, right upper limb (principal); G56.21 Lesion of ulnar nerve, right upper limb
CPT/HCPCS: 64718; 29848; 00123; J0690; J1100; J2001; J2405; J2704

== ENCOUNTER 2023-11-24 16:58 | Observation (INO) | payer MEDICAID, SELFPAY ==
[2023-11-24] VITALS (71 sets, daily range): BP systolic 100–196; BP diastolic 37–171; PULSE 91–135; RESP 3–30; TEMP 38.2; O2SAT 87–92
--- NOTE | 2023-11-24 16:45 | RT.EKG_ITS ---
APPROVED REPORT Exam: Resting ECG Reason for Exam: Low Oxygen Patient Location: E HR:115 bpm ECG Measurements Heart Rate 115 AXIS VA 151 P 59 QRSd 81 QRS 23 QT 319 T 86 QTc 442 Conclusion Sinus tachycardia...rate> 99 sinus tachycardia, normal axis, normal intervals, non ischemic
--- NOTE | 2023-11-24 17:15 | DI.RAD_ITS ---
Exam(s) XR PORTABLE CHEST AP EXAM: XR PORTABLE CHEST AP CLINICAL HISTORY: hypoxia,fever, productive cough TECHNIQUE: 2D digital imaging was performed of the chest. One image was obtained. An AP view was ob tained. COMPARISON: CR XR CHEST 2V PA LATERAL from 02/19/2022 CR XR PORTABLE CHEST AP from 03/18/2022 CR,XR XR CHEST 2V PA LATERAL from 05/21/2022 FINDINGS: MEDIASTINUM: Normal. HEART: Normal. PULMONARY VASCULATURE: Normal. LUNGS: No focal infiltrates. PLEURAL SPACE: No pleural effusion or pneumothorax. BONE:Within normal limits for the patient's age. There are old left rib fracture deformities. OTHER FINDINGS:Normal. IMPRESSION: No acute pulmonary findings. DATA REPOSITORY: RADIATION DOSE DELIVERED:
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
[2023-11-24 17:40] LABS: Abs Immature Grans 0.03 10^3/uL (0.0-0.06); Absolute Basophil Count 0.05 10^3/uL (0.0-0.2); Absolute Eosinophil Count 0.02 10^3/uL (0.0-0.7); Absolute Lymphocyte Count 0.28 10^3/uL (1.2-3.4); Absolute Monocyte Count 0.54 10^3/uL (0.1-0.8); Basophils % 0.5; Eosinophils % 0.2; HCT 41.2 % (40.0-50.0); HGB 13.3 g/dL (13.5-17.5); Immature Grans % 0.3; MCH 29.6 pg (27.0-33.0); MCHC 32.3 % (32.0-36.0); MCV 92 fL (80-95); MPV 10.4 fL (8.0-11.0); Monocytes % 5.9; Neutrophils % 90.1; Platelet Count 149 10^3/uL (130-400); RDW 13.2 % (11.8-14.1); RDW-SD 44.4 fL; WBC 9.22 10^3/uL (4.4-10.8)
[2023-11-24] MEDS: Normal Saline 1,000 ML 1000 ML IV (17:44)
[2023-11-24] MEDS: Dexamethasone 10 MG/ML VIAL IVP (17:45)
[2023-11-24] MEDS: cefTRIAXone 1 GM/50 ML BAG IV (17:45)
[2023-11-24] MEDS: Albuterol/Ipratropium 3 ML UPD VIAL 9 ML UPD (17:50)
[2023-11-24 17:54] LABS: ALT 21 U/L (16-63); AST 14 U/L (15-37); Albumin 3.5 g/dL (3.4-5.0); Alkaline Phosphatase 175 U/L (46-116); Anion Gap 13.6 mmol/L (3-11); BUN 16 mg/dL (7-18); Bilirubin, Total 0.6 mg/dL (0.2-1.0); CO2 24.4 mmol/L (21.0-32.0); CREATININE 1.6 mg/dL (0.70-1.30); Calcium 8.6 mg/dL (8.5-10.1); Chloride 104 mmol/L (98-107); Estimated GFR 47.82 (mL/min/1.73m2); Glucose 118 mg/dL (74-106); Potassium 3.5 mmol/L (3.5-5.1); Sodium 142 mmol/L (136-145); Total Protein 7.5 g/dL (6.4-8.2)
[2023-11-24] MEDS: Ibuprofen 600 MG TAB PO (18:03)
[2023-11-24 18:24] LABS: COVID-19 PCR Negative (Negative); Influenza A PCR Negative (Negative); Influenza B PCR Negative (Negative); RSV PCR Negative (Negative)
[2023-11-24 18:25] LABS: Source Nasopharynx
[2023-11-24] MEDS: AZITHROMYCIN 500 MG in Normal Saline 250 ML 250 MG IVPB (18:28)
[2023-11-24] MEDS: Albuterol 2.5 MG/3 ML INH SOLN VIAL 5 MG UPD (18:35)
[2023-11-24] MEDS: Albuterol 2.5 MG/3 ML INH SOLN VIAL UPD (19:19)
--- NOTE | 2023-11-24 21:15 | DI.CT_ITS ---
Exam(s) CT HEAD WO EXAM: CT HEAD WO CLINICAL HISTORY: fall, yesterday, head injury. TECHNIQUE: Imaging Protocol: Axial computed tomography images with coronal and sagittal reformatted images were created and reviewed COMPARISON: CT CT HEAD WO from 03/18/2022 FINDINGS: Exam mildly limited by motion. Artifact in the frontal and temporal regions. Ventricles and Extra axial spaces: Normal in size and morphology for the patient's age. Hemorrhage: None. Cerebral parenchyma: No evidence of acute infarct or mass. Midline shift: None. Brainstem/Cerebellum: Normal. Calvarium: Normal. Visualized Paranasal sinuses:Clear. Mastoids: Clear. Soft Tissues: Unremarkable. ORBITS: Unremarkable. PITUITARY: Normal. IMPRESSION: No acute intracranial process. RADIATION DOSE DELIVERED: 738.49mGy.cm Total DLP DATA REPOSITORY: All CT scans at this facility are submitted to the National Radiology Data Registry (NRDR) Dose Index Registry (DIR) with the [employer] (A[employer]). RADIATION OPTIMIZATION: All CT scans at this facility use at least one of these dose optimization te chniques: automated exposure control; mA and/or kV adjustment per patient size (includes targeted exa ms where dose is matched to clinical indication); or iterative reconstruction.
--- NOTE | 2023-11-24 21:54 | DI.VRAD_ITS ---
PROCEDURE INFORMATION: Exam: CT Head Without Contrast Exam date and time: 11/24/2023 9:28 PM Age: 63 years old Clinical indication: Fall, yesterday, head injury TECHNIQUE: Imaging protocol: Computed tomography of the head without contrast. COMPARISON: CT HEAD WO 03/18/2022 3:28 PM FINDINGS: Brain: Age-related involutional changes and chronic microvascular ischemic disease. No evidence for acute transcortical infarct. No mass effect or midline shift. No extra-axial collection. No acute intracranial hemorrhage. Basal cisterns are patent. Cerebral ventricles: No ventriculomegaly. Paranasal sinuses: Visualized sinuses are unremarkable. No fluid levels. Mastoid air cells: Visualized mastoid air cells are well aerated. Bones/joints: Unremarkable. No acute fracture. Soft tissues: Unremarkable. IMPRESSION: No acute intracranial hemorrhage or mass effect. Dictated and Authenticated by: Riley Kaur MD. Ordering:TYRELL Bunch MD
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
[2023-11-25] VITALS (8 sets, daily range): BP systolic 116–143; BP diastolic 62–76; PULSE 80–98; RESP 5–22; TEMP 36.6–36.7; O2SAT 93–97
[2023-11-25] MEDS: cefTRIAXone 1 GM/50 ML BAG IVPB (00:15)
[2023-11-25] MEDS: Amitriptyline 50 MG TAB PO (02:07)
[2023-11-25] MEDS: guaiFENesin 600 MG TABCR PO ×2 (02:07→08:11)
[2023-11-25] MEDS: Lactated Ringers 1,000 ML 100 ML IV (02:09)
[2023-11-25] MEDS: Pregabalin 50 MG CAP PO ×2 (05:22→14:01)
[2023-11-25 06:31] LABS: HCT 37.5 % (40.0-50.0); HGB 11.9 g/dL (13.5-17.5); MCH 29.2 pg (27.0-33.0); MCHC 31.7 % (32.0-36.0); MCV 92 fL (80-95); MPV 10.4 fL (8.0-11.0); Platelet Count 145 10^3/uL (130-400); RBC 4.07 10^6/uL (4.36-5.78); RDW 13.6 % (11.8-14.1); RDW-SD 45.8 fL
[2023-11-25] MEDS: Acetaminophen 325 MG TAB PO ×2 (06:38→12:13)
[2023-11-25 06:45] LABS: Anion Gap 14.2 mmol/L (3-11); BUN 19 mg/dL (7-18); CO2 21.8 mmol/L (21.0-32.0); CREATININE 1.6 mg/dL (0.70-1.30); Calcium 8.8 mg/dL (8.5-10.1); Chloride 109 mmol/L (98-107); Estimated GFR 47.82 (mL/min/1.73m2); Glucose 171 mg/dL (74-106); Magnesium 1.8 mg/dL (1.8-2.4); Potassium 4.2 mmol/L (3.5-5.1); Sodium 145 mmol/L (136-145)
[2023-11-25 06:49] LABS: Absolute Lymphocyte Count 0.26 10^3/uL (1.2-3.4); Absolute Monocyte Count 0.65 10^3/uL (0.1-0.8); Absolute Neutrophil Count 12.09 10^3/uL (1.2-6.7); Bands % 6; Diff Comment Manual Differential; RBC Morphology Normal
[2023-11-25] MEDS: Pantoprazole 20 MG TABCR PO (08:11)
[2023-11-25] MEDS: oxyCODONE 10 MG TAB PO (08:12)
[2023-11-25] MEDS: predniSONE 20 MG TAB 40 MG PO (08:12)
[2023-11-25] MEDS: Cholecalciferol (Vitamin D3) 1,000 UNIT TAB 2000 UNITS PO (08:12)
[2023-11-25] MEDS: Albuterol/Ipratropium 3 ML UPD VIAL UPD ×2 (08:38→11:15)
[2023-11-25] MEDS: Enoxaparin 40 MG/0.4 ML SYR SC (10:00)
[2023-11-25] MEDS: Vitamins B Comp w/C TAB 1 TAB PO (10:00)
[2023-11-25] MEDS: Normal Saline Flush 10 ML SYR IVP (10:05)
--- NOTE | 2023-11-25 10:28 | W.PM.PROGNOT ---
Date of Service Date of service: 11/25/23 Time of Service: 10:28 Assessment and Plan Assessment and plan (1) Sepsis: Status: Acute Assessment and plan: -Patient met sepsis criteria on admission with fever greater than 100.4 ?F, and heart rate greater than 90 with source of infection being community-acquired pneumonia -Initially started on Rocephin and azithromycin, will continue -Continue to follow-up sputum culture, Gram stain, urine Legionella and sputum micro, and urine strep -Continue to encourage incentive spirometry and Acapella -Continue to strongly encourage mobilization and ambulation with nursing staff -Patient no longer on oxygen (2) Pneumonia: Status: Suspected Assessment and plan: -as noted above Qualifiers: Pneumonia type: due to unspecified organism Laterality: unspecified laterality Lung location: unspecified part of lung Qualified Code(s): J18.9 - Pneumonia, unspecified organism (3) Acute respiratory failure with hypoxia: Status: Acute Assessment and plan: - Initially required up to 3 L nasal cannula to maintain oxygen saturation greater than 92% -Since been weaned to room air Subjective Subjective Interval history since last seen: Patient states that he is feeling better since admission but still feels significantly weak and is severe productive cough. Otherwise he has no other complaints or concerns Exam Narrative Exam Narrative: Acutely ill appearing older gentleman laying in bed in no acute distress, ANO x 4, no nasal cannula in place, heart regular rhythm, lungs with diffuse coarse breath sounds and bilateral lung holcomb, abdomen soft, nontender, nondistended Objective Last Vital Signs Temp 98.1 F 11/25/23 07:45 Pulse 96 H 11/25/23 08:45 Resp 16 11/25/23 08:38 BP 124/76 11/25/23 07:45 Pulse Ox 93 11/25/23 08:38 Laboratory Results - last 24 hr 11/24/23 11/24/23 11/25/23 17:27 17:36 06:18 WBC 9.22 13.00 H RBC 4.50 4.07 L Hgb 13.3 L 11.9 L Hct 41.2 37.5 L MCV 92 92 MCH 29.6 29.2 MCHC 32.3 31.7 L RDW 13.2 13.6 Plt Count 149 145 MPV 10.4 10.4 Immature Gran % 0.3 0.0 Neutrophils % 90.1 87.0 Band Neutrophils % 6 Lymphocytes % 3.0 2.0 Monocytes % 5.9 5.0 Eosinophils % 0.2 0.0 Basophils % 0.5 0.0 Nucleated RBC % 0.0 0.0 Absolute Neutrophils 8.30 H 12.09 H Absolute Lymphocytes 0.28 L 0.26 L Absolute Monocytes 0.54 0.65 Absolute Eosinophils 0.02 0.00 Absolute Basophils 0.05 0.00 RBC Morphology Normal Sodium 142 145 Potassium 3.5 4.2 Chloride 104 109 H Carbon Dioxide 24.4 21.8 Anion Gap 13.6 H 14.2 H BUN 16 19 H Creatinine 1.6 H 1.6 H Est GFR (CKD-EPI 2020) 47.82 47.82 Glucose 118 H 171 H Calcium 8.6 8.8 Magnesium 1.8 Total Bilirubin 0.6 AST 14 L ALT 21 Alkaline Phosphatase 175 H Total Protein 7.5 Albumin 3.5 COVID-19 Source Nasopharynx SARS-CoV-2 (PCR) Negative Influenza Type A (PCR) Negative Influenza Type B (PCR) Negative RSV (PCR) Negative Time Spent with Patient Time Spent with Patient: >50 minutes Time was spent: preparing to see the patient(eg.review tests), obtaining and/or reviewing separately otained hiistory, ordering medications,tests, procedures, referring, communicating with other health child adolescent care, indepentently interpreting results, counseling the patient and care coordination
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
--- NOTE | 2023-11-25 14:16 | CHAPLAIN ---
Phuong was sitting up in the chair when I visited. He was not too interested in having a conversation, but gradually continued talking. He said he's feeling better than when he first arrived. According to Care Management notes, Phuong lives with his sister. I will continue to visit.
[2023-11-25 22:41] LABS: Legionella Ag Detection Urine Negative (Negative)
== END 2023-11-25 14:10 | disposition home or self-care (01) ==
LOC: ER 23:00 → MS 23:50
PROVIDERS: Admitting Provider Internal Medicine; Emergency Provider Emergency Medicine; PCP Family Medicine; Visit Provider Internal Medicine
DX: A41.9 Sepsis, unspecified organism (principal); J18.9 Pneumonia, unspecified organism; J96.01 Acute respiratory failure with hypoxia; E55.9 Vitamin D deficiency, unspecified; N17.9 Acute kidney failure, unspecified; D64.9 Anemia, unspecified; K27.9 Peptic ulcer, site unspecified, unspecified as acute or chronic, without hemorrhage or perforation; Z96.82 Presence of neurostimulator; F17.290 Nicotine dependence, other tobacco product, uncomplicated; Z90.5 Acquired absence of kidney; Z90.3 Acquired absence of stomach [part of]; Z89.202 Acquired absence of left upper limb, unspecified level; Z79.899 Other long term (current) drug therapy
CPT/HCPCS: 00123; 36415; 80048; 80053; 87040; 87449; 87637; 93005; 94640; 96361; 96365; 96367; 96368; 96372; 96375; 99285; J1650; 70450; 71045; 83735; 85025; 87070; 87205; 87581; 93010; 94667; 94760; 99223; 99238; G0378; J0456; J0696; J1100; J7512; J7613; J7620

== ENCOUNTER 2024-06-10 18:59 | Inpatient (IN) | payer MEDICARE, MEDICAID, SELFPAY ==
[2024-06-10] VITALS (54 sets, daily range): BP systolic 112–169; BP diastolic 48–103; PULSE 83–115; RESP 8–23; TEMP 36.6; O2SAT 83–96
--- NOTE | 2024-06-10 19:00 | RT.EKG_ITS ---
APPROVED REPORT Exam: Resting ECG Reason for Exam: SOB Patient Location: E HR:88 bpm ECG Measurements Heart Rate 88 AXIS TX 150 P 42 QRSd 83 QRS 24 QT 342 T 68 QTc 415 Conclusion Sinus rhythm, rate 88 Normal intervals No STEMI, potential LVH
--- NOTE | 2024-06-10 19:15 | DI.RAD_ITS ---
Exam(s) XR CHEST 2V PA LATERAL EXAM: XR CHEST 2V PA LATERAL CLINICAL HISTORY: productive cough sob hypoxia. TECHNIQUE: 2D digital imaging was performed. COMPARISON: CR XR PORTABLE CHEST AP from 11/24/2023 FINDINGS: 2 views: Heart size is normal. The mediastinum is not widened. Lungs are clear. No infiltrates nor pleural effusions. IMPRESSION: No acute pulmonary findings. DATA REPOSITORY: RADIATION DOSE DELIVERED:
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
[2024-06-10 19:31] LABS: Abs Immature Grans 0.04 10^3/uL (0.0-0.06); Absolute Basophil Count 0.04 10^3/uL (0.0-0.2); Absolute Eosinophil Count 0.07 10^3/uL (0.0-0.7); Absolute Lymphocyte Count 0.49 10^3/uL (1.2-3.4); Absolute Monocyte Count 0.63 10^3/uL (0.1-0.8); Basophils % 0.4 %; Eosinophils % 0.7 %; HCT 44.6 % (40.0-50.0); Immature Grans % 0.4 %; Lymphocytes % 4.8 %; MCH 29.2 pg (27.0-33.0); MCHC 31.4 % (32.0-36.0); MCV 93 fL (80-95); MPV 10.5 fL (8.0-11.0); Monocytes % 6.1 %; Neutrophils % 87.6 %; Platelet Count 160 10^3/uL (130-400); RBC 4.79 10^6/uL (4.36-5.78); RDW 13.2 % (11.8-14.1); WBC 10.27 10^3/uL (4.4-10.8)
[2024-06-10] MEDS: Albuterol/Ipratropium 3 ML UPD VIAL 9 ML UPD (19:43)
[2024-06-10] MEDS: Dexamethasone 10 MG/ML VIAL IVP (19:44)
[2024-06-10 19:48] LABS: INR 1.1 (0.9-1.1); PTT Activated 28.3 sec (23.6-32.8); Prothrombin Time 10.8 sec (9.1-11.1)
[2024-06-10 19:50] LABS: ALT 19 U/L (16-63); AST 19 U/L (15-37); Albumin 3.7 g/dL (3.4-5.0); Alkaline Phosphatase 186 U/L (46-116); Anion Gap 11.7 mmol/L (3-11); BUN 17 mg/dL (7-18); Bilirubin, Total 0.49 mg/dL (0.2-1.0); CO2 25.3 mmol/L (21.0-32.0); CREATININE 1.8 mg/dL (0.70-1.30); Calcium 8.8 mg/dL (8.5-10.1); Chloride 105 mmol/L (98-107); Estimated GFR 41.51 (mL/min/1.73m2); Glucose 128 mg/dL (74-106); Potassium 4.7 mmol/L (3.5-5.1); Sodium 142 mmol/L (136-145); Total Protein 7.7 g/dL (6.4-8.2)
[2024-06-10 20:00] LABS: NT-proBNP 65 pg/mL (<300); Troponin I < 50 ng/L (< or =60)
--- NOTE | 2024-06-10 20:41 | NUR.NOTE ---
Nursing Note: pt falling to sleep sating 88% on 2lpm oxygen via nc. Readjusted pt in bed and bumped the oxygen to 4 lpm. MD aware and will add more orders.
--- NOTE | 2024-06-10 20:52 | NUR.NOTE ---
Nursing Note: Pt still sating 88-89% on 4 lpm via nc. Placed on oxymask at 7 lpm.
[2024-06-10] MEDS: Albuterol 2.5 MG/3 ML INH SOLN VIAL UPD (20:54)
[2024-06-10] MEDS: cefTRIAXone 1 GM/50 ML BAG IVPB (21:12)
--- NOTE | 2024-06-10 21:21 | DI.VRAD_ITS ---
PROCEDURE INFORMATION: Exam: XR Chest Exam date and time: 06/10/2024 8:16 PM Age: 63 years old Clinical indication: Cough and shortness of breath and other: Hypoxia TECHNIQUE: Imaging protocol: Radiologic exam of the chest. Views: 2 views. COMPARISON: CR XR PORTABLE CHEST AP 11/24/2023 5:32 PM FINDINGS: Tubes, catheters and devices: Monitoring wires noted. Lungs: Lung volumes are low. No significant consolidation is observed. No vascular congestion observed. Pleural spaces: Unremarkable. No pleural effusion. No pneumothorax. Heart/Mediastinum: Unremarkable. No cardiomegaly. Bones/joints: Unremarkable. IMPRESSION: No acute cardiopulmonary abnormality. Dictated and Authenticated by: Derek Camacho MD. Ordering:TYRELL Bunch MD
[2024-06-10] MEDS: AZITHROMYCIN 250 MG in Normal Saline 250 ML IVPB (21:32)
[2024-06-10 23:27] LABS: BE (Venous) -4 mmol/L (-2-3); HCO3 (Venous) 22 mmol/L (23-28); O2 Sat (Venous) 92 %; TCO2 (Venous) 20 mmol/L (24-29); pCO2 (Venous) 43 mmHg (41-51); pH (Venous) 7.32 (7.31-7.41); pO2 (Venous) 68 mmHg
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
--- NOTE | 2024-06-10 23:54 | TELEP.MEDR_ITS ---
Date of service: 06/10/24 Time of Service: 23:54 Telepharmacy Home Med Rec Allergies Allergies: iodine Allergy (Severe, Verified 11/24/23 18:34) Topical Irritation latex Allergy (Severe, Verified 11/24/23 18:34) Skin Rash copper Allergy (Intermediate, Verified 11/24/23 18:34) Skin Rash chocolate flavor Adverse Reaction (Verified 11/24/23 18:34) Hives lactose Adverse Reaction (Verified 11/24/23 18:34) Diarrhea Interview Person Interviewed: Pt unable to be interviewed due to confusion/lack of knowledge of medications Per nursing sister no longer present and pt unable ot provider phone number for her Quality Quality of Interview/Accuracy of Medication List: Poor Sources Sources used to compile medication list: [facility] Medication List, PCP/Specialist List, [facility] and [facility] Changes made to Home Medication List: ADDITIONS: B12 Lyrica 150 mg DELETIONS: APAP, Cefpodoxime x 2, Vit D, Iron, Morphine IR, Pantoprzole, Lyrica 50 mg, B complex, Prednisone CHANGES: Docusate directions to match Rx Additional Notes Additional Notes: Med list updated based on fill history alone approved by nursing. If sister presents herself please feel free to re-consult us and we would be happy to speak with her. Thank you for allowing us to participate in this patient's care. Recommended Changes Attestation: The home medication list is now updated to the best of my knowledge and is ready to be reconciled by the provider. Please contact the TelePharmacy Medication Reconciliation Pharmacist at for any questions.
[2024-06-11] VITALS (48 sets, daily range): BP systolic 128–163; BP diastolic 55–94; PULSE 73–104; RESP 11–25; TEMP 36.4–37.1; O2SAT 92–99
--- NOTE | 2024-06-11 00:05 | NUR.NOTE ---
Nursing Note: Attempted to call sister for the med list the number in the computer is no longer working. Pt states he does not know his meds or his sister's number.
[2024-06-11 01:19] LABS: COVID-19 PCR Negative (Negative); Influenza A PCR Negative (Negative); Influenza B PCR Negative (Negative); RSV PCR Negative (Negative)
[2024-06-11 01:20] LABS: Source Nasopharynx
--- NOTE | 2024-06-11 02:31 | NUR.NOTE ---
Nursing Note: Hand off report to JEANNA Smith
[2024-06-11 05:53] LABS: Abs Immature Grans 0.04 10^3/uL (0.0-0.06); Absolute Basophil Count 0.02 10^3/uL (0.0-0.2); Absolute Lymphocyte Count 0.39 10^3/uL (1.2-3.4); Absolute Monocyte Count 0.14 10^3/uL (0.1-0.8); Absolute Neutrophil Count 9.46 10^3/uL (1.2-6.7); Basophils % 0.2 %; HCT 42.1 % (40.0-50.0); HGB 13.3 g/dL (13.5-17.5); Immature Grans % 0.4 %; Lymphocytes % 3.9 %; MCH 29.7 pg (27.0-33.0); MCHC 31.6 % (32.0-36.0); MCV 94 fL (80-95); MPV 10.5 fL (8.0-11.0); Monocytes % 1.4 %; Neutrophils % 94.1 %; Platelet Count 150 10^3/uL (130-400); RBC 4.48 10^6/uL (4.36-5.78); RDW 13.3 % (11.8-14.1); WBC 10.05 10^3/uL (4.4-10.8)
[2024-06-11 06:05] LABS: Anion Gap 10.6 mmol/L (3-11); BUN 18 mg/dL (7-18); CO2 25.4 mmol/L (21.0-32.0); CREATININE 1.8 mg/dL (0.70-1.30); Calcium 9.2 mg/dL (8.5-10.1); Chloride 107 mmol/L (98-107); Estimated GFR 41.51 (mL/min/1.73m2); Glucose 172 mg/dL (74-106); Potassium 4.7 mmol/L (3.5-5.1); Sodium 143 mmol/L (136-145)
[2024-06-11] MEDS: Acetaminophen 500 MG TAB PO ×3 (07:49→18:49)
[2024-06-11] MEDS: carBAMazepine 200 MG TAB PO (08:46)
[2024-06-11] MEDS: Pantoprazole 20 MG TABCR PO (08:46)
[2024-06-11] MEDS: Pregabalin 50 MG CAP PO (08:46)
[2024-06-11] MEDS: Enoxaparin 40 MG/0.4 ML SYR SC (08:46)
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
[2024-06-11] MEDS: oxyCODONE 10 MG TAB PO ×2 (10:32→15:07)
--- NOTE | 2024-06-11 11:28 | PHA.REVIEW2 ---
Pharmacy Admission Review Admission Clinical Review Admission Pharmacy Review: Opiate dependence (Acute) Amputation of left arm (Acute) Hypoxia (Acute) Pneumonia (Acute) Acute kidney injury (Acute) iodine Allergy (Severe, Verified 11/24/23 18:34) Topical Irritation latex Allergy (Severe, Verified 11/24/23 18:34) Skin Rash copper Allergy (Intermediate, Verified 11/24/23 18:34) Skin Rash chocolate flavor Adverse Reaction (Verified 11/24/23 18:34) Hives lactose Adverse Reaction (Verified 11/24/23 18:34) Diarrhea Resuscitation Status Full Code Height 5 ft 4 in Weight 84 kg Pharmacy Admission Review Renal Dosing Renal Dosing: BUN 18 mg/dL (7-18) 06/11/24 05:40 Creatinine 1.8 mg/dL (0.70-1.30) H 06/11/24 05:40 Medications needing adjustments: Intervened (CrCl 40.5 mL/min) List of meds needing interventions: Reached out to provider regarding Lyrica. Recommended max 75mg/day if CrCl < 60, provider changed order from 50mg TID to 25mg TID. Provider aware that patient was on 150mg TID at home. Also discussed morphine with provider, ultimately order was discontinued and patch started on fentanyl patch 25mcg/hr with PRN oxycodone q4h. Anticoagulation Anticoagulation: Hgb 13.3 g/dL (13.5-17.5) L 06/11/24 05:40 Hct 42.1 % (40.0-50.0) 06/11/24 05:40 Plt Count 150 10^3/uL (130-400) 06/11/24 05:40 INR 1.1 (0.9-1.1) 06/10/24 19:25 Creatinine 1.8 mg/dL (0.70-1.30) H 06/11/24 05:40 DVT Prophylaxis: Intervened (Changed order from 30mg daily to 40mg daily due to CrCl > 30, provider aware, Hgb decreased from 14) Medications: Enoxaparin (40mg daily) Opiate Usage Evaluate Pain Scale/Pains Meds: Reviewed (Fentanyl 25mcg/hr patch and PRN oxycodone) Scheduled Bowel Reg ordered if on Opiates?: No (PRN docusate/Miralax) Relevant Labs Relevant Labs: Sodium 143 mmol/L (136-145) 06/11/24 05:40 Potassium 4.7 mmol/L (3.5-5.1) 06/11/24 05:40 Chloride 107 mmol/L (98-107) 06/11/24 05:40 Electrolytes, C-Reactive P, ESR: Reviewed (glucose 172 today at 0540) Cardiac Review Cardiac Review: Troponin I < 50 ng/L (< or =60) 06/10/24 19:25 NT-Pro-B Natriuret Pep 65 pg/mL (<300) 06/10/24 19:25 Blood Pressure 137/65 0701 Blood Pressure 128/69 0601 Blood Pressure 142/74 0506 Blood Pressure 144/74 0501 Blood Pressure 149/76 0438 Blood Pressure 144/77 0400 BP, HR, EF%: Reviewed (BP and HR WNL) List meds needing interventions: Patient is not currently on any BP medication, has been elevated during this admission but also has chronic pain. QTc Review QTc: Reviewed (442 from 11/24/23 - EKG report pending from 06/10) IV to PO Switch IV Medications: Reviewed (azithromycin and ceftriaxone) Home Meds Home Med List reviewed: Intervened Relevent Home Meds Not ordered & why?: Vitamin B12 Telepharmacy completed a med rec last night for patient. They removed carbamazepine and morphine IR from home med list. Reached out to provider this morning as the orders were still active. Provider discontinued them. Current Meds Current Medication Order Review: Intervened Comments: Reached out to provider regarding antibiotics. Patient received 1 time doses in ER for possible pneumonia (per H+P) but continued orders were not put in. Initially provider said they were not needed, but then orders were put in a little later this morning Added IV admission order set Changed timing of pantoprazole from 0830 to 0730 per pharmacy protocol Reached out to provider regarding azithromycin dose. Order was put in as 250mg IV daily, but recommended dose of inpatient CAP is 500mg daily. Provider changed order. Pharmacy Antibiotic Review Relevant Labs: WBC 10.05 10^3/uL (4.4-10.8) 06/11/24 05:40 Temperature 36.4 C Temperature 36.4 C Pharmacy Antibiotic Activity: Abx regimen adjustment (Azithromycin order was put in as 250mg IV daily, but recommended dose of inpatient CAP is 500mg iV daily. Provider changed order.) Comments: Patient is on ceftriaxone and azithromycin, day 1, for suspected pneumonia. No cultures done as this time.
[2024-06-11] MEDS: fentaNYL 25 MCG PATCH TD (11:49)
--- NOTE | 2024-06-11 12:37 | W.PM.PROGNOT ---
Date of Service Date of service: 06/11/24 Time of Service: 12:37 Assessment and Plan Assessment and plan (1) Hypoxia: Status: Acute Assessment and plan: Admitted with acute oxygen requirement, associated with sedation, though VBG did not show hypercapnia. He may have some DORA exacerbated by oversedation with opioids/gabapeninoid. He is now alert and off oxygen, see pneumonia below. (2) Pneumonia: Status: Acute Assessment and plan: He still feels short of breath, cough with sputum. Not a clear pneumonia on admisison chest x-ray, but may have been an acute aspiration with MS deminished. Will continue CTX and azithro. Qualifiers: Pneumonia type: aspiration pneumonia Aspiration pneumonia type: unspecified Laterality: unspecified laterality Lung location: lower lobe of lung Qualified Code(s): J69.0 - Pneumonitis due to inhalation of food and vomit (3) Phantom limb (syndrome): Status: Chronic Assessment and plan: He is on TID long acting morphine, and high dose pregabalin, the levels of both are affected by his renal insufficiency, leading to aspiration/hypoxia as above. He is no longer oversedated after holding his medication. I reviewed his regimen from [facility] Rxs and phamacist who reviewed pharmacy records. He was no using IR morphine regularly. He was previously on fentanyl patch but stopped this to simplify regimen. - After discussion with patient, we decided to change long acting opioid back to fentanyl patch, as the effect will not vary with GFR. Start at 25mcg/hr based (90mg long acting morphine would be 37.5mg, cut this by 33% for incomplete cross tolerance). - Will liberalize prn oxycocodone while the patch takes effect. - Stick to one basal and one prn opioid, stop IR morphine all together as well. - Cut pregabalin dose based on renal function to 75mg TID. - Coordinate with PCP upon discharge. (4) Stage 3b chronic kidney disease: Status: Acute Assessment and plan: This appears chronic. No change in GFR overnight. Adjusting meds as above. He is euvolemic. He may benefit from low dose SHANAE/ARB therapy. get prot/cr ratio to help assess (5) DVT prophylaxis: Status: Resolved Assessment and plan: LMWH Subjective Subjective Patient reports: tolerating a regular diet and bowel movement; denies nausea, vomiting or fever Interval history since last seen: He is awake this morning. Having his chronic pain in the left neck. He did eat breakfast. Feels alert now. States he has been on a schedule of his pain medication for the past year, nothing has changed. He does have a cough and thick phlegm this morning, brown, and feels more SOB than usual, though he is no longer on oxygen. Exam Narrative Exam Narrative: Alert, sitting up in chair, wincing and rubbing his left neck. Lungs are clear except courseness in bilateral bases. Heart regular, I do not appreciate a murmur. hear heart sounds but there appears to be a murmur. There is no abdominal tenderness. Lower extremities show trace edema bilaterally, normal color, arm. The left arm stump appears to be intact without erythema or any evidence of infection. Objective Last Vital Signs Temp 36.4 C L 06/11/24 06:01 Pulse 82 06/11/24 07:01 Resp 15 06/11/24 07:01 BP 137/65 06/11/24 07:01 Pulse Ox 93 06/11/24 07:01 Laboratory Results - last 24 hr 06/10/24 06/10/24 06/11/24 19:25 23:24 00:05 WBC 10.27 RBC 4.79 Hgb 14.0 Hct 44.6 MCV 93 MCH 29.2 MCHC 31.4 L RDW 13.2 Plt Count 160 MPV 10.5 Immature Gran % 0.4 Neutrophils % 87.6 Lymphocytes % 4.8 Monocytes % 6.1 Eosinophils % 0.7 Basophils % 0.4 Nucleated RBC % 0.0 Absolute Neutrophils 9.00 H Absolute Lymphocytes 0.49 L Absolute Monocytes 0.63 Absolute Eosinophils 0.07 Absolute Basophils 0.04 PT 10.8 INR 1.1 APTT 28.3 VBG pH 7.32 VBG pCO2 43 VBG pO2 68 VBG HCO3 22 L VBG Total CO2 20 L VBG O2 Saturation 92 VBG Base Excess -4 L Sodium 142 Potassium 4.7 Chloride 105 Carbon Dioxide 25.3 Anion Gap 11.7 H BUN 17 Creatinine 1.8 H Est GFR (CKD-EPI 2020) 41.51 Glucose 128 H Calcium 8.8 Total Bilirubin 0.49 AST 19 ALT 19 Alkaline Phosphatase 186 H Troponin I < 50 NT-Pro-B Natriuret Pep 65 Total Protein 7.7 Albumin 3.7 COVID-19 Source Nasopharynx SARS-CoV-2 (PCR) Negative Influenza Type A (PCR) Negative Influenza Type B (PCR) Negative RSV (PCR) Negative 06/11/24 05:40 WBC 10.05 RBC 4.48 Hgb 13.3 L Hct 42.1 MCV 94 MCH 29.7 MCHC 31.6 L RDW 13.3 Plt Count 150 MPV 10.5 Immature Gran % 0.4 Neutrophils % 94.1 Lymphocytes % 3.9 Monocytes % 1.4 Eosinophils % 0.0 Basophils % 0.2 Nucleated RBC % 0.0 Absolute Neutrophils 9.46 H Absolute Lymphocytes 0.39 L Absolute Monocytes 0.14 Absolute Eosinophils 0.00 Absolute Basophils 0.02 PT INR APTT VBG pH VBG pCO2 VBG pO2 VBG HCO3 VBG Total CO2 VBG O2 Saturation VBG Base Excess Sodium 143 Potassium 4.7 Chloride 107 Carbon Dioxide 25.4 Anion Gap 10.6 BUN 18 Creatinine 1.8 H Est GFR (CKD-EPI 2020) 41.51 Glucose 172 H Calcium 9.2 Total Bilirubin AST ALT Alkaline Phosphatase Troponin I NT-Pro-B Natriuret Pep Total Protein Albumin COVID-19 Source SARS-CoV-2 (PCR) Influenza Type A (PCR) Influenza Type B (PCR) RSV (PCR) PAWSS Have you Been Recently Intoxicated or Drunk Within the Last 30 days?: No Have you Ever Experienced Previous Episodes of Alcohol Withdrawal?: No Have you ever Experienced Withdrawal Seizures?: No Have you ever Experienced Delirium Tremens(DT)s?: No Have you ever undergone Alcohol Rehabilitation Treatment (i.e, inpt ot outpatient treatment programs)?: No Have you ever Experienced Blackouts?: No Have you ever Combined Alcohol with other Downers within the last 90 days?: No Have you ever Combined Alcohol with any other Substance of Abuse during the last 90 days?: No Positive Blood Alcohol level on Presentation? [PCS.BAL]: No Evidence of Increased Autonomic Activity (i.e. HR>120, tremor, sweating, agitation, nausea)?: No Result: 0 Time Spent with Patient Time Spent with Patient: >50 minutes Time was spent: preparing to see the patient(eg.review tests), obtaining and/or reviewing separately otained hiistory, ordering medications,tests, procedures, referring, communicating with other health care clinician, indepentently interpreting results, counseling the patient and care coordination
[2024-06-11 15:44] LABS: COMMENT (LAB VIEW ONLY) 121.58 mg/dL; PROTEIN 64.3 mg/dL; Prot/Crea Ur Ratio 0.52
[2024-06-11] MEDS: AZITHROMYCIN 500 MG in Normal Saline 250 ML 250 MG IVPB (20:00)
[2024-06-11] MEDS: Normal Saline Flush 10 ML SYR IVP (20:01)
[2024-06-11] MEDS: Pregabalin 25 MG CAP 75 MG PO (20:01)
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
[2024-06-11] MEDS: Amitriptyline 50 MG TAB PO (22:41)
--- NOTE | 2024-06-11 22:52 | NUR.NOTE ---
Nursing Note: 2149 Patient complained of pain in his right arm. observed redness and swelling proximal to the IV insertion site. Stopped IV antibiotic an flushed the IV site. Patient complained of severe pain at this site. Removed patient IV on right arm. Applied heat and elevated. Called pharmacy for their input and they suggested reducing the rate and treating with Benadryl.
[2024-06-11] MEDS: cefTRIAXone 1 GM/50 ML BAG IVPB (23:53)
[2024-06-12] MEDS: oxyCODONE 10 MG TAB PO ×3 (01:29→13:40)
[2024-06-12] MEDS: Acetaminophen 500 MG TAB PO ×2 (06:22→11:09)
[2024-06-12 06:57] LABS: Anion Gap 13.6 mmol/L (3-11); BUN 17 mg/dL (7-18); CO2 23.4 mmol/L (21.0-32.0); CREATININE 1.3 mg/dL (0.70-1.30); Calcium 9.3 mg/dL (8.5-10.1); Chloride 104 mmol/L (98-107); Estimated GFR 61.35 (mL/min/1.73m2); Glucose 120 mg/dL (74-106); Potassium 4.2 mmol/L (3.5-5.1); Sodium 141 mmol/L (136-145)
[2024-06-12 07:35] VITALS: BP 156/78; PULSE 72; RESP 16; TEMP 36.9; O2SAT 96
[2024-06-12] MEDS: Enoxaparin 40 MG/0.4 ML SYR SC (08:24)
[2024-06-12] MEDS: Pregabalin 25 MG CAP 75 MG PO ×2 (08:24→13:40)
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
[2024-06-12 11:24] VITALS: BP 140/78; PULSE 73; RESP 16; TEMP 36.6; O2SAT 93
== END 2024-06-12 14:28 | disposition home or self-care (01) | DRG 178 ==
LOC: ER 23:53 → ICU 06-11 04:33 → MS 06-11 21:13
PROVIDERS: Family Medicine; Admitting Provider Family Medicine; Emergency Provider Emergency Medicine; PCP Family Medicine; Visit Provider Family Medicine
DX: J69.0 Pneumonitis due to inhalation of food and vomit; F11.20 Opioid dependence, uncomplicated; N17.9 Acute kidney failure, unspecified; T40.2X1A Poisoning by other opioids, accidental (unintentional), initial encounter; R40.0 Somnolence; G54.7 Phantom limb syndrome without pain; R09.02 Hypoxemia; F79 Unspecified intellectual disabilities; N18.32 Chronic kidney disease, stage 3b; D64.9 Anemia, unspecified; E55.9 Vitamin D deficiency, unspecified; R33.9 Retention of urine, unspecified; F17.290 Nicotine dependence, other tobacco product, uncomplicated; Z96.82 Presence of neurostimulator; Z89.212 Acquired absence of left upper limb below elbow; G89.4 Chronic pain syndrome; Z90.3 Acquired absence of stomach [part of]; Z87.11 Personal history of peptic ulcer disease
CPT/HCPCS: 00123; 36415; 80048; 80053; 82805; 87637; 93005; 94640; 96365; 96367; 96375; 99285; J1650; 71046; 82565; 83880; 84156; 84484; 85025; 85610; 85730; 87070; 87205; 93010; 99222; 99233; 99239; J0456; J0696; J1100; J7613; J7620

== ENCOUNTER 2024-10-25 08:59 | Emergency (ER) | payer MEDICARE, MEDICAID, SELFPAY ==
[2024-10-25] VITALS (20 sets, daily range): BP systolic 129–183; BP diastolic 62–117; PULSE 63–182; RESP 6–29; TEMP 36.3; O2SAT 83–100
--- NOTE | 2024-10-25 08:45 | RT.EKG_ITS ---
APPROVED REPORT Exam: Resting ECG Reason for Exam: AMS Patient Location: E HR:108 bpm ECG Measurements Heart Rate 108 AXIS WI 143 P 39 QRSd 85 QRS 14 QT 325 T 41 QTc 436 Conclusion Sinus tachycardia...rate> 99 Consider inferior infarct...Q >35mS in II III aVF
--- NOTE | 2024-10-25 09:00 | DI.RAD_ITS ---
Exam(s) XR CHEST 2V PA LATERAL EXAM: XR CHEST 2V PA LATERAL CLINICAL HISTORY: hypoxia TECHNIQUE: 2D digital imaging was performed. Two views. COMPARISON: CR XR PORTABLE CHEST AP from 11/24/2023 CR,XR XR CHEST 2V PA LATERAL from 06/10/2024 FINDINGS: Exam is extremely limited due to lack of pulmonary inflation. Lateral view is nondiagnostic. HEART: Normal size. Aorta: Not dilated. PULMONARY VASCULATURE: Normal. MEDIASTINUM: Unremarkable. LUNGS: Bilateral increased opacities could represent pulmonary filtrate versus atelectasis. PLEURAL SPACE: No pleural effusion or pneumothorax. BONE:Left lower rib fractures. SOFT TISSUES: Unremarkable. IMPRESSION: Extremely limited exam. Bilateral infiltrates versus atelectasis. DATA REPOSITORY: RADIATION DOSE DELIVERED:
--- NOTE | 2024-10-25 09:00 | DI.CT_ITS ---
Exam(s) CT HEAD CERVICAL SPINE WO EXAM: CT HEAD CERVICAL SPINE WO CLINICAL HISTORY: altered, ? fall. TECHNIQUE: Imaging Protocol: Axial computed tomography images with coronal and sagittal reformatted images were created and reviewed COMPARISON: CT HEAD WITHOUT CONTRAST from 05/07/[address] CHEST/ABD/PEL WO from 05/21/[address] HEAD WO from 11/24/2023 CR XR CHEST 2V PA LATERAL from 10/25/2024 FINDINGS: Head CT Exam mildly limited by motion. Ventricles and Extra axial spaces: Normal in size and morphology for the patient's age. Hemorrhage: None. Cerebral parenchyma: No evidence of mass or acute infarct. Midline shift: None. Brainstem/Cerebellum: Normal. Calvarium: Normal. Visualized Paranasal sinuses/Mastoids: Clear. Soft tissues: Unremarkable. Cervical Spine CT BONES: Vertebral body heights are maintained. There is a fracture of the spinous process of C6 which is nondisplaced but mildly angulated toward the right. Postsurgical defects of the posterior element s of C7 and T1. Degenerative disc changes and facet degenerative changes are seen . SOFT TISSUES: No paraspinal hematoma. The airway appears intact. No pneumothorax is seen at the lung apices. Spinal stimulator device extends into is the spinal canal the C6-C7 level. No IMPRESSION: Head CT: Mildly limited by motion. No acute abnormality. C-spine CT: Fracture of the spinous process C6. Findings called to Dr. Tom of the emergency department. RADIATION DOSE DELIVERED: 1,264.66mGy.cm Total DLP DATA REPOSITORY: All CT scans at this facility are submitted to the National Radiology Data Registry (NRDR) Dose Index Registry (DIR) with the [employer] ([employer]). RADIATION OPTIMIZATION: All CT scans at this facility use at least one of these dose optimization te chniques: automated exposure control; mA and/or kV adjustment per patient size (includes targeted exa ms where dose is matched to clinical indication); or iterative reconstruction.
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
[2024-10-25 09:31] LABS: BE (Venous) -5 mmol/L (-2-3); HCO3 (Venous) 23 mmol/L (23-28); Lactate 1.9 mmol/L (0.6-1.4); O2 Sat (Venous) 50 %; TCO2 (Venous) 22 mmol/L (24-29); pO2 (Venous) 29 mmHg
[2024-10-25 09:32] LABS: Abs Immature Grans 0.07 10^3/uL (0.0-0.06); Absolute Basophil Count 0.01 10^3/uL (0.0-0.2); Absolute Lymphocyte Count 0.32 10^3/uL (1.2-3.4); Absolute Monocyte Count 0.75 10^3/uL (0.1-0.8); Absolute Neutrophil Count 10.23 10^3/uL (1.2-6.7); Basophils % 0.1 %; HCT 40.2 % (40.0-50.0); HGB 12.3 g/dL (13.5-17.5); Immature Grans % 0.6 %; Lymphocytes % 2.8 %; MCH 28.9 pg (27.0-33.0); MCHC 30.6 % (32.0-36.0); MCV 94 fL (80-95); MPV 10.5 fL (8.0-11.0); Monocytes % 6.6 %; Neutrophils % 89.9 %; Platelet Count 164 10^3/uL (130-400); RBC 4.26 10^6/uL (4.36-5.78); RDW-SD 48.1 fL; WBC 11.38 10^3/uL (4.4-10.8)
[2024-10-25 09:34] LABS: pCO2 (Venous) 62 mmHg (41-51); pH (Venous) 7.18 (7.31-7.41)
[2024-10-25 09:56] LABS: ALT 22 U/L (16-63); AST 34 U/L (15-37); Albumin 3.5 g/dL (3.4-5.0); Alkaline Phosphatase 192 U/L (46-116); Anion Gap 9.8 mmol/L (3-11); BUN 43 mg/dL (7-18); Bilirubin, Total 0.49 mg/dL (0.2-1.0); CO2 27.2 mmol/L (21.0-32.0); Calcium 8.2 mg/dL (8.5-10.1); Chloride 105 mmol/L (98-107); Estimated GFR 7.95 (mL/min/1.73m2); Glucose 135 mg/dL (74-106); Potassium 5.5 mmol/L (3.5-5.1); Sodium 142 mmol/L (136-145); Total Protein 7.1 g/dL (6.4-8.2); Troponin I 16 ng/L (<or=76)
[2024-10-25 09:57] LABS: CREATININE 7.1 mg/dL (0.70-1.30)
[2024-10-25 10:03] LABS: Creatine Kinase 2131 U/L (39-308)
[2024-10-25 10:30] LABS: COVID-19 PCR Negative (Negative); Influenza A PCR Negative (Negative); Influenza B PCR Negative (Negative); RSV PCR Negative (Negative)
[2024-10-25 10:34] LABS: Source Nasopharynx
[2024-10-25] MEDS: Lactated Ringers 500 ML 1000 ML IV ×2 (10:37→12:00)
[2024-10-25] MEDS: Lidocaine 2% Jelly 6 ML SYR (11:00)
--- NOTE | 2024-10-25 11:23 | DI.CT_ITS ---
Exam(s) CT CHEST/ABD/PEL WO CT THORACIC LUMBAR SPINE REC EXAM: CT CHEST/ABD/PEL WO CLINICAL HISTORY: trauma, fall. TECHNIQUE: Imaging Protocol: Axial computed tomography images with coronal and sagittal reformatted images were created and reviewed. Computer aided detection (CAD) was utilized. Axial, coronal and sagittal images of thoracic and lumbar spine were reconstructed from the chest abd omen pelvic CT. CONTRAST MATERIAL: Intr noncontrast peer Oral: / no COMPARISON: CT CT CHEST/ABD/PEL WO from 05/21/[address] ABDOMEN PELVIS WO from 11/07/2022 CR XR PORTABLE CHEST AP from 11/24/2023 CR,XR XR CHEST 2V PA LATERAL from 06/10/[address] THORACIC LUMBAR SPINE REC from 10/25/2024 CR XR CHEST 2V PA LATERAL from 10/25/2024 FINDINGS: CHEST: By streak artifact from patient arm positioning a metallic objects outside of the patient. Evaluati on of the lungs limited due to respiratory motion. Tracheobronchial tree: Patent. Pulmonary parenchyma: Respiratory motion. No consolidation or dominant measurable mass. Pleura: No effusion or pneumothorax. Mediastinum: Within normal limits. Aorta: Thoracic portion non-dilated. Heart: No pericardial effusion. Bones: Multiple old left rib fractures. Acute nondisplaced fracture of the left 11th rib. No lytic or blastic lesions. Stable negq-[id number] compression fracture of T6. No acute compression fractures. Degenerative changes and scoliosis. Soft tissues: Unremarkable. ABDOMEN and PELVIS: Liver: Normal density. No measurable mass. Gallbladder and biliary tract: Status post cholecystectomy. Stable mild biliary dilatation. Pancreas: Atrophic. No abnormal calcifications or inflammatory process. Spleen: Normal. Kidneys: Status post left nephrectomy. Normal size, contour and axis. 9 millimeter stone noted in the upper 3rd of the right ureter causing mild to moderate hydronephrosis. No suspicious masses seen. Adrenal glands: No masses seen. Aorta: Abdominal portion non-dilated. Lymph nodes: Within normal limits. Soft tissues: Spinal stimulator device posterior right lower back. Bladder: Air noted within urinary bladder. No wall thickening, stone or mass visible. Bowel: No obstruction or bowel wall thickening. Normal quantity of stool. Neck is normal. Peritoneal cavity: No ascites. No focal collection. No mesenteric inflammatory response. No free ai r. Bones: Degenerative changes and scoliosis. Hardware noted in right femur. No evidence acute fracture. Reproductive organs: Within normal limits. IMPRESSION: Chest CT: Acute fracture of the left 11th rib. Multiple old left rib fractures. No pneumothorax. Lung s not well evaluated due to respiratory motion. Abdomen pelvic CT 9 millimeter stone in the proximal right ureter causing nevn-cc-nlybuuze hydronephr osis. Status post left nephrectomy. RADIATION DOSE DELIVERED: 771.22mGy.cm Total DLP DATA REPOSITORY: All CT scans at this facility are submitted to the National Radiology Data Registry (NRDR) Dose Index Registry (DIR) with the [employer] (A[employer]). RADIATION OPTIMIZATION: All CT scans at this facility use at least one of these dose optimization te chniques: automated exposure control; mA and/or kV adjustment per patient size (includes targeted exa ms where dose is matched to clinical indication); or iterative reconstruction.
[2024-10-25 11:55] LABS: Troponin I 17 ng/L (<or=76)
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
--- NOTE | 2024-10-25 13:05 | DI.RAD_ITS ---
Exam(s) XR SHOULDER LT COMPLETE 2+V EXAM: XR SHOULDER LT COMPLETE 2+V CLINICAL HISTORY: fall. TECHNIQUE: 2D digital imaging was performed. Three views. COMPARISON: CT CT CHEST PE CTA from 12/25/2021 CR,XR XR HUMERUS LT from 05/21/2022 CR XR PORTABLE CHEST AP from 11/24/2023 CR,XR XR CHEST 2V PA LATERAL from 06/10/2024 CR XR CHEST 2V PA LATERAL from 10/25/[address] CHEST/ABD/PEL WO from 10/25/2024 FINDINGS: BONES: Acute fracture through the surgical neck of the humerus. Mild displacement and angulation. M ild impaction. Underlying chronic lucency of the humeral head.. Amputation at mid shaft of humerus. JOINTS: No dislocation present. Narrowing of the glenohumeral joint. AC joint is not widened. SOFT TISSUE: Nor soft tissue swelling around shoulder. IMPRESSION: Proximal humeral fracture. DATA REPOSITORY: RADIATION DOSE DELIVERED:
--- NOTE | 2024-10-25 13:06 | DI.RAD_ITS ---
Exam(s) XR KNEE LT 4V AP,LAT,JOSE,PAT EXAM: XR KNEE LT 4V AP,LAT,JOSE,PAT CLINICAL HISTORY: fall, pain. TECHNIQUE: 2D digital imaging was performed. Three views. COMPARISON: CR RIGHT KNEE 3 VIEWS from 11/02/2011 FINDINGS: BONES: No acute fracture is present. No bony destructive lesion is seen. Spurring and inferior pole of patella. JOINTS: The knee is normally aligned. No joint effusion is seen. Joint spaces are maintained. SOFT TISSUE: Mild anterior soft tissue swelling. Arterial calcifications. IMPRESSION: No evidence of fracture or joint effusion. DATA REPOSITORY: RADIATION DOSE DELIVERED:
--- NOTE | 2024-10-25 13:06 | DI.RAD_ITS ---
Exam(s) XR KNEE RT 4V AP,LAT,JOSE,PAT EXAM: XR KNEE RT 4V AP,LAT,JOSE,PAT CLINICAL HISTORY: fall, pain. TECHNIQUE: 2D digital imaging was performed. Three views. COMPARISON: CR XR KNEE LT 4V AP,LAT,JOSE,PAT from 10/25/2024 FINDINGS: BONES: No acute fracture is present. No bony destructive lesion is seen. Intramedullary rosibel in femu r. Small patellar enthesophyte. JOINTS: The knee is normally aligned. No joint effusion is seen. The joint spaces are maintained. SOFT TISSUE: Arterial calcifications. IMPRESSION: No acute abnormality. DATA REPOSITORY: RADIATION DOSE DELIVERED:
--- NOTE | 2024-10-25 13:24 | NUR.NOTE ---
Nursing Note: this RN spoke with pt sister, DARÍO. She is says he had not been able to ambulate at his baseline she said recently he has become very unsteady on his feet and she is concern about her ability to take care of him at home.
[2024-10-25 13:56] LABS: BE (Venous) -5 mmol/L (-2-3); HCO3 (Venous) 23 mmol/L (23-28); O2 Sat (Venous) 65 %; TCO2 (Venous) 22 mmol/L (24-29); pCO2 (Venous) 60 mmHg (41-51); pO2 (Venous) 35 mmHg
[2024-10-25] MEDS: VANCOMYCIN/WATER (PEG) 1.25 GM/250 ML BAG IVPB (14:08)
[2024-10-25] MEDS: MEROPENEM 1 GM in Normal Saline 100 ML IVPB (14:09)
--- NOTE | 2024-10-25 14:16 | NUR.NOTE ---
Nursing Note: patient verbally responsive after naloxone administration.
[2024-10-25 14:22] LABS: Troponin I 18 ng/L (<or=76)
[2024-10-25 14:24] LABS: BUN 46 mg/dL (7-18); Calcium 8.1 mg/dL (8.5-10.1); Chloride 106 mmol/L (98-107); Estimated GFR 7.33 (mL/min/1.73m2); Glucose 120 mg/dL (74-106); Potassium 5.8 mmol/L (3.5-5.1); Sodium 141 mmol/L (136-145)
[2024-10-25 14:36] LABS: Creatine Kinase 2521 U/L (39-308)
[2024-10-25 14:37] LABS: CREATININE 7.6 mg/dL (0.70-1.30)
== END 2024-10-25 15:32 | disposition short-term general hospital (02) ==
PROVIDERS: Emergency Provider Student in an Organized Health Care Education/Training Program; PCP Family Medicine
DX: T40.2X1A Poisoning by other opioids, accidental (unintentional), initial encounter; E87.5 Hyperkalemia; N13.2 Hydronephrosis with renal and ureteral calculous obstruction; A41.9 Sepsis, unspecified organism; S12.500A Unspecified displaced fracture of sixth cervical vertebra, initial encounter for closed fracture; S42.202A Unspecified fracture of upper end of left humerus, initial encounter for closed fracture; S22.32XA Fracture of one rib, left side, initial encounter for closed fracture; N17.9 Acute kidney failure, unspecified; R41.82 Altered mental status, unspecified
CPT/HCPCS: 51702; 71250; 80048; 80053; 82550; 82805; 87040; 87637; 93005; 96361; 96365; 96368; 99283; 99291; 70450; 71046; 72125; 73030; 73564; 74176; 83605; 84484; 85025; 93010; J2185; J2310; J3372

== ENCOUNTER → 2025-08-10 09:08 | Outpatient (BNVA) | payer MEDICARE, MEDICAID, SELFPAY | PROVIDERS: PCP Family Medicine; Referring Provider Family Medicine; Visit Provider Urology | DX: N20.1 Calculus of ureter (principal) | CPT/HCPCS: 99214 ==

== ENCOUNTER → 2025-09-27 00:33 | Outpatient (CLI) | payer MEDICARE, MEDICAID, SELFPAY ==
--- NOTE | 2025-09-27 09:15 | DI.US_ITS ---
Exam(s) US RENAL EXAM: US RENAL CLINICAL HISTORY: ? hydronephrosis,calculus of prox rt ureter,n20.1. TECHNIQUE: Arellano scale, color and spectral Doppler were used. COMPARISON: US US RENAL from 03/18/[address] CHEST/ABD/PEL WO from 10/25/2024 FINDINGS: Renal size in cm: Right: 10.1. Left: The patient is status post left nephrectomy.. Echogenicity: Normal. Hydronephrosis: No. Cyst or mass: No. Nephrolithiasis: No. Other findings: Note is made of fatty infiltration of the liver. Bladder:Normal. Ureteral jets: Right: Not visualized on this examination. Prevoid vol:302 cc Postvoid vol:9 cc Prostate: Not visualized on this examination. IMPRESSION: 1. History of a prior left nephrectomy. 2. There is no evidence of right nephrolithiasis or hydronephrosis. 3. Fatty infiltration of the liver. DATA REPOSITORY:
== END ==
LOC: DI 00:33
PROVIDERS: PCP Family Medicine; Visit Provider Urology
DX: N20.1 Calculus of ureter (principal); K76.0 Fatty (change of) liver, not elsewhere classified
CPT/HCPCS: 76770

== ENCOUNTER → 2025-10-05 10:45 | Outpatient (BNVA) | payer MEDICARE, MEDICAID, SELFPAY | PROVIDERS: PCP Family Medicine; Referring Provider Family Medicine; Visit Provider Urology | DX: N20.2 Calculus of kidney with calculus of ureter (principal); Z90.5 Acquired absence of kidney | CPT/HCPCS: 99213 ==